=== PATIENT | female | born 1985 | race African-American/Black ===

== ENCOUNTER 2017-05-23 18:03 | Emergency (ER) | payer OTHER ==
[2017-05-23 18:10] VITALS: BP 152/75; PULSE 76; TEMP 98.4; BMI 28.3
[2017-05-23] MEDS ORDERED: SULFAMETHOXAZOLE/TRIMETHOPRIM 800MG/160MG D.S. TABLET PO ONE (19:14)
--- NOTE | 2017-05-23 19:15 | PDOC ---
History of Present Illness - General Chief Complaint: Rash Stated Complaint: PAIN Time Seen by Provider: 05/23/17 19:04 History Source: Patient Exam Limitations: No Limitations - History of Present Illness Initial Comments: 05/23/17 19:09 Patient had hair extensions placed last week, but felt pain and swelling to her scalp therefore had them removed. Noted after the removal there were multiple areas of tenderness and since that time has developed small abscesses to her scalp. Notes 3 areas that are most painful. Denies fever and has had no noted drainage but is difficult to see as they are in the back of her head. Agent states she is prone to abscesses and has had multiple in different areas of her body. Timing/Duration: reports: constant, getting worse Severity: Yes: mild, moderate Location: reports: scalp Past History - Travel Traveled outside of the country in the last 30 days: No Close contact w/someone who was outside of country & ill: No - Past Medical History Allergies/Adverse Reactions: Allergies Allergy/AdvReac Type Severity Reaction Status Date / Time No Known Allergies Allergy Verified 05/23/17 18:10 Home Medications: Ambulatory Orders Insulin Pump Cartridge [Cartridge Stamped] 0 units SQ DAILY 10/08/15 Aspirin [ASA -] 81 mg PO DAILY #0 tab.chew 03/15/16 Metoprolol Tartrate [Lopressor -] 25 mg PO DAILY #0 tablet 03/15/16 Sertraline HCl [Zoloft -] 100 mg PO DAILY #0 tablet 03/15/16 Atorvastatin Ca [Lipitor] 40 mg PO HS 05/23/17 Chlorhexidine Gluconate [Hibiclens For Decolonization -] 1 applic TP DAILY #1 bottle 05/23/17 Insulin (LOG) Aspart [NovoLOG -] 0 unit SQ DAILY 05/23/17 Lisinopril 5 mg PO ASDIR 05/23/17 Sulfamethoxazole/Trimethoprim [Bactrim *Ds*] 1 each PO BID #14 tablet 05/23/17 Asthma: No Cancer: No Cardiac Disorders: Yes (cardiac bypass) Diabetes: Yes HTN: Yes Hypercholesterolemia: Yes Seizures: No Thyroid Disease: Yes ( A CHILD) - Surgical History Abdominal Surgery: Yes (Gastric sleeve) Cardiac Surgery: Yes (CABG 2013/ stent) Gastric Stapling: Yes (sleeve 2012) - Reproductive History (#): 6 Para: 2 Therapeutic (s) & number: Yes (2) Spontaneous : 2 - Suicide/Smoking/Psychosocial Hx Smoking Status: Yes Smoking History: Current every day smoker Have you smoked in the past 12 months: No Number of Cigarettes Smoked Daily: 6 If you are a former smoker, when did you quit?: 09/12 Cigars Per Day: 1 Information on smoking cessation initiated: Yes 'Breaking Loose' booklet given: 05/23/17 Hx Alcohol Use: No Drug/Substance Use Hx: No Substance Use Type: None Hx Substance Use Treatment: No Review of Systems - Review of Systems Able to Perform ROS?: Yes Is the patient limited Hungarian proficient: Yes Constitutional: Yes: Symptoms Reported, See HPI, Malaise. No: Fever Integumentary: Yes: Symptoms Reported, See HPI, Lesions Neurological: Yes: Symptoms reported, See HPI, Headache (from the area of tenderness and abscess) All Other Systems: Reviewed and Negative *Physical Exam - Vital Signs Last Vital Signs Temp Pulse Resp BP Pulse Ox 98.4 F 76 19 152/75 100 05/23/17 18:08 05/23/17 18:08 05/23/17 18:08 05/23/17 18:08 05/23/17 18:08 - Physical Exam General Appearance: Yes: Nourished, Appropriately Dressed, Apparent Distress, Mild Distress HEENT: positive: BRDA, Normal ENT Inspection, TMs Normal, Pharynx Normal, Other (3 lesions to base of scalp fluctuant and painful) Neck: positive: Tender (lymphadenopathy to the right posterior cervical chains) , Supple, Lymphadenopathy (R) Respiratory/Chest: positive: Lungs Clear, Normal Breath Sounds Cardiovascular: positive: Regular Rate Extremity: positive: Normal Capillary Refill Integumentary: positive: Other (3 pointing fluctuant lesions to the base of scalp that are tender and warm to touch) Neurologic: positive: environmental compliance inspector II-XII NML intact, Fully Oriented, Alert, Normal Mood/ Affect, Normal Response Procedures - Incision and Drainage I&D Site: Right: Other (scalp, 2 lesions) Anesthesia: 1% Lidocaine Blade Size: 11 Progress Note - Progress Note Progress Note: Scalp abscess incised and drained. Culture sent, will start on Bactrim *DC/Admit/Observation/Transfer Diagnosis at time of Disposition: Abscess - Discharge Dispostion Disposition: HOME Condition at time of disposition: Stable Admit: No - Prescriptions Prescriptions: Sulfamethoxazole/Trimethoprim [Bactrim *Ds*] 1 each PO BID #14 tablet - Patient Instructions Printed Discharge Instructions: DI for Skin Abscess Additional Instructions: Rest, keep area elevated. Avoid strenuous activity or exercise until wound is healed Use hot soaks to area to bring more blood to the surface and encourage drainage May change dressings as needed to keep clean - Allow water from shower to wash area thoroughly for 2-3 minutes, and pat dry upon exit of shower and replace dressing. Change his dressing daily until the wound is completely healed. May use Tylenol or Motrin for mild pain relief Use stronger medications as directed and prescribed Continue all medications as prescribed- Bactrim every 12 hours for one week Followup with private physician in 2-3 days for wound check Return to emergency Department for worsening swelling, pain, redness, fevers as needed Mefoxin resistant Staphylococcus aureus is a normal skin bacteria and is mutated to be resistant to penicillin type drugs. The wounds may be draining and there for contagious to other family members. Vigorous handwashing and avoidance of skin contact of draining lesions it is important . All family members Will need to be protected and perform thorough cleaning of linens /towels/clothing. To decontaminate household: Soak in bath; in one half cup of bleach in 1 full tub of water 2 times a week x3 weeks With own scrub Nylon use chlorohexidine soap twice a week to decontaminate skin Clean tub /toilet with bleach wipes after each use Do not use same linens/avoid contact until lesions are healed Followup with private physician/knitting machine fixer head Take all of Bactrim as directed May use ibuprofen or Tylenol for pain relief Followup with PMD in one week if no resolution Make appointment with knitting machine fixer head for evaluation when possible - Post Discharge Activity Forms/Work/School Notes: Back to Work
[2017-05-23] MEDS ORDERED: SULFAMETHOXAZOLE/TRIMETHOPRIM 800MG/160MG D.S. TABLET ONE (19:33)
--- NOTE | 2017-05-25 12:41 | PDOC ---
Patient Follow-up (Call Back) - Post ED Follow - Up Condition at time of discharge: Stable Disposition at time of original discharge: HOME Reason for Call Back: Abnwl. Microbiology (Patient wound culture with positive MRSA on Bactrim appropriate treatment.)
== END 2017-05-23 19:47 | disposition home or self-care (01) ==
LOC: JERFT 18:03
PROC: 0J900ZZ Drainage of Scalp Subcutaneous Tissue and Fascia, Open Approach (ICD-10-PCS; principal; 2017-05-23)
DX: L02.811 Cutaneous abscess of head [any part, except face] (principal); I25.810 Atherosclerosis of coronary artery bypass graft(s) without angina pectoris; I10 Essential (primary) hypertension; F17.210 Nicotine dependence, cigarettes, uncomplicated; Z95.1 Presence of aortocoronary bypass graft; Z95.5 Presence of coronary angioplasty implant and graft; Z79.4 Long term (current) use of insulin; Z96.41 Presence of insulin pump (external) (internal); E10.9 Type 1 diabetes mellitus without complications; E78.00 Pure hypercholesterolemia, unspecified; Z98.84 Bariatric surgery status
CPT/HCPCS: 10060; 87070; 87186; 87205; 99281-25

== ENCOUNTER 2017-05-24 09:16 | Emergency (ER) | payer OTHER ==
[2017-05-24 09:25] VITALS: BP 129/67; PULSE 94; TEMP 98.3; BMI 25.8
--- NOTE | 2017-05-24 11:21 | PDOC ---
History of Present Illness - General Chief Complaint: Wound Stated Complaint: REVISIT Time Seen by Provider: 05/24/17 10:41 Past History - Past Medical History Allergies/Adverse Reactions: Allergies Allergy/AdvReac Type Severity Reaction Status Date / Time No Known Allergies Allergy Verified 05/24/17 09:18 Home Medications: Ambulatory Orders Insulin Pump Cartridge [Cartridge Stamped] 0 units SQ DAILY 10/08/15 Aspirin [ASA -] 81 mg PO DAILY #0 tab.chew 03/15/16 Metoprolol Tartrate [Lopressor -] 25 mg PO DAILY #0 tablet 03/15/16 Sertraline HCl [Zoloft -] 100 mg PO DAILY #0 tablet 03/15/16 Atorvastatin Ca [Lipitor] 40 mg PO HS 05/23/17 Chlorhexidine Gluconate [Hibiclens For Decolonization -] 1 applic TP DAILY #1 bottle 05/23/17 Insulin (LOG) Aspart [NovoLOG -] 0 unit SQ DAILY 05/23/17 Lisinopril 5 mg PO ASDIR 05/23/17 Sulfamethoxazole/Trimethoprim [Bactrim *Ds*] 1 each PO BID #14 tablet 05/23/17 Asthma: No Cancer: No Cardiac Disorders: Yes (cardiac bypass) Diabetes: Yes HTN: Yes Hypercholesterolemia: Yes Seizures: No Thyroid Disease: Yes ( A CHILD) - Surgical History Abdominal Surgery: Yes (Gastric sleeve) Cardiac Surgery: Yes (CABG 2013/ stent) Gastric Stapling: Yes (sleeve 2012) - Reproductive History (#): 6 Para: 2 Therapeutic (s) & number: Yes (2) Spontaneous : 2 - Suicide/Smoking/Psychosocial Hx Smoking Status: Yes Smoking History: Current every day smoker Have you smoked in the past 12 months: No Number of Cigarettes Smoked Daily: 6 If you are a former smoker, when did you quit?: 09/12 Cigars Per Day: 1 Information on smoking cessation initiated: No 'Breaking Loose' booklet given: 05/23/17 Hx Alcohol Use: No Drug/Substance Use Hx: No Substance Use Type: None Hx Substance Use Treatment: No *Physical Exam - Vital Signs Last Vital Signs Temp Pulse Resp BP Pulse Ox 98.3 F 94 H 18 129/67 99 05/24/17 09:18 05/24/17 09:18 05/24/17 09:18 05/24/17 09:18 05/24/17 09:18
[2017-05-24] MEDS ORDERED: SULFAMETHOXAZOLE/TRIMETHOPRIM 800MG/160MG D.S. TABLET PO ONE (11:22)
[2017-05-24] MEDS ORDERED: ACETAMINOPHEN 500 MG TABLET (FP) ONE (11:25)
[2017-05-24] MEDS ORDERED: SULFAMETHOXAZOLE/TRIMETHOPRIM 800MG/160MG D.S. TABLET ONE (11:25)
--- NOTE | 2017-05-24 11:31 | PDOC ---
Suture Removal/Wound Check HPI - History of Present Illness Chief Complaint: Wound Stated Complaint: REVISIT Time Seen by Provider: 05/24/17 10:41 History Source: Yes: Patient Exam Limitations: Yes: No Limitations Treated at: [facility] Date of Last ED visit: 05/23/17 - Previous ED Treatment Type of procedure performed on last visit: Yes: I&D of Abscess Tetanus Immunization: Yes: Up to Date Antibiotics Prescribed: Yes (bactrim) - Onset of Previous Treatment Date of Occurence: 05/23/17 Comment:: 05/24/17 11:31 My chief complaint: Raised tender area on scalp getting worse History of present illness: Patient is a 32-year-old female with a history of depression, hypertension, hyperlipidemia, and gastric sleeve and insulin- dependent diabetes and cardiac bypass surgery here today complaining of worsening tenderness and swelling of an abscess on her occipital scalp. Patient was here yesterday had I&D of area patient reports that it is getting bigger and more tender. Patient's tetanus is up-to-date patient has been afebrile no chills. Patient was unable to medicinal plant picker her Bactrim DS this morning did not take any dose today. Past History - Past Medical History Allergies/Adverse Reactions: Allergies Allergy/AdvReac Type Severity Reaction Status Date / Time No Known Allergies Allergy Verified 05/24/17 09:18 Home Medications: Ambulatory Orders Insulin Pump Cartridge [Cartridge Stamped] 0 units SQ DAILY 10/08/15 Aspirin [ASA -] 81 mg PO DAILY #0 tab.chew 03/15/16 Metoprolol Tartrate [Lopressor -] 25 mg PO DAILY #0 tablet 03/15/16 Sertraline HCl [Zoloft -] 100 mg PO DAILY #0 tablet 03/15/16 Atorvastatin Ca [Lipitor] 40 mg PO HS 05/23/17 Chlorhexidine Gluconate [Hibiclens For Decolonization -] 1 applic TP DAILY #1 bottle 05/23/17 Insulin (LOG) Aspart [NovoLOG -] 0 unit SQ DAILY 05/23/17 Lisinopril 5 mg PO ASDIR 05/23/17 Sulfamethoxazole/Trimethoprim [Bactrim *Ds*] 1 each PO BID #14 tablet 05/23/17 Asthma: No Cancer: No Cardiac Disorders: Yes (cardiac bypass) Diabetes: Yes (insulin dependent) HTN: Yes Hypercholesterolemia: Yes Psychiatric Problems: Yes (depression ) Seizures: No Thyroid Disease: Yes ( A CHILD) - Surgical History Abdominal Surgery: Yes (Gastric sleeve) Cardiac Surgery: Yes (CABG 2013/ stent) Gastric Stapling: Yes (sleeve 2012) - Reproductive History (#): 6 Para: 2 Therapeutic (s) & number: Yes (2) Spontaneous : 2 - Suicide/Smoking/Psychosocial Hx Smoking Status: Yes Smoking History: Current every day smoker Have you smoked in the past 12 months: No Number of Cigarettes Smoked Daily: 6 If you are a former smoker, when did you quit?: 09/12 Cigars Per Day: 1 Information on smoking cessation initiated: No 'Breaking Loose' booklet given: 05/23/17 Hx Alcohol Use: No Drug/Substance Use Hx: No Substance Use Type: None Hx Substance Use Treatment: No Suture Removal/Wound Check PE - Physical Exam Laceration/Wound Check Symptoms: reports: Pain, Other Comment (raised tender area lower occipital on rt.) Comments: 05/24/17 11:24 Raised tender area right lower occipital scalp with slight crusting of area Current Severity Level: Mild Maximum Severity Level: Moderate Location of Laceration/Wound: right: Head (occipital scalp rt. sided) *Review of Systems - Review of Systems Able to Perform ROS?: Yes Integumentary: Yes: Other (raised tender area rt. proximal scalp pea size with scabbing of area) Neurological: No: Symptoms reported Procedures - Consent Consent obtained: From Patient - Incision and Drainage I&D Site: Right: Other (occipital scalp ) Betadine cleansed: Yes Anesthesia: 1% Lidocaine Volume(ml): 2 Blade Size: 18 gauge needle Attempts: 2 (serosanquinous drainage small amount) Plain Packing: No Complications: none Dressing: No Medical Decision Making - Medical Decision Making 05/24/17 11:26 Patient is a 32-year-old female with a history of depression, hypertension, hyperlipidemia, and gastric sleeve and insulin-dependent diabetes and cardiac bypass surgery here today complaining of worsening tenderness and swelling of an abscess on her occipital scalp. Patient was here yesterday had I&D of area patient reports that it is getting bigger and more tender. Patient's tetanus is up-to-date patient has been afebrile no chills. Patient was unable to medicinal plant picker her Bactrim DS this morning did not take any dose today. abscess occipital scalp PLAN: I & D of abscess with minimla results acetaminophen 1000 mg po now BACTRIM DS 1 tab now *DC/Admit/Observation/Transfer Diagnosis at time of Disposition: Abscess, scalp - Discharge Dispostion Disposition: HOME Condition at time of disposition: Stable - Patient Instructions Additional Instructions: Apply warm soaks to raised area on scalp every 2-3 hours for 15 minutes each time Follow-up with your primary care provider within the next 2 days Return to emergency room if any fever or increased tenderness or swelling of areas involved Continue to take her antibiotic as previously ordered Patient voiced understanding of discharge instructions and all questions were answered And thank you for choosing [facility] emergency room for your medical needs today
== END 2017-05-24 11:50 | disposition home or self-care (01) ==
LOC: JERFT 09:16
PROC: 0J900ZZ Drainage of Scalp Subcutaneous Tissue and Fascia, Open Approach (ICD-10-PCS; principal; 2017-05-24)
DX: L02.811 Cutaneous abscess of head [any part, except face] (principal); E78.00 Pure hypercholesterolemia, unspecified; F32.9 Major depressive disorder, single episode, unspecified; E10.9 Type 1 diabetes mellitus without complications; Z79.4 Long term (current) use of insulin; Z96.41 Presence of insulin pump (external) (internal); I25.810 Atherosclerosis of coronary artery bypass graft(s) without angina pectoris; Z95.1 Presence of aortocoronary bypass graft; Z95.5 Presence of coronary angioplasty implant and graft
CPT/HCPCS: 10060; 99281-25

== ENCOUNTER 2017-10-15 09:43 | Emergency (ER) | payer OTHER ==
[2017-10-15 09:58] VITALS: BMI 26.6
--- NOTE | 2017-10-15 10:11 | PDOC ---
History of Present Illness - General Chief Complaint: Weakness Stated Complaint: DIZZINESS, BODYACHES Time Seen by Provider: 10/15/17 10:10 Past History - Past Medical History Allergies/Adverse Reactions: Allergies Allergy/AdvReac Type Severity Reaction Status Date / Time No Known Allergies Allergy Verified 10/15/17 09:53 Home Medications: Ambulatory Orders Insulin Pump Cartridge [Cartridge Stamped] 0 units SQ DAILY 10/08/15 Aspirin [ASA -] 81 mg PO DAILY #0 tab.chew 03/15/16 Metoprolol Tartrate [Lopressor -] 25 mg PO DAILY #0 tablet 03/15/16 Sertraline HCl [Zoloft -] 100 mg PO DAILY #0 tablet 03/15/16 Atorvastatin Ca [Lipitor] 40 mg PO HS 05/23/17 Chlorhexidine Gluconate [Hibiclens For Decolonization -] 1 applic TP DAILY #1 bottle 05/23/17 Insulin (LOG) Aspart [NovoLOG -] 0 unit SQ DAILY 05/23/17 Lisinopril 5 mg PO ASDIR 05/23/17 Sulfamethoxazole/Trimethoprim [Bactrim *Ds*] 1 each PO BID #14 tablet 05/23/17 Asthma: No Cancer: No Cardiac Disorders: Yes (cardiac bypass) COPD: No Diabetes: Yes (insulin dependent) HTN: Yes Hypercholesterolemia: Yes Psychiatric Problems: Yes (depression ) Seizures: No Thyroid Disease: Yes ( A CHILD) - Surgical History Abdominal Surgery: Yes (Gastric sleeve) Cardiac Surgery: Yes (CABG 2013/ stent) Gastric Stapling: Yes (sleeve 2012) - Reproductive History (#): 6 Para: 2 Therapeutic (s) & number: Yes (2) Spontaneous : 2 - Suicide/Smoking/Psychosocial Hx Smoking Status: Yes Smoking History: Current every day smoker Have you smoked in the past 12 months: Yes Number of Cigarettes Smoked Daily: 7 If you are a former smoker, when did you quit?: 09/12 Cigars Per Day: 1 Information on smoking cessation initiated: No 'Breaking Loose' booklet given: 05/23/17 Hx Alcohol Use: No Drug/Substance Use Hx: No Substance Use Type: None Hx Substance Use Treatment: No *Physical Exam - Vital Signs Last Vital Signs Temp Pulse Resp BP Pulse Ox 98.5 F 85 19 116/60 100 10/15/17 09:54 10/15/17 09:54 10/15/17 09:54 10/15/17 09:54 10/15/17 09:54
--- NOTE | 2017-10-15 10:52 | PDOC ---
History of Present Illness - General History Source: Patient Exam Limitations: No Limitations - History of Present Illness Initial Comments: 10/15/17 10:54 The patient is a 32 year old female, with a significant past medical history of IDDM, CAD s/p PCI and stenting, s/p CABG 08/2013, hypertension, hyperlipidemia, gastric sleeve, who presents to the emergency department with headache, dizziness, diffuse joint aches, and chills since yesterday. Patient endorses decreased appetite, nausea, and diarrhea but denies any abdominal pain, vomiting , or constipation. Patient reports associated leg cramping, ankle swelling, shortness of breath with exertion and after talking, but denies any chest pain, diaphoresis, or palpitations. Patient denies a cough, fever, sore throat, or lightheadedness. Patient reports she has been taking Ibuprofen for her symptoms , with minimal relief. Patient reports recent contact with her children who had similar symptoms. She denies any recent travel. The patient admits she is noncompliant with her medications. Allergies: NKDA Past Surgical History: Gastric sleeve, CABG, Cardiac stents Social History: Current everyday smoker. No ETOH or recreational drug use. 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 <Cha Hubbard - Last Filed: 10/15/17 11:07> <Rosey Little - Last Filed: 10/15/17 15:38> - General Chief Complaint: Weakness Stated Complaint: DIZZINESS, BODYACHES Time Seen by Provider: 10/15/17 10:10 Past History <Cha Hubbard - Last Filed: 10/15/17 11:07> - Past Medical History Asthma: No Cancer: No Cardiac Disorders: Yes (cardiac bypass) COPD: No Diabetes: Yes (insulin dependent) HTN: Yes Hypercholesterolemia: Yes Psychiatric Problems: Yes (depression ) Seizures: No Thyroid Disease: Yes ( A CHILD) - Surgical History Abdominal Surgery: Yes (Gastric sleeve) Cardiac Surgery: Yes (CABG 2013/ stent) Gastric Stapling: Yes (sleeve 2012) - Reproductive History (#): 6 Para: 2 Therapeutic (s) & number: Yes (2) Spontaneous : 2 - Suicide/Smoking/Psychosocial Hx Smoking Status: Yes Smoking History: Current every day smoker Have you smoked in the past 12 months: Yes Number of Cigarettes Smoked Daily: 7 If you are a former smoker, when did you quit?: 09/12 Cigars Per Day: 1 Information on smoking cessation initiated: No 'Breaking Loose' booklet given: 05/23/17 Hx Alcohol Use: No Drug/Substance Use Hx: No Substance Use Type: None Hx Substance Use Treatment: No <LittleJo AnnRosey - Last Filed: 10/15/17 15:38> - Past Medical History Allergies/Adverse Reactions: Allergies Allergy/AdvReac Type Severity Reaction Status Date / Time No Known Allergies Allergy Verified 10/15/17 09:53 Home Medications: Ambulatory Orders Insulin Pump Cartridge [Cartridge Stamped] 0 units SQ DAILY 10/08/15 Aspirin [ASA -] 81 mg PO DAILY #0 tab.chew 03/15/16 Metoprolol Tartrate [Lopressor -] 25 mg PO DAILY #0 tablet 03/15/16 Sertraline HCl [Zoloft -] 100 mg PO DAILY #0 tablet 03/15/16 Atorvastatin Ca [Lipitor] 40 mg PO HS 05/23/17 Chlorhexidine Gluconate [Hibiclens For Decolonization -] 1 applic TP DAILY #1 bottle 05/23/17 Insulin (LOG) Aspart [NovoLOG -] 0 unit SQ DAILY 05/23/17 Lisinopril 5 mg PO ASDIR 05/23/17 Sulfamethoxazole/Trimethoprim [Bactrim *Ds*] 1 each PO BID #14 tablet 05/23/17 Review of Systems - Review of Systems Able to Perform ROS?: Yes Comments:: 10/15/17 10:55 GENERAL/CONSTITUTIONAL: +Chills, fatigue. No fever. No weakness. HEAD, EYES, EARS, NOSE AND THROAT: No change in vision. No ear pain or discharge. No sore throat. CARDIOVASCULAR: +Shortness of breath with exertion and after talking. No chest pain. RESPIRATORY: No cough, wheezing, or hemoptysis. GASTROINTESTINAL: +Nausea, diarrhea. No vomiting, or constipation. GENITOURINARY: No dysuria, frequency, or change in urination. MUSCULOSKELETAL: +Diffuse joint aches. No muscle swelling or pain. No neck or back pain. SKIN: No rash NEUROLOGIC: +Headache, dizziness. No loss of consciousness, or change in strength/sensation. ENDOCRINE: +Decreased appetite. No increased thirst. No abnormal weight change. HEMATOLOGIC/LYMPHATIC: No anemia, easy bleeding, or history of blood clots. ALLERGIC/IMMUNOLOGIC: No hives or skin allergy. <Cha Hubbard - Last Filed: 10/15/17 11:07> *Physical Exam - Vital Signs Last Vital Signs Temp Pulse Resp BP Pulse Ox 98.5 F 85 19 116/60 100 10/15/17 09:54 10/15/17 09:54 10/15/17 09:54 10/15/17 09:54 10/15/17 09:54 - Physical Exam Comments: 10/15/17 11:12 GENERAL: Awake, alert, and fully oriented, in no acute distress HEAD: No signs of trauma EYES: PERRLA, EOMI, sclera anicteric, conjunctiva clear ENT: +Dry mucosa. Auricles normal inspection, hearing grossly normal, nares patent, oropharynx clear without exudates. NECK: Normal ROM, supple, no lymphadenopathy, JVD, or masses LUNGS: Breath sounds equal, clear to auscultation bilaterally. No wheezes, and no crackles HEART: Regular rate and rhythm, normal S1 and S2, no murmurs, rubs or gallops ABDOMEN: Soft, nontender, normoactive bowel sounds. No guarding, no rebound. No masses EXTREMITIES: Normal range of motion, no edema. No clubbing or cyanosis. No cords, erythema, or tenderness NEUROLOGICAL: Cranial nerves II through XII grossly intact. Normal speech, normal gait SKIN: Warm, Dry, normal turgor, no rashes or lesions noted. <Cha Hubbard - Last Filed: 10/15/17 11:07> - Vital Signs Last Vital Signs Temp Pulse Resp BP Pulse Ox 98.5 F 85 19 116/60 100 10/15/17 09:54 10/15/17 09:54 10/15/17 09:54 10/15/17 09:54 10/15/17 09:54 <Rosey Little - Last Filed: 10/15/17 15:38> Heart Score/ECG Review - ECG Impressions Comment:: EKG read 12:36- NSR 79 bpm, biphasic T wave V2-3 similar to prior EKG. <Rosey Little - Last Filed: 10/15/17 15:38> ED Treatment Course - LABORATORY CBC & Chemistry Diagram: 10/15/17 11:16 02/16/18 11:16 <Rosey Little - Last Filed: 10/15/17 15:38> Medical Decision Making - Medical Decision Making 10/15/17 12:04 Pt presents with weakness, body aches. Symptoms more consistent with flu, however, she has very complex medical history and does not adhere to medication regimen. Will obtain labs, give IVF, obtain CXR and UA. If all wnl, will DC home. <Rosey Little - Last Filed: 10/15/17 15:38> *DC/Admit/Observation/Transfer - Attestations Scribe Attestion: 10/15/17 10:55 Documentation prepared by Cha Hubbard, acting as medical receptionist medical assistant for Rosey Little MD. <Cha Hubbard - Last Filed: 10/15/17 11:07> - Discharge Dispostion Admit: No <Rosey Little - Last Filed: 10/15/17 15:38> Diagnosis at time of Disposition: Weakness, Hyperglycemia - Discharge Dispostion Disposition: HOME Condition at time of disposition: Stable - Patient Instructions Printed Discharge Instructions: DI for Dehydration -- Adult, DI for Hyperglycemia -- Adult - Post Discharge Activity Forms/Work/School Notes: Back to Work
[2017-10-15] MEDS ORDERED: SODIUM CHLORIDE 1,000 ML IV STA (11:07)
[2017-10-15 11:50] LABS: BASO % 0.8 % (0-2.0); EOS % 0.7 % (0-4.5); HEMATOCRIT 32.8 % (32.4-45.2); HEMOGLOBIN 9.9 GM/dL (10.7-15.3); LYMPH % 26.2 % (8-40); MCHC 30.1 g/dl (32.0-36.0); MEAN CELL VOLUME 76.3 fl (80-96); MEAN PLT VOLUME 9.2 fl (7.5-11.1); MONO % 6.5 % (3.8-10.2); NEUT % 65.8 % (42.8-82.8); PLATELET COUNT 343 K/MM3 (134-434); RDW 17.4 % (11.6-15.6); WHITE BLOOD COUNT 4.4 K/mm3 (4.0-10.0)
[2017-10-15 12:04] LABS: ALBUMIN 2.3 g/dl (3.4-5.0); ANION GAP 12 (8-16); BILIRUBIN,TOTAL 0.2 mg/dL (0.2-1.0); BLOOD UREA NITROGEN 20 mg/dL (7-18); CALCIUM 7.4 mg/dL (8.5-10.1); CHLORIDE 101 mmol/L (98-107); CO2 22 mmol/L (21-32); CREATININE 1.4 mg/dL (0.55-1.02); POTASSIUM 4.1 mmol/L (3.5-5.1); SGOT/AST 37 U/L (15-37); SGPT/ALT 29 U/L (12-78); SODIUM 135 mmol/L (136-145); TOT PROT 6.1 g/dl (6.4-8.2)
[2017-10-15 12:06] LABS: ALK PHOS 203 U/L (45-117)
[2017-10-15 12:13] LABS: GLUCOSE,RANDOM 312 mg/dL (74-106)
[2017-10-15] MEDS ORDERED: INSULIN REGULAR HUMAN 100 UNITS/ML *VIAL SQ ONE (12:14)
[2017-10-15] MEDS ORDERED: INSULIN (NOVOLOG) ASPART 100 UNITS/ML 10ML VIAL ONE (12:27)
[2017-10-15 12:46] LABS: URINE APPEARANCE CLEAR; URINE BILIRUBIN NEGATIVE (NEGATIVE); URINE BLOOD 1+ (NEGATIVE); URINE COLOR LTYELLOW; URINE GLUCOSE (UA) 3+ (NEGATIVE); URINE KETONE NEGATIVE (NEGATIVE); URINE LEUK ESTERASE NEGATIVE (NEGATIVE); URINE NITRITE NEGATIVE (NEGATIVE); URINE UROBILINOGEN NEGATIVE mg/dL (0.2-1.0)
[2017-10-15 12:49] LABS: URINE PROTEIN 1+ (NEGATIVE)
[2017-10-15 12:50] LABS: EPI CELLS RARE /HPF (FEW)
[2017-10-15] MEDS ORDERED: ACETAMINOPHEN 325 MG TABLET (FP) PO ONE (13:29)
[2017-10-15] MEDS ORDERED: ACETAMINOPHEN 325 MG TABLET (FP) ONE (13:39)
[2017-10-15 14:12] VITALS: BP 132/75; PULSE 79; TEMP 98.1
--- NOTE | 2017-10-16 12:15 | EKG ---
Test Reason : Blood Pressure : / mmHG Vent. Rate : 079 BPM Atrial Rate : 079 BPM P-R Int : 138 ms QRS Dur : 094 ms QT Int : 398 ms P-R-T Axes : 033 040 032 degrees QTc Int : 456 ms NORMAL SINUS RHYTHM T WAVE ABNORMALITY, CONSIDER ANTERIOR ISCHEMIA ABNORMAL ECG WHEN COMPARED WITH ECG OF 14-MAR-2016 15:01, NO SIGNIFICANT CHANGE WAS FOUND Confirmed by LORNA VELOZ MD ([id number]) on 10/16/2017 12:15:07 PM Referred By: Confirmed By:LORNA VELOZ MD
== END 2017-10-15 13:50 | disposition home or self-care (01) ==
LOC: JER 09:43
PROC: 3E0337Z Introduction of Electrolytic and Water Balance Substance into Peripheral Vein, Percutaneous Approach (ICD-10-PCS; principal; 2017-10-15)
DX: E09.65 Drug or chemical induced diabetes mellitus with hyperglycemia (principal); Z79.4 Long term (current) use of insulin; R53.1 Weakness; I25.10 Atherosclerotic heart disease of native coronary artery without angina pectoris; I10 Essential (primary) hypertension; Z95.1 Presence of aortocoronary bypass graft; Z95.5 Presence of coronary angioplasty implant and graft; E78.00 Pure hypercholesterolemia, unspecified
CPT/HCPCS: 36415; 71046-TC-FY; 80053; 81003; 81015; 82550; 84484; 84703; 85025; 87086; 93005; 93010; 96360; 99285-25; J7030

== ENCOUNTER 2017-11-20 11:44 | Inpatient (IN) | payer OTHER ==
[2017-11-20] MEDS ORDERED: SODIUM CHLORIDE 1,000 ML IV SCH (13:15)
[2017-11-20 13:34] LABS: EOS % 0.5 % (0-4.5); MEAN PLT VOLUME 9.2 fl (7.5-11.1)
[2017-11-20 13:36] LABS: BASO % 0.9 % (0-2.0); HEMATOCRIT 31.7 % (32.4-45.2); HEMOGLOBIN 9.9 GM/dL (10.7-15.3); LYMPH % 19.7 % (8-40); MCH 23.5 pg (25.7-33.7); MCHC 31.3 g/dl (32.0-36.0); MEAN CELL VOLUME 74.9 fl (80-96); MONO % 6.9 % (3.8-10.2); PLATELET COUNT 364 K/MM3 (134-434); RBC 4.23 M/mm3 (3.60-5.2); WHITE BLOOD COUNT 8.5 K/mm3 (4.0-10.0)
[2017-11-20 13:44] LABS: URINE APPEARANCE CLEAR; URINE BILIRUBIN NEGATIVE (<2.0 mg/dL); URINE BLOOD NEGATIVE (NEGATIVE); URINE COLOR COLORLESS; URINE GLUCOSE (UA) 3+ (NEGATIVE); URINE KETONE 1+ (NEGATIVE); URINE LEUK ESTERASE NEGATIVE (NEGATIVE); URINE NITRITE NEGATIVE (NEGATIVE); URINE UROBILINOGEN NEGATIVE mg/dL (0.2-1.0)
[2017-11-20] MEDS ORDERED: INSULIN REGULAR HUMAN 100 UNITS/ML *VIAL IVPUSH ONE (13:44)
[2017-11-20] MEDS ORDERED: CEFTRIAXONE IVPB ONE (13:45)
[2017-11-20] MEDS ORDERED: DEXTROSE 5% IVPB ONE (13:45)
[2017-11-20] MEDS ORDERED: WATER IVPB ONE (13:45)
[2017-11-20 13:46] LABS: URINE PROTEIN 1+ (NEGATIVE)
[2017-11-20] MEDS ORDERED: KETOROLAC TROMETHAMINE 30 MG/1 ML VIAL IVPUSH ONE (13:46)
[2017-11-20] MEDS ORDERED: KETOROLAC TROMETHAMINE 30 MG/1 ML VIAL ONE (13:48)
[2017-11-20] MEDS ORDERED: CEFTRIAXONE 1 GM/50 ML BAG ONE (13:48)
[2017-11-20 13:49] LABS: EPI CELLS RARE /HPF (FEW)
[2017-11-20] MEDS ORDERED: INSULIN REGULAR HUMAN 100 UNITS/ML *VIAL ONE (13:50)
[2017-11-20 14:14] LABS: ALBUMIN 2.8 g/dl (3.4-5.0); ANION GAP 16 (8-16); BLOOD UREA NITROGEN 24 mg/dL (7-18); CALCIUM 8.9 mg/dL (8.5-10.1); CHLORIDE 92 mmol/L (98-107); CO2 24 mmol/L (21-32); CREATININE 1.2 mg/dL (0.55-1.02); POTASSIUM 4.6 mmol/L (3.5-5.1); SGOT/AST 26 U/L (15-37); SGPT/ALT 26 U/L (12-78); SODIUM 132 mmol/L (136-145)
[2017-11-20 14:16] LABS: ALK PHOS 205 U/L (45-117); BILIRUBIN,TOTAL 0.4 mg/dL (0.2-1.0); TOT PROT 7.1 g/dl (6.4-8.2)
[2017-11-20 14:17] LABS: GLUCOSE,RANDOM 514 mg/dL (74-106)
[2017-11-20] MEDS ORDERED: SODIUM CHLORIDE 0.9% 500 ML INFUS.BAG IV STA ×2 (15:07→16:15)
--- NOTE | 2017-11-20 15:28 | PDOC ---
History of Present Illness - General History Source: Patient Exam Limitations: No Limitations - History of Present Illness Initial Comments: 11/20/17 15:35 The patient is a 32 year old female, with a significant past medical history of IDDM, CAD s/p PCI and stenting, s/p CABG 08/2013, hypertension, hyperlipidemia, gastric sleeve who presents to the emergency department with elevated blood glucose and L toe wound. Patient also endorses L second toe wound pain and drainage yesterday. Patient denies any fever or chills. Patient denies taking any medications for relief. Patient reports her blood sugars have been high recently and endorses increased thirst, urination and minor chest discomfort. A triage, patients BG read high so she took her regular insulin dose. LMP: one week ago. Patient denies chest pain, headache or dizziness. Patient denies fever, chills, abdominal pain, nausea, vomit, diarrhea or constipation. Patient denies dysuria, frequency, urgency or hematuria. Patient denies sick contacts or recent travel. Allergies: NKA Past surgical history:Gastric sleeve, CABG, Cardiac stents Social history: Current everyday smoker. No ETOH or recreational drug use. 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 PCP: None <Eva Garrett - Last Filed: 11/20/17 15:35> <Aleyda White - Last Filed: 11/20/17 17:58> - General Chief Complaint: Pain Stated Complaint: LEFT TOE PAIN Time Seen by Provider: 11/20/17 12:54 Past History <Eva Garrett - Last Filed: 11/20/17 15:35> - Past Medical History Asthma: No Cancer: No Cardiac Disorders: Yes (cardiac bypass) COPD: No Diabetes: Yes (insulin dependent) HTN: Yes Hypercholesterolemia: Yes Psychiatric Problems: Yes (depression ) Seizures: No Thyroid Disease: Yes ( A CHILD) - Surgical History Abdominal Surgery: Yes (Gastric sleeve) Cardiac Surgery: Yes (CABG 2013/ stent) Gastric Stapling: Yes (sleeve 2012) - Reproductive History (#): 6 Para: 2 Therapeutic (s) & number: Yes (2) Spontaneous : 2 - Suicide/Smoking/Psychosocial Hx Smoking Status: Yes Smoking History: Current every day smoker Have you smoked in the past 12 months: Yes Number of Cigarettes Smoked Daily: 7 If you are a former smoker, when did you quit?: 09/12 Cigars Per Day: 1 Information on smoking cessation initiated: No 'Breaking Loose' booklet given: 05/23/17 Hx Alcohol Use: No Drug/Substance Use Hx: No Substance Use Type: None Hx Substance Use Treatment: No <Aleyda White - Last Filed: 11/20/17 17:58> - Past Medical History Allergies/Adverse Reactions: Allergies Allergy/AdvReac Type Severity Reaction Status Date / Time No Known Allergies Allergy Verified 11/20/17 11:59 Home Medications: Ambulatory Orders Aspirin [ASA -] 81 mg PO DAILY #0 tab.chew 03/15/16 Atorvastatin Ca [Lipitor] 80 mg PO HS 05/23/17 Insulin (LOG) Aspart [NovoLOG -] 0 unit SQ TID 05/23/17 Lisinopril 5 mg PO ASDIR 05/23/17 Insulin Glargine,Hum.rec.anlog [Lantus] 26 unit SQ HS 11/20/17 Metoprolol Succinate [Toprol Xl] 25 mg PO DAILY 11/20/17 Review of Systems - Review of Systems Able to Perform ROS?: Yes Comments:: 11/20/17 15:35 Constitutional - Pt denies Fever, Chills, weakness, HEENT: Denies vision changes, sore throat RESPIRATORY: Denies cough, sob, hemoptysis CARDIAC: Denies chest pain, palpitations, light headedness, leg swelling ABD/GI: Denies abd pain, nausea, vomiting, blood per rectum, melena, diarrhea : Denies dysuria, frequency, discharge MUSCULOSKELETAL - Denies back pain, joint swelling SKIN - +L toe wound. Denies bruising, erythema, rash NEUROLOGICAL: Denies headache, numbness, focal weakness, tingling, ataxia, weakness HEMATOLOGIC: Denies anemia, easy bruising, easy bleeding ENDOCRINE: +increased thirst and urination. <Eva Garrett - Last Filed: 11/20/17 15:35> *Physical Exam - Vital Signs Last Vital Signs Temp Pulse Resp BP Pulse Ox 98.1 F 87 18 136/76 100 11/20/17 11:55 11/20/17 11:55 11/20/17 11:55 11/20/17 11:55 11/20/17 11:55 - Physical Exam Comments: 11/20/17 15:36 GENERAL: The patient is awake, alert, and fully oriented, Nontoxic - in no acute distress. HEAD: Normocephalic, atraumatic. EYES: Extraocular movements intact, sclera anicteric, conjunctiva clear. ENT: Normal voice, moist mucous membranes. NECK: Normal range of motion, supple without lymphadenopathy, JVD, or masses. LUNGS: Breath sounds equal, clear to auscultation bilaterally. No wheezes, no crackles, no rales. HEART: Regular rate and rhythm, normal S1 and S2 without murmur, rub or gallop. ABDOMEN: Soft, nontender, normoactive bowel sounds. No guarding, no rebound. No masses. EXTREMITIES: Normal range of motion, no edema. No clubbing or cyanosis. No cords , erythema, or tenderness. +Felon on L foot 2nd toe. Minimal surrounding erythema. NEUROLOGICAL: Fully Oriented, Alert, Normal Mood/Affect, Motor Strength 5/5. No facial asymmetry, Normal speech. SKIN: Warm, Dry, normal turgor, no rashes or lesions noted. <Eva Garrett - Last Filed: 11/20/17 15:35> - Vital Signs Last Vital Signs Temp Pulse Resp BP Pulse Ox 98.1 F 87 18 136/76 100 11/20/17 11:55 11/20/17 11:55 11/20/17 11:55 11/20/17 11:55 11/20/17 11:55 <Aleyda White - Last Filed: 11/20/17 17:58> ED Treatment Course - LABORATORY CBC & Chemistry Diagram: 11/20/17 13:30 11/20/17 13:30 - ADDITIONAL ORDERS Additional order review: Laboratory Results 11/20/17 11/20/17 11/20/17 13:40 13:30 13:30 Sodium Potassium Chloride Carbon Dioxide Anion Gap BUN Creatinine Creat Clearance w eGFR Random Glucose Lactic Acid 3.9 H* Calcium Total Bilirubin AST ALT Alkaline Phosphatase Total Protein Albumin Serum , Qual Negative Urine Color Colorless Urine Appearance Clear Urine pH 5.0 Ur Specific [place] 1.017 Urine Protein 1+ H Urine Glucose (UA) 3+ H Urine Ketones 1+ H Urine Blood Negative Urine Nitrite Negative Urine Bilirubin Negative Urine Urobilinogen Negative Ur Leukocyte Esterase Negative Urine WBC (Auto) <1 Urine RBC (Auto) 1 Ur Epithelial Cells Rare 11/20/17 13:30 Sodium 132 L Potassium 4.6 Chloride 92 L Carbon Dioxide 24 Anion Gap 16 BUN 24 H Creatinine 1.2 H Creat Clearance w eGFR 51.43 Random Glucose 514 H* Lactic Acid Calcium 8.9 Total Bilirubin 0.4 D AST 26 ALT 26 Alkaline Phosphatase 205 H Total Protein 7.1 Albumin 2.8 L Serum , Qual Urine Color Urine Appearance Urine pH Ur Specific [place] Urine Protein Urine Glucose (UA) Urine Ketones Urine Blood Urine Nitrite Urine Bilirubin Urine Urobilinogen Ur Leukocyte Esterase Urine WBC (Auto) Urine RBC (Auto) Ur Epithelial Cells 11/20/17 13:30 RBC 4.23 MCV 74.9 L MCHC 31.3 L RDW 17.0 H MPV 9.2 Neutrophils % 72.0 Lymphocytes % 19.7 D Monocytes % 6.9 Eosinophils % 0.5 Basophils % 0.9 - Medications Given in the ED: ED Medications Discontinued Medications Generic Name Dose Route Start Last Admin Trade Name Freq PRN Reason Stop Dose Admin Ceftriaxone Sodium 850 mg/ 50 mls @ 100 mls/hr 11/20/17 13:45 11/20/17 14:20 Dextrose IVPB 11/20/17 14:14 100 mls/hr ONCE ONE Administration Insulin Human Regular 6 units 11/20/17 13:44 11/20/17 14:05 Novolin R Vial *For Ivpush Or Iv Drip Only* IVPUSH 11/20/17 13:45 6 units ONCE ONE Administration Ketorolac Tromethamine 30 mg 11/20/17 13:46 11/20/17 14:20 Toradol Injection - IVPUSH 11/20/17 13:47 30 mg ONCE ONE Administration Sodium Chloride 1,000 ml 11/20/17 15:07 11/20/17 15:32 Normal Saline - IV 11/20/17 15:08 1,000 ml ONCE STA Administration <Eva Garrett - Last Filed: 11/20/17 15:35> - LABORATORY CBC & Chemistry Diagram: 11/20/17 17:00 11/20/17 16:53 - ADDITIONAL ORDERS Additional order review: Laboratory Results 11/20/17 11/20/17 11/20/17 13:40 13:30 13:30 Sodium Potassium Chloride Carbon Dioxide Anion Gap BUN Creatinine Creat Clearance w eGFR Random Glucose Lactic Acid 3.9 H* Calcium Total Bilirubin AST ALT Alkaline Phosphatase Total Protein Albumin Serum , Qual Negative Urine Color Colorless Urine Appearance Clear Urine pH 5.0 Ur Specific [place] 1.017 Urine Protein 1+ H Urine Glucose (UA) 3+ H Urine Ketones 1+ H Urine Blood Negative Urine Nitrite Negative Urine Bilirubin Negative Urine Urobilinogen Negative Ur Leukocyte Esterase Negative Urine WBC (Auto) <1 Urine RBC (Auto) 1 Ur Epithelial Cells Rare 11/20/17 13:30 Sodium 132 L Potassium 4.6 Chloride 92 L Carbon Dioxide 24 Anion Gap 16 BUN 24 H Creatinine 1.2 H Creat Clearance w eGFR 51.43 Random Glucose 514 H* Lactic Acid Calcium 8.9 Total Bilirubin 0.4 D AST 26 ALT 26 Alkaline Phosphatase 205 H Total Protein 7.1 Albumin 2.8 L Serum , Qual Urine Color Urine Appearance Urine pH Ur Specific [place] Urine Protein Urine Glucose (UA) Urine Ketones Urine Blood Urine Nitrite Urine Bilirubin Urine Urobilinogen Ur Leukocyte Esterase Urine WBC (Auto) Urine RBC (Auto) Ur Epithelial Cells 11/20/17 13:30 RBC 4.23 MCV 74.9 L MCHC 31.3 L RDW 17.0 H MPV 9.2 Neutrophils % 72.0 Lymphocytes % 19.7 D Monocytes % 6.9 Eosinophils % 0.5 Basophils % 0.9 - RADIOLOGY Radiology Studies Ordered: Category Date Time Status CHEST PA & LAT [RAD] Stat Radiology 11/20/17 13:12 Completed FOOT-LEFT [RAD] Stat Radiology 11/20/17 12:56 Completed - Medications Given in the ED: ED Medications Discontinued Medications Generic Name Dose Route Start Last Admin Trade Name Freq PRN Reason Stop Dose Admin Ceftriaxone Sodium 850 mg/ 50 mls @ 100 mls/hr 11/20/17 13:45 11/20/17 14:20 Dextrose IVPB 11/20/17 14:14 100 mls/hr ONCE ONE Administration Insulin Human Regular 6 units 11/20/17 13:44 11/20/17 14:05 Novolin R Vial *For Ivpush Or Iv Drip Only* IVPUSH 11/20/17 13:45 6 units ONCE ONE Administration Ketorolac Tromethamine 30 mg 11/20/17 13:46 11/20/17 14:20 Toradol Injection - IVPUSH 11/20/17 13:47 30 mg ONCE ONE Administration <Aleyda White - Last Filed: 11/20/17 17:58> Medical Decision Making - Medical Decision Making 11/20/17 17:51 I, Dr. Aleyda White, attest that the scribes documentation that appears above has been prepared under my direction and personally reviewed by me. I confirmed that the note above accurately reflects all work, treatment, procedures, and medical decision-making performed by me. Pt with elevated lactic acid level, blod sugar elevated with 2 + ketones, pt given 2 liters of fluid and insulin alomg with rocephin, Pt c/o cough and has left foot toe infection decision made to admit to hospitalist, Pt's anion gap is 16, pt is insiting upon eating as she isd very hungry with no abdominal pain. Hospitalist has accepted admmission. Pt was admitted to medical unit but Dr Newton will repeat acetone and chemistries and decide if patient needs condition up graded and placed on an insuluin drip. Repeat chemistries and current anion gap is 8 pt admitted to medica floor 11/20/17 17:57 11/20/17 17:57 <Aleyda White - Last Filed: 11/20/17 17:58> *DC/Admit/Observation/Transfer - Attestations Scribe Attestion: 11/20/17 15:36 Documentation prepared by Eva Garrett, acting as medical care manager for Aleyda White MD <Eva Garrett - Last Filed: 11/20/17 15:35> - Discharge Dispostion Admit: Yes <Aleyda White - Last Filed: 11/20/17 17:58> Diagnosis at time of Disposition: DKA (diabetic ketoacidoses), Foot pain, left - Discharge Dispostion Condition at time of disposition: Stable
[2017-11-20] MEDS ORDERED: SODIUM CHLORIDE 1,000 ML IV STA (16:15)
[2017-11-20 17:07] LABS: HEMATOCRIT 29.4 % (32.4-45.2); HEMOGLOBIN 9.4 GM/dL (10.7-15.3); MCH 24.1 pg (25.7-33.7); MCHC 32.1 g/dl (32.0-36.0); MEAN PLT VOLUME 9.2 fl (7.5-11.1); PLATELET COUNT 326 K/MM3 (134-434); RBC 3.91 M/mm3 (3.60-5.2); RDW 16.5 % (11.6-15.6); WHITE BLOOD COUNT 7.3 K/mm3 (4.0-10.0)
[2017-11-20] MEDS ORDERED: ACETAMINOPHEN WITH CODEINE 300MG/30MG TABLET PO ONE (17:12)
[2017-11-20] MEDS ORDERED: ACETAMINOPHEN WITH CODEINE 300MG/30MG TABLET ONE (17:15)
[2017-11-20] MEDS ORDERED: INSULIN (NOVOLOG) ASPART 100 UNITS/ML 10ML VIAL SQ ONE (17:21)
[2017-11-20] MEDS ORDERED: PIPERACILLIN/TAZOB 3.375 GM 50 ML IVPB ONE (17:23)
[2017-11-20 17:39] LABS: ANION GAP 8 (8-16); BLOOD UREA NITROGEN 27 mg/dL (7-18); CALCIUM 8.2 mg/dL (8.5-10.1); CHLORIDE 98 mmol/L (98-107); CO2 27 mmol/L (21-32); CREATININE 1.1 mg/dL (0.55-1.02); POTASSIUM 4.4 mmol/L (3.5-5.1); SODIUM 133 mmol/L (136-145)
--- NOTE | 2017-11-20 17:40 | PN ---
Teaching Attending Note Name of Resident: Lidia Thibodeaux ATTENDING PHYSICIAN STATEMENT I saw and evaluated the patient. I reviewed the resident's note and discussed the case with the resident. I agree with the resident's findings and plan as documented. SUBJECTIVE: CC: L foot and 2nd toe pain HPI: 32 y/o lady with h/o IDDM type I , HTN, depression , gastric sleeve , CAD , s/p CABG , and stents , anemia , preeclamsia , C sections and endometrial abscess who presented with pain in L second toe . pain and inflammation started 3 days ago at work, she josé miguel not treat it or seek help, sandoval and erythema got worse , and she saw pus draining form the toe earlier this am. she has DM I , had multiple DKs in past. she takes 26 units of lantus daily but not at a certain time, some times she forgets. on SSI as well she denies any fever or chills. she took lantus this am. she has no diarrhea , but feels thirsty and has increased urination . no abd pain. no N/V. no dysuria or frequency. has a cold ( sore throat and cough w yellow phlegm ) x 1 week. no SOB , . has recurrent exertional CP with resolution with rest . dose not have NG. pain subsides with rest, lasts < 30 min . 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 No PC free OBJECTIVE: NAd , AAox3. HEENT: MMM, oropharynx with slight erythema , and white exudate over upper part of R tonsil. enlarged Lymph node in R submandibular area, about 1 cm , mobile bile under skin and on deep structures. CV: RRR, 3/6 Sm at base , and lLSB. no JVD. Lungs: CTAB Abd:soft, NT, ND , NL BS . Ext: 1+ edema on both legs. hyperpigemented spots on legs and shins ,. L foot with erythema nad edema over dorsal foot. with erythema/edema/tenderness over L 2nd toes with purulent collection around nail bed. slight edema over L third toe but no erythema or tenderness. no fungal infection among toes. no gas felt under skin in dorsal foot . no erythema or edema on palntar aspect of feet . DP 2+ b/l. RP 2+ b/l ASSESSMENT AND PLAN: 32 y/o lady with h/o IDDM type I , HTN, depression , gastric sleeve , CAD , s/p CABG , and stents , anemia , preeclamsia , C sections and endometrial abscess who presented with pain in L second toe. She was found to have DKA and foot infection 1- L wound toe paronychia and cellulitis of L foot: no gas on exam. has h/o MRSA reviewing her previous cx. - paronychia needs to be drained. will ask sx to evaluate - received ceftriaxone in ER. will give vanco to cover MRSa nad zosyn to cover G - and Anerobes in this diabetic lady - send cx from drainage - blood cx - received IVF in ER , repeat lactic acid . - foot xray . 2- mild DKA : with severe hypoglycemia , ketones in urine, and AG of 16. received IV insulin in ER. repeat sugar in 300s, and Ag 16---> 8 . closed. received her lantus this am . - cover with SSI and lantus - give IVF for today and evaluate need tomorrow - treat infection 3- h/o CAD, s/p CABG, and stents. has recurrent angina. - will cont her cardiac meds BB , ASA . - f/u as out pt for stress test 4- TESS: due to volume depetion and infection . - hold lisinopril and cont IVF 5- h/o HTN: cont torpol . 6- pseudohyonatremia : corrected na 137 DVT PX HLOC threatened to leave AMA if we don't feed her . she understand the risks of DKA , worsening infection and . she will decide
[2017-11-20 17:43] LABS: GLUCOSE,RANDOM 376 mg/dL (74-106)
[2017-11-20] MEDS ORDERED: morphine SULFATE 4 MG/ML VIAL IVPUSH ONE (17:45)
[2017-11-20] MEDS ORDERED: morphine SULFATE 4 MG/ML VIAL ONE (17:47)
[2017-11-20] MEDS ORDERED: PIPERACILLIN/TAZOB 3.375 GM 3.375 GM/50 ML BAG IVPB ONE (17:52)
[2017-11-20 20:06] LABS: ALBUMIN 2.3 g/dl (3.4-5.0); ALK PHOS 167 U/L (45-117); ANION GAP 7 (8-16); BILIRUBIN,TOTAL 0.1 mg/dL (0.2-1.0); BLOOD UREA NITROGEN 26 mg/dL (7-18); CALCIUM 7.9 mg/dL (8.5-10.1); CHLORIDE 102 mmol/L (98-107); CO2 28 mmol/L (21-32); GLUCOSE,RANDOM 148 mg/dL (74-106); MAGNESIUM 1.8 mg/dL (1.8-2.4); PHOSPHOROUS 3.9 mg/dL (2.5-4.9); POTASSIUM 4.2 mmol/L (3.5-5.1); SGOT/AST 21 U/L (15-37); SGPT/ALT 19 U/L (12-78); SODIUM 137 mmol/L (136-145); TOT PROT 5.8 g/dl (6.4-8.2)
[2017-11-20] MEDS: metoPROLOL SUCCINATE 25 MG TAB.SR.24H (FP) PO SCH (20:55)
[2017-11-20] MEDS ORDERED: INSULIN (NOVOLOG) ASPART 100 UNITS/ML 10ML VIAL ONE (21:51)
[2017-11-20] MEDS: HEPARIN NA (PORCINE) 5,000 UNITS/ML 1ML VIAL SQ SCH (21:56)
[2017-11-20] MEDS: ATORVASTATIN CA 80 MG TABLET (FP) PO SCH (21:56)
[2017-11-20] MEDS: INSULIN SLIDING SCALE (NOVOLOG) 1 VIAL SQ SCH (21:57)
[2017-11-20] MEDS ORDERED: VANCOMYCIN 1,000 MG in DEXTROSE 5%-WATER - 250 ML IVPB ONE (22:00)
[2017-11-20] MEDS ORDERED: VANCOMYCIN 1,000 MG in DEXTROSE 5%-WATER - 250 ML IVPB SCH (22:00)
[2017-11-20 23:09] VITALS: BMI 24.8
[2017-11-20] MEDS: oxyCODONE HCL 5 MG TABLET PO PRN (23:25)
[2017-11-21] MEDS ORDERED: PIPERACILLIN/TAZOB 3.375 GM 3.375 GM in DEXTROSE 5%-WATER - 50 ML IVPB SCH (03:15)
--- NOTE | 2017-11-21 03:36 | HP ---
CHIEF COMPLAINT: left toe wound and high sugars PCP: HISTORY OF PRESENT ILLNESS: The patient is a 32 yo f w/ PMH DM, CAD, HTN who presents to the ED c/o a 3 day history of left toe pain and swelling. The patient states that 3 days ago, she noticed that her left second toe began to become swollen. Over the next few days , the swelling got progressively worse and became associated with pain. The infection began to spread from her toe into her foot, at which point the patient sought medical attention. The patient states that she is chronically noncompliant with her medications and her blood sugars are almost always high. She also endorses increased thirst and urinary frequency over the past few months. The patient also is complaining of mild chest discomfort over the past few weeks as well as sore throat and cough. The patient has visited her pen tender for this concern recently. Patient denies chest pain, shortness of breath, nausea, vomiting. In triage, the patient's blood sigar read "high" as which point she self administered 26u levemir and 6 units novolog ER course was notable for: (1) glucose 514, lactic acid 3.9, anion gap 16 , 2+ acetone in blood (2) CXR negative (3) foot XR negative Recent Travel: none PAST MEDICAL HISTORY: DM, CAD, HTN, HLD PAST SURGICAL HISTORY: PCI w/ stenting CABG Gastric sleeve Social History: Smoking: smokes 1 pack every 5 days for the past 20 years, quit 6 hours ago Alcohol: socially Drugs: smokes marijuana occasionally Family History: Non-contributory Allergies No Known Allergies Allergy (Verified 11/20/17 11:59) HOME MEDICATIONS: Home Medications Medication Instructions Recorded Aspirin [ASA -] 81 mg PO DAILY #0 tab.chew 03/15/16 Atorvastatin Ca [Lipitor] 80 mg PO HS 05/23/17 Insulin (LOG) Aspart [NovoLOG -] 0 unit SQ TID 05/23/17 Lisinopril 5 mg PO ASDIR 05/23/17 Insulin Glargine,Hum.rec.anlog 26 unit SQ HS 11/20/17 [Lantus] Metoprolol Succinate [Toprol Xl] 25 mg PO DAILY 11/20/17 REVIEW OF SYSTEMS CONSTITUTIONAL: Absent: fever, chills, diaphoresis, generalized weakness, malaise, loss of appetite, weight change HEENT: Absent: rhinorrhea, nasal congestion, throat swelling, difficulty swallowing, mouth swelling, ear pain, eye pain, visual changes CARDIOVASCULAR: Absent: syncope, palpitations, irregular heart rate, lightheadedness, peripheral edema RESPIRATORY: Absent: shortness of breath, dyspnea with exertion, orthopnea, wheezing, stridor , hemoptysis GASTROINTESTINAL: Absent: abdominal pain, abdominal distension, nausea, vomiting, diarrhea, constipation, melena, hematochezia GENITOURINARY: Absent: dysuria, frequency, urgency, hesitancy, hematuria, flank pain, genital pain MUSCULOSKELETAL: Absent: myalgia, arthralgia, joint swelling, back pain, neck pain SKIN: Absent: rash, itching, pallor HEMATOLOGIC/IMMUNOLOGIC: Absent: easy bleeding, easy bruising, lymphadenopathy, frequent infections ENDOCRINE: Absent: unexplained weight gain, unexplained weight loss, heat intolerance, cold intolerance NEUROLOGIC: Absent: headache, focal weakness or paresthesias, dizziness, unsteady gait, seizure, mental status changes, bladder or bowel incontinence PSYCHIATRIC: Absent: anxiety, depression, suicidal or homicidal ideation, hallucinations. PHYSICAL EXAMINATION Vital Signs - 24 hr 11/20/17 11/20/17 11/20/17 11:55 18:43 20:41 Temperature 98.1 F 97.7 F 98.1 F Pulse Rate 87 Pulse Rate [ 74 81 Apical] Respiratory 18 17 16 Rate Blood Pressure 136/76 Blood Pressure 140/78 144/74 [Right Arm] O2 Sat by Pulse 100 97 98 Oximetry (%) 11/20/17 11/20/17 20:42 22:39 Temperature 98.8 F Pulse Rate 75 Pulse Rate [ Apical] Respiratory 18 Rate Blood Pressure 134/64 Blood Pressure [Right Arm] O2 Sat by Pulse 98 100 Oximetry (%) GENERAL: Awake, alert, and fully oriented, in no acute distress. HEAD: Normal with no signs of trauma. EYES: Pupils equal, round and reactive to light, extraocular movements intact, sclera anicteric, conjunctiva clear. No lid lag. NECK: Normal range of motion, supple without lymphadenopathy, JVD, or masses. LUNGS: Breath sounds equal, clear to auscultation bilaterally. No wheezes, and no crackles. No accessory muscle use. HEART: Regular rate and rhythm, normal S1 and S2 without murmur, rub or gallop. ABDOMEN: Soft, nontender, not distended, normoactive bowel sounds, no guarding, no rebound, no masses. No hepatomegaly or splenomegaly. LOWER EXTREMITIES: 2+ pulses, warm, well-perfused. No calf tenderness. No peripheral edema. NEUROLOGICAL: Cranial nerves II-X intact. Normal speech. SKIN: Warm, dry, normal turgor, normal capillary refill. There is a paronychia on the left second toe with associated erythema and swelling extending proximally into the foot. Laboratory Results - last 24 hr 11/20/17 11/20/17 11/20/17 13:30 13:30 13:30 WBC 8.5 D RBC 4.23 Hgb 9.9 L Hct 31.7 L MCV 74.9 L MCH 23.5 L MCHC 31.3 L RDW 17.0 H Plt Count 364 MPV 9.2 Neutrophils % 72.0 Lymphocytes % 19.7 D Monocytes % 6.9 Eosinophils % 0.5 Basophils % 0.9 Sodium 132 L Potassium 4.6 Chloride 92 L Carbon Dioxide 24 Anion Gap 16 BUN 24 H Creatinine 1.2 H Creat Clearance w eGFR 51.43 POC Glucometer Random Glucose 514 H* Lactic Acid Calcium 8.9 Phosphorus Magnesium Total Bilirubin 0.4 D AST 26 ALT 26 Alkaline Phosphatase 205 H Total Protein 7.1 Albumin 2.8 L Serum , Qual Urine Color Urine Appearance Urine pH Ur Specific Beatty Urine Protein Urine Glucose (UA) Urine Ketones Urine Blood Urine Nitrite Urine Bilirubin Urine Urobilinogen Ur Leukocyte Esterase Urine WBC (Auto) Urine RBC (Auto) Ur Epithelial Cells Acetone, Qual Positive moderate 2+ H 11/20/17 11/20/17 11/20/17 13:30 13:30 13:36 WBC RBC Hgb Hct MCV MCH MCHC RDW Plt Count MPV Neutrophils % Lymphocytes % Monocytes % Eosinophils % Basophils % Sodium Potassium Chloride Carbon Dioxide Anion Gap BUN Creatinine Creat Clearance w eGFR POC Glucometer > 400 Random Glucose Lactic Acid 3.9 H* Calcium Phosphorus Magnesium Total Bilirubin AST ALT Alkaline Phosphatase Total Protein Albumin Serum , Qual Negative Urine Color Urine Appearance Urine pH Ur Specific Beatty Urine Protein Urine Glucose (UA) Urine Ketones Urine Blood Urine Nitrite Urine Bilirubin Urine Urobilinogen Ur Leukocyte Esterase Urine WBC (Auto) Urine RBC (Auto) Ur Epithelial Cells Acetone, Qual 11/20/17 11/20/17 11/20/17 13:40 16:53 17:00 WBC 7.3 RBC 3.91 Hgb 9.4 L Hct 29.4 L MCV 75.0 L MCH 24.1 L MCHC 32.1 RDW 16.5 H Plt Count 326 MPV 9.2 Neutrophils % Lymphocytes % Monocytes % Eosinophils % Basophils % Sodium 133 L Potassium 4.4 Chloride 98 Carbon Dioxide 27 Anion Gap 8 BUN 27 H Creatinine 1.1 H Creat Clearance w eGFR POC Glucometer Random Glucose 376 H* Lactic Acid Calcium 8.2 L Phosphorus Magnesium Total Bilirubin AST ALT Alkaline Phosphatase Total Protein Albumin Serum , Qual Urine Color Colorless Urine Appearance Clear Urine pH 5.0 Ur Specific Beatty 1.017 Urine Protein 1+ H Urine Glucose (UA) 3+ H Urine Ketones 1+ H Urine Blood Negative Urine Nitrite Negative Urine Bilirubin Negative Urine Urobilinogen Negative Ur Leukocyte Esterase Negative Urine WBC (Auto) <1 Urine RBC (Auto) 1 Ur Epithelial Cells Rare Acetone, Qual 11/20/17 11/20/17 11/20/17 17:04 19:10 19:10 WBC RBC Hgb Hct MCV MCH MCHC RDW Plt Count MPV Neutrophils % Lymphocytes % Monocytes % Eosinophils % Basophils % Sodium 137 Potassium 4.2 Chloride 102 Carbon Dioxide 28 Anion Gap 7 L BUN 26 H Creatinine 1.0 Creat Clearance w eGFR > 60 POC Glucometer [phone] Random Glucose 148 H Lactic Acid 1.8 Calcium 7.9 L Phosphorus 3.9 Magnesium 1.8 Total Bilirubin 0.1 L D AST 21 ALT 19 Alkaline Phosphatase 167 H Total Protein 5.8 L Albumin 2.3 L Serum , Qual Urine Color Urine Appearance Urine pH Ur Specific Beatty Urine Protein Urine Glucose (UA) Urine Ketones Urine Blood Urine Nitrite Urine Bilirubin Urine Urobilinogen Ur Leukocyte Esterase Urine WBC (Auto) Urine RBC (Auto) Ur Epithelial Cells Acetone, Qual 11/20/17 11/20/17 19:10 21:55 WBC RBC Hgb Hct MCV MCH MCHC RDW Plt Count MPV Neutrophils % Lymphocytes % Monocytes % Eosinophils % Basophils % Sodium Potassium Chloride Carbon Dioxide Anion Gap BUN Creatinine Creat Clearance w eGFR POC Glucometer 106 Random Glucose Lactic Acid Calcium Phosphorus Magnesium Total Bilirubin AST ALT Alkaline Phosphatase Total Protein Albumin Serum , Qual Urine Color Urine Appearance Urine pH Ur Specific Beatty Urine Protein Urine Glucose (UA) Urine Ketones Urine Blood Urine Nitrite Urine Bilirubin Urine Urobilinogen Ur Leukocyte Esterase Urine WBC (Auto) Urine RBC (Auto) Ur Epithelial Cells Acetone, Qual Negative L ASSESSMENT/PLAN: The patient is a 32 yo f w/ PMH DM who is being admitted for the treatment of a left toe paronychia as well as mild DKA. #Mild DKA -s/p 6 units novolog in ED -s/p 26u levemir and 6 u novolog in triage -repeat BMP shows anion gap is closed. -BGM ACHS -ISS ACHS -30 u Levemir QAM #left second toe paronychia -ID consult -Surgery consult for drainage -vancomycin -zosyn #Acute kidney injury -NS @ 75 #Exertional chest pain -EKG in AM #HTN -continue home toprolol 25mg PO -holding home lisinopril for TESS #Throat pain and cough -Flu swab -rapid strep a&B w/ culture #FEN -NS @ 75 -lytes WNL -diabetic diet #Prophy -Hep SQ 5KU TID #Dispo -admit to med surg Visit type - Emergency Visit Emergency Visit: Yes ED Registration Date: 11/20/17 Care time: The patient presented to the Emergency Department on the above date and was hospitalized for further evaluation of their emergent condition. - New Patient This patient is new to me today: Yes Date on this admission: 11/21/17 - Critical Care Critical Care patient: No Hospitalist Screening - Colonoscopy Questionnaire Colonoscopy Questionnaire: Colonoscopy Questionnaire - Patient: 50 - 75 years old and never had a screening colonoscopy: Unknown History of colon or rectal polyps, or CA: Unknown History of IBD, Crohn's disease or UC: Unknown History of abdominal radiation therapy as a child: Unknown - Relative: 1 with colon or rectal CA, or polyps at age 60 or younger: Unknown Colon or rectal CA diagnosed at age 45 or younger: Unknown Multiple relatives with colon or rectal CA: Unknown - Outcome: Screening Result: Negative Screen
[2017-11-21] MEDS ORDERED: SODIUM CHLORIDE 1,000 ML IV SCH (03:45)
[2017-11-21] MEDS: oxyCODONE HCL 5 MG TABLET PO PRN ×3 (04:00→21:34)
[2017-11-21] MEDS: INSULIN (LEVEMIR) 100 UNITS/ML UNITS SQ SCH (06:10)
[2017-11-21] MEDS: HEPARIN NA (PORCINE) 5,000 UNITS/ML 1ML VIAL SQ SCH ×3 (06:10→21:34)
[2017-11-21] MEDS: INSULIN SLIDING SCALE (NOVOLOG) 1 VIAL SQ SCH ×4 (06:11→21:32)
[2017-11-21 07:28] LABS: BASO % 0.6 % (0-2.0); EOS % 0.8 % (0-4.5); HEMATOCRIT 27.9 % (32.4-45.2); HEMOGLOBIN 8.8 GM/dL (10.7-15.3); LYMPH % 20.1 % (8-40); MCH 23.7 pg (25.7-33.7); MCHC 31.7 g/dl (32.0-36.0); MEAN CELL VOLUME 74.8 fl (80-96); MEAN PLT VOLUME 9.1 fl (7.5-11.1); MONO % 7.3 % (3.8-10.2); NEUT % 71.2 % (42.8-82.8); PLATELET COUNT 315 K/MM3 (134-434); RBC 3.72 M/mm3 (3.60-5.2); RDW 16.5 % (11.6-15.6); WHITE BLOOD COUNT 11.5 K/mm3 (4.0-10.0)
[2017-11-21 07:50] LABS: INR 0.99 (0.82-1.09); PROTHROMBIN TIME (PATIENT) 11.2 SEC (9.98-11.88)
[2017-11-21 07:53] LABS: ACTIVATED PTT 27.4 SECONDS (26.9-34.4)
[2017-11-21] MEDS ORDERED: PIPERACILLIN/TAZOB 3.375 GM 50 ML IVPB ONE (08:00)
[2017-11-21] MEDS ORDERED: PIPERACILLIN/TAZOB 3.375 GM 3.375 GM in DEXTROSE 5%-WATER - 50 ML IVPB ONE (08:16)
[2017-11-21] MEDS ORDERED: PT OWN MED DRAWER 7, Y5N ONE (08:51)
[2017-11-21] MEDS: metoPROLOL SUCCINATE 25 MG TAB.SR.24H (FP) PO SCH (09:12)
[2017-11-21] MEDS: DOCUSATE SODIUM 100 MG CAPSULE (FP) PO SCH ×2 (09:12→09:16)
[2017-11-21] MEDS: ASPIRIN 81 MG CHEWABLE TABLETS PO SCH (09:12)
[2017-11-21] MEDS ORDERED: VANCOMYCIN 1,000 MG in DEXTROSE 5%-WATER - 250 ML IVPB ONE (11:00)
[2017-11-21 11:07] LABS: CHLORIDE 100 mmol/L (98-107); POTASSIUM 4.3 mmol/L (3.5-5.1); SODIUM 136 mmol/L (136-145)
[2017-11-21 11:37] LABS: ALBUMIN 2.1 g/dl (3.4-5.0); ALK PHOS 150 U/L (45-117); ANION GAP 10 (8-16); BILIRUBIN,TOTAL 0.2 mg/dL (0.2-1.0); BLOOD UREA NITROGEN 17 mg/dL (7-18); CALCIUM 7.7 mg/dL (8.5-10.1); CO2 26 mmol/L (21-32); CREATININE 0.7 mg/dL (0.55-1.02); GLUCOSE,RANDOM 88 mg/dL (74-106); MAGNESIUM 1.8 mg/dL (1.8-2.4); PHOSPHOROUS 4.1 mg/dL (2.5-4.9); SGOT/AST 22 U/L (15-37); SGPT/ALT 18 U/L (12-78); TOT PROT 5.6 g/dl (6.4-8.2)
[2017-11-21] MEDS ORDERED: INSULIN (NOVOLOG) ASPART 100 UNITS/ML 10ML VIAL ONE (11:49)
--- NOTE | 2017-11-21 13:29 | CON.ID ---
Consult Consult Specialty:: infectious diseases Referred by:: Reason for Consultation:: cellulitis of the left leg /abscess of the 2nd toe - History of Present Illness Chief Complaint: pain and swelling of the left 2nd toe History of Present Illness: 32 yo f w/ PMH DM, CAD, HTN admitted with 3 day history of left 2ndtoe pain and swelling. patient gives the hisotry that she was trimming her toe nails and she ended up cutting the nail very close to nail bed as i can also see that. and looks like she ended up causing infection to the toe. She did wait for couple of days before coming to the hospital and cellulitis spread to her foot. also she developed abscess of fanta toe and when she came to the er it popped--no cx were send . patient also is a diabetic requiring insulin and is a very non compliant with her medications. currently patient having pain in the legs and on the toe. with formation of abscess. denies any fever or any other issues - History Source History Provided By: Patient Limitations to Obtaining History: No Limitations - Past Medical History Cardio/Vascular: Yes: CAD, HTN, Hyperlipdemia. No: AFIB, Aneurysm, Aortic Insufficiency, Aortic Stenosis, CHF, Deep Vein Thrombosis, DE, Mitral Insufficiency, Mitral Stenosis, Murmur, Pulmonary Hypertension, Other ...LMP: 06/28/16 ...: No Endocrine: Yes: Diabetes Mellitus - Past Surgical History Past Surgical History: Yes: Bariatric Surgery (gastric sleeve), CABG - Alcohol/Substance Use Hx Alcohol Use: No History of Substance Use: reports: None - Smoking History Smoking history: Current every day smoker Have you smoked in the past 12 months: Yes Aproximately how many cigarettes per day: 7 If you are a former smoker, when did you quit?: 09/12 - Social History ADL: Independent History of Recent Travel: No Home Medications - Allergies Allergies/Adverse Reactions: Allergies Allergy/AdvReac Type Severity Reaction Status Date / Time No Known Allergies Allergy Verified 11/20/17 11:59 - Home Medications Home Medications: Ambulatory Orders Aspirin [ASA -] 81 mg PO DAILY #0 tab.chew 03/15/16 Atorvastatin Ca [Lipitor] 80 mg PO HS 05/23/17 Insulin (LOG) Aspart [NovoLOG -] 0 unit SQ TID 05/23/17 Lisinopril 5 mg PO ASDIR 05/23/17 Insulin Glargine,Hum.rec.anlog [Lantus] 26 unit SQ HS 11/20/17 Metoprolol Succinate [Toprol Xl] 25 mg PO DAILY 11/20/17 Review of Systems - Review of Systems Constitutional: reports: No Symptoms Eyes: reports: No Symptoms HENT: reports: No Symptoms Neck: reports: No Symptoms Cardiovascular: reports: No Symptoms Respiratory: reports: No Symptoms Gastrointestinal: reports: No Symptoms Genitourinary: reports: No Symptoms Musculoskeletal: reports: Extremity Pain, Joint Pain, Other Integumentary: reports: Change in Color, Erythema, Wound Neurological: reports: No Symptoms Endocrine: reports: No Symptoms Hematology/Lymphatic: reports: No Symptoms Psychiatric: reports: No Symptoms Physical Exam Vital Signs: Vital Signs Temperature 98.8 F 11/21/17 09:28 Pulse Rate 89 11/21/17 09:28 Respiratory Rate 18 11/21/17 09:28 Blood Pressure 119/65 11/21/17 09:28 O2 Sat by Pulse Oximetry (%) 100 11/21/17 09:00 Constitutional: Yes: Well Nourished, Calm, Mild Distress Eyes: Yes: Conjunctiva Clear, EOM Intact HENT: Yes: Atraumatic, Normocephalic Neck: Yes: Supple, Trachea Midline Cardiovascular: Yes: Regular Rate and Rhythm Respiratory: Yes: Regular, CTA Bilaterally Gastrointestinal: Yes: Normal Bowel Sounds, Soft Musculoskeletal: Yes: WNL Extremities: Yes: Erythema (of the foot and swelling and discoloration of the 2nd left toe), Other Integumentary: Yes: Erythema, Other Wound/Incision: Yes: Open to air Neurological: Yes: Alert, Oriented Psychiatric: Yes: Alert, Oriented Labs: CBC, BMP 11/21/17 06:00 11/21/17 06:00 Imaging - Results Chest X-ray: Report Reviewed, Image Reviewed Assessment/Plan this non compliant patient coming to the hospitals with cellulitis of the left foot with infection and abscess of the left 2nd toe her infection has been probably introduced due to the injury while trimming her toe nail cellulitis of the left foot left 2nd toe discoloration and minimal collection uncontrolled dm pain leukocytosis plan continue zosyn podiatry to see the patient alissa duque i think the collection is superficial and will await for podiatry to see the patient wbc has increased slightly will follow the cbc closely rest continue as per primary team
[2017-11-21] MEDS ORDERED: PIPERACILLIN/TAZOB 3.375 GM 50 ML IVPB SCH (18:00)
[2017-11-21] MEDS: PIPERACILLIN/TAZOB 3.375 GM 3.375 GM in DEXTROSE 5%-WATER - 50 ML IVPB SCH (18:28)
--- NOTE | 2017-11-21 18:49 | PN ---
Progress Note (short form) - Note Progress Note: Subjective: pain in foot . no fever or chills. feels better Objective: Vital Signs: Last Vital Signs Temp Pulse Resp BP Pulse Ox 99.1 F 74 18 111/68 100 11/21/17 14:54 11/21/17 14:54 11/21/17 14:54 11/21/17 14:54 11/21/17 09:00 Laboratory Results - last 24 hr 11/20/17 11/20/17 11/20/17 13:36 17:04 19:10 WBC RBC Hgb Hct MCV MCH MCHC RDW Plt Count MPV Neutrophils % Lymphocytes % Monocytes % Eosinophils % Basophils % PT with INR INR PTT (Actin FS) Sodium 137 Potassium 4.2 Chloride 102 Carbon Dioxide 28 Anion Gap 7 L BUN 26 H Creatinine 1.0 Creat Clearance w eGFR > 60 POC Glucometer > [phone] Random Glucose 148 H Lactic Acid Calcium 7.9 L Phosphorus 3.9 Magnesium 1.8 Total Bilirubin 0.1 L D AST 21 ALT 19 Alkaline Phosphatase 167 H Total Protein 5.8 L Albumin 2.3 L Acetone, Qual 11/20/17 11/20/17 11/20/17 19:10 19:10 21:55 WBC RBC Hgb Hct MCV MCH MCHC RDW Plt Count MPV Neutrophils % Lymphocytes % Monocytes % Eosinophils % Basophils % PT with INR INR PTT (Actin FS) Sodium Potassium Chloride Carbon Dioxide Anion Gap BUN Creatinine Creat Clearance w eGFR POC Glucometer 106 Random Glucose Lactic Acid 1.8 Calcium Phosphorus Magnesium Total Bilirubin AST ALT Alkaline Phosphatase Total Protein Albumin Acetone, Qual Negative L 11/21/17 11/21/17 11/21/17 06:00 06:00 06:00 WBC 11.5 H D RBC 3.72 Hgb 8.8 L Hct 27.9 L MCV 74.8 L MCH 23.7 L MCHC 31.7 L RDW 16.5 H Plt Count 315 MPV 9.1 Neutrophils % 71.2 Lymphocytes % 20.1 Monocytes % 7.3 Eosinophils % 0.8 Basophils % 0.6 PT with INR 11.20 INR 0.99 PTT (Actin FS) 27.4 Sodium 136 Potassium 4.3 Chloride 100 Carbon Dioxide 26 Anion Gap 10 BUN 17 Creatinine 0.7 Creat Clearance w eGFR > 60 POC Glucometer Random Glucose 88 Lactic Acid Calcium 7.7 L Phosphorus 4.1 Magnesium 1.8 Total Bilirubin 0.2 D AST 22 ALT 18 Alkaline Phosphatase 150 H Total Protein 5.6 L Albumin 2.1 L Acetone, Qual 11/21/17 11/21/17 11/21/17 06:07 12:01 17:31 WBC RBC Hgb Hct MCV MCH MCHC RDW Plt Count MPV Neutrophils % Lymphocytes % Monocytes % Eosinophils % Basophils % PT with INR INR PTT (Actin FS) Sodium Potassium Chloride Carbon Dioxide Anion Gap BUN Creatinine Creat Clearance w eGFR POC Glucometer 103 150 116 Random Glucose Lactic Acid Calcium Phosphorus Magnesium Total Bilirubin AST ALT Alkaline Phosphatase Total Protein Albumin Acetone, Qual Physical Exam: NAd , AAox3. HEENT: MMM, oropharynx with slight erythema , and white exudate over upper part of R tonsil. enlarged Lymph node in R submandibular area, about 1 cm , mobile bile under skin and on deep structures. CV: RRR, 3/6 Sm at base , and lLSB. no JVD. Lungs: CTAB Ext: 1+ edema on both legs improved . hyperpigemented spots on legs and shins , . L foot with resolved erythema and edema. erythema/edema/tenderness over L 2nd toes improved . purulent collection around nail bed. . DP 2+ b/l. RP 2+ b/l ASSESSMENT AND PLAN: 32 y/o lady with h/o IDDM type I , HTN, depression , gastric sleeve , CAD , s/p CABG , and stents , anemia , preeclamsia , C sections and endometrial abscess who presented with pain in L second toe. She was found to have DKA and foot infection 1- L wound toe paronychia and cellulitis of L foot: - podiatry eval - appreciate Dr. Cunningham help, cont zosyn - wound cx - dc IVF 2- mild DKA resolved . sugar is controlled now - cont levemir 30 am - cont SSI 3- h/o CAD, s/p CABG, and stents. has recurrent angina. - BB , ASA . - f/u as out pt for stress test 4- TESS: due to volume deletion and infection . - cont to hold lisinopril . BP nL. if cr remains stable , will resume lisinopril 5- h/o HTN: cont torpol . DVT PX HLOC Visit type - Emergency Visit Emergency Visit: Yes ED Registration Date: 11/20/17 Care time: The patient presented to the Emergency Department on the above date and was hospitalized for further evaluation of their emergent condition. - New Patient This patient is new to me today: No - Critical Care Critical Care patient: No
[2017-11-21] MEDS: ATORVASTATIN CA 80 MG TABLET (FP) PO SCH (21:34)
--- NOTE | 2017-11-21 21:36 | EKG ---
Test Reason : Blood Pressure : / mmHG Vent. Rate : 079 BPM Atrial Rate : 079 BPM P-R Int : 138 ms QRS Dur : 094 ms QT Int : 390 ms P-R-T Axes : 043 049 032 degrees QTc Int : 447 ms NORMAL SINUS RHYTHM POSSIBLE LEFT ATRIAL ENLARGEMENT NONSPECIFIC T WAVE ABNORMALITY ABNORMAL ECG WHEN COMPARED WITH ECG OF 15-OCT-2017 12:13, NO SIGNIFICANT CHANGE WAS FOUND Confirmed by CARLINE MARTINEZ MD ([id number]) on 11/21/2017 9:35:49 PM Referred By: Confirmed By:CARLINE MARTINEZ MD
[2017-11-22] MEDS: PIPERACILLIN/TAZOB 3.375 GM 3.375 GM in DEXTROSE 5%-WATER - 50 ML IVPB SCH ×3 (02:32→13:54)
[2017-11-22] MEDS: INSULIN (LEVEMIR) 100 UNITS/ML UNITS SQ SCH (06:29)
[2017-11-22] MEDS: INSULIN SLIDING SCALE (NOVOLOG) 1 VIAL SQ SCH ×4 (06:30→22:27)
[2017-11-22] MEDS: HEPARIN NA (PORCINE) 5,000 UNITS/ML 1ML VIAL SQ SCH ×3 (06:31→22:22)
[2017-11-22] MEDS: oxyCODONE HCL 5 MG TABLET PO PRN ×3 (06:33→22:21)
[2017-11-22] MEDS ORDERED: INSULIN (NOVOLOG) ASPART 100 UNITS/ML 10ML VIAL ONE ×6 (06:47→21:50)
[2017-11-22 08:10] LABS: BASO % 0.3 % (0-2.0); EOS % 1.1 % (0-4.5); HEMATOCRIT 28.1 % (32.4-45.2); HEMOGLOBIN 8.9 GM/dL (10.7-15.3); LYMPH % 28.6 % (8-40); MCH 23.9 pg (25.7-33.7); MCHC 31.7 g/dl (32.0-36.0); MEAN CELL VOLUME 75.1 fl (80-96); MEAN PLT VOLUME 9.4 fl (7.5-11.1); MONO % 6.8 % (3.8-10.2); NEUT % 63.2 % (42.8-82.8); PLATELET COUNT 312 K/MM3 (134-434); RBC 3.74 M/mm3 (3.60-5.2); RDW 16.7 % (11.6-15.6); WHITE BLOOD COUNT 8.1 K/mm3 (4.0-10.0)
[2017-11-22 08:45] LABS: ANION GAP 8 (8-16); BLOOD UREA NITROGEN 16 mg/dL (7-18); CALCIUM 7.7 mg/dL (8.5-10.1); CHLORIDE 100 mmol/L (98-107); CO2 27 mmol/L (21-32); CREATININE 0.7 mg/dL (0.55-1.02); GLUCOSE,RANDOM 252 mg/dL (74-106); POTASSIUM 4.9 mmol/L (3.5-5.1); SODIUM 135 mmol/L (136-145)
[2017-11-22] MEDS ORDERED: PT OWN MED DRAWER 7, Y5N ONE ×2 (10:24→17:28)
[2017-11-22] MEDS: ASPIRIN 81 MG CHEWABLE TABLETS PO SCH (10:29)
[2017-11-22] MEDS: DOCUSATE SODIUM 100 MG CAPSULE (FP) PO SCH (10:29)
[2017-11-22] MEDS: metoPROLOL SUCCINATE 25 MG TAB.SR.24H (FP) PO SCH (10:29)
--- NOTE | 2017-11-22 13:13 | PN ---
Progress Note, Physician History of Present Illness: patient feeling well had drainage from the toe cx send showing mrsa now still draining today swelling and erythema better - Current Medication List Current Medications: Active Medications Aspirin (Asa -) 81 mg PO DAILY [facility] Last Admin: 11/22/17 10:29 Dose: 81 mg Atorvastatin Calcium (Lipitor -) 80 mg PO HS [facility] Last Admin: 11/21/17 21:34 Dose: 80 mg Docusate Sodium (Colace -) 100 mg PO DAILY [facility] Last Admin: 11/22/17 10:29 Dose: 100 mg Heparin Sodium (Porcine) (Heparin -) 5,000 unit SQ TID [facility] Last Admin: 11/22/17 06:31 Dose: 5,000 unit Piperacillin Sod/Tazobactam (Sod 3.375 gm/ Dextrose) 50 mls @ 100 mls/hr IVPB Q8H-IV [facility] Last Admin: 11/22/17 10:32 Dose: Not Given Vancomycin HCl 1,250 mg/ (Dextrose) 250 mls @ 250 mls/hr IVPB DAILY [facility] PRN Reason: Protocol Insulin Aspart (Novolog Vial Sliding Scale -) 1 vial SQ ACHS [facility] PRN Reason: Protocol Last Admin: 11/22/17 12:21 Dose: Not Given Insulin Detemir (Levemir Vial) 30 units SQ AM [facility] Last Admin: 11/22/17 06:29 Dose: 30 units Metoprolol Succinate (Toprol Xl -) 25 mg PO DAILY [facility] Last Admin: 11/22/17 10:29 Dose: 25 mg Oxycodone HCl (Roxicodone -) 5 mg PO Q4H PRN PRN Reason: PAIN LEVEL 6-10 Last Admin: 11/22/17 06:33 Dose: 5 mg - Objective Vital Signs: Vital Signs Temperature 98.2 F 11/22/17 09:40 Pulse Rate 80 11/22/17 09:40 Respiratory Rate 20 11/22/17 09:40 Blood Pressure 128/72 11/22/17 09:40 O2 Sat by Pulse Oximetry (%) 99 11/21/17 21:00 Constitutional: Yes: No Distress, Calm Neck: Yes: Supple, Trachea Midline Cardiovascular: Yes: Regular Rate and Rhythm Respiratory: Yes: Regular, CTA Bilaterally Gastrointestinal: Yes: Normal Bowel Sounds, Soft Musculoskeletal: Yes: WNL Extremities: Yes: Other Integumentary: Yes: Erythema (left foot improving) Wound/Incision: Yes: Draining Neurological: Yes: Alert, Oriented Psychiatric: Yes: Alert, Oriented Labs: CBC, BMP 11/22/17 07:55 11/22/17 07:55 INR, PTT INR 0.99 (0.82-1.09) 11/21/17 06:00 Assessment/Plan cellulitis of the left foot left 2nd toe discoloration and minimal collection uncontrolled dm pain leukocytosis mrsa plan continue zosyn awaiting for podiatry to see the patient will need to be drained now will await for sensitivites rest continue blood sugar control
--- NOTE | 2017-11-22 16:22 | PN ---
Teaching Attending Note Name of Resident: Guevara Almaraz ATTENDING PHYSICIAN STATEMENT I saw and evaluated the patient. I reviewed the resident's note and discussed the case with the resident. I agree with the resident's findings and plan as documented. SUBJECTIVE: no fever or chills. pain in L foot is better OBJECTIVE: NAD, AAox3. HEENT: MMM CV: RRR, 3/6 Sm at base , and lLSB. no JVD. Lungs: CTAB Ext: . hyperpigemented spots on legs and shins ,. L foot with resolved erythema and edema. erythema/edema/tenderness over L 2nd toes improved with purulent collection on dorsal toe . DP 2+ b/l. RP 2+ b/l ASSESSMENT AND PLAN: 32 y/o lady with h/o IDDM type I , HTN, depression , gastric sleeve , CAD , s/p CABG , and stents , anemia , preeclamsia , C sections and endometrial abscess who presented with pain in L second toe. She was found to have DKA and foot infection 1- L wound toe paronychia and cellulitis of L foot: - podiatry eval for drainage is still pending - appreciate Dr. Cunningham help, cont zosyn . vanco added due to cx showing MRSA 2- Mild DKA resolved . sugar is controlled now - cont levemir 30 am - cont SSI 3- h/o CAD, s/p CABG, and stents. has recurrent angina. - BB , ASA . - f/u as out pt for stress test 4- TESS: resolved . resume lisinopril tomorrow 5- h/o HTN: cont torpol . DVT PX HLOC
[2017-11-22] MEDS: VANCOMYCIN 1,250 MG in DEXTROSE 5%-WATER - 250 ML IVPB SCH ×2 (17:15→23:04)
--- NOTE | 2017-11-22 20:07 | PN ---
Physical Exam: SUBJECTIVE: Patient seen and examined at bedside. Patient states that pain in better today. The paronychia is spontaneously draining fluid. inflammation to the dorsum of the foot is improved per patient. Patient complains of pain and swelling in her left nostril. OBJECTIVE: Vital Signs Period Temp Pulse Resp BP Sys/Johnson Pulse Ox Last 24 Hr 97.7 F-98.6 F 67-81 18-20 125-152/59-91 99-100 GENERAL: The patient is awake, alert, and fully oriented, in no acute distress. HEAD: Normal with no signs of trauma. ENT: nares patent. There is an area of erythema and swelling just inside the left nare at the junction between the septum and the maxilla. oropharynx clear without exudates, moist mucous membranes. NECK: Trachea midline, full range of motion, supple. LUNGS: Breath sounds equal, clear to auscultation bilaterally, no wheezes, no crackles, no accessory muscle use. HEART: Regular rate and rhythm, S1, S2 without murmur, rub or gallop. ABDOMEN: Soft, nontender, nondistended, normoactive bowel sounds, no guarding, no rebound, no hepatosplenomegaly, no masses. EXTREMITIES: 2+ pulses, warm, well-perfused, no edema. NEUROLOGICAL: Cranial nerves II through X grossly intact. Normal speech, gait not observed. SKIN: Warm, dry, normal turgor, no rashes or lesions noted. The area of swelling on the second toe has gotten slightly bigger, but now appears to be fulled with clear fluid as opposed to pus. 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 The area of erythema on the dorsum of the foot is much improved, but the soft tissue in the are is still boggy. Laboratory Results - last 24 hr 11/21/17 11/22/17 11/22/17 21:31 06:28 07:55 WBC 8.1 RBC 3.74 Hgb 8.9 L Hct 28.1 L MCV 75.1 L MCH 23.9 L MCHC 31.7 L RDW 16.7 H Plt Count 312 MPV 9.4 Neutrophils % 63.2 Lymphocytes % 28.6 D Monocytes % 6.8 Eosinophils % 1.1 Basophils % 0.3 Sodium Potassium Chloride Carbon Dioxide Anion Gap BUN Creatinine POC Glucometer 351 236 Random Glucose Calcium 11/22/17 11/22/1718 07:55 12:20 17:14 WBC RBC Hgb Hct MCV MCH MCHC RDW Plt Count MPV Neutrophils % Lymphocytes % Monocytes % Eosinophils % Basophils % Sodium 135 L Potassium 4.9 Chloride 100 Carbon Dioxide 27 Anion Gap 8 BUN 16 Creatinine 0.7 POC Glucometer 127 224 Random Glucose 252 H Calcium 7.7 L Active Medications Generic Name Dose Route Start Last Admin Trade Name Freq PRN Reason Stop Dose Admin Aspirin 81 mg 11/21/17 10:00 11/22/17 10:29 Asa - PO 81 mg DAILY KIRAN Administration Atorvastatin Calcium 80 mg 11/20/17 22:00 11/21/17 21:34 Lipitor - PO 80 mg HS KIRAN Administration Docusate Sodium 100 mg 11/21/17 10:00 11/22/17 10:29 Colace - PO 100 mg DAILY KIRAN Administration Heparin Sodium (Porcine) 5,000 unit 11/20/17 22:00 11/22/17 14:46 Heparin - SQ 5,000 unit TID KIRAN Administration Piperacillin Sod/Tazobactam 50 mls @ 100 mls/hr 11/21/17 18:00 11/22/17 13:54 Sod 3.375 gm/ Dextrose IVPB 100 mls/hr Q8H-IV K[facility]AN Administration Vancomycin HCl 1,250 mg/ 250 mls @ 250 mls/hr 11/22/17 22:00 11/22/17 17:15 Dextrose IVPB 250 mls/hr DAILY@2200 KIRAN Administration Protocol Insulin Aspart 1 vial 11/20/17 22:00 11/22/17 17:32 Novolog Vial Sliding Scale - SQ 4 units ACHS [facility] Administration Protocol Insulin Detemir 30 units 11/21/17 07:00 11/22/17 06:29 Levemir Vial SQ 30 units AM KIRAN Administration Lisinopril 5 mg 11/22/17 19:00 Prinivil PO DAILY [facility] Metoprolol Succinate 25 mg 11/20/17 20:15 11/22/17 10:29 Toprol Xl - PO 25 mg DAILY KIRAN Administration Oxycodone HCl 5 mg 11/21/17 12:17 11/22/17 17:57 Roxicodone - PO 5 mg Q4H PRN Administration PAIN LEVEL 6-10 ASSESSMENT/PLAN: The patient is a 32 yo f w/ PMH DM who is being admitted for the treatment of a left toe paronychia as well as mild DKA. #Mild DKA- resolved -BGM ACHS -ISS ACHS -30 u Levemir QAM #left second toe paronychia -ID onboard -podiatry consult for drainage; called Dr. Foley's service, awaiting call back -vancomycin (day 3) -zosyn (day 3) -toe wound cx growing MRSA #Acute kidney injury -creatinine normalized today to .7 -d/c fluids #HTN -continue home toprolol 25mg PO -holding home lisinopril for TESS #Throat pain and cough- resolved -Flu swab negative #Exertional chest pain- resolved #FEN -no fluids indicated -lytes WNL -diabetic diet #Prophy -Hep SQ 5KU TID #Dispo -admit to med surg Visit type - Emergency Visit Emergency Visit: Yes ED Registration Date: 11/20/17 Care time: The patient presented to the Emergency Department on the above date and was hospitalized for further evaluation of their emergent condition. - New Patient This patient is new to me today: No - Critical Care Critical Care patient: No
--- NOTE | 2017-11-22 20:21 | CONSULT ---
Consult - text type - Consultation Consultation Note: Patient seen in bed with her mother present cut her ow toe nails 1 week ago Noticed pus the next day. vss. Tmax 97.7 dp & pt palpable, +ingrow medial nail border secondary to cutting ail too far back, +teder resolving abscess/celluitis according o drawn lines on foot, + possible mrsa, wbc=8.1, hfdt3p=7.8 r/o om uncontrolled diabetes resolvig abscess / cellulitis will watch demarcate. no intervention right now. MRI ordered esr and crp ordered. Daily betadine dressing change second toe left. ID on case. Abx as per ID. Might drain bedside if improvements stops. will re-evaluate tomorrow. Mother present throuhout visit.
[2017-11-22] MEDS: LISINOPRIL 5 MG TABLET (FP) PO SCH (20:22)
[2017-11-22] MEDS: ATORVASTATIN CA 80 MG TABLET (FP) PO SCH (22:21)
[2017-11-23] MEDS: PIPERACILLIN/TAZOB 3.375 GM 3.375 GM in DEXTROSE 5%-WATER - 50 ML IVPB SCH ×3 (02:18→19:04)
[2017-11-23] MEDS: INSULIN (LEVEMIR) 100 UNITS/ML UNITS SQ SCH (06:25)
[2017-11-23] MEDS: HEPARIN NA (PORCINE) 5,000 UNITS/ML 1ML VIAL SQ SCH ×3 (06:25→22:00)
[2017-11-23] MEDS: INSULIN SLIDING SCALE (NOVOLOG) 1 VIAL SQ SCH ×4 (06:26→22:14)
[2017-11-23 08:03] LABS: HEMATOCRIT 26.6 % (32.4-45.2); HEMOGLOBIN 8.4 GM/dL (10.7-15.3); MCHC 31.7 g/dl (32.0-36.0); MEAN CELL VOLUME 75.7 fl (80-96); MEAN PLT VOLUME 9.4 fl (7.5-11.1); PLATELET COUNT 289 K/MM3 (134-434); RBC 3.51 M/mm3 (3.60-5.2); RDW 16.8 % (11.6-15.6); WHITE BLOOD COUNT 5.4 K/mm3 (4.0-10.0)
[2017-11-23] MEDS: oxyCODONE HCL 5 MG TABLET PO PRN (09:47)
[2017-11-23] MEDS: DOCUSATE SODIUM 100 MG CAPSULE (FP) PO SCH (12:23)
[2017-11-23] MEDS: LISINOPRIL 5 MG TABLET (FP) PO SCH (12:23)
[2017-11-23] MEDS: metoPROLOL SUCCINATE 25 MG TAB.SR.24H (FP) PO SCH (12:23)
[2017-11-23] MEDS: ASPIRIN 81 MG CHEWABLE TABLETS PO SCH (12:23)
--- NOTE | 2017-11-23 13:57 | PN ---
Progress Note, Physician History of Present Illness: patient doing well no new issues still with some pain - Current Medication List Current Medications: Active Medications Aspirin (Asa -) 81 mg PO DAILY [facility] Last Admin: 11/23/17 12:23 Dose: 81 mg Atorvastatin Calcium (Lipitor -) 80 mg PO HS [facility] Last Admin: 11/22/17 22:21 Dose: 80 mg Diphenhydramine HCl (Benadryl Injection -) 25 mg IVPUSH ONCE PRN PRN Reason: ANXIETY Docusate Sodium (Colace -) 100 mg PO DAILY [facility] Last Admin: 11/23/17 12:23 Dose: Not Given Heparin Sodium (Porcine) (Heparin -) 5,000 unit SQ TID [facility] Last Admin: 11/23/17 06:25 Dose: 5,000 unit Piperacillin Sod/Tazobactam (Sod 3.375 gm/ Dextrose) 50 mls @ 100 mls/hr IVPB Q8H-IV [facility] Last Admin: 11/23/17 12:24 Dose: 100 mls/hr Vancomycin HCl 1,250 mg/ (Dextrose) 250 mls @ 250 mls/hr IVPB DAILY@2200 KIRAN PRN Reason: Protocol Last Admin: 11/22/17 23:04 Dose: 250 mls/hr Insulin Aspart (Novolog Vial Sliding Scale -) 1 vial SQ ACHS [facility] PRN Reason: Protocol Insulin Detemir (Levemir Vial) 35 units SQ AM KIRAN Lisinopril (Prinivil) 5 mg PO DAILY [facility] Last Admin: 11/23/17 12:23 Dose: 5 mg Metoprolol Succinate (Toprol Xl -) 25 mg PO DAILY [facility] Last Admin: 11/23/17 12:23 Dose: 25 mg Oxycodone HCl (Roxicodone -) 5 mg PO Q4H PRN PRN Reason: PAIN LEVEL 6-10 Last Admin: 11/23/17 09:47 Dose: 5 mg - Objective Vital Signs: Vital Signs Temperature 98.6 F 11/23/17 13:18 Pulse Rate 70 11/23/17 13:18 Respiratory Rate 18 11/23/17 13:18 Blood Pressure 133/61 11/23/17 13:18 O2 Sat by Pulse Oximetry (%) 100 11/23/17 09:00 Constitutional: Yes: No Distress, Calm Cardiovascular: Yes: Regular Rate and Rhythm Respiratory: Yes: Regular, CTA Bilaterally Gastrointestinal: Yes: Normal Bowel Sounds, Soft Musculoskeletal: Yes: WNL Extremities: Yes: WNL Neurological: Yes: Alert, Oriented Psychiatric: Yes: Alert, Oriented Labs: CBC, BMP 11/23/17 06:35 11/22/17 07:55 INR, PTT INR 0.99 (0.82-1.09) 11/21/17 06:00 Assessment/Plan cellulitis of the left foot left 2nd toe discoloration and minimal collection uncontrolled dm pain leukocytosis mrsa plan continue vanco await for imaging studies
--- NOTE | 2017-11-23 16:34 | PN ---
Teaching Attending Note Name of Resident: Guevara Almaraz ATTENDING PHYSICIAN STATEMENT I saw and evaluated the patient. I reviewed the resident's note and discussed the case with the resident. I agree with the resident's findings and plan as documented. SUBJECTIVE: no fever or chills , pain in foot is better . No N/V OBJECTIVE: NAD, AAox3. HEENT: MMM CV: RRR, 3/6 SM at base , and LLSB. Lungs: CTAB LE : shins ,. L foot with resolved erythema and edema but with some persistent warmth . erythema/edema/tenderness over L 2nd toes improved with purulent collection on dorsal toe still seen . DP 2+ b/l. RP 2+ b/l ASSESSMENT AND PLAN: 32 y/o lady with h/o IDDM type I , HTN, depression , gastric sleeve , CAD , s/p CABG , and stents , anemia , preeclamsia , C sections and endometrial abscess who presented with pain in L second toe. She was found to have DKA and foot infection 1- L wound toe paronychia and cellulitis of L foot: -cont Abx . - MRI pending 2- Mild DKA resolved . sugar is controlled now - increase levemir to 35 - cont SSI 3- h/o CAD, s/p CABG, and stents. has recurrent angina. - BB , ASA . - f/u as out pt for stress test 4- TESS: resolved . 5- h/o HTN: cont torpol and lisinopril DVT PX HLOC
[2017-11-23] MEDS ORDERED: IBUPROFEN 400 MG TABLET (FP) PO ONE (18:45)
[2017-11-23] MEDS ORDERED: PT OWN MED DRAWER 7, Y5N ONE ×2 (19:03→21:39)
--- NOTE | 2017-11-23 19:28 | PN ---
Physical Exam: SUBJECTIVE: Patient seen and examined at bedside. No new complaints. Toe now wrapped with gauze. OBJECTIVE: Vital Signs Period Temp Pulse Resp BP Sys/Johnson Pulse Ox Last 24 Hr 97.5 F-98.6 F 60-72 18-18 104-147/53-78 100-100 GENERAL: The patient is awake, alert, and fully oriented, in no acute distress. HEAD: Normal with no signs of trauma. ENT: nares patent. There is an area of erythema and swelling just inside the left nare at the junction between the septum and the maxilla. oropharynx clear without exudates, moist mucous membranes. NECK: Trachea midline, full range of motion, supple. LUNGS: Breath sounds equal, clear to auscultation bilaterally, no wheezes, no crackles, no accessory muscle use. HEART: Regular rate and rhythm, S1, S2 without murmur, rub or gallop. ABDOMEN: Soft, nontender, nondistended, normoactive bowel sounds, no guarding, no rebound, no hepatosplenomegaly, no masses. EXTREMITIES: 2+ pulses, warm, well-perfused, no edema. NEUROLOGICAL: Cranial nerves II through X grossly intact. Normal speech, gait not observed. SKIN: Warm, dry, normal turgor, no rashes or lesions noted. The area of swelling on the second toe is stable. small collection of pus seen at proximal edge of paronychia. toe hall tender to palpation. The area of erythema on the dorsum of the foot is much improved, but the soft tissue in the are is still boggy. Laboratory Results - last 24 hr 11/22/17 11/22/17 11/23/17 07:00 22:27 06:24 WBC RBC Hgb Hct MCV MCH MCHC RDW Plt Count MPV ESR POC Glucometer 200 324 C-Reactive Protein 8.4 H 11/23/17 11/23/17 11/23/17 06:35 06:35 11:34 WBC 5.4 D RBC 3.51 L Hgb 8.4 L Hct 26.6 L MCV 75.7 L MCH 24.0 L MCHC 31.7 L RDW 16.8 H Plt Count 289 MPV 9.4 ESR 95 H POC Glucometer 262 C-Reactive Protein 11/23/17 17:48 WBC RBC Hgb Hct MCV MCH MCHC RDW Plt Count MPV ESR POC Glucometer 95 C-Reactive Protein Active Medications Generic Name Dose Route Start Last Admin Trade Name Freq PRN Reason Stop Dose Admin Aspirin 81 mg 11/21/17 10:00 11/23/17 12:23 Asa - PO 81 mg DAILY KIRAN Administration Atorvastatin Calcium 80 mg 11/20/17 22:00 11/22/17 22:21 Lipitor - PO 80 mg HS KIRAN Administration Diphenhydramine HCl 25 mg 11/23/17 12:16 Benadryl Injection - IVPUSH ONCE PRN ANXIETY Docusate Sodium 100 mg 11/21/17 10:00 11/23/17 12:23 Colace - PO Not Given DAILY KIRAN Heparin Sodium (Porcine) 5,000 unit 11/20/17 22:00 11/23/17 15:40 Heparin - SQ 5,000 unit TID KIRAN Administration Piperacillin Sod/Tazobactam 50 mls @ 100 mls/hr 11/21/17 18:00 11/23/17 19:04 Sod 3.375 gm/ Dextrose IVPB 100 mls/hr Q8H-IV [facility] Administration Vancomycin HCl 1,250 mg/ 250 mls @ 250 mls/hr 11/22/17 22:00 11/22/17 23:04 Dextrose IVPB 250 mls/hr DAILY@2200 KIRAN Administration Protocol Insulin Aspart 1 vial 11/23/17 13:22 11/23/17 17:49 Novolog Vial Sliding Scale - SQ Not Given ACHS [facility] Protocol Insulin Detemir 35 units 11/23/17 11:29 Levemir Vial SQ AM KIRAN Lisinopril 5 mg 11/22/17 19:00 11/23/17 12:23 Prinivil PO 5 mg DAILY [facility] Administration Metoprolol Succinate 25 mg 11/20/17 20:15 11/23/17 12:23 Toprol Xl - PO 25 mg DAILY KIRAN Administration Oxycodone HCl 5 mg 11/21/17 12:17 11/23/17 09:47 Roxicodone - PO 5 mg Q4H PRN Administration PAIN LEVEL 6-10 ASSESSMENT/PLAN: The patient is a 32 yo f w/ PMH DM who is being admitted for the treatment of a left toe paronychia as well as mild DKA. #Mild DKA- resolved -BGM ACHS -ISS ACHS increased to start coverage at 150 -30 u Levemir QAM increased to 35 units #left second toe paronychia -ID onboard -podiatry consult for drainage -holding off on intervention until MRI performed -for MRI tomorrow -vancomycin (day 4) -zosyn (day 4) -toe wound cx growing MRSA #HTN -continue home toprolol 25mg PO -resumed home lisinopril; TESS resolved #Throat pain and cough- resolved #Exertional chest pain- resolved #Acute kidney injury- resolved #FEN -no fluids indicated -lytes WNL -diabetic diet #Prophy -Hep SQ 5KU TID #Dispo -admit to med surg Visit type - Emergency Visit Emergency Visit: Yes ED Registration Date: 11/20/17 Care time: The patient presented to the Emergency Department on the above date and was hospitalized for further evaluation of their emergent condition. - New Patient This patient is new to me today: No - Critical Care Critical Care patient: No
[2017-11-23] MEDS: ATORVASTATIN CA 80 MG TABLET (FP) PO SCH (22:00)
[2017-11-23] MEDS: VANCOMYCIN 1,250 MG in DEXTROSE 5%-WATER - 250 ML IVPB SCH (22:00)
[2017-11-23] MEDS ORDERED: INSULIN (NOVOLOG) ASPART 100 UNITS/ML 10ML VIAL ONE (22:21)
--- NOTE | 2017-11-23 22:35 | PN ---
Progress Note (short form) - Note Progress Note: Patient seen in bed earlier today in am. Improved pain today. vss. Tmax 97.5 dp & pt palpable, +resolving ingrow medial nail border 2nd toe right +resolving abscess/celluitis, +mrsa, wbc=5.4, rlkd2d=7.8 r/o om uncontrolled diabetes resolving abscess / cellulitis Awaiting MRI. Daily betadine dressing change second toe left. ID on case. Abx as per ID. will re-evaluate tomorrow.
[2017-11-24] MEDS: PIPERACILLIN/TAZOB 3.375 GM 3.375 GM in DEXTROSE 5%-WATER - 50 ML IVPB SCH ×3 (02:28→17:44)
[2017-11-24] MEDS ORDERED: INSULIN (NOVOLOG) ASPART 100 UNITS/ML 10ML VIAL ONE (05:42)
[2017-11-24] MEDS: INSULIN SLIDING SCALE (NOVOLOG) 1 VIAL SQ SCH ×4 (06:03→21:13)
[2017-11-24] MEDS: HEPARIN NA (PORCINE) 5,000 UNITS/ML 1ML VIAL SQ SCH ×3 (06:04→21:10)
--- NOTE | 2017-11-24 06:29 | PN ---
<Guevara Almaraz - Last Filed: 11/24/17 08:19> Physical Exam: SUBJECTIVE: Patient seen and examined OBJECTIVE: Vital Signs Period Temp Pulse Resp BP Sys/Johnson Pulse Ox Last 24 Hr 97.5 F-98.6 F 57-72 18-18 118-147/61-78 100-100 GENERAL: The patient is awake, alert, and fully oriented, in no acute distress. HEAD: Normal with no signs of trauma. ENT: nares patent. There is an area of erythema and swelling just inside the left nare at the junction between the septum and the maxilla. oropharynx clear without exudates, moist mucous membranes. NECK: Trachea midline, full range of motion, supple. LUNGS: Breath sounds equal, clear to auscultation bilaterally, no wheezes, no crackles, no accessory muscle use. HEART: Regular rate and rhythm, S1, S2 without murmur, rub or gallop. ABDOMEN: Soft, nontender, nondistended, normoactive bowel sounds, no guarding, no rebound, no hepatosplenomegaly, no masses. EXTREMITIES: 2+ pulses, warm, well-perfused, no edema. NEUROLOGICAL: Cranial nerves II through X grossly intact. Normal speech, gait not observed. SKIN: Warm, dry, normal turgor, no rashes or lesions noted. The toe looks grossly unchanged Laboratory Results - last 24 hr 11/23/17 11/23/17 11/23/17 06:24 06:35 06:35 WBC 5.4 D RBC 3.51 L Hgb 8.4 L Hct 26.6 L MCV 75.7 L MCH 24.0 L MCHC 31.7 L RDW 16.8 H Plt Count 289 MPV 9.4 ESR 95 H POC Glucometer 324 11/23/17 11/23/17 11/23/17 11:34 17:48 22:03 WBC RBC Hgb Hct MCV MCH MCHC RDW Plt Count MPV ESR POC Glucometer 262 95 306 11/24/17 05:55 WBC RBC Hgb Hct MCV MCH MCHC RDW Plt Count MPV ESR POC Glucometer 144 Active Medications Generic Name Dose Route Start Last Admin Trade Name Freq PRN Reason Stop Dose Admin Aspirin 81 mg 11/21/17 10:00 11/23/17 12:23 Asa - PO 81 mg DAILY KIRAN Administration Atorvastatin Calcium 80 mg 11/20/17 22:00 11/23/17 22:00 Lipitor - PO 80 mg HS KIRAN Administration Diphenhydramine HCl 25 mg 11/23/17 12:16 Benadryl Injection - IVPUSH ONCE PRN ANXIETY Docusate Sodium 100 mg 11/21/17 10:00 11/23/17 12:23 Colace - PO Not Given DAILY K[facility] Heparin Sodium (Porcine) 5,000 unit 11/20/17 22:00 11/24/17 06:04 Heparin - SQ 5,000 unit TID KIRAN Administration Piperacillin Sod/Tazobactam 50 mls @ 100 mls/hr 11/21/17 18:00 11/24/17 02:28 Sod 3.375 gm/ Dextrose IVPB 100 mls/hr Q8H-IV [facility] Administration Vancomycin HCl 1,250 mg/ 250 mls @ 250 mls/hr 11/22/17 22:00 11/23/17 22:00 Dextrose IVPB 250 mls/hr DAILY@2200 [facility] Administration Protocol Insulin Aspart 1 vial 11/23/17 13:22 11/24/17 06:03 Novolog Vial Sliding Scale - SQ 2 units ACHS [facility] Administration Protocol Insulin Detemir 35 units 11/23/17 11:29 Levemir Vial SQ AM [facility] Lisinopril 5 mg 11/22/17 19:00 11/23/17 12:23 Prinivil PO 5 mg DAILY [facility] Administration Metoprolol Succinate 25 mg 11/20/17 20:15 11/23/17 12:23 Toprol Xl - PO 25 mg DAILY [facility] Administration Oxycodone HCl 5 mg 11/21/17 12:17 11/23/17 09:47 Roxicodone - PO 5 mg Q4H PRN Administration PAIN LEVEL 6-10 ASSESSMENT/PLAN: The patient is a 32 yo f w/ PMH DM who is being admitted for the treatment of a left toe paronychia as well as mild DKA. #Mild DKA- resolved -BGM ACHS -ISS ACHS increased to start coverage at 150 -35 u Levemir QAM #left second toe paronychia -ID onboard -podiatry consult for drainage -holding off on intervention until MRI performed -for MRI tomorrow -vancomycin (day 5) -zosyn (day 5) -toe wound cx growing MRSA #HTN -continue home toprolol 25mg PO -resumed home lisinopril; TESS resolved #Throat pain and cough- resolved #Exertional chest pain- resolved #Acute kidney injury- resolved #FEN -no fluids indicated -lytes WNL -diabetic diet #Prophy -Hep SQ 5KU TID #Dispo -admit to med surg <Madison Rosenberg - Last Filed: 11/24/17 19:19> Physical Exam: Patient seen and examined agree with the resident's plan. Vital Signs Temperature 98.0 F 11/24/17 19:13 Pulse Rate 82 11/24/17 19:13 Respiratory Rate 18 11/24/17 19:13 Blood Pressure 130/78 11/24/17 19:13 O2 Sat by Pulse Oximetry (%) 100 11/24/17 09:00 CBCD WBC 5.4 K/mm3 (4.0-10.0) D 11/23/17 06:35 RBC 3.51 M/mm3 (3.60-5.2) L 11/23/17 06:35 Hgb 8.4 GM/dL (10.7-15.3) L 11/23/17 06:35 Hct 26.6 % (32.4-45.2) L 11/23/17 06:35 MCV 75.7 fl (80-96) L 11/23/17 06:35 MCHC 31.7 g/dl (32.0-36.0) L 11/23/17 06:35 RDW 16.8 % (11.6-15.6) H 11/23/17 06:35 Plt Count 289 K/MM3 (134-434) 11/23/17 06:35 MPV 9.4 fl (7.5-11.1) 11/23/17 06:35 CMP Sodium 135 mmol/L (136-145) L 11/22/17 07:55 Potassium 4.9 mmol/L (3.5-5.1) 11/22/17 07:55 Chloride 100 mmol/L (98-107) 11/22/17 07:55 Carbon Dioxide 27 mmol/L (21-32) 11/22/17 07:55 Anion Gap 8 (8-16) 11/22/17 07:55 BUN 16 mg/dL (7-18) 11/22/17 07:55 Creatinine 0.7 mg/dL (0.55-1.02) 11/22/17 07:55 Creat Clearance w eGFR > 60 (>60) 11/21/17 06:00 Random Glucose 252 mg/dL (74-106) H 11/22/17 07:55 Calcium 7.7 mg/dL (8.5-10.1) L 11/22/17 07:55 Total Bilirubin 0.2 mg/dL (0.2-1.0) D 11/21/17 06:00 AST 22 U/L (15-37) 11/21/17 06:00 ALT 18 U/L (12-78) 11/21/17 06:00 Alkaline Phosphatase 150 U/L (45-117) H 11/21/17 06:00 Total Protein 5.6 g/dl (6.4-8.2) L 11/21/17 06:00 Albumin 2.1 g/dl (3.4-5.0) L 11/21/17 06:00 Current Medications Generic Name Dose Route Start Last Admin Trade Name Freq PRN Reason Stop Dose Admin Aspirin 81 mg 11/21/17 10:00 11/24/17 10:07 Asa - PO 81 mg DAILY K[facility]AN Administration Atorvastatin Calcium 80 mg 11/20/17 22:00 11/23/17 22:00 Lipitor - PO 80 mg HS KIRAN Administration Docusate Sodium 100 mg 11/21/17 10:00 11/24/17 10:07 Colace - PO 100 mg DAILY K[facility]AN Administration Heparin Sodium (Porcine) 5,000 unit 11/20/17 22:00 11/24/17 15:00 Heparin - SQ 5,000 unit TID KIRAN Administration Piperacillin Sod/Tazobactam 50 mls @ 100 mls/hr 11/21/17 18:00 11/24/17 17:44 Sod 3.375 gm/ Dextrose IVPB 100 mls/hr Q8H-IV [facility] Administration Vancomycin HCl 1,250 mg/ 250 mls @ 250 mls/hr 11/22/17 22:00 11/23/17 22:00 Dextrose IVPB 250 mls/hr DAILY@2200 KIRAN Administration Protocol Ibuprofen 400 mg 11/24/17 08:08 11/24/17 08:35 Motrin - PO 400 mg Q6H PRN Administration PAIN LEVEL 1-5 Insulin Aspart 1 vial 11/23/17 13:22 11/24/17 17:12 Novolog Vial Sliding Scale - SQ Not Given [facility]CHS [facility] Protocol Insulin Detemir 35 units 11/23/17 11:29 11/24/17 06:54 Levemir Vial SQ 35 units AM [facility] Administration Lisinopril 5 mg 11/22/17 19:00 11/24/17 10:07 Prinivil PO 5 mg DAILY [facility] Administration Metoprolol Succinate 25 mg 11/20/17 20:15 11/24/17 10:07 Toprol Xl - PO 25 mg DAILY [facility] Administration Oxycodone HCl 5 mg 11/21/17 12:17 11/23/17 09:47 Roxicodone - PO 5 mg Q4H PRN Administration PAIN LEVEL 6-10 Home Medications Medication Instructions Recorded Aspirin [ASA -] 81 mg PO DAILY #0 tab.chew 03/15/16 Atorvastatin Ca [Lipitor] 80 mg PO HS 05/23/17 Insulin (LOG) Aspart [NovoLOG -] 0 unit SQ TID 05/23/17 Lisinopril 5 mg PO ASDIR 05/23/17 Insulin Glargine,Hum.rec.anlog 26 unit SQ HS 11/20/17 [Lantus] Metoprolol Succinate [Toprol Xl] 25 mg PO DAILY 11/20/17 Microbiology 11/20/17 13:30 Blood - Peripheral Venous Blood Culture - Preliminary NO GROWTH OBTAINED AFTER 96 HOURS, INCUBATION TO CONTINUE FOR 1 DAYS. 11/20/17 13:30 Blood - Peripheral Venous Blood Culture - Preliminary NO GROWTH OBTAINED AFTER 96 HOURS, INCUBATION TO CONTINUE FOR 1 DAYS. 11/21/17 14:00 Toe - Left Second Gram Stain - Final 11/21/17 14:00 Toe - Left Second Wound Culture - Final Mr S Aureus 11/20/17 20:28 Nasopharyngeal Swab Influenza Types A,B Antigen (AIDA) - Final 11/20/17 20:28 Nasopharyngeal Swab - Final # Left Foot MRI: positive for Osteomyelitis. continue IV antibiotic Vanco/ zosyn as per ID. will check with ID whether to discontinue Zosyn and continue with Vanco. Visit type - Emergency Visit Emergency Visit: Yes ED Registration Date: 11/20/17 Care time: The patient presented to the Emergency Department on the above date and was hospitalized for further evaluation of their emergent condition. - New Patient This patient is new to me today: Yes Date on this admission: 11/24/17 - Critical Care Critical Care patient: No - Discharge Referral Referred to [facility] No
[2017-11-24] MEDS: INSULIN (LEVEMIR) 100 UNITS/ML UNITS SQ SCH (06:54)
[2017-11-24] MEDS ORDERED: INSULIN (LEVEMIR) 100 UNITS/ML UNITS SQ ONE (06:58)
[2017-11-24] MEDS: IBUPROFEN 400 MG TABLET (FP) PO PRN ×2 (08:35→23:42)
[2017-11-24] MEDS: ASPIRIN 81 MG CHEWABLE TABLETS PO SCH (10:07)
[2017-11-24] MEDS: metoPROLOL SUCCINATE 25 MG TAB.SR.24H (FP) PO SCH (10:07)
[2017-11-24] MEDS: LISINOPRIL 5 MG TABLET (FP) PO SCH (10:07)
[2017-11-24] MEDS: DOCUSATE SODIUM 100 MG CAPSULE (FP) PO SCH (10:07)
--- NOTE | 2017-11-24 11:59 | PN ---
Progress Note, Physician History of Present Illness: stable no issues wound still draining patient comfortable - Current Medication List Current Medications: Active Medications Aspirin (Asa -) 81 mg PO DAILY [facility] Last Admin: 11/24/17 10:07 Dose: 81 mg Atorvastatin Calcium (Lipitor -) 80 mg PO HS [facility] Last Admin: 11/23/17 22:00 Dose: 80 mg Docusate Sodium (Colace -) 100 mg PO DAILY [facility] Last Admin: 11/24/17 10:07 Dose: 100 mg Heparin Sodium (Porcine) (Heparin -) 5,000 unit SQ TID [facility] Last Admin: 11/24/17 06:04 Dose: 5,000 unit Piperacillin Sod/Tazobactam (Sod 3.375 gm/ Dextrose) 50 mls @ 100 mls/hr IVPB Q8H-IV [facility] Last Admin: 11/24/17 10:08 Dose: 100 mls/hr Vancomycin HCl 1,250 mg/ (Dextrose) 250 mls @ 250 mls/hr IVPB DAILY@2200 [facility] PRN Reason: Protocol Last Admin: 11/23/17 22:00 Dose: 250 mls/hr Ibuprofen (Motrin -) 400 mg PO Q6H PRN PRN Reason: PAIN LEVEL 1-5 Last Admin: 11/24/17 08:35 Dose: 400 mg Insulin Aspart (Novolog Vial Sliding Scale -) 1 vial SQ ACHS [facility] PRN Reason: Protocol Last Admin: 11/24/17 06:03 Dose: 2 units Insulin Detemir (Levemir Vial) 35 units SQ AM [facility] Last Admin: 11/24/17 06:54 Dose: 35 units Lisinopril (Prinivil) 5 mg PO DAILY [facility] Last Admin: 11/24/17 10:07 Dose: 5 mg Metoprolol Succinate (Toprol Xl -) 25 mg PO DAILY [facility] Last Admin: 11/24/17 10:07 Dose: 25 mg Oxycodone HCl (Roxicodone -) 5 mg PO Q4H PRN PRN Reason: PAIN LEVEL 6-10 Last Admin: 11/23/17 09:47 Dose: 5 mg - Objective Vital Signs: Vital Signs Temperature 98.0 F 11/24/17 06:00 Pulse Rate 64 11/24/17 06:00 Respiratory Rate 18 11/24/17 06:00 Blood Pressure 117/68 11/24/17 06:00 O2 Sat by Pulse Oximetry (%) 100 11/23/17 21:00 Constitutional: Yes: No Distress, Calm Cardiovascular: Yes: Regular Rate and Rhythm Respiratory: Yes: Regular, CTA Bilaterally Gastrointestinal: Yes: Normal Bowel Sounds, Soft Musculoskeletal: Yes: WNL Extremities: Yes: Other Wound/Incision: Yes: Dressing Dry and Intact Neurological: Yes: Alert, Oriented Psychiatric: Yes: Alert, Oriented Labs: CBC, BMP 11/23/17 06:35 11/22/17 07:55 INR, PTT INR 0.99 (0.82-1.09) 11/21/17 06:00 Assessment/Plan cellulitis of the left foot left 2nd toe discoloration and minimal collection uncontrolled dm pain leukocytosis mrsa plan continue abx await for mri result podiatry plan awaited rest as per the team
[2017-11-24] MEDS ORDERED: PT OWN MED DRAWER 7, Y5N ONE (17:16)
[2017-11-24] MEDS: ATORVASTATIN CA 80 MG TABLET (FP) PO SCH (21:10)
--- NOTE | 2017-11-24 23:38 | PN ---
Progress Note (short form) - Note Progress Note: Patient seen in bed earlier today in am. Improved pain today. vss. Tmax 97.5 dp & pt palpable, +resolving ingrow medial nail border 2nd toe right +om, +mrsa , wbc=5.4, ngoe1r=7.8, esr 95 om uncontrolled diabetes resolving abscess / cellulitis Daily betadine dressing change second toe left. ID on case. Abx as per ID. will re-evaluate tomorrow. no intervention at this time. continue abx. will follow.
[2017-11-24] MEDS: VANCOMYCIN 1,250 MG in DEXTROSE 5%-WATER - 250 ML IVPB SCH (23:43)
[2017-11-25] MEDS ORDERED: PT OWN MED DRAWER 7, Y5N ONE ×2 (01:19→10:49)
[2017-11-25] MEDS: PIPERACILLIN/TAZOB 3.375 GM 3.375 GM in DEXTROSE 5%-WATER - 50 ML IVPB SCH ×2 (02:01→11:04)
[2017-11-25] MEDS: INSULIN SLIDING SCALE (NOVOLOG) 1 VIAL SQ SCH ×4 (06:03→23:56)
[2017-11-25] MEDS: HEPARIN NA (PORCINE) 5,000 UNITS/ML 1ML VIAL SQ SCH ×3 (06:03→23:55)
[2017-11-25] MEDS: INSULIN (LEVEMIR) 100 UNITS/ML UNITS SQ SCH (06:52)
[2017-11-25] MEDS ORDERED: INSULIN (LEVEMIR) 100 UNITS/ML UNITS SQ ONE (06:59)
[2017-11-25] MEDS ORDERED: INSULIN (NOVOLOG) ASPART 100 UNITS/ML 10ML VIAL ONE ×2 (06:59→11:40)
[2017-11-25 07:19] LABS: BASO % 0.6 % (0-2.0); EOS % 1.9 % (0-4.5); HEMATOCRIT 24.9 % (32.4-45.2); LYMPH % 38.4 % (8-40); MCH 24.2 pg (25.7-33.7); MCHC 32.3 g/dl (32.0-36.0); MEAN CELL VOLUME 75.2 fl (80-96); MEAN PLT VOLUME 8.8 fl (7.5-11.1); MONO % 8.2 % (3.8-10.2); NEUT % 50.9 % (42.8-82.8); PLATELET COUNT 301 K/MM3 (134-434); RBC 3.32 M/mm3 (3.60-5.2); RDW 16.8 % (11.6-15.6); WHITE BLOOD COUNT 5.5 K/mm3 (4.0-10.0)
[2017-11-25 07:45] LABS: ALBUMIN 1.9 g/dl (3.4-5.0); ANION GAP 5 (8-16); BILIRUBIN,TOTAL 0.1 mg/dL (0.2-1.0); BLOOD UREA NITROGEN 28 mg/dL (7-18); CALCIUM 7.9 mg/dL (8.5-10.1); CHLORIDE 104 mmol/L (98-107); CO2 27 mmol/L (21-32); CREATININE 0.9 mg/dL (0.55-1.02); GLUCOSE,RANDOM 144 mg/dL (74-106); MAGNESIUM 2.1 mg/dL (1.8-2.4); PHOSPHOROUS 4.6 mg/dL (2.5-4.9); POTASSIUM 4.3 mmol/L (3.5-5.1); SGOT/AST 35 U/L (15-37); SGPT/ALT 24 U/L (12-78); SODIUM 136 mmol/L (136-145)
[2017-11-25 07:47] LABS: ALK PHOS 128 U/L (45-117); TOT PROT 5.5 g/dl (6.4-8.2)
[2017-11-25 07:51] LABS: INR 0.97 (0.82-1.09)
[2017-11-25] MEDS: ASPIRIN 81 MG CHEWABLE TABLETS PO SCH ×2 (10:52→12:54)
[2017-11-25] MEDS: DOCUSATE SODIUM 100 MG CAPSULE (FP) PO SCH (10:52)
[2017-11-25] MEDS: LISINOPRIL 5 MG TABLET (FP) PO SCH (10:52)
[2017-11-25] MEDS: metoPROLOL SUCCINATE 25 MG TAB.SR.24H (FP) PO SCH (10:53)
[2017-11-25] MEDS ORDERED: PICC LINE 8 ML FLUSH PROTOCOL IVPUSH PRN ×2 (11:55→11:56)
--- NOTE | 2017-11-25 12:13 | PN ---
Progress Note (short form) - Note Progress Note: Patient seen in bed earlier today in am. No pain today. vss. Tmax 97.7 dp & pt palpable, +resolved ingrow medial nail border 2nd toe right +om, +mrsa, wbc=5.5, rirx7r=0.8, esr 95 om uncontrolled diabetes resolving abscess / cellulitis Daily betadine dressing change second toe left. ID on case. Abx as per ID. Recommend home Ivabx. Follow up in wound care. Post op shoe.
[2017-11-25 13:18] VITALS: PULSE 68
--- NOTE | 2017-11-25 14:45 | PN ---
Progress Note, Physician History of Present Illness: no complaints podiatry note noted mri results noted no issues osteo - Current Medication List Current Medications: Active Medications Aspirin (Asa -) 81 mg PO DAILY [facility] Last Admin: 11/25/17 12:54 Dose: 81 mg Atorvastatin Calcium (Lipitor -) 80 mg PO HS [facility] Last Admin: 11/24/17 21:10 Dose: 80 mg Docusate Sodium (Colace -) 100 mg PO DAILY [facility] Last Admin: 11/25/17 10:52 Dose: Not Given Heparin Sodium (Porcine) (Heparin -) 5,000 unit SQ TID [facility] Last Admin: 11/25/17 13:13 Dose: Not Given IV Flush (Picc Line Flush) 8 ml IVPUSH PRN PRN PRN Reason: Protocol IV Flush (Picc Line Flush) 8 ml IVPUSH PRN PRN PRN Reason: Protocol Vancomycin HCl 1,250 mg/ (Dextrose) 250 mls @ 250 mls/hr IVPB DAILY@2200 [facility] PRN Reason: Protocol Last Admin: 11/24/17 23:43 Dose: 250 mls/hr Ibuprofen (Motrin -) 400 mg PO Q6H PRN PRN Reason: PAIN LEVEL 1-5 Last Admin: 11/24/17 23:42 Dose: 400 mg Insulin Aspart (Novolog Vial Sliding Scale -) 1 vial SQ ACHS [facility] PRN Reason: Protocol Last Admin: 11/25/17 12:54 Dose: Not Given Insulin Detemir (Levemir Vial) 35 units SQ AM [facility] Last Admin: 11/25/17 06:52 Dose: 35 units Lisinopril (Prinivil) 5 mg PO DAILY [facility] Last Admin: 11/25/17 10:52 Dose: 5 mg Metoprolol Succinate (Toprol Xl -) 25 mg PO DAILY [facility] Last Admin: 11/25/17 10:53 Dose: 25 mg Oxycodone HCl (Roxicodone -) 5 mg PO Q4H PRN PRN Reason: PAIN LEVEL 6-10 Last Admin: 11/23/17 09:47 Dose: 5 mg - Objective Vital Signs: Vital Signs Temperature 98.3 F 11/25/17 13:17 Pulse Rate 68 11/25/17 13:17 Respiratory Rate 18 11/25/17 13:17 Blood Pressure 136/71 11/25/17 13:17 O2 Sat by Pulse Oximetry (%) 100 11/24/17 21:00 Constitutional: Yes: No Distress, Calm Neck: Yes: Supple, Trachea Midline Cardiovascular: Yes: Regular Rate and Rhythm Respiratory: Yes: Regular, CTA Bilaterally Gastrointestinal: Yes: Normal Bowel Sounds, Soft Musculoskeletal: Yes: Other Extremities: Yes: Other Wound/Incision: Yes: Other Neurological: Yes: Alert, Oriented Psychiatric: Yes: Alert, Oriented Labs: CBC, BMP 11/25/17 06:30 11/25/17 06:30 INR, PTT INR 0.97 (0.82-1.09) 11/25/17 06:30 - ....Imaging MRI: Report Reviewed, Image Reviewed Assessment/Plan cellulitis of the left foot left 2nd toe discoloration and minimal collection uncontrolled dm pain leukocytosis mrsa osteo of the left foot podiatry note noted in view of podiatry recommendation and in view of mri result plan patient will need 5 weeks of vanco follow cbc bmp esr crp weekly wound care as per podiatry follow vanco trough before the 4th dose and adjust accordingly i send a random vanco level--follow that
--- NOTE | 2017-11-25 17:16 | PN ---
Teaching Attending Note Name of Resident: Guevara Almaraz ATTENDING PHYSICIAN STATEMENT I saw and evaluated the patient. I reviewed the resident's note and discussed the case with the resident. I agree with the resident's findings and plan as documented. SUBJECTIVE: Patient is comfortable wants to go home, since has 3 young children. No chest pain, no shortness of breath, no fever or chills. OBJECTIVE: Vital Signs Temperature 98.3 F 11/25/17 13:17 Pulse Rate 68 11/25/17 13:17 Respiratory Rate 18 11/25/17 13:17 Blood Pressure 136/71 11/25/17 13:17 O2 Sat by Pulse Oximetry (%) 100 11/24/17 21:00 CBCD WBC 5.5 K/mm3 (4.0-10.0) 11/25/17 06:30 RBC 3.32 M/mm3 (3.60-5.2) L 11/25/17 06:30 Hgb 8.0 GM/dL (10.7-15.3) L 11/25/17 06:30 Hct 24.9 % (32.4-45.2) L 11/25/17 06:30 MCV 75.2 fl (80-96) L 11/25/17 06:30 MCHC 32.3 g/dl (32.0-36.0) 11/25/17 06:30 RDW 16.8 % (11.6-15.6) H 11/25/17 06:30 Plt Count 301 K/MM3 (134-434) 11/25/17 06:30 MPV 8.8 fl (7.5-11.1) 11/25/17 06:30 CMP Sodium 136 mmol/L (136-145) 11/25/17 06:30 Potassium 4.3 mmol/L (3.5-5.1) 11/25/17 06:30 Chloride 104 mmol/L (98-107) 11/25/17 06:30 Carbon Dioxide 27 mmol/L (21-32) 11/25/17 06:30 Anion Gap 5 (8-16) L 11/25/17 06:30 BUN 28 mg/dL (7-18) H 11/25/17 06:30 Creatinine 0.9 mg/dL (0.55-1.02) 03/29/18 06:30 Creat Clearance w eGFR > 60 (>60) 11/25/17 06:30 Random Glucose 144 mg/dL (74-106) H 11/25/17 06:30 Calcium 7.9 mg/dL (8.5-10.1) L 11/25/17 06:30 Total Bilirubin 0.1 mg/dL (0.2-1.0) L D 11/25/17 06:30 AST 35 U/L (15-37) 11/25/17 06:30 ALT 24 U/L (12-78) 11/25/17 06:30 Alkaline Phosphatase 128 U/L (45-117) H 11/25/17 06:30 Total Protein 5.5 g/dl (6.4-8.2) L 11/25/17 06:30 Albumin 1.9 g/dl (3.4-5.0) L 11/25/17 06:30 Current Medications Generic Name Dose Route Start Last Admin Trade Name Freq PRN Reason Stop Dose Admin Aspirin 81 mg 11/21/17 10:00 11/25/17 12:54 Asa - PO 81 mg DAILY [facility] Administration Atorvastatin Calcium 80 mg 11/20/17 22:00 11/24/17 21:10 Lipitor - PO 80 mg HS [facility] Administration Docusate Sodium 100 mg 11/21/17 10:00 11/25/17 10:52 Colace - PO Not Given DAILY [facility] Heparin Sodium (Porcine) 5,000 unit 11/20/17 22:00 11/25/17 13:13 Heparin - SQ Not Given TID [facility] IV Flush 8 ml 11/25/17 11:55 Picc Line Flush IVPUSH PRN PRN Protocol IV Flush 8 ml 11/25/17 11:56 Picc Line Flush IVPUSH PRN PRN Protocol Vancomycin HCl 1,250 mg/ 250 mls @ 250 mls/hr 11/22/17 22:00 11/24/17 23:43 Dextrose IVPB 250 mls/hr DAILY@2200 [facility] Administration Protocol Ibuprofen 400 mg 11/24/17 08:08 11/24/17 23:42 Motrin - PO 400 mg Q6H PRN Administration PAIN LEVEL 1-5 Insulin Aspart 1 vial 11/23/17 13:22 11/25/17 12:54 Novolog Vial Sliding Scale - SQ Not Given ACHS [facility] Protocol Insulin Detemir 35 units 11/23/17 11:29 11/25/17 06:52 Levemir Vial SQ 35 units AM [facility] Administration Lisinopril 5 mg 11/22/17 19:00 11/25/17 10:52 Prinivil PO 5 mg DAILY [facility] Administration Metoprolol Succinate 25 mg 11/20/17 20:15 11/25/17 10:53 Toprol Xl - PO 25 mg DAILY [facility] Administration Oxycodone HCl 5 mg 11/21/17 12:17 11/23/17 09:47 Roxicodone - PO 5 mg Q4H PRN Administration PAIN LEVEL 6-10 Home Medications Medication Instructions Recorded Aspirin [ASA -] 81 mg PO DAILY #0 tab.chew 03/15/16 Atorvastatin Ca [Lipitor] 80 mg PO HS 05/23/17 Insulin (LOG) Aspart [NovoLOG -] 0 unit SQ TID 05/23/17 Lisinopril 5 mg PO ASDIR 05/23/17 Insulin Glargine,Hum.rec.anlog 26 unit SQ HS 11/20/17 [Lantus] Metoprolol Succinate [Toprol Xl] 25 mg PO DAILY 11/20/17 Miscellaneous Medical Supply 1 each ASDIR #1 misc 11/25/17 [Outpatient Order] Vancomycin/0.9 % Sod Chloride 1.25 gm IV DAILY #35 plast..bag 11/25/17 [Vanco 1.25 gm/250 ml-0.9% NaCl] Microbiology 11/20/17 13:30 Blood - Peripheral Venous Blood Culture - Final NO GROWTH AFTER 5 DAYS INCUBATION 11/20/17 13:30 Blood - Peripheral Venous Blood Culture - Final NO GROWTH AFTER 5 DAYS INCUBATION 11/21/17 14:00 Toe - Left Second Gram Stain - Final 11/21/17 14:00 Toe - Left Second Wound Culture - Final S Aureus 11/20/17 20:28 Nasopharyngeal Swab Influenza Types A,B Antigen (AIDA) - Final 11/20/17 20:28 Nasopharyngeal Swab - Final ASSESSMENT AND PLAN: Patient is a 32 y/o lady with h/o IDDM type I , HTN, depression , gastric sleeve , CAD , s/p CABG , and stents , anemia , preeclamsia , C sections and endometrial abscess who presented with pain in L second toe. She was found to have DKA and foot infection with cellulitis. # Acute Left wound toe paronychia and cellulitis of Left foot: On IV Vancomycin 1250mg to continue as an outpatient, patient went for a PIcc line. MRI of left lower leg is done positive for Osteo. will recieve IV antibiotic daily for 5 more weeks #Mild DKA resolved . continue levemir to 35 and follow with SS #H/o CAD, s/p CABG, and stents. continue BB , ASA . f/u as out pt for stress test # TESS: resolved post IVF #H/o HTN: cont torpol and lisinopril discharge patient home.
[2017-11-25] MEDS ORDERED: VANCOMYCIN 1,250 MG in DEXTROSE 5%-WATER - 250 ML IVPB SCH (20:00)
[2017-11-25 23:55] VITALS: BP 124/75; TEMP 98.7
[2017-11-25] MEDS: ATORVASTATIN CA 80 MG TABLET (FP) PO SCH (23:56)
--- NOTE | 2017-11-27 14:00 | DS ---
Physical Exam: SUBJECTIVE: Patient seen and examined. no new complaints OBJECTIVE: PHYSICAL EXAM GENERAL: The patient is awake, alert, and fully oriented, in no acute distress. LUNGS: Breath sounds equal, clear to auscultation bilaterally, no wheezes, no crackles, no accessory muscle use. HEART: Regular rate and rhythm, S1, S2 without murmur, rub or gallop. ABDOMEN: Soft, nontender, nondistended, normoactive bowel sounds, no guarding, no rebound, no hepatosplenomegaly, no masses. EXTREMITIES: 2+ pulses, warm, well-perfused, no edema. NEUROLOGICAL: Cranial nerves II through X grossly intact. Normal speech, gait not observed. PSYCH: Normal mood, normal affect. SKIN: Warm, dry, normal turgor, no rashes or lesions noted. LABS HOSPITAL COURSE: Date of Admission:11/20/17 The patient is a 32 yo f w/ PMH DM, CAD, HTN who presented to the ED c/o a 3 day history of left toe pain and swelling. The patient stated that she noticed that her left second toe began to become swollen after she trimmed her own nails at home. The swelling got progressively worse and began to spread from her toe into her foot, at which point the patient sought medical attention. The patient endorsed noncompliance with her medications. In the ED, she was found to have a glucose of 514, a lactic acid of 3.9, an anion gap of 16 and 2+ acetone in the blood. A Chest xray was WNL. An xray of the foot was WNL. The patient was admitted for the treatment of left toe infection and mild DKA. Infectious disease was consulted. Podiatry was consulted. The patient was treated [facility] vancomycin and zosyn. A wound culture grew MRSA. Treatment was continued with Vancomycin. An MRI of the foot shows osteomyelitis. A PICC line was placed and the patient was discharged on daily vancomycin for an additional 6 weeks. 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 Date of Discharge: 11/25/17 Minutes to complete discharge: 67 <Guevara Almaraz - Last Filed: 11/27/17 14:38> Physical Exam: SUBJECTIVE: Patient seen and examined OBJECTIVE: PHYSICAL EXAM GENERAL: The patient is awake, alert, and fully oriented, in no acute distress. HEAD: Normal with no signs of trauma. EYES: PERRL, extraocular movements intact, sclera anicteric, conjunctiva clear. ENT: Ears normal, nares patent, oropharynx clear without exudates, moist mucous membranes. NECK: Trachea midline, full range of motion, supple. LUNGS: Breath sounds equal, clear to auscultation bilaterally, no wheezes, no crackles, no accessory muscle use. HEART: Regular rate and rhythm, S1, S2 without murmur, rub or gallop. ABDOMEN: Soft, nontender, nondistended, normoactive bowel sounds, no guarding, no rebound, no hepatosplenomegaly, no masses. EXTREMITIES: 2+ pulses, warm, well-perfused, no edema. NEUROLOGICAL: Cranial nerves II through XII grossly intact. Normal speech, gait not observed. PSYCH: Normal mood, normal affect. SKIN: Warm, dry, normal turgor, no rashes or lesions noted. LABS HOSPITAL COURSE: Date of Admission:11/20/17 Date of Discharge: 11/30/17 <Madison Rosenberg - Last Filed: 11/30/17 14:20> Discharge Summary Reason For Visit: CORONARY ARTERY DISEASE,UNCT TP 1 DIABETES MELLITU - Home Medications Comprehensive Discharge Medication List: Ambulatory Orders Aspirin [ASA -] 81 mg PO DAILY #0 tab.chew 03/15/16 Atorvastatin Ca [Lipitor] 80 mg PO HS 05/23/17 Insulin (LOG) Aspart [NovoLOG -] 0 unit SQ TID 05/23/17 Lisinopril 5 mg PO ASDIR 05/23/17 Insulin Glargine,Hum.rec.anlog [Lantus] 26 unit SQ HS 11/20/17 Metoprolol Succinate [Toprol Xl] 25 mg PO DAILY 11/20/17 Miscellaneous Medical Supply [Outpatient Order] 1 each ASDIR #1 misc Vancomycin/0.9 % Sod Chloride [Vanco 1.25 gm/250 ml-0.9% NaCl] 1.25 gm IV DAILY #35 plast..bag 11/25/17 <Guevara Almaraz - Last Filed: 11/27/17 14:38> - Home Medications Comprehensive Discharge Medication List: Ambulatory Orders Aspirin [ASA -] 81 mg PO DAILY #0 tab.chew 03/15/16 Atorvastatin Ca [Lipitor] 80 mg PO HS 05/23/17 Insulin (LOG) Aspart [NovoLOG -] 0 unit SQ TID 05/23/17 Lisinopril 5 mg PO ASDIR 05/23/17 Insulin Glargine,Hum.rec.anlog [Lantus] 26 unit SQ HS 11/20/17 Metoprolol Succinate [Toprol Xl] 25 mg PO DAILY 11/20/17 Miscellaneous Medical Supply [Outpatient Order] 1 each ASDIR #1 misc Vancomycin/0.9 % Sod Chloride [Vanco 1.25 gm/250 ml-0.9% NaCl] 1.25 gm IV DAILY #35 plast..bag 11/25/17 <Madison Rosenberg - Last Filed: 11/30/17 14:20> Condition: Improved - Instructions Diet, Activity, Other Instructions: Ms Angeles, you have been diagnosed with infection in your toe that went to your bone. You will need five total weeks of antibiotics. This is a daily medication that will be given through your IV. A nurse will come to your house to teach you. Wound care for your toe is daily betadine dressing change. Please follow up with business center attendant in one week. We would like you to follow up with your primary care physician within one week. You can make an appointment with Dr. Bradford if you do not have a primary care doctor. Also you will need weekly blood work. This includes, cbc, bmp, esr , crp and a vancomycin level before you fourth dose when you get home. Script provided. Please take all your medications as directed. You are at greater risk of serious infection due to uncontrolled diabetes. Please bring all forms and results from hospital to your primary. If you experience any fever, chills, worsening toe pain, discoloration, please return to the emergency room. Referrals: Gary Bradford MD [Staff Physician] - Ulisses Cunningham MD [Staff Physician] - 1 Week Mateo Smart MD [Staff Physician] - Mayte Foley DPM [Staff Physician] - 1 Week Disposition: HOME This patient is new to me today: No Emergency Visit: Yes ED Registration Date: 11/20/17 Care time: The patient presented to the Emergency Department on the above date and was hospitalized for further evaluation of their emergent condition. Critical Care patient: No - Discharge Referral Referred to [facility] No <Guevara Almaraz - Last Filed: 11/27/17 14:38>
== END 2017-11-25 21:30 | disposition home or self-care (01) | DRG 420 ==
LOC: JER 11:44 → JERBED 16:13 → J5S 21:46
PROVIDERS: ADMIT Internal Medicine; ATTEND Internal Medicine
PROC: 02HV33Z Insertion of Infusion Device into Superior Vena Cava, Percutaneous Approach (ICD-10-PCS; principal; 2017-11-25)
DX: E10.10 Type 1 diabetes mellitus with ketoacidosis without coma (principal); I10 Essential (primary) hypertension; F32.9 Major depressive disorder, single episode, unspecified; D64.9 Anemia, unspecified; N17.9 Acute kidney failure, unspecified; E87.1 Hypo-osmolality and hyponatremia; E78.5 Hyperlipidemia, unspecified; A49.02 Methicillin resistant Staphylococcus aureus infection, unspecified site; I25.10 Atherosclerotic heart disease of native coronary artery without angina pectoris; L03.032 Cellulitis of left toe; F17.200 Nicotine dependence, unspecified, uncomplicated; F12.10 Cannabis abuse, uncomplicated; R07.0 Pain in throat; Z95.5 Presence of coronary angioplasty implant and graft; Z98.84 Bariatric surgery status; Z95.1 Presence of aortocoronary bypass graft
CPT/HCPCS: 36415; 36569; 71046-TC-FY; 73630-TC-LT; 73720-LT; 77001-TC-FY; 80048; 80053; 81003; 81015; 82009; 82962; 83605; 83735; 84100; 84703; 85025; 85027; 85610; 85651; 85730; 86140; 87040; 87070; 87186; 87205; 87804; 93005; 93010; 97116-GP; 97161-GP; 99285-25; C1751; G0480; J1644; J7030

== ENCOUNTER 2017-12-23 13:51 | Inpatient (IN) | payer OTHER ==
--- NOTE | 2017-12-23 14:16 | PDOC ---
Attending Attestation - HPI HPI: 12/23/17 14:54 This is a 32yo F with a significant past medical history of DM, CAD, HTN, and recent hospitalization of osteomyelitis in her left toe (HBO and IV Vancomycin week 3) who presents with fevers (Tmax 99.9), chills, generalized body aches, nonproductive cough, mild abdominal pain, and intermittent chest pain which she associates with coughing. Pt states her symptoms started within the past week and notes that her son had pneumonia and her mother is currently being treated with Abx for what seems to be a bacterial URI. She states she might not have walked into the ED herself but her hoop coiler advised her to come for evaluation because she did "not look well". Pt also endorses some suprapubic and right upper quadrant discomfort. She reports having a negative on Wednesday before having a normal echocardiogram and stress test. She reports having UTI in the past which presented without any symptoms. She states she feels worse than she did when she had UTI in past. She denies shortness of breath, headache and dizziness. She denies nausea, vomit , diarrhea and constipation. She denies dysuria, frequency, urgency and hematuria. - Physicial Exam PE: 12/23/17 15:00 Vitals: Triage vital signs reviewed General Appearance: No acute distress, well nourished, well developed Head: Atraumatic Eyes: Pupils equal reactive round, extraocular movement intact Neck: Supple; No nuchal rigidity Chest Wall: Nontender Cardiac: Regular rate and rhythm, no murmurs, no rubs, no gallops Lungs: Clear to auscultation bilateral, good air movement bilaterally Abdomen: (+) right upper quadrant and epigastric tenderness to palpation. Soft , nondistended, normal bowel sounds, Extremities: Full range of motion to all extremities, no cyanosis, clubbing, or edema Skin: Warm and dry, no rashes or lesions, no rash, no petechiae Neuro: AOX3; Cranial Nerves 2-12 grossly intact, Strength intact to all extremities, Sensation intact to all extremities, Psych: Normal mood, normal affect - Medical Decision Making 12/23/17 15:01 Documentation prepared by Natasha Lomeli, acting as medical representative for Galen Leija MD, 12/23/17 15:02 Pt is a 32 y.o F with a significant past medical history of DM, CAD, HTN, and recent hospitalization of osteomyelitis in her left toe (HBO and IV Vancomycin week 3/5) who presents from her hoop coiler for evaluation of fevers, chills, cough, intermittent chest pain, and abdominal pain. Plan: labs, CXR, EKG, reassess <Natasha Lomeli - Last Filed: 12/23/17 14:54> - Resident Resident Name: Cristian Harding - ED Attending Attestation I have performed the following: I have examined & evaluated the patient, The case was reviewed & discussed with the resident, I agree w/resident's findings & plan, Exceptions are as noted - Medical Decision Making Subjective fever chills given history of osteo-aniridia vancomycin will order blood cultures and admit hospital overnight to follow up cultures and further management. Patient may need PICC line removed <Galen Leija - Last Filed: 12/24/17 17:51>
--- NOTE | 2017-12-23 14:29 | PDOC ---
History of Present Illness - General Chief Complaint: Weakness Stated Complaint: SENT BY PCP Time Seen by Provider: 12/23/17 14:16 - History of Present Illness Initial Comments: 12/23/17 14:31 32yo F with history of DM, CAD, HTN, and recent hospitalization of osteomyelitis in her left toe (HBO and IV Vancomycin week 3/) who presents with subjective fevers, chills, generalized body aches and nonproductive cough. Pt states her symptoms started within the past week and notes that her son had pneumonia and her mother had recent flu. Pt also endorses some suprapubic tenderness with lumbar back pain for the past couple of days. She reports having intercourse recently and doesn't know whether or not it is related and also reports her LMP was about 1-1.5 weeks ago. In addition pt endorses a headache which started frontally and spread to generalized with associated photophobia. Pt reports she's been having headaches on and off for the past couple of months and has had increased amount of stress recently. Denies n/v/d/c , change in sensation, change in motor strength, dysphagia, odynophagia, ear pain, shortness of breath. Past History - Past Medical History Allergies/Adverse Reactions: Allergies Allergy/AdvReac Type Severity Reaction Status Date / Time No Known Allergies Allergy Verified 12/23/17 13:58 Home Medications: Ambulatory Orders Aspirin [ASA -] 81 mg PO DAILY #0 tab.chew 03/15/16 Atorvastatin Ca [Lipitor] 80 mg PO HS 05/23/17 Insulin (LOG) Aspart [NovoLOG -] 0 unit SQ TID 05/23/17 Lisinopril 5 mg PO ASDIR 05/23/17 Insulin Glargine,Hum.rec.anlog [Lantus] 26 unit SQ HS 11/20/17 Metoprolol Succinate [Toprol Xl] 25 mg PO DAILY 11/20/17 Vancomycin/0.9 % Sod Chloride [Vanco 1.25 gm/250 ml-0.9% NaCl] 1.25 gm IV DAILY #35 plast..bag 11/25/17 Cetirizine HCl/Pseudoephedrine [Zyrtec-D Tablet] 1 each PO DAILY #60 tab.er.12h MDD 1 12/10/17 LORazepam [Ativan] 1 mg PO DAILY #30 tablet MDD 1 12/10/17 Asthma: No Cancer: No Cardiac Disorders: Yes (cardiac bypass) COPD: No Diabetes: Yes (insulin dependent) HTN: Yes Hypercholesterolemia: Yes Psychiatric Problems: Yes (depression ) Seizures: No Thyroid Disease: Yes ( A CHILD) - Surgical History Abdominal Surgery: Yes (Gastric sleeve) Cardiac Surgery: Yes (CABG 2013/ stent) Gastric Stapling: Yes (sleeve 2012) - Reproductive History (#): 6 Para: 2 Therapeutic (s) & number: Yes (2) Spontaneous : 2 - Suicide/Smoking/Psychosocial Hx Smoking Status: Yes Smoking History: Never smoked Have you smoked in the past 12 months: No Number of Cigarettes Smoked Daily: 7 If you are a former smoker, when did you quit?: 2 WKS Cigars Per Day: 1 Information on smoking cessation initiated: No 'Breaking Loose' booklet given: 05/23/17 Hx Alcohol Use: No Drug/Substance Use Hx: No Substance Use Type: None Hx Substance Use Treatment: No Review of Systems - Review of Systems Constitutional: Yes: Chills, Fever, Malaise. No: Night Sweats HEENTM: No: Nose Congestion, Throat Pain Respiratory: Yes: Cough. No: Shortness of Breath, Productive cough Cardiac (ROS): No: Chest Pain, Lightheadedness, Palpitations, Syncope, Chest Tightness ABD/GI: No: Constipated, Diarrhea, Nausea, Vomiting : Yes: Flank Pain. No: Dysuria, Frequency, Incontinence Musculoskeletal: Yes: Back Pain Integumentary: No: Pallor, Rash Neurological: Yes: Headache. No: Numbness, Paresthesia, Tingling, Weakness, Unsteady Gait, Dizziness Psychiatric: Yes: Stressors. No: Anxiety, Depression Hematologic/Lymphatic: No: Easy Bleeding, Easy Bruising *Physical Exam - Vital Signs Last Vital Signs Temp Pulse Resp BP Pulse Ox 97.8 F 82 16 135/82 100 12/23/17 13:56 12/23/17 13:56 12/23/17 13:56 12/23/17 13:56 12/23/17 13:56 - Physical Exam Comments: 12/23/17 15:01 GEN: NAD, awake, alert, tear-ful HEENT: EOMI, RENAE, dry-moist mucosa, posterior oropharynx without erythema or plaques, good dentition Neck: Soft, ROM intact, No JVD LUNGS: Diminished bibasillar breath sounds, otherwise CTA, no accessory muscle use CARDIAC: RRR, 2/6 systolic murmur noted at LLSB ABD: Soft, nondistended, normoactive BS, suprapubic tenderness, no guarding, no rebound, negative frye's BACK: L CVA tenderness noted EXT: No edema, strong DP pulses, L 2nd digit healed wound with skin intact without erythema or purulence. Heart Score/ECG Review #1 12/23/17 17:12 NSR @ 84bpm, normal axis, normal R wave progression, no ST abnormalities. [place] 134ms. QTc 453ms ED Treatment Course - LABORATORY CBC & Chemistry Diagram: 12/23/17 16:00 12/23/17 16:00 - RADIOLOGY Radiology Studies Ordered: Category Date Time Status CHEST PA & LAT [RAD] Stat Radiology 12/23/17 14:16 Ordered Medical Decision Making - Medical Decision Making 12/23/17 14:55 32yo F with CAD, DM, HTN, HLD, and recent hospitalization for osteo (HBO and IV vanco infusions 3/5 weeks) --Suspicious for infectious process (URI vs. UTI vs. both vs. other process) especially due to immunocompromise --Doubt meningitis: no neuro deficits, no overt neck pain, no objective fevers currently --Headache most likely generalized body aches induced CBC, CMP, Lipase, Trop, UA, Urine culture, BCx, CXR, EKG IV benadryl, IV reglan, IV fluids: 500cc bolus NS 12/23/17 16:40 CBC reveals WBC 2,600 with 18% monocyte count With Hgb 8.5 (baseline anemic per previous labs) 12/23/17 17:22 UA negative for infection (positive for 2+ protein, 3+ glucose, 1+ blood); bHCG negative Awaiting CXR 12/23/17 20:32 PICC removed and catheter tip sent in sterile specimen cup for culture --Tip visualized with some narrowing at tip with some type of film substance ; no purulence noted Rectal Temp 102 --Tylenol 650mg PO q6h PRN for fever *DC/Admit/Observation/Transfer Diagnosis at time of Disposition: Fever Qualifiers: Fever type: unspecified Qualified Code(s): R50.9 - Fever, unspecified Leukopenia Qualifiers: Leukopenia type: unspecified Qualified Code(s): D72.819 - Decreased white blood cell count, unspecified Type 1 diabetes mellitus, uncontrolled Qualifiers: Diabetes mellitus complication status: with kidney complications Diabetes mellitus complication detail: with nephropathy Qualified Code(s): E10.29 - Type 1 diabetes mellitus with other diabetic kidney complication Osteomyelitis Qualifiers: Osteomyelitis type: other Osteomyelitis location: foot Laterality: left Qualified Code(s): M86.8X7 - Other osteomyelitis, ankle and foot - Discharge Dispostion Condition at time of disposition: Stable - Referrals - Patient Instructions - Post Discharge Activity
[2017-12-23] MEDS ORDERED: METOCLOPRAMIDE HCL INJECTION 10 MG/2 ML VIAL IVPUSH ONE (14:37)
[2017-12-23] MEDS ORDERED: SODIUM CHLORIDE 500 ML IV STA (14:37)
[2017-12-23 16:22] LABS: BASO % 1.1 % (0-2.0); EOS % 1.6 % (0-4.5); HEMATOCRIT 26.4 % (32.4-45.2); HEMOGLOBIN 8.5 GM/dL (10.7-15.3); LYMPH % 23.6 % (8-40); MCH 23.2 pg (25.7-33.7); MCHC 32.1 g/dl (32.0-36.0); MEAN CELL VOLUME 72.3 fl (80-96); MEAN PLT VOLUME 8.3 fl (7.5-11.1); MONO % 18.4 % (3.8-10.2); NEUT % 55.3 % (42.8-82.8); PLATELET COUNT 351 K/MM3 (134-434); RBC 3.65 M/mm3 (3.60-5.2); RDW 15.6 % (11.6-15.6); WHITE BLOOD COUNT 2.6 K/mm3 (4.0-10.0)
[2017-12-23] MEDS ORDERED: METOCLOPRAMIDE HCL INJECTION 10 MG/2 ML VIAL ONE (16:31)
[2017-12-23 16:51] LABS: ALBUMIN 2.8 g/dl (3.4-5.0); ALK PHOS 167 U/L (45-117); ANION GAP 5 (8-16); BILIRUBIN,TOTAL 0.2 mg/dL (0.2-1.0); BLOOD UREA NITROGEN 17 mg/dL (7-18); CALCIUM 8.4 mg/dL (8.5-10.1); CHLORIDE 103 mmol/L (98-107); CO2 30 mmol/L (21-32); CREATININE 1.1 mg/dL (0.55-1.02); GLUCOSE,RANDOM 102 mg/dL (74-106); POTASSIUM 4.1 mmol/L (3.5-5.1); SGOT/AST 22 U/L (15-37); SGPT/ALT 28 U/L (12-78); SODIUM 138 mmol/L (136-145); TOT PROT 6.8 g/dl (6.4-8.2)
[2017-12-23 16:53] LABS: LIPASE 204 U/L (73-393)
[2017-12-23 17:11] LABS: HCG,QUALITATIVE URINE NEGATIVE
[2017-12-23 17:16] LABS: URINE APPEARANCE CLEAR; URINE BILIRUBIN NEGATIVE (<2.0 mg/dL); URINE BLOOD 1+ (NEGATIVE); URINE COLOR STRAW; URINE GLUCOSE (UA) 3+ (NEGATIVE); URINE KETONE NEGATIVE (NEGATIVE); URINE LEUK ESTERASE NEGATIVE (NEGATIVE); URINE NITRITE NEGATIVE (NEGATIVE); URINE PROTEIN 2+ (NEGATIVE); URINE UROBILINOGEN NEGATIVE mg/dL (0.2-1.0)
[2017-12-23 17:18] LABS: EPI CELLS RARE /HPF (FEW)
--- NOTE | 2017-12-23 18:13 | PN ---
Teaching Attending Note Name of Resident: Demario Bruce ATTENDING PHYSICIAN STATEMENT I saw and evaluated the patient. I reviewed the resident's note and discussed the case with the resident. I agree with the resident's findings and plan as documented with exceptions below. SUBJECTIVE: 32 yof with PMHx of IDDM, HTN, CAD s/p CABG/PCI, recent MRSA left foot cellulitis/Osteomyelitis s/p I&D, discharged on 11/25 with PICC/IV vancomycin for 5 weeks, being followed in wound care/HBO, comes with 2-3 days of fevers, myalgias, bodyaches, weakness and suprapubic discomfort. Son with PNA recently. Also mother with URI like illness. No new urinary symptoms. Describes abdominal pain as suprapubic sharp intermittent, no relation to bowel or bladder activities. No nausea, vomiting. Tolerating diet well. Chronic cough x 3 months, unchanged, no new dyspnea. recent outpatient stress test and echo reportedly non concerning except for ? pericardial effusion/Pul HTN when was started on lasix 10 mg daily and metoprolol was increased to 50 mg daily. Her vanco dosing was recently increased to 2 g daily. OBJECTIVE: Vital Signs Period Temp Pulse Resp BP Sys/Johnson Pulse Ox Last 24 Hr 97.8 F 82 16 135/82 100 Intake & Output 12/20/17 12/21/17 12/22/17 12/23/17 23:59 23:59 23:59 23:59 Weight 166 lb GENERAL: Awake, alert, and fully oriented, in no acute distress but tired looking HEAD: Normal with no signs of trauma. EYES: Pupils equal, round and reactive to light, extraocular movements intact, sclera anicteric, conjunctiva clear. No lid lag. pos pallor EARS, NOSE, THROAT: Ears normal, nares patent, oropharynx clear without exudates. mildly dry mucous membrane NECK: soft supple,no JVD, no lymphadenopathy appreciated LUNGS: Breath sounds equal, clear to auscultation bilaterally. No wheezes, and no crackles. No accessory muscle use. HEART: S1S2 regular ABDOMEN: Soft,obese, tenderness on deep palpation in suprapubic region, mild left periumbilical region, no RUQ or RLQ tenderness, neg frye's sign, no voluntary or involuntary guarding or rigidity, positive bowel sounds MUSCULOSKELETAL: Normal range of motion at all joints. No bony deformities or tenderness. No CVA tenderness. UPPER EXTREMITIES: 2+ pulses, warm, well-perfused. No cyanosis. No clubbing. No peripheral edema. LOWER EXTREMITIES: LLE well healing second toe with no erythema/swelling/ warmth or discharge, strong DP pulses palpated. NEUROLOGICAL: facial symmetry, PERRL, EOMI, power 5/5 generalized. Normal speech. PSYCHIATRIC: Cooperative. Good eye contact. Appropriate mood and affect. SKIN: Warm, dry, normal turgor, no rashes or lesions noted, normal capillary refill. Home Medication List Medication Instructions Recorded Confirmed Type Atorvastatin Ca [Lipitor] 80 mg PO HS 05/23/17 12/23/17 History Insulin (LOG) Aspart [NovoLOG -] 0 unit SQ TID 05/23/17 12/23/17 History Lisinopril 5 mg PO ASDIR 05/23/17 12/23/17 History Insulin Glargine,Hum.rec.anlog 26 unit SQ HS 11/20/17 12/23/17 History [Lantus] Metoprolol Succinate [Toprol Xl] 25 mg PO DAILY 11/20/17 12/23/17 History Laboratory Results - last 24 hr 12/23/17 12/23/17 12/23/17 16:00 16:00 16:00 WBC 2.6 L D RBC 3.65 Hgb 8.5 L Hct 26.4 L MCV 72.3 L MCH 23.2 L MCHC 32.1 RDW 15.6 Plt Count 351 MPV 8.3 D Neutrophils % 55.3 D Lymphocytes % 23.6 D Monocytes % 18.4 H D Eosinophils % 1.6 Basophils % 1.1 Sodium 138 Potassium 4.1 Chloride 103 Carbon Dioxide 30 Anion Gap 5 L BUN 17 Creatinine 1.1 H Creat Clearance w eGFR 56.86 Random Glucose 102 Calcium 8.4 L Total Bilirubin 0.2 D AST 22 ALT 28 Alkaline Phosphatase 167 H Troponin I < 0.02 Total Protein 6.8 Albumin 2.8 L Lipase 204 Urine Color Urine Appearance Urine pH Ur Specific [place] Urine Protein Urine Glucose (UA) Urine Ketones Urine Blood Urine Nitrite Urine Bilirubin Urine Urobilinogen Ur Leukocyte Esterase Urine WBC (Auto) Urine RBC (Auto) Ur Epithelial Cells Urine HCG, Qual 12/23/17 16:38 WBC RBC Hgb Hct MCV MCH MCHC RDW Plt Count MPV Neutrophils % Lymphocytes % Monocytes % Eosinophils % Basophils % Sodium Potassium Chloride Carbon Dioxide Anion Gap BUN Creatinine Creat Clearance w eGFR Random Glucose Calcium Total Bilirubin AST ALT Alkaline Phosphatase Troponin I Total Protein Albumin Lipase Urine Color Straw Urine Appearance Clear Urine pH 6.0 Ur Specific [place] 1.008 Urine Protein 2+ H Urine Glucose (UA) 3+ H Urine Ketones Negative Urine Blood 1+ H Urine Nitrite Negative Urine Bilirubin Negative Urine Urobilinogen Negative Ur Leukocyte Esterase Negative Urine WBC (Auto) 1 Urine RBC (Auto) 3 Ur Epithelial Cells Rare Urine HCG, Qual Negative Blood cultures from periphery sent CXR neg for acute process ASSESSMENT AND PLAN: 32 yof with HTN, IDDM, CAD s/p CABG/PCI, 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 -Fevers/constitutional symptoms. -Leucopenia with minimal neutropneia and monocytosis, ?reactive. Inflammatory, parasitic disease on differential but no recent exposure or risk factors noted currently -SUprapubic pain, neg urinalysis, r/o cystitis -MRSA left foot osteomyelitis on IV vancomycin -IDDM -HTN -CAD s/p CABG/PGI Plan: Check rectal temp. FLu swab, CT A/P non contrast. Blood cultures from PICC and periphery. Unable to get blood flow from PICC, per patient has been happening since 1 week after discharge. Discuss with IR, ?Tpa. PICC removal vs change accordingly. Check ESR/CRP. Blood smear given leucopenia with monocytosis and vague constitutional symptoms. Hematology input if persistent leucopenia with abnormal differential. Foot healing well. Continue IV vancomycin. hold off on additional antibiotics unless clear etiology identified. Continue home levemir, ISS, diabetic diet. Trend CBC. Continue metoprolol/ASA/statin. Hold lasix, gentle hydration. Bladder scan x1. Admit to obs, further stay beyond 24-48 hours based on clinical course and infectious work up and fever curve. Plan discussed with patient in detail, all questions answered. Total admit time spent 55 min.
[2017-12-23] MEDS ORDERED: VANCOMYCIN 2,000 MG in DEXTROSE 5%-WATER - 250 ML IVPB ONE (19:30)
--- NOTE | 2017-12-23 19:43 | HP ---
CHIEF COMPLAINT: fever , malase PCP: HISTORY OF PRESENT ILLNESS: 32 yof with PMHx of IDDM, HTN, CAD s/p CABG/PCI, recent MRSA left foot cellulitis/Osteomyelitis s/p I&D, discharged on 11/25 with PICC/IV vancomycin for 5 weeks. Gets HBO Wednesday through wednesday. Came to hospital with a complaint of myalgias, weakness from 2-3 days. Also reports feevr of 99-100.4 from last night and suprapubic discomfort from one day. Jamey also states that she has chronic cough from 3 months, unchanged, no sob , no chest pain, no diarrhoea, no constipation, no nausea, vomiting Suprapubic pain in intermittent, sharp. Patient recently saw her plant biology professor in [facility] and echo was done and was started on lasix of 10mg and toprol xl was increased to 50 daily. ER course was notable for: (1)cbc, cmp, ua (2)CT abdomen (3)blood and urine culture. Recent Travel:no PAST MEDICAL HISTORY: as above PAST SURGICAL HISTORY: cabg at age of 27, sleeve gastrectomy Social History: Smoking, Alcohol: stopped last month, started at age of 13 Drugs: no Family History: H/o DM, in family. Allergies No Known Allergies Allergy (Verified 12/23/17 13:58) HOME MEDICATIONS: Home Medications Medication Instructions Recorded Aspirin [ASA -] 81 mg PO DAILY #0 tab.chew 03/15/16 Atorvastatin Ca [Lipitor] 80 mg PO HS 05/23/17 Insulin (LOG) Aspart [NovoLOG -] 0 unit SQ TID 05/23/17 Lisinopril 5 mg PO ASDIR 05/23/17 Insulin Glargine,Hum.rec.anlog 26 unit SQ HS 11/20/17 [Lantus] Metoprolol Succinate [Toprol Xl] 25 mg PO DAILY 11/20/17 Vancomycin/0.9 % Sod Chloride 1.25 gm IV DAILY #35 plast..bag 11/25/17 [Vanco 1.25 gm/250 ml-0.9% NaCl] Cetirizine HCl/Pseudoephedrine 1 each PO DAILY #60 tab.er.12h MDD 12/10/17 [Zyrtec-D Tablet] 1 LORazepam [Ativan] 1 mg PO DAILY #30 tablet MDD 1 12/10/17 REVIEW OF SYSTEMS CONSTITUTIONAL: Absent: fever, chills, diaphoresis, generalized weakness, malaise, loss of appetite, weight change HEENT: Absent: rhinorrhea, nasal congestion, throat pain, throat swelling, difficulty swallowing, mouth swelling, ear pain, eye pain, visual changes CARDIOVASCULAR: Absent: chest pain, syncope, palpitations, irregular heart rate, lightheadedness , peripheral edema RESPIRATORY: Absent: cough, shortness of breath, dyspnea with exertion, orthopnea, wheezing, stridor, hemoptysis GASTROINTESTINAL: Absent: abdominal pain, abdominal distension, nausea, vomiting, diarrhea, constipation, melena, hematochezia GENITOURINARY: Absent: dysuria, frequency, urgency, hesitancy, hematuria, flank pain, genital pain MUSCULOSKELETAL: Absent: myalgia, arthralgia, joint swelling, back pain, neck pain SKIN: Absent: rash, itching, pallor HEMATOLOGIC/IMMUNOLOGIC: Absent: easy bleeding, easy bruising, ENDOCRINE: Absent: unexplained weight gain, NEUROLOGIC: Absent: headache, focal weakness or paresthesias, dizziness, unsteady gait, seizure, PSYCHIATRIC: Absent: anxiety, depression, PHYSICAL EXAMINATION Vital Signs - 24 hr 12/23/17 13:56 Temperature 97.8 F Pulse Rate 82 Respiratory 16 Rate Blood Pressure 135/82 O2 Sat by Pulse 100 Oximetry (%) GENERAL: Awake, alert, and fully oriented, in no acute distress. HEAD: Normal with no signs of trauma. EYES: conjunctiva pallor EARS, NOSE, THROAT: dry mucous membranes. NECK: Normal range of motion, supple without lymphadenopathy, JVD, or masses. LUNGS: Breath sounds equal, clear to auscultation bilaterally. No wheezes, and no crackles. No accessory muscle use. HEART: Regular rate and rhythm, normal S1 and S2 without murmur ABDOMEN: Soft, mild tender in suprapubic area , not distended, normoactive bowel sounds, no guarding, no rebound, no masses. No rebound, no guarding MUSCULOSKELETAL: Normal range of motion at all joints. No bony deformities or tenderness. UPPER EXTREMITIES: 2+ pulses, warm, well-perfused. No cyanosis. LOWER EXTREMITIES: 2+ pulses, warm, well-perfused. No calf tenderness. No peripheral edema. wound healing,no discharge NEUROLOGICAL: Cranial nerves II-XII intact. Normal speech. PSYCHIATRIC: Cooperative. SKIN: Warm, dry, Laboratory Results - last 24 hr 12/23/17 12/23/17 12/23/17 16:00 16:00 16:00 WBC 2.6 L D RBC 3.65 Hgb 8.5 L Hct 26.4 L MCV 72.3 L MCH 23.2 L MCHC 32.1 RDW 15.6 Plt Count 351 MPV 8.3 D Neutrophils % 55.3 D Lymphocytes % 23.6 D Monocytes % 18.4 H D Eosinophils % 1.6 Basophils % 1.1 Sodium 138 Potassium 4.1 Chloride 103 Carbon Dioxide 30 Anion Gap 5 L BUN 17 Creatinine 1.1 H Creat Clearance w eGFR 56.86 Random Glucose 102 Calcium 8.4 L Total Bilirubin 0.2 D AST 22 ALT 28 Alkaline Phosphatase 167 H Troponin I < 0.02 Total Protein 6.8 Albumin 2.8 L Lipase 204 Urine Color Urine Appearance Urine pH Ur Specific [place] Urine Protein Urine Glucose (UA) Urine Ketones Urine Blood Urine Nitrite Urine Bilirubin Urine Urobilinogen Ur Leukocyte Esterase Urine WBC (Auto) Urine RBC (Auto) Ur Epithelial Cells Urine HCG, Qual 12/23/17 16:38 WBC RBC Hgb Hct MCV MCH MCHC RDW Plt Count MPV Neutrophils % Lymphocytes % Monocytes % Eosinophils % Basophils % Sodium Potassium Chloride Carbon Dioxide Anion Gap BUN Creatinine Creat Clearance w eGFR Random Glucose Calcium Total Bilirubin AST ALT Alkaline Phosphatase Troponin I Total Protein Albumin Lipase Urine Color Straw Urine Appearance Clear Urine pH 6.0 Ur Specific [place] 1.008 Urine Protein 2+ H Urine Glucose (UA) 3+ H Urine Ketones Negative Urine Blood 1+ H Urine Nitrite Negative Urine Bilirubin Negative Urine Urobilinogen Negative Ur Leukocyte Esterase Negative Urine WBC (Auto) 1 Urine RBC (Auto) 3 Ur Epithelial Cells Rare Urine HCG, Qual Negative CXR neg for acute process ASSESSMENT AND PLAN: 32 yof with HTN, IDDM, CAD s/p CABG/PCI, 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 -Fever with constitutional symptoms. could be from URTI, osteo, cystitis, pick line infection. USG renal, bladder scan blood and urine culture unable to get blood through pick line, discussed with Dr kirkland advise to remove pick line and send tip for culture. follow esr and crp ( probably going to be elevated but check the trend from last esr and crp) check flu swab get CT abdomen to look for any intraperitoneal source. continue with vancomycin 2000mg daily. MRSA positive osteo, ID consult dr le check cbc in morning discussed with haematology lab to make peripharal smear for leukopenia, lukopenia is likely due to infection. daily dressing with betadine rectal temp 102,: Patient has high temp with leukopenia, HR is not elevated because patient is on beta alexandra, will give her ceftrixone with vanco. Get lactic acid. Iv fluid gentle hydration, watch for fluid overload, patient states recently got ECHO and was started on lasix by her plant biology professor. TESS Iv fluid 75 ml/hr urien lytes renal and bladder scan hold lasix and lisinopril for now monitor creatnine avoid nephrotoxic drugs DM started on sliding scale lantus 26 in morning diabetic diet bgm HTN/CAd/HLD/CABG atorvastatin 80, aspirin 81 toprol xl 50 daily get ECHO reports from her plant biology professor fluid ns 75ml/hr electrolyte; repeat in am nut; diabetic diet dvtpro; sq heparin dispo: admit med surg Visit type - Emergency Visit Emergency Visit: Yes ED Registration Date: 12/23/17 Care time: The patient presented to the Emergency Department on the above date and was hospitalized for further evaluation of their emergent condition. - New Patient This patient is new to me today: Yes Date on this admission: 12/23/17 - Critical Care Critical Care patient: No
[2017-12-23 20:32] LABS: URINE CREATININE 17.5 mg/dL (20-320)
[2017-12-23 20:33] LABS: RATIO URIN PROTEIN/URIN CREAT 10.285 MG/DL
[2017-12-23] MEDS ORDERED: ACETAMINOPHEN 325 MG TABLET (FP) ONE (20:33)
[2017-12-23] MEDS: ACETAMINOPHEN 325 MG TABLET (FP) PO PRN (20:42)
[2017-12-23] MEDS ORDERED: CEFTRIAXONE 1 GM in DEXTROSE 5%-WATER - 100 ML IVPB ONE (21:38)
[2017-12-23] MEDS ORDERED: INSULIN (LEVEMIR) 100 UNITS/ML UNITS SQ SCH (22:00)
[2017-12-23] MEDS: ATORVASTATIN CA 40 MG TABLET (FP) PO SCH (22:09)
[2017-12-23] MEDS: INSULIN SLIDING SCALE (NOVOLOG) 1 VIAL SQ SCH (22:10)
[2017-12-23] MEDS: HEPARIN NA (PORCINE) 5,000 UNITS/ML 1ML VIAL SQ SCH (22:11)
[2017-12-23] MEDS ORDERED: CEFTRIAXONE 1 GM in DEXTROSE 5%-WATER - 50 ML IVPB ONE (22:15)
[2017-12-23 22:48] VITALS: BMI 27.1
[2017-12-23] MEDS ORDERED: cefTRIAXone SODIUM 1 GM VIAL ONE (23:14)
[2017-12-23] MEDS ORDERED: DEXTROSE 5%-WATER - 50 ML IVPB ONE (23:14)
[2017-12-24] MEDS ORDERED: PT OWN MED DRAWER 7, Y5N ONE (00:51)
[2017-12-24] MEDS: ACETAMINOPHEN 325 MG TABLET (FP) PO PRN ×3 (03:32→16:51)
[2017-12-24] MEDS: INSULIN SLIDING SCALE (NOVOLOG) 1 VIAL SQ SCH ×4 (06:34→21:42)
[2017-12-24] MEDS ORDERED: SODIUM CHLORIDE 1,000 ML IV SCH ×2 (06:44→06:45)
[2017-12-24] MEDS ORDERED: INSULIN (NOVOLOG) ASPART 100 UNITS/ML 10ML VIAL ONE (06:45)
[2017-12-24] MEDS ORDERED: INSULIN (LEVEMIR) 100 UNITS/ML UNITS SQ SCH (07:00)
--- NOTE | 2017-12-24 07:54 | PN ---
Physical Exam: SUBJECTIVE: Patient seen and examined. Feels better than yesterday; no fever, chills, myalgias, c/o MARQUEZ and back pain, which is chronic OBJECTIVE: Vital Signs Period Temp Pulse Resp BP Sys/Johnson Pulse Ox Last 24 Hr 97.8 F-102.0 F 78-86 16-20 121-151/60-82 100-100 GENERAL: lying in bed, nad HEENT: sclera anicteric, conjunctiva clear, mmm LUNGS: CTAB, no wheezes or rales HEART: rrr, normal s1/s2 ABDOMEN: Soft, ntnd, +bowel sounds EXTREMITIES: 2+ DP pulses, wwp, L foot 2nd digit minimally swollen, no erythema or ttp CBC, BMP 12/24/17 08:00 12/24/17 08:00 Hepatic Panel Total Bilirubin 0.2 mg/dL (0.2-1.0) 12/24/17 08:00 AST 24 U/L (15-37) 12/24/17 08:00 ALT 24 U/L (12-78) 12/24/17 08:00 Alkaline Phosphatase 133 U/L (45-117) H 12/24/17 08:00 Albumin 2.2 g/dl (3.4-5.0) L 12/24/17 08:00 Microbiology 12/23/17 16:00 Blood - Peripheral Venous Blood Culture - Preliminary NO GROWTH OBTAINED AFTER 24 HOURS, INCUBATION TO CONTINUE FOR 4 DAYS. 12/23/17 16:38 Blood - Peripheral Venous Blood Culture - Preliminary NO GROWTH OBTAINED AFTER 24 HOURS, INCUBATION TO CONTINUE FOR 4 DAYS. 12/23/17 20:15 Nasopharyngeal Swab Influenza Types A,B Antigen (AIDA) - Final 12/23/17 20:15 Nasopharyngeal Swab - Final Active Medications Acetaminophen (Tylenol -) 650 mg PO Q4H PRN PRN Reason: FEVER Last Admin: 12/24/17 16:51 Dose: 650 mg Acetaminophen/Butalbital/Caffeine (Fioricet -) 1 tablet PO Q6H PRN PRN Reason: HEADACHE Last Admin: 12/24/17 11:22 Dose: 1 tablet Aspirin (Asa -) 81 mg PO DAILY KIRAN Last Admin: 12/24/17 10:37 Dose: 81 mg Atorvastatin Calcium (Lipitor -) 80 mg PO HS KIRAN Last Admin: 12/23/17 22:09 Dose: Not Given Heparin Sodium (Porcine) (Heparin -) 5,000 unit SQ BID [facility] Last Admin: 12/24/17 10:38 Dose: 5,000 unit Ceftriaxone Sodium 1 gm/ (Dextrose) 100 mls @ 200 mls/hr IVPB DAILY [facility] PRN Reason: Protocol Last Admin: 12/24/17 10:37 Dose: 200 mls/hr Insulin Aspart (Novolog Vial Sliding Scale -) 1 vial SQ ACHS [facility] PRN Reason: Protocol Last Admin: 12/24/17 17:01 Dose: 2 units Insulin Detemir (Levemir Vial) 20 units SQ ACBK [facility] Metoprolol Succinate (Toprol Xl -) 50 mg PO DAILY [facility] Last Admin: 12/24/17 10:37 Dose: 50 mg Miscellaneous (Lidoderm Patch Removal) 1 each MC DAILY@2200 [facility] ASSESSMENT/PLAN: 32yo woman with HTN, T1DM, CAD s/p CABG/PCI, recent Left toe MRSA osteomyelitis s/p I&D d/c 11/25 with PICC/Vanc IV and hyperbaric O2 x 5weeks who p/w with several days of fevers, constitutional symptoms, suprapubic and flank symptoms. #fever of unclear etiology, Flu neg, ?possible pyelonephritis -f/u Blood and PICC cultures -f/u Urine cx -ID consulted (Dr. Cunningham) -C/w ceftriaxone, Day 2 #microcytic anemia -Transfuse 1U PRBC given cardiac history -Check Fe panel #L foot MRSA, CRP elevated, but trending down since prior admission -Vancomycin 2gm daily, vanc level 21.255 today --> will hold dose today, and check level in AM -Will need new PICC line on d/c, Vanc x 5weeks #TESS -f/u Renal/bladder scan -hold home lasix and lisinopril #back pain, chronic likely muscle spasm -Tylenol 650mg q4h prn -lidocaine patch #T1DM -ISS/BGM ACHS -Levemir decreased to 20U ACBK #CAD s/p CABG/PCI - c/w home asa 81/toprol/statin #HTN - hold home lisinopril, c/w Toprol #FEN PO intake Mg repleted Diabetic diet #PPX DVT - Heparin BID #DISPO: m/s, will need PICC/Vanc IV on d/c FULL code d/w Dr. Daisy Perasud MD PGY1- Internal Medicine Visit type - Emergency Visit Emergency Visit: No - New Patient This patient is new to me today: Yes Date on this admission: 12/24/17 - Critical Care Critical Care patient: No
[2017-12-24 08:53] LABS: BASO % 0.8 % (0-2.0); EOS % 1.4 % (0-4.5); HEMATOCRIT 23.3 % (32.4-45.2); HEMOGLOBIN 7.5 GM/dL (10.7-15.3); LYMPH % 21.8 % (8-40); MCH 22.9 pg (25.7-33.7); MEAN CELL VOLUME 71.8 fl (80-96); MEAN PLT VOLUME 8.8 fl (7.5-11.1); MONO % 16.9 % (3.8-10.2); NEUT % 59.1 % (42.8-82.8); PLATELET COUNT 299 K/MM3 (134-434); RBC 3.25 M/mm3 (3.60-5.2); RDW 15.4 % (11.6-15.6); WHITE BLOOD COUNT 2.9 K/mm3 (4.0-10.0)
[2017-12-24 09:27] LABS: ALBUMIN 2.2 g/dl (3.4-5.0); ANION GAP 8 (8-16); BILIRUBIN,TOTAL 0.2 mg/dL (0.2-1.0); BLOOD UREA NITROGEN 15 mg/dL (7-18); CALCIUM 8.1 mg/dL (8.5-10.1); CHLORIDE 104 mmol/L (98-107); CO2 27 mmol/L (21-32); CREATININE 1.2 mg/dL (0.55-1.02); GLUCOSE,RANDOM 159 mg/dL (74-106); MAGNESIUM 1.7 mg/dL (1.8-2.4); PHOSPHOROUS 3.1 mg/dL (2.5-4.9); POTASSIUM 3.7 mmol/L (3.5-5.1); SGOT/AST 24 U/L (15-37); SGPT/ALT 24 U/L (12-78); SODIUM 139 mmol/L (136-145); TOT PROT 5.9 g/dl (6.4-8.2)
[2017-12-24 09:28] LABS: ALK PHOS 133 U/L (45-117)
[2017-12-24] MEDS ORDERED: MAGNESIUM 2GM/50ML STERILE WATER IVPB IVPB ONE (09:38)
--- NOTE | 2017-12-24 09:54 | EKG ---
Test Reason : Blood Pressure : / mmHG Vent. Rate : 084 BPM Atrial Rate : 084 BPM P-R Int : 134 ms QRS Dur : 092 ms QT Int : 384 ms P-R-T Axes : 041 060 037 degrees QTc Int : 453 ms NORMAL SINUS RHYTHM WHEN COMPARED WITH ECG OF 20-NOV-2017 15:27, NO SIGNIFICANT CHANGE WAS FOUND Confirmed by ARACELI PERAZA MD ([id number]) on 12/24/2017 9:54:08 AM Referred By: Confirmed By:ARACELI PERAZA MD
[2017-12-24] MEDS ORDERED: DEXTROSE 5%-WATER 100 ML IVPB ONE (10:33)
[2017-12-24] MEDS ORDERED: cefTRIAXone SODIUM 1 GM VIAL ONE (10:33)
[2017-12-24] MEDS: CEFTRIAXONE 1 GM in DEXTROSE 5%-WATER 100 ML IVPB SCH (10:37)
[2017-12-24] MEDS: ASPIRIN 81 MG CHEWABLE TABLETS PO SCH (10:37)
[2017-12-24] MEDS: HEPARIN NA (PORCINE) 5,000 UNITS/ML 1ML VIAL SQ SCH ×2 (10:38→21:42)
[2017-12-24] MEDS: ACETAMINOPHEN/CAFFEINE/BUTALBITAL 1 TAB PO PRN (11:22)
[2017-12-24] MEDS ORDERED: LIDOCAINE 5% TOPICAL PATCH TP ONE (11:29)
--- NOTE | 2017-12-24 14:19 | CON.ID ---
Consult Consult Specialty:: infectious diseases Reason for Consultation:: fever chills - History of Present Illness Chief Complaint: body pain,fever, chills History of Present Illness: 32yo F with a significant past medical history of DM, CAD, HTN, and recent hospitalization of osteomyelitis in her left toe (HBO and IV Vancomycin week 11/01 ) admitted because of fevers , chills, generalized body aches, nonproductive cough, mild abdominal pain, coughing causing chest pain Pt states her symptoms started within the past week and notes that her son had pneumonia and her mother is currently being treated with Abx for what seems to be a bacterial URI. She is also c/o suprapubic and right upper quadrant discomfort. she was recently it seems worked up for the chest pain and the echo was negative denies shortness of breath, headache and dizziness nausea, vomiting, diarrhea and constipation. denies ay urinary symptoms currently she is feeling well patient on admission was worked up and because of the finding of the ct scan ceftriaxone was added to the vanco which the patient was already getting currently she feels better with suprapubic pain improving - History Source History Provided By: Patient Limitations to Obtaining History: No Limitations - Past Medical History Cardio/Vascular: Yes: CAD, HTN, Hyperlipdemia. No: AFIB, Aneurysm, Aortic Insufficiency, Aortic Stenosis, CHF, Deep Vein Thrombosis, [place], Mitral Insufficiency, Mitral Stenosis, Murmur, Pulmonary Hypertension, Other ...LMP: 11/17/17 ...: No Endocrine: Yes: Diabetes Mellitus - Past Surgical History Past Surgical History: Yes: Bariatric Surgery (gastric sleeve), CABG - Alcohol/Substance Use Hx Alcohol Use: No History of Substance Use: reports: None - Smoking History Smoking history: Never smoked Have you smoked in the past 12 months: No Aproximately how many cigarettes per day: 7 If you are a former smoker, when did you quit?: 2 WKS - Social History ADL: Independent History of Recent Travel: No Home Medications - Allergies Allergies/Adverse Reactions: Allergies Allergy/AdvReac Type Severity Reaction Status Date / Time No Known Allergies Allergy Verified 12/23/17 13:58 - Home Medications Home Medications: Ambulatory Orders Aspirin [ASA -] 81 mg PO DAILY #0 tab.chew 03/15/16 Atorvastatin Ca [Lipitor] 80 mg PO HS 05/23/17 Insulin (LOG) Aspart [NovoLOG -] 0 unit SQ TID 05/23/17 Lisinopril 5 mg PO ASDIR 05/23/17 Insulin Glargine,Hum.rec.anlog [Lantus] 26 unit SQ HS 11/20/17 Metoprolol Succinate [Toprol Xl] 25 mg PO DAILY 11/20/17 Vancomycin/0.9 % Sod Chloride [Vanco 1.25 gm/250 ml-0.9% NaCl] 1.25 gm IV DAILY #35 plast..bag 11/25/17 Cetirizine HCl/Pseudoephedrine [Zyrtec-D Tablet] 1 each PO DAILY #60 tab.er.12h MDD 1 12/10/17 LORazepam [Ativan] 1 mg PO DAILY #30 tablet MDD 1 12/10/17 Review of Systems - Review of Systems Constitutional: reports: Chills, Fever Eyes: reports: No Symptoms HENT: reports: No Symptoms Neck: reports: No Symptoms Cardiovascular: reports: Chest Pain Respiratory: reports: Cough Gastrointestinal: reports: No Symptoms Genitourinary: reports: Other (suprapubic pain) Integumentary: reports: No Symptoms Neurological: reports: No Symptoms Endocrine: reports: No Symptoms Hematology/Lymphatic: reports: No Symptoms Psychiatric: reports: No Symptoms Physical Exam Vital Signs: Vital Signs Temperature 99.5 F 12/24/17 10:00 Pulse Rate 78 12/24/17 10:00 Respiratory Rate 18 12/24/17 10:00 Blood Pressure 148/82 12/24/17 10:00 O2 Sat by Pulse Oximetry (%) 95 12/24/17 09:00 Constitutional: Yes: Well Nourished, No Distress, Calm Eyes: Yes: Conjunctiva Clear HENT: Yes: Atraumatic, Normocephalic Neck: Yes: Supple, Trachea Midline Cardiovascular: Yes: Regular Rate and Rhythm Respiratory: Yes: Regular, CTA Bilaterally Gastrointestinal: Yes: Normal Bowel Sounds, Soft Renal/: Yes: Other (suprapubic tenderness) Musculoskeletal: Yes: WNL Extremities: Yes: Other (toe has healed well) Integumentary: Yes: WNL Wound/Incision: Yes: Clean/Dry Neurological: Yes: Alert, Oriented Psychiatric: Yes: Alert, Oriented Labs: CBC, BMP 12/24/17 08:00 12/24/17 08:00 Imaging - Results Chest X-ray: Report Reviewed, Image Reviewed Cat Scan: Report Reviewed, Image Reviewed Ultrasound: Report Reviewed, Image Reviewed Assessment/Plan this patient wiht multiple medical problems admitted wiht fever and chills an suprapubic discomfort patients random vanco was done which was high osteo of the foot fever chills r/o uti plan recheck vanco level again in the morning restart vanco after looking at the levels continue ceftriaxone await for all cx report rest as per the team
--- NOTE | 2017-12-24 15:07 | PN ---
Teaching Attending Note Name of Resident: Shirley Persaud ATTENDING PHYSICIAN STATEMENT I saw and evaluated the patient. I reviewed the resident's note and discussed the case with the resident. I agree with the resident's findings and plan as documented with exceptions below. SUBJECTIVE: Patient seen and examined. left lateral upper back pain, mild suprapubic symptoms, no flank symptoms. Some headache earlier. OBJECTIVE: Vital Signs Period Temp Pulse Resp BP Sys/Johnson Pulse Ox Last 24 Hr 99.0 F-102.0 F 67-86 18-20 121-151/60-82 95-100 Intake & Output 12/21/17 12/22/17 12/23/17 12/24/17 23:59 23:59 23:59 23:59 Intake Total 250 Balance 250 Weight 168 lb 8 oz 166 lb 11.2 oz General: lying in bed in no acute distress Chest: CTAB, no rales or wheezing Abdomen: mild suprapubic tenderness, no CVA tenderness, no voluntary or involuntary guarding or rigidity, positive bowel sounds Musculoskeletal: left lateral posterior thoracic tenderness, focalized area, no swelling/spasm or erythema noted Extremities: no edema Home Medication List Medication Instructions Recorded Confirmed Type Atorvastatin Ca [Lipitor] 80 mg PO HS 05/23/17 12/23/17 History Insulin (LOG) Aspart [NovoLOG -] 0 unit SQ TID 05/23/17 12/23/17 History Lisinopril 5 mg PO ASDIR 05/23/17 12/23/17 History Insulin Glargine,Hum.rec.anlog 26 unit SQ HS 11/20/17 12/23/17 History [Lantus] Metoprolol Succinate [Toprol Xl] 25 mg PO DAILY 11/20/17 12/23/17 History Active Medications Generic Name Dose Route Start Last Admin Trade Name Freq PRN Reason Stop Dose Admin Acetaminophen 650 mg 12/23/17 20:31 12/24/17 07:44 Tylenol - PO 650 mg Q4H PRN Administration FEVER Acetaminophen/Butalbital/Caffeine 1 tablet 12/24/17 11:02 12/24/17 11:22 Fioricet - PO 1 tablet Q6H PRN Administration HEADACHE Aspirin 81 mg 12/24/17 10:00 12/24/17 10:37 Asa - PO 81 mg DAILY KIRAN Administration Atorvastatin Calcium 80 mg 12/23/17 22:00 12/23/17 22:09 Lipitor - PO Not Given HS KIRAN Heparin Sodium (Porcine) 5,000 unit 12/23/17 22:00 12/24/17 10:38 Heparin - SQ 5,000 unit BID KIRAN Administration Ceftriaxone Sodium 1 gm/ 100 mls @ 200 mls/hr 12/24/17 10:00 12/24/17 10:37 Dextrose IVPB 200 mls/hr DAILY KIRNA Administration Protocol Insulin Aspart 1 vial 12/23/17 22:00 12/24/17 10:50 Novolog Vial Sliding Scale - SQ Not Given ACHS KIRAN Protocol Insulin Detemir 26 units 12/24/17 07:00 12/24/17 06:34 Levemir Vial SQ 26 units ACBK IKRAN Administration Metoprolol Succinate 50 mg 12/24/17 10:00 12/24/17 10:37 Toprol Xl - PO 50 mg DAILY KIRAN Administration Miscellaneous 1 each 12/24/17 22:00 Lidoderm Patch Removal MC DAILY@2200 [facility] Laboratory Results - last 24 hr 12/23/17 12/23/17 12/23/17 16:00 16:00 16:00 WBC 2.6 L D RBC 3.65 Hgb 8.5 L Hct 26.4 L MCV 72.3 L MCH 23.2 L MCHC 32.1 RDW 15.6 Plt Count 351 MPV 8.3 D Neutrophils % 55.3 D Lymphocytes % 23.6 D Monocytes % 18.4 H D Eosinophils % 1.6 Basophils % 1.1 ESR Sodium 138 Potassium 4.1 Chloride 103 Carbon Dioxide 30 Anion Gap 5 L BUN 17 Creatinine 1.1 H Creat Clearance w eGFR 56.86 POC Glucometer Random Glucose 102 Lactic Acid Calcium 8.4 L Phosphorus Magnesium Total Bilirubin 0.2 D AST 22 ALT 28 Alkaline Phosphatase 167 H Troponin I < 0.02 C-Reactive Protein Total Protein 6.8 Albumin 2.8 L Lipase 204 Urine Color Urine Appearance Urine pH Ur Specific [place] Urine Protein Urine Glucose (UA) Urine Ketones Urine Blood Urine Nitrite Urine Bilirubin Urine Urobilinogen Ur Leukocyte Esterase Urine WBC (Auto) Urine RBC (Auto) Ur Epithelial Cells U Random Total Protein Ur Random Sodium Ur Random Potassium Ur Random Chloride Urine Creatinine Protein/Creatinin Ratio Urine HCG, Qual Random Vancomycin Blood Type Antibody Screen Crossmatch 12/23/17 12/23/17 12/23/17 16:00 16:38 19:45 WBC RBC Hgb Hct MCV MCH MCHC RDW Plt Count MPV Neutrophils % Lymphocytes % Monocytes % Eosinophils % Basophils % ESR 96 H Sodium Potassium Chloride Carbon Dioxide Anion Gap BUN Creatinine Creat Clearance w eGFR POC Glucometer Random Glucose Lactic Acid Calcium Phosphorus Magnesium Total Bilirubin AST ALT Alkaline Phosphatase Troponin I C-Reactive Protein 1.7 H Total Protein Albumin Lipase Urine Color Straw Urine Appearance Clear Urine pH 6.0 Ur Specific [place] 1.008 Urine Protein 2+ H Urine Glucose (UA) 3+ H Urine Ketones Negative Urine Blood 1+ H Urine Nitrite Negative Urine Bilirubin Negative Urine Urobilinogen Negative Ur Leukocyte Esterase Negative Urine WBC (Auto) 1 Urine RBC (Auto) 3 Ur Epithelial Cells Rare U Random Total Protein Ur Random Sodium Ur Random Potassium Ur Random Chloride Urine Creatinine Protein/Creatinin Ratio Urine HCG, Qual Negative Random Vancomycin Blood Type Antibody Screen Crossmatch 12/23/17 12/23/17 12/23/17 20:15 20:25 22:00 WBC RBC Hgb Hct MCV MCH MCHC RDW Plt Count MPV Neutrophils % Lymphocytes % Monocytes % Eosinophils % Basophils % ESR Sodium Potassium Chloride Carbon Dioxide Anion Gap BUN Creatinine Creat Clearance w eGFR POC Glucometer 99.82559 Random Glucose Lactic Acid 0.6 Calcium Phosphorus Magnesium Total Bilirubin AST ALT Alkaline Phosphatase Troponin I C-Reactive Protein Total Protein Albumin Lipase Urine Color Urine Appearance Urine pH Ur Specific [place] Urine Protein Urine Glucose (UA) Urine Ketones Urine Blood Urine Nitrite Urine Bilirubin Urine Urobilinogen Ur Leukocyte Esterase Urine WBC (Auto) Urine RBC (Auto) Ur Epithelial Cells U Random Total Protein 180 H Ur Random Sodium 109 Ur Random Potassium 6.9 Ur Random Chloride 111 Urine Creatinine 17.5 L Protein/Creatinin Ratio 10.285 Urine HCG, Qual Random Vancomycin Blood Type Antibody Screen Crossmatch 12/23/17 12/24/17 12/24/17 22:05 05:47 08:00 WBC RBC Hgb Hct MCV MCH MCHC RDW Plt Count MPV Neutrophils % Lymphocytes % Monocytes % Eosinophils % Basophils % ESR Sodium Potassium Chloride Carbon Dioxide Anion Gap BUN Creatinine Creat Clearance w eGFR POC Glucometer 229 254 Random Glucose Lactic Acid Calcium Phosphorus Magnesium Total Bilirubin AST ALT Alkaline Phosphatase Troponin I C-Reactive Protein Total Protein Albumin Lipase Urine Color Urine Appearance Urine pH Ur Specific [place] Urine Protein Urine Glucose (UA) Urine Ketones Urine Blood Urine Nitrite Urine Bilirubin Urine Urobilinogen Ur Leukocyte Esterase Urine WBC (Auto) Urine RBC (Auto) Ur Epithelial Cells U Random Total Protein Ur Random Sodium Ur Random Potassium Ur Random Chloride Urine Creatinine Protein/Creatinin Ratio Urine HCG, Qual Random Vancomycin 21.255 Blood Type Antibody Screen Crossmatch 12/24/17 12/24/17 12/24/17 08:00 08:00 10:49 WBC 2.9 L RBC 3.25 L Hgb 7.5 L D Hct 23.3 L MCV 71.8 L MCH 22.9 L MCHC 32.0 RDW 15.4 Plt Count 299 MPV 8.8 Neutrophils % 59.1 Lymphocytes % 21.8 Monocytes % 16.9 H Eosinophils % 1.4 Basophils % 0.8 ESR Sodium 139 Potassium 3.7 Chloride 104 Carbon Dioxide 27 Anion Gap 8 BUN 15 Creatinine 1.2 H Creat Clearance w eGFR 51.43 POC Glucometer 89 Random Glucose 159 H Lactic Acid Calcium 8.1 L Phosphorus 3.1 Magnesium 1.7 L Total Bilirubin 0.2 AST 24 ALT 24 Alkaline Phosphatase 133 H Troponin I C-Reactive Protein Total Protein 5.9 L Albumin 2.2 L Lipase Urine Color Urine Appearance Urine pH Ur Specific [place] Urine Protein Urine Glucose (UA) Urine Ketones Urine Blood Urine Nitrite Urine Bilirubin Urine Urobilinogen Ur Leukocyte Esterase Urine WBC (Auto) Urine RBC (Auto) Ur Epithelial Cells U Random Total Protein Ur Random Sodium Ur Random Potassium Ur Random Chloride Urine Creatinine Protein/Creatinin Ratio Urine HCG, Qual Random Vancomycin Blood Type Antibody Screen Crossmatch 12/24/17 12/24/17 11:42 11:55 WBC RBC Hgb Hct MCV MCH MCHC RDW Plt Count MPV Neutrophils % Lymphocytes % Monocytes % Eosinophils % Basophils % ESR Sodium Potassium Chloride Carbon Dioxide Anion Gap BUN Creatinine Creat Clearance w eGFR POC Glucometer 52 Random Glucose Lactic Acid Calcium Phosphorus Magnesium Total Bilirubin AST ALT Alkaline Phosphatase Troponin I C-Reactive Protein Total Protein Albumin Lipase Urine Color Urine Appearance Urine pH Ur Specific [place] Urine Protein Urine Glucose (UA) Urine Ketones Urine Blood Urine Nitrite Urine Bilirubin Urine Urobilinogen Ur Leukocyte Esterase Urine WBC (Auto) Urine RBC (Auto) Ur Epithelial Cells U Random Total Protein Ur Random Sodium Ur Random Potassium Ur Random Chloride Urine Creatinine Protein/Creatinin Ratio Urine HCG, Qual Random Vancomycin Blood Type A POSITIVE Antibody Screen Negative Crossmatch See Detail Microbiology 12/23/17 20:15 Nasopharyngeal Swab Influenza Types A,B Antigen (AIDA) - Final 12/23/17 20:15 Nasopharyngeal Swab - Final ASSESSMENT AND PLAN: 32 yof with HTN, IDDM, CAD s/p CABG/PCI, 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 -Fevers/constitutional symptoms. -?Left sided pyelonephritis with early sepsis (leucopenia with fevers) -Leucopenia with minimal neutropneia and monocytosis, ?reactive. Inflammatory, parasitic disease on differential but no recent exposure or risk factors noted currently -SUprapubic pain, r/o urinaryretention -Left upper back pain, ?musculoskeletal -Microcytic anemia, acute on chronic from ?hemodilution, no gross evidence of bleed. -MRSA left foot osteomyelitis on IV vancomycin -IDDM/hypoglycemia -HTN -CAD s/p CABG/PGI Plan: Ceftriaxone day 2, follow up urine cultures. Flu swab neg. Blood smear. Follow up blood cultures. PICC removed, follow up tip cultures, unlikely to [employer] as line already out. ESR/CRP noted. Foot healing well, vanco level noted, Discussed with Dr. Cunningham, repeat levels in AM, hold dose today. hypoglycemic, decrease levemir to 20 units daily, ISS, diabetic diet. Check iron panel. Transfuse 1 unit PRBC given cardiac history. Trend CBC, outpatient monitoring. WBC better, suspect from infectious process. trend for now. Continue metoprolol/ASA/statin. Hold lasix, d/c IVF. Fioricet prn. Add lidocaine patch and monitor. No concerns for infection. Bladder scan x1. dispo planning when afebrile and clinically improved.
[2017-12-24] MEDS: ATORVASTATIN CA 40 MG TABLET (FP) PO SCH (21:41)
[2017-12-24] MEDS: LIDOCAINE PATCH REMOVAL MC SCH (21:46)
[2017-12-25] MEDS: ACETAMINOPHEN 325 MG TABLET (FP) PO PRN ×3 (02:51→22:13)
[2017-12-25] MEDS: INSULIN (LEVEMIR) 100 UNITS/ML UNITS SQ SCH (06:37)
[2017-12-25] MEDS: INSULIN SLIDING SCALE (NOVOLOG) 1 VIAL SQ SCH ×4 (06:37→22:00)
--- NOTE | 2017-12-25 07:56 | PN ---
Physical Exam: 24H Events: yesterday - Repleted Mg 2gm IV; Random Vanc level 21.255, Vanc 2gm held O/N - bladder scan PVR 107cc AM - Vanc trough 6.896 SUBJECTIVE: Patient seen and examined. continues to have upper back pain, improved from yesterday; offers no other complaints; no fever/chills/n/v, urinary symptoms, abdominal pain. showered this AM, eating and voiding well. OBJECTIVE: Vital Signs Period Temp Pulse Resp BP Sys/Johnson Pulse Ox Last 24 Hr 99.3 F-99.8 F 67-80 18-20 122-148/66-82 95-95 GENERAL: lying in bed, nad HEENT: sclera anicteric, conjunctiva clear, mmm LUNGS: CTAB, no wheezes or rales HEART: rrr, normal s1/s2 ABDOMEN: Soft, ntnd, +bowel sounds : No CVA or suprpubic tenderness MSK: no paravertebral ttp; mild L lateral posterior thoracic ttp, (-)swelling, ( -)muscle spasm EXTREMITIES: 2+ DP pulses, wwp, L foot 2nd digit minimally swollen, no erythema or ttp CBC, BMP 12/25/17 07:30 12/25/17 07:30 12/25/17 12/25/17 07:30 07:30 Phosphorus 4.3 Magnesium 1.8 Random Vancomycin 6.896 Microbiology 12/23/17 16:38 Urine - Urine Clean Catch Urine Culture - Final NO GROWTH OBTAINED 12/23/17 16:00 Blood - Peripheral Venous Blood Culture - Preliminary NO GROWTH OBTAINED AFTER 24 HOURS, INCUBATION TO CONTINUE FOR 4 DAYS. 12/23/17 16:38 Blood - Peripheral Venous Blood Culture - Preliminary NO GROWTH OBTAINED AFTER 24 HOURS, INCUBATION TO CONTINUE FOR 4 DAYS. 12/23/17 20:15 Nasopharyngeal Swab Influenza Types A,B Antigen (AIDA) -NEG Active Medications Acetaminophen (Tylenol -) 650 mg PO Q4H PRN PRN Reason: FEVER Last Admin: 12/25/17 02:51 Dose: 650 mg Acetaminophen/Butalbital/Caffeine (Fioricet -) 1 tablet PO Q6H PRN PRN Reason: HEADACHE Last Admin: 12/24/17 11:22 Dose: 1 tablet Aspirin (Asa -) 81 mg PO DAILY KIRAN Last Admin: 12/25/17 09:47 Dose: 81 mg Atorvastatin Calcium (Lipitor -) 80 mg PO HS [facility] Last Admin: 12/24/17 21:41 Dose: 80 mg Heparin Sodium (Porcine) (Heparin -) 5,000 unit SQ BID [facility] Last Admin: 12/25/17 09:47 Dose: 5,000 unit Ceftriaxone Sodium 1 gm/ (Dextrose) 100 mls @ 200 mls/hr IVPB DAILY KIRAN PRN Reason: Protocol Last Admin: 12/25/17 09:47 Dose: 200 mls/hr Vancomycin HCl 2,000 mg/ (Dextrose) 500 mls @ 166.667 mls/hr IVPB ONCE ONE PRN Reason: Protocol Stop: 12/25/17 13:01 Insulin Aspart (Novolog Vial Sliding Scale -) 1 vial SQ ACHS [facility] PRN Reason: Protocol Last Admin: 12/25/17 06:37 Dose: 2 units Insulin Detemir (Levemir Vial) 20 units SQ ACBK [facility] Last Admin: 12/25/17 06:37 Dose: 20 units Methyl Salicylate (Richard-Gilbert -) 1 applic TP DAILY PRN PRN Reason: PAIN Metoprolol Succinate (Toprol Xl -) 50 mg PO DAILY [facility] Last Admin: 12/25/17 09:47 Dose: 50 mg Miscellaneous (Lidoderm Patch Removal) 1 each MC DAILY@2200 [facility] Last Admin: 12/24/17 21:46 Dose: 1 each ASSESSMENT/PLAN: 32yo woman with HTN, T1DM, CAD s/p CABG/PCI, recent Left toe MRSA osteomyelitis s/p I&D d/c 11/25 with PICC/Vanc IV and hyperbaric O2 x 5weeks who p/w with several days of fevers, constitutional symptoms, suprapubic and flank symptoms. #fever of unclear etiology, Flu neg, ?possible pyelonephritis -Blood Cx NGx24H, U Cx neg; PICC tip cx pending -CXR neg -ID consulted (Dr. Cunningham) -C/w ceftriaxone, Day 3 #microcytic anemia s/p 1U PRBC -Check Fe panel #L foot MRSA, CRP elevated, but trending down since prior admission -Resume Vancomycin 2gm daily (level 6 today), will check trough tomorrow AM -Will need new PICC line on d/c, Vanc x 5weeks #TESS, resolving -continue to hold lasix and lisinopril -PVR volume 107cc at 4AM, will repeat again today #back pain, chronic likely muscle spasm -Tylenol 650mg q4h prn -warm compresses and Richard-Gilbert PRN #T1DM -ISS/BGM ACHS -Levemir decreased to 20U ACBK #CAD s/p CABG/PCI - c/w home asa 81/toprol/statin #HTN - hold home lisinopril, c/w Toprol #FEN PO intake Mg repleted again today Diabetic diet #PPX DVT - Heparin BID #DISPO: m/s, will need PICC/Vanc IV on d/c FULL code d/w Dr. Daisy Persaud MD PGY1- Internal Medicine Visit type - Emergency Visit Emergency Visit: No - New Patient This patient is new to me today: No - Critical Care Critical Care patient: No
[2017-12-25 08:20] LABS: BASO % 0.9 % (0-2.0); EOS % 0.8 % (0-4.5); HEMATOCRIT 26.8 % (32.4-45.2); HEMOGLOBIN 8.9 GM/dL (10.7-15.3); LYMPH % 38.3 % (8-40); MCH 24.2 pg (25.7-33.7); MCHC 33.1 g/dl (32.0-36.0); MEAN CELL VOLUME 72.9 fl (80-96); MONO % 15.8 % (3.8-10.2); NEUT % 44.2 % (42.8-82.8); PLATELET COUNT 271 K/MM3 (134-434); RBC 3.67 M/mm3 (3.60-5.2); RDW 16.8 % (11.6-15.6); WHITE BLOOD COUNT 2.9 K/mm3 (4.0-10.0)
[2017-12-25 08:55] LABS: ANION GAP 8 (8-16); BLOOD UREA NITROGEN 14 mg/dL (7-18); CHLORIDE 105 mmol/L (98-107); CO2 27 mmol/L (21-32); GLUCOSE,RANDOM 180 mg/dL (74-106); MAGNESIUM 1.8 mg/dL (1.8-2.4); PHOSPHOROUS 4.3 mg/dL (2.5-4.9); POTASSIUM 3.5 mmol/L (3.5-5.1); SODIUM 140 mmol/L (136-145)
[2017-12-25] MEDS ORDERED: cefTRIAXone SODIUM 1 GM VIAL ONE (09:42)
[2017-12-25] MEDS ORDERED: DEXTROSE 5%-WATER 100 ML IVPB ONE (09:43)
[2017-12-25] MEDS: CEFTRIAXONE 1 GM in DEXTROSE 5%-WATER 100 ML IVPB SCH (09:47)
[2017-12-25] MEDS: ASPIRIN 81 MG CHEWABLE TABLETS PO SCH (09:47)
[2017-12-25] MEDS: HEPARIN NA (PORCINE) 5,000 UNITS/ML 1ML VIAL SQ SCH ×2 (09:47→22:14)
[2017-12-25] MEDS ORDERED: VANCOMYCIN 2,000 MG in DEXTROSE 5%-WATER - 250 ML IVPB ONE (10:02)
--- NOTE | 2017-12-25 10:02 | PN ---
Teaching Attending Note Name of Resident: Shirley Persaud ATTENDING PHYSICIAN STATEMENT I saw and evaluated the patient. I reviewed the resident's note and discussed the case with the resident. I agree with the resident's findings and plan as documented with exceptions below. SUBJECTIVE: Patient seen and examined. Overall feels better, no more suprapubic tenderness. No CVA tenderness. Left upper back pain with some improvement. OBJECTIVE: Vital Signs Period Temp Pulse Resp BP Sys/Johnson Pulse Ox Last 24 Hr 99.3 F-99.8 F 67-80 20-20 122-146/66-78 95 Intake & Output 12/22/17 12/23/17 12/24/17 12/25/17 23:59 23:59 23:59 23:59 Intake Total 1350 Balance 1350 Weight 168 lb 8 oz 166 lb 11.2 oz 165 lb 6 oz General: lying in bed in no acute distress Chest: CTAB, no rales or wheezing, no Left upper back swelling/erythema or tenderness Abdomen: soft, obese, no suprapubic or CVA tenderness Extremities: no edema Home Medication List Medication Instructions Recorded Confirmed Type Atorvastatin Ca [Lipitor] 80 mg PO HS 05/23/17 12/23/17 History Insulin (LOG) Aspart [NovoLOG -] 0 unit SQ TID 05/23/17 12/23/17 History Lisinopril 5 mg PO ASDIR 05/23/17 12/23/17 History Insulin Glargine,Hum.rec.anlog 26 unit SQ HS 11/20/17 12/23/17 History [Lantus] Metoprolol Succinate [Toprol Xl] 25 mg PO DAILY 11/20/17 12/23/17 History Active Medications Generic Name Dose Route Start Last Admin Trade Name Freq PRN Reason Stop Dose Admin Acetaminophen 650 mg 12/23/17 20:31 12/25/17 02:51 Tylenol - PO 650 mg Q4H PRN Administration FEVER Acetaminophen/Butalbital/Caffeine 1 tablet 12/24/17 11:02 12/24/17 11:22 Fioricet - PO 1 tablet Q6H PRN Administration HEADACHE Aspirin 81 mg 12/24/17 10:00 12/25/17 09:47 Asa - PO 81 mg DAILY [facility] Administration Atorvastatin Calcium 80 mg 12/23/17 22:00 12/24/17 21:41 Lipitor - PO 80 mg HS KIRAN Administration Heparin Sodium (Porcine) 5,000 unit 12/23/17 22:00 12/25/17 09:47 Heparin - SQ 5,000 unit BID [facility] Administration Ceftriaxone Sodium 1 gm/ 100 mls @ 200 mls/hr 12/24/17 10:00 12/25/17 09:47 Dextrose IVPB 200 mls/hr DAILY [facility] Administration Protocol Insulin Aspart 1 vial 12/23/17 22:00 12/25/17 06:37 Novolog Vial Sliding Scale - SQ 2 units ACHS K[facility]AN Administration Protocol Insulin Detemir 20 units 12/25/17 07:00 12/25/17 06:37 Levemir Vial SQ 20 units ACBK K[facility]AN Administration Metoprolol Succinate 50 mg 12/24/17 10:00 12/25/17 09:47 Toprol Xl - PO 50 mg DAILY K[facility] Administration Miscellaneous 1 each 12/24/17 22:00 12/24/17 21:46 Lidoderm Patch Removal MC 1 each DAILY@2200 K[facility] Administration Laboratory Results - last 24 hr 12/24/17 12/24/17 12/24/17 10:49 11:42 11:55 WBC RBC Hgb Hct MCV MCH MCHC RDW Plt Count MPV Neutrophils % Lymphocytes % Monocytes % Eosinophils % Basophils % Sodium Potassium Chloride Carbon Dioxide Anion Gap BUN Creatinine POC Glucometer 89 52 Random Glucose Calcium Phosphorus Magnesium Random Vancomycin Blood Type A POSITIVE Antibody Screen Negative Crossmatch See Detail 12/24/17 12/24/17 12/25/17 15:17 21:40 05:56 WBC RBC Hgb Hct MCV MCH MCHC RDW Plt Count MPV Neutrophils % Lymphocytes % Monocytes % Eosinophils % Basophils % Sodium Potassium Chloride Carbon Dioxide Anion Gap BUN Creatinine POC Glucometer 155 280 181 Random Glucose Calcium Phosphorus Magnesium Random Vancomycin Blood Type Antibody Screen Crossmatch 12/25/17 12/25/17 12/25/17 07:30 07:30 07:30 WBC 2.9 L RBC 3.67 Hgb 8.9 L D Hct 26.8 L D MCV 72.9 L MCH 24.2 L MCHC 33.1 RDW 16.8 H Plt Count 271 MPV 9.0 Neutrophils % 44.2 D Lymphocytes % 38.3 D Monocytes % 15.8 H Eosinophils % 0.8 Basophils % 0.9 Sodium 140 Potassium 3.5 Chloride 105 Carbon Dioxide 27 Anion Gap 8 BUN 14 Creatinine 1.0 POC Glucometer Random Glucose 180 H Calcium 8.0 L Phosphorus 4.3 Magnesium 1.8 Random Vancomycin 6.896 Blood Type Antibody Screen Crossmatch Microbiology 12/23/17 16:00 Blood - Peripheral Venous Blood Culture - Preliminary NO GROWTH OBTAINED AFTER 24 HOURS, INCUBATION TO CONTINUE FOR 4 DAYS. 12/23/17 16:38 Blood - Peripheral Venous Blood Culture - Preliminary NO GROWTH OBTAINED AFTER 24 HOURS, INCUBATION TO CONTINUE FOR 4 DAYS. 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 -Fevers/constitutional symptoms. -?Left sided pyelonephritis with early sepsis (leucopenia with fevers) -Leucopenia with minimal neutropneia and monocytosis, ?reactive. Inflammatory, parasitic disease on differential but no recent exposure or risk factors noted currently -SUprapubic pain, r/o urinaryretention -Left upper back pain, likely musculoskeletal -Microcytic anemia, acute on chronic from ?hemodilution, no gross evidence of bleed. -MRSA left foot osteomyelitis on IV vancomycin -IDDM/hypoglycemia -HTN -CAD s/p CABG/PGI Plan: Ceftriaxone day 3, follow up urine cultures. Flu swab neg. Blood smear. Follow up blood cultures. PICC removed, follow up tip cultures, unlikely to medical management trainer as line already out. ESR/CRP noted. Foot healing well, vanco level noted, vanco level 6 today, vancomycin 2 g IV x 1 today. Follow up with ID. hypoglycemic yesterday, levemir 20 units, titrate based on blood sugars. ISS. Appropriate response to PRBC, discussed with patient, knows about being anemic in the past. Advised outpatient Roll Forming Machine Set Up Mechanic follow up and screening colonoscopy . WBC better, suspect from infectious process. trend for now. Continue metoprolol/ASA/statin. Hold lasix, off IVF. Fioricet prn. lidocaine patch prn and monitor. No concerns for infection. dispo planning in 24-48 hours if afebrile pending cultures and clinical improvement. Plan discussed with patient in detail, all questions answered.
[2017-12-25] MEDS ORDERED: METHYL SALICYLATE/MENTHOL OINT 30 GM TUBE TP PRN (10:29)
[2017-12-25] MEDS ORDERED: VANCOMYCIN 2,000 MG in DEXTROSE 5%-WATER - 500 ML IVPB ONE (10:54)
[2017-12-25] MEDS ORDERED: INSULIN (NOVOLOG) ASPART 100 UNITS/ML 10ML VIAL ONE (11:15)
[2017-12-25] MEDS ORDERED: MAGNESIUM SULF 50% (8.12 MEQ/2 ML-1 GM VIAL) IVPB ONE (11:17)
[2017-12-25] MEDS: ACETAMINOPHEN/CAFFEINE/BUTALBITAL 1 TAB PO PRN (12:56)
--- NOTE | 2017-12-25 15:36 | PN ---
Progress Note, Physician History of Present Illness: Pt states she feels well. Temps trending down. Tmax 99.8F. Less abd/suprapubic pain. No new complaints. Vancomycin level noted. - Current Medication List Current Medications: Active Medications Acetaminophen (Tylenol -) 650 mg PO Q4H PRN PRN Reason: FEVER Last Admin: 12/25/17 02:51 Dose: 650 mg Acetaminophen/Butalbital/Caffeine (Fioricet -) 1 tablet PO Q6H PRN PRN Reason: HEADACHE Last Admin: 12/25/17 12:56 Dose: 1 tablet Aspirin (Asa -) 81 mg PO DAILY [facility] Last Admin: 12/25/17 09:47 Dose: 81 mg Atorvastatin Calcium (Lipitor -) 80 mg PO HS [facility] Last Admin: 12/24/17 21:41 Dose: 80 mg Heparin Sodium (Porcine) (Heparin -) 5,000 unit SQ BID [facility] Last Admin: 12/25/17 09:47 Dose: 5,000 unit Ceftriaxone Sodium 1 gm/ (Dextrose) 100 mls @ 200 mls/hr IVPB DAILY [facility] PRN Reason: Protocol Last Admin: 12/25/17 09:47 Dose: 200 mls/hr Insulin Aspart (Novolog Vial Sliding Scale -) 1 vial SQ ACHS [facility] PRN Reason: Protocol Last Admin: 12/25/17 11:43 Dose: 2 units Insulin Detemir (Levemir Vial) 20 units SQ ACBK [facility] Last Admin: 12/25/17 06:37 Dose: 20 units Methyl Salicylate (Richard-Gilbert -) 1 applic TP DAILY PRN PRN Reason: PAIN Metoprolol Succinate (Toprol Xl -) 50 mg PO DAILY [facility] Last Admin: 12/25/17 09:47 Dose: 50 mg Miscellaneous (Lidoderm Patch Removal) 1 each MC DAILY@2200 [facility] Last Admin: 12/24/17 21:46 Dose: 1 each - Objective Vital Signs: Vital Signs Temperature 98.2 F 12/25/17 08:00 Pulse Rate 80 12/25/17 08:00 Respiratory Rate 20 12/25/17 08:00 Blood Pressure 134/82 12/25/17 08:00 O2 Sat by Pulse Oximetry (%) 96 12/25/17 09:00 Constitutional: Yes: No Distress, Calm Cardiovascular: Yes: Regular Rate and Rhythm Respiratory: Yes: Regular Gastrointestinal: Yes: Normal Bowel Sounds, Soft Genitourinary: Yes: Other (mild suprapubic tenderness with deep palpation) Extremities: Yes: WNL Wound/Incision: Yes: Other (Lt foot 2nd toe dry, no edema/erythema/tenderness) Neurological: Yes: Alert, Oriented Labs: CBC, BMP 12/25/17 07:30 12/25/17 07:30 Microbiology 12/23/17 20:25 Catheter Tip - Picc Line Foreign Body Culture - Preliminary NO GROWTH OBTAINED AFTER 24 HOURS INCUBATION, REINCUBATED. 12/23/17 16:38 Urine - Urine Clean Catch Urine Culture - Final NO GROWTH OBTAINED 12/23/17 16:00 Blood - Peripheral Venous Blood Culture - Preliminary NO GROWTH OBTAINED AFTER 24 HOURS, INCUBATION TO CONTINUE FOR 4 DAYS. 12/23/17 16:38 Blood - Peripheral Venous Blood Culture - Preliminary NO GROWTH OBTAINED AFTER 24 HOURS, INCUBATION TO CONTINUE FOR 4 DAYS. 12/23/17 20:15 Nasopharyngeal Swab Influenza Types A,B Antigen (AIDA) - Final 12/23/17 20:15 Nasopharyngeal Swab - Final Problem List - Problems (1) Fever Code(s): R50.9 - FEVER, UNSPECIFIED Qualifiers: Fever type: unspecified Qualified Code(s): R50.9 - Fever, unspecified (2) Leukopenia Code(s): D72.819 - DECREASED WHITE BLOOD CELL COUNT, UNSPECIFIED Qualifiers: Leukopenia type: unspecified Qualified Code(s): D72.819 - Decreased white blood cell count, unspecified (3) Osteomyelitis Code(s): M86.9 - OSTEOMYELITIS, UNSPECIFIED Qualifiers: Osteomyelitis type: other Osteomyelitis location: foot Laterality: left Qualified Code(s): M86.8X7 - Other osteomyelitis, ankle and foot (4) Type 1 diabetes mellitus, uncontrolled Code(s): E10.65 - TYPE 1 DIABETES MELLITUS WITH HYPERGLYCEMIA Qualifiers: Diabetes mellitus complication status: with kidney complications Diabetes mellitus complication detail: with nephropathy Qualified Code(s): E10.29 - Type 1 diabetes mellitus with other diabetic kidney complication; E10.65 - Type 1 diabetes mellitus with hyperglycemia; E10.65 - Type 1 diabetes mellitus with hyperglycemia; E10.65 - Type 1 diabetes mellitus with hyperglycemia; E10.65 - Type 1 diabetes mellitus with hyperglycemia (5) CAD (coronary artery disease) Code(s): I25.10 - ATHSCL HEART DISEASE OF [place] CORONARY ARTERY W/O ANG PCTRS Assessment/Plan 32 y.o. female with DM, CAD, Lt foot OM presenting with fever, chills, abd/ suprapubic pain suggestive of UTI -- blood, urine, catheter tip cultures negative -- fevers trending down on current antibiotics - continue for now -- initial vancomycin level likely not trough, recent level subtherapeutic -- restarted Vancomycin 2 grams IV daily continue monitor wbc, temperatures
[2017-12-25] MEDS: MAGNESIUM SULFATE IN WATER 2 GM/50 ML IVPB IVPB ONE ×2 (17:47→18:29)
[2017-12-25] MEDS: ATORVASTATIN CA 40 MG TABLET (FP) PO SCH (22:14)
[2017-12-25] MEDS: LIDOCAINE PATCH REMOVAL MC SCH (22:15)
[2017-12-26] MEDS: LIDOCAINE PATCH REMOVAL MC SCH (01:35)
[2017-12-26] MEDS: ACETAMINOPHEN/CAFFEINE/BUTALBITAL 1 TAB PO PRN (06:30)
[2017-12-26] MEDS: INSULIN (LEVEMIR) 100 UNITS/ML UNITS SQ SCH (06:31)
[2017-12-26] MEDS: INSULIN SLIDING SCALE (NOVOLOG) 1 VIAL SQ SCH ×4 (06:32→21:34)
[2017-12-26 08:46] LABS: BASO % 0.8 % (0-2.0); EOS % 1.9 % (0-4.5); HEMATOCRIT 27.4 % (32.4-45.2); LYMPH % 23.7 % (8-40); MCHC 32.9 g/dl (32.0-36.0); MEAN PLT VOLUME 9.3 fl (7.5-11.1); MONO % 9.6 % (3.8-10.2); PLATELET COUNT 260 K/MM3 (134-434); RBC 3.76 M/mm3 (3.60-5.2); RDW 16.9 % (11.6-15.6); WHITE BLOOD COUNT 3.6 K/mm3 (4.0-10.0)
[2017-12-26 09:15] LABS: ANION GAP 6 (8-16); BLOOD UREA NITROGEN 16 mg/dL (7-18); CALCIUM 7.6 mg/dL (8.5-10.1); CHLORIDE 103 mmol/L (98-107); CO2 26 mmol/L (21-32); CREATININE 1.1 mg/dL (0.55-1.02); GLUCOSE,RANDOM 292 mg/dL (74-106); MAGNESIUM 1.9 mg/dL (1.8-2.4); POTASSIUM 3.7 mmol/L (3.5-5.1); SODIUM 135 mmol/L (136-145)
[2017-12-26] MEDS ORDERED: VANCOMYCIN 2,000 MG in DEXTROSE 5%-WATER - 500 ML IVPB SCH (10:00)
[2017-12-26] MEDS ORDERED: cefTRIAXone SODIUM 1 GM VIAL ONE (10:02)
[2017-12-26] MEDS ORDERED: PT OWN MED DRAWER 7, Y5N ONE (10:02)
[2017-12-26] MEDS: CEFTRIAXONE 1 GM in DEXTROSE 5%-WATER 100 ML IVPB SCH (10:07)
[2017-12-26] MEDS: HEPARIN NA (PORCINE) 5,000 UNITS/ML 1ML VIAL SQ SCH (10:07)
[2017-12-26] MEDS: ASPIRIN 81 MG CHEWABLE TABLETS PO SCH (10:07)
[2017-12-26] MEDS: VANCOMYCIN 2,000 MG in DEXTROSE 5%-WATER - 500 ML IVPB SCH (11:58)
--- NOTE | 2017-12-26 15:42 | PN ---
Progress Note, Physician History of Present Illness: Pt afebrile today. Low grade fever yesterday. Had chills last night. Currently c /o vaginal d/c with some mild itching. No significant suprapubic/CVA tenderness. No dysuria. Denies shortness of breath/cough, abd pain, dysuria. - Current Medication List Current Medications: Active Medications Acetaminophen (Tylenol -) 650 mg PO Q4H PRN PRN Reason: FEVER Last Admin: 12/25/17 22:13 Dose: 650 mg Acetaminophen/Butalbital/Caffeine (Fioricet -) 1 tablet PO Q6H PRN PRN Reason: HEADACHE Last Admin: 12/26/17 06:30 Dose: 1 tablet Aspirin (Asa -) 81 mg PO DAILY [facility] Last Admin: 12/26/17 10:07 Dose: 81 mg Atorvastatin Calcium (Lipitor -) 80 mg PO HS [facility] Last Admin: 12/25/17 22:14 Dose: 80 mg Heparin Sodium (Porcine) (Heparin -) 5,000 unit SQ BID [facility] Last Admin: 12/26/17 10:07 Dose: 5,000 unit Ceftriaxone Sodium 1 gm/ (Dextrose) 100 mls @ 200 mls/hr IVPB DAILY [facility] PRN Reason: Protocol Last Admin: 12/26/17 10:07 Dose: 200 mls/hr Vancomycin HCl 2,000 mg/ (Dextrose) 500 mls @ 250 mls/hr IVPB DAILY [facility] PRN Reason: Protocol Last Admin: 12/26/17 11:58 Dose: 250 mls/hr Insulin Aspart (Novolog Vial Sliding Scale -) 1 vial SQ ACHS [facility] PRN Reason: Protocol Last Admin: 12/26/17 11:29 Dose: 6 units Insulin Detemir (Levemir Vial) 20 units SQ ACBK [facility] Last Admin: 12/26/17 06:31 Dose: 20 units Methyl Salicylate (Richard-Gilbert -) 1 applic TP DAILY PRN PRN Reason: PAIN Last Admin: 12/25/17 16:59 Dose: 1 applic Metoprolol Succinate (Toprol Xl -) 50 mg PO DAILY [facility] Last Admin: 12/26/17 10:07 Dose: 50 mg - Objective Vital Signs: Vital Signs Temperature 98.5 F 12/26/17 14:37 Pulse Rate 75 12/26/17 14:37 Respiratory Rate 20 12/26/17 14:37 Blood Pressure 114/77 12/26/17 14:37 O2 Sat by Pulse Oximetry (%) 98 12/26/17 08:59 Constitutional: Yes: No Distress, Calm Cardiovascular: Yes: Regular Rate and Rhythm Respiratory: Yes: CTA Bilaterally Gastrointestinal: Yes: Normal Bowel Sounds, Soft Genitourinary: Yes: Vaginal Discharge (minimal d/c, no rash or ulcers or malodor ) Extremities: Yes: Other (Lt 2nd toe healing, no erythema or pain) Neurological: Yes: Alert Labs: CBC, BMP 12/26/17 08:08 12/26/17 08:08 Microbiology 12/23/17 20:25 Catheter Tip - Picc Line Foreign Body Culture - Final NO GROWTH AFTER 48 HOURS INCUBATION 12/23/17 16:00 Blood - Peripheral Venous Blood Culture - Preliminary NO GROWTH OBTAINED AFTER 48 HOURS, INCUBATION TO CONTINUE FOR 3 DAYS. 12/23/17 16:38 Blood - Peripheral Venous Blood Culture - Preliminary NO GROWTH OBTAINED AFTER 48 HOURS, INCUBATION TO CONTINUE FOR 3 DAYS. 12/23/17 16:38 Urine - Urine Clean Catch Urine Culture - Final NO GROWTH OBTAINED 12/23/17 20:15 Nasopharyngeal Swab Influenza Types A,B Antigen (AIDA) - Final 12/23/17 20:15 Nasopharyngeal Swab - Final Problem List - Problems (1) Fever Code(s): R50.9 - FEVER, UNSPECIFIED Qualifiers: Fever type: unspecified Qualified Code(s): R50.9 - Fever, unspecified (2) Leukopenia Code(s): D72.819 - DECREASED WHITE BLOOD CELL COUNT, UNSPECIFIED Qualifiers: Leukopenia type: unspecified Qualified Code(s): D72.819 - Decreased white blood cell count, unspecified (3) Osteomyelitis Code(s): M86.9 - OSTEOMYELITIS, UNSPECIFIED Qualifiers: Osteomyelitis type: other Osteomyelitis location: foot Laterality: left Qualified Code(s): M86.8X7 - Other osteomyelitis, ankle and foot (4) Type 1 diabetes mellitus, uncontrolled Code(s): E10.65 - TYPE 1 DIABETES MELLITUS WITH HYPERGLYCEMIA Qualifiers: Diabetes mellitus complication status: with kidney complications Diabetes mellitus complication detail: with nephropathy Qualified Code(s): E10.29 - Type 1 diabetes mellitus with other diabetic kidney complication; E10.65 - Type 1 diabetes mellitus with hyperglycemia; E10.65 - Type 1 diabetes mellitus with hyperglycemia; E10.65 - Type 1 diabetes mellitus with hyperglycemia; E10.65 - Type 1 diabetes mellitus with hyperglycemia (5) CAD (coronary artery disease) Code(s): I25.10 - ATHSCL HEART DISEASE OF [place] CORONARY ARTERY W/O ANG PCTRS Assessment/Plan 32 y.o. female with DM, CAD, Lt foot OM presenting with fever, chills, mild suprapubic/flank pain Still with low grade fever/chills but no suprapubic/CVA tenderness Reports hx of Chlamydia/trichomoniasis in the past, currently sexually active, unprotective with one partner IUD displaced, last time changed was over a yr ago No obvious signs of PID Vaginal d/c - possibly [place] vaginitis - REHAB DEPARTMENT MANAGER evaluation recommended - Diflucan 150 mg po x 1 dose - Continue Vancomycin/Ceftriaxone for now - will consider add doxycycline - NG/chlamydia testing continue monitor wbc, temperatures
[2017-12-26] MEDS ORDERED: FLUCONAZOLE 150 MG TABLET PO ONE (16:08)
--- NOTE | 2017-12-26 16:38 | PN ---
Teaching Attending Note Name of Resident: Kvng Villa SUBJECTIVE: Patient seen and examined. Tearful as hurting at the IV site. No nausea, vomiting, diarrhea or abdominal pain. no back pain or new symptoms. OBJECTIVE: Vital Signs Period Temp Pulse Resp BP Sys/Johnson Pulse Ox Last 24 Hr 98.4 F-100.8 F 69-75 20-20 114-163/60-96 98-98 Intake & Output 12/23/17 12/24/17 12/25/17 12/26/17 23:59 23:59 23:59 23:59 Intake Total 1350 1600 870 Balance 1350 1600 870 Weight 168 lb 8 oz 166 lb 11.2 oz 165 lb 6 oz 164 lb 3 oz General: sitting at edge of bed, tearful at hurting at IV site but in no acute distress Chest: CTAB, no rales or wheezing Abdomen:soft, obese, NT,no suprapubic or CVA tenderness Extremities: toe healing well Musculoskeletal: no back tenderness noted Home Medication List Medication Instructions Recorded Confirmed Type Atorvastatin Ca [Lipitor] 80 mg PO HS 05/23/17 12/23/17 History Insulin (LOG) Aspart [NovoLOG -] 0 unit SQ TID 05/23/17 12/23/17 History Lisinopril 5 mg PO ASDIR 05/23/17 12/23/17 History Insulin Glargine,Hum.rec.anlog 26 unit SQ HS 11/20/17 12/23/17 History [Lantus] Metoprolol Succinate [Toprol Xl] 25 mg PO DAILY 11/20/17 12/23/17 History Active Medications Generic Name Dose Route Start Last Admin Trade Name Freq PRN Reason Stop Dose Admin Acetaminophen 650 mg 12/23/17 20:31 12/25/17 22:13 Tylenol - PO 650 mg Q4H PRN Administration FEVER Acetaminophen/Butalbital/Caffeine 1 tablet 12/24/17 11:02 12/26/17 06:30 Fioricet - PO 1 tablet Q6H PRN Administration HEADACHE Aspirin 81 mg 12/24/17 10:00 12/26/17 10:07 Asa - PO 81 mg DAILY [facility] Administration Atorvastatin Calcium 80 mg 12/23/17 22:00 12/25/17 22:14 Lipitor - PO 80 mg HS [facility]AN Administration Heparin Sodium (Porcine) 5,000 unit 12/23/17 22:00 12/26/17 10:07 Heparin - SQ 5,000 unit BID [facility] Administration Ceftriaxone Sodium 1 gm/ 100 mls @ 200 mls/hr 12/24/17 10:00 12/26/17 10:07 Dextrose IVPB 200 mls/hr DAILY [facility] Administration Protocol Vancomycin HCl 2,000 mg/ 500 mls @ 250 mls/hr 12/26/17 10:00 12/26/17 11:58 Dextrose IVPB 250 mls/hr DAILY [facility] Administration Protocol Insulin Aspart 1 vial 12/23/17 22:00 12/26/17 11:29 Novolog Vial Sliding Scale - SQ 6 units ACHS [facility] Administration Protocol Insulin Detemir 20 units 12/25/17 07:00 12/26/17 06:31 Levemir Vial SQ 20 units ACBK [facility] Administration Methyl Salicylate 1 applic 12/25/17 10:29 12/25/17 16:59 Ceasar-Gilbert - TP 1 applic DAILY PRN Administration PAIN Metoprolol Succinate 50 mg 12/24/17 10:00 12/26/17 10:07 Toprol Xl - PO 50 mg DAILY [facility] Administration Laboratory Results - last 24 hr 12/25/17 12/25/17 12/26/17 16:51 22:09 05:57 WBC RBC Hgb Hct MCV MCH MCHC RDW Plt Count MPV Neutrophils % Lymphocytes % Monocytes % Eosinophils % Basophils % Sodium Potassium Chloride Carbon Dioxide Anion Gap BUN Creatinine POC Glucometer 383 68 364 Random Glucose Calcium Magnesium Vancomycin Pre-Dose 12/26/17 12/26/17 12/26/17 08:08 08:08 08:08 WBC 3.6 L RBC 3.76 Hgb 9.0 L Hct 27.4 L MCV 73.0 L MCH 24.0 L MCHC 32.9 RDW 16.9 H Plt Count 260 MPV 9.3 Neutrophils % 64.0 D Lymphocytes % 23.7 D Monocytes % 9.6 Eosinophils % 1.9 D Basophils % 0.8 Sodium 135 L Potassium 3.7 Chloride 103 Carbon Dioxide 26 Anion Gap 6 L BUN 16 Creatinine 1.1 H POC Glucometer Random Glucose 292 H Calcium 7.6 L Magnesium 1.9 Vancomycin Pre-Dose 12.803 H 12/26/17 11:28 WBC RBC Hgb Hct MCV MCH MCHC RDW Plt Count MPV Neutrophils % Lymphocytes % Monocytes % Eosinophils % Basophils % Sodium Potassium Chloride Carbon Dioxide Anion Gap BUN Creatinine POC Glucometer 259 Random Glucose Calcium Magnesium Vancomycin Pre-Dose Microbiology 12/23/17 20:25 Catheter Tip - Picc Line Foreign Body Culture - Final NO GROWTH AFTER 48 HOURS INCUBATION 12/23/17 16:00 Blood - Peripheral Venous Blood Culture - Preliminary NO GROWTH OBTAINED AFTER 48 HOURS, INCUBATION TO CONTINUE FOR 3 DAYS. 12/23/17 16:38 Blood - Peripheral Venous Blood Culture - Preliminary NO GROWTH OBTAINED AFTER 48 HOURS, INCUBATION TO CONTINUE FOR 3 DAYS. 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 -Fevers/constitutional symptoms. -?Left sided pyelonephritis with early sepsis (leucopenia with fevers) -Leucopenia with minimal neutropneia and monocytosis, likely reactive from infectious process -SUprapubic pain, resolved, no evidence of urinary retention -Left upper back pain, likely musculoskeletal, resolved -Microcytic anemia, acute on chronic from ?hemodilution, no gross evidence of bleed. -?Candidal vaginitis -MRSA left foot osteomyelitis on IV vancomycin -IDDM/hypoglycemia -HTN -CAD s/p CABG/PGI Plan: Ceftriaxone day 4, urine cultures neg, follow up with ID. Flu swab neg. Blood smear with no concerns. . Blood cultures neg so far. PICC removed, tip cultures neg so far, unlikely to change management facilitator as line already out. ESR/CRP noted. S/p fluconazole x 1 today. Await Drupal Architect evaluation ( also with ?malpositioned IUD but no concerns currently) Foot healing well, vanco level noted, continue to 2 g daily. AM hypoglycemia. Continue levemir 20 units, add bedtime snack and try to change insulin dosing to AM. Appropriate response to PRBC, discussed with patient, knows about being anemic in the past. Advised outpatient Drupal Architect follow up and screening colonoscopy . WBC improved. Continue metoprolol/ASA/statin. Hold lasix, off IVF. Fioricet prn. ceasar-gilbert to upper back prn and monitor. No concerns for infection. dispo planning in 24 hours pending ID input and clinical improvement. Plan discussed with patient in detail, all questions answered.
[2017-12-26] MEDS ORDERED: PICC LINE 8 ML FLUSH PROTOCOL IVPUSH PRN (18:54)
[2017-12-26] MEDS: ACETAMINOPHEN 325 MG TABLET (FP) PO PRN (19:51)
[2017-12-26] MEDS: ATORVASTATIN CA 40 MG TABLET (FP) PO SCH (21:34)
--- NOTE | 2017-12-26 22:13 | PN ---
Progress Note (SOAP) - Subjective History of Present Illness: 32 y/o admitted to the hospital for medical issues. Ct scan showed IUD in place in lower segment. No implications at this point. May consider replacing. - Current Medications Current Medications: Active Medications Acetaminophen (Tylenol -) 650 mg PO Q4H PRN PRN Reason: FEVER Last Admin: 12/26/17 19:51 Dose: 650 mg Acetaminophen/Butalbital/Caffeine (Fioricet -) 1 tablet PO Q6H PRN PRN Reason: HEADACHE Last Admin: 12/26/17 06:30 Dose: 1 tablet Aspirin (Asa -) 81 mg PO DAILY [facility] Last Admin: 12/26/17 10:07 Dose: 81 mg Atorvastatin Calcium (Lipitor -) 80 mg PO HS [facility] Last Admin: 12/26/17 21:34 Dose: 80 mg IV Flush (Picc Line Flush) 8 ml IVPUSH PRN PRN PRN Reason: Protocol Ceftriaxone Sodium 1 gm/ (Dextrose) 100 mls @ 200 mls/hr IVPB DAILY [facility] PRN Reason: Protocol Last Admin: 12/26/17 10:07 Dose: 200 mls/hr Vancomycin HCl 2,000 mg/ (Dextrose) 500 mls @ 250 mls/hr IVPB DAILY [facility] PRN Reason: Protocol Last Admin: 12/26/17 11:58 Dose: 250 mls/hr Insulin Aspart (Novolog Vial Sliding Scale -) 1 vial SQ ACHS [facility] PRN Reason: Protocol Last Admin: 12/26/17 21:34 Dose: 10 units Insulin Detemir (Levemir Vial) 20 units SQ ACBK [facility] Last Admin: 12/26/17 06:31 Dose: 20 units Methyl Salicylate (Richard-Gilbert -) 1 applic TP DAILY PRN PRN Reason: PAIN Last Admin: 12/25/17 16:59 Dose: 1 applic Metoprolol Succinate (Toprol Xl -) 50 mg PO DAILY [facility] Last Admin: 12/26/17 10:07 Dose: 50 mg - Objective Vital Signs: Vital Signs Temperature 100 F H 12/26/17 20:00 Pulse Rate 68 12/26/17 20:00 Respiratory Rate 20 12/26/17 20:14 Blood Pressure 142/83 12/26/17 20:00 O2 Sat by Pulse Oximetry (%) 98 12/26/17 20:14 Constitutional: Yes: Well Nourished Eyes: Yes: WNL HENT: Yes: WNL Neck: Yes: WNL Cardiovascular: Yes: WNL Respiratory: Yes: WNL Gastrointestinal: Yes: WNL ...Rectal Exam: Yes: WNL Genitourinary: Yes: WNL Musculoskeletal: Yes: WNL Extremities: Yes: WNL Labs Lab Results: CBC, BMP 12/26/17 08:08 12/26/17 08:08 Assessment/Plan no mangement for IUD may see as an opt.
[2017-12-27] MEDS: ACETAMINOPHEN/CAFFEINE/BUTALBITAL 1 TAB PO PRN (05:35)
[2017-12-27] MEDS: INSULIN SLIDING SCALE (NOVOLOG) 1 VIAL SQ SCH ×2 (06:43→12:03)
[2017-12-27] MEDS: INSULIN (LEVEMIR) 100 UNITS/ML UNITS SQ SCH (06:44)
[2017-12-27 07:40] LABS: BASO % 0.6 % (0-2.0); HEMATOCRIT 26.7 % (32.4-45.2); HEMOGLOBIN 8.8 GM/dL (10.7-15.3); LYMPH % 19.7 % (8-40); MCH 24.2 pg (25.7-33.7); MCHC 32.9 g/dl (32.0-36.0); MEAN CELL VOLUME 73.5 fl (80-96); MEAN PLT VOLUME 9.1 fl (7.5-11.1); MONO % 10.1 % (3.8-10.2); NEUT % 66.6 % (42.8-82.8); PLATELET COUNT 236 K/MM3 (134-434); RBC 3.63 M/mm3 (3.60-5.2); RDW 17.3 % (11.6-15.6); WHITE BLOOD COUNT 5.1 K/mm3 (4.0-10.0)
[2017-12-27 08:08] LABS: ALBUMIN 2.1 g/dl (3.4-5.0); ANION GAP 7 (8-16); BILIRUBIN,TOTAL 0.2 mg/dL (0.2-1.0); BLOOD UREA NITROGEN 20 mg/dL (7-18); CALCIUM 7.5 mg/dL (8.5-10.1); CHLORIDE 103 mmol/L (98-107); CO2 25 mmol/L (21-32); MAGNESIUM 1.9 mg/dL (1.8-2.4); PHOSPHOROUS 4.2 mg/dL (2.5-4.9); POTASSIUM 3.7 mmol/L (3.5-5.1); SGOT/AST 34 U/L (15-37); SGPT/ALT 32 U/L (12-78); SODIUM 135 mmol/L (136-145); TOT PROT 5.6 g/dl (6.4-8.2)
[2017-12-27 08:09] LABS: ALK PHOS 134 U/L (45-117)
[2017-12-27 08:39] LABS: GLUCOSE,RANDOM 313 mg/dL (74-106)
--- NOTE | 2017-12-27 08:55 | PN ---
Teaching Attending Note Name of Resident: Shirley Persaud ATTENDING PHYSICIAN STATEMENT I saw and evaluated the patient. I reviewed the resident's note and discussed the case with the resident. I agree with the resident's findings and plan as documented with exceptions below. SUBJECTIVE: Patient seen and examined. tearful, eager to go home, no complaints currently. OBJECTIVE: Vital Signs Period Temp Pulse Resp BP Sys/Johnson Pulse Ox Last 24 Hr 98.5 F-100 F 68-75 20-20 114-142/72-83 98-98 Intake & Output 12/24/17 12/25/17 12/26/17 12/27/17 23:59 23:59 23:59 23:59 Intake Total 1350 1600 1690 200 Output Total 1999 Balance 1350 1600 1690 -1800 Weight 166 lb 11.2 oz 165 lb 6 oz 164 lb 3 oz 162 lb 8 oz General: sitting at edge of bed in no acute distress Home Medication List Medication Instructions Recorded Confirmed Type Atorvastatin Ca [Lipitor] 80 mg PO HS 05/23/17 12/23/17 History Insulin (LOG) Aspart [NovoLOG -] 0 unit SQ TID 05/23/17 12/23/17 History Lisinopril 5 mg PO ASDIR 05/23/17 12/23/17 History Insulin Glargine,Hum.rec.anlog 26 unit SQ HS 11/20/17 12/23/17 History [Lantus] Metoprolol Succinate [Toprol Xl] 25 mg PO DAILY 11/20/17 12/23/17 History Active Medications Generic Name Dose Route Start Last Admin Trade Name Freq PRN Reason Stop Dose Admin Acetaminophen 650 mg 12/23/17 20:31 12/26/17 19:51 Tylenol - PO 650 mg Q4H PRN Administration FEVER Acetaminophen/Butalbital/Caffeine 1 tablet 12/24/17 11:02 12/27/17 05:35 Fioricet - PO 1 tablet Q6H PRN Administration HEADACHE Aspirin 81 mg 12/24/17 10:00 12/26/17 10:07 Asa - PO 81 mg DAILY KIRAN Administration Atorvastatin Calcium 80 mg 12/23/17 22:00 12/26/17 21:34 Lipitor - PO 80 mg HS KIRAN Administration IV Flush 8 ml 12/26/17 18:54 Picc Line Flush IVPUSH PRN PRN Protocol Ceftriaxone Sodium 1 gm/ 100 mls @ 200 mls/hr 12/24/17 10:00 12/26/17 10:07 Dextrose IVPB 200 mls/hr DAILY KIRAN Administration Protocol Vancomycin HCl 2,000 mg/ 500 mls @ 250 mls/hr 12/26/17 10:00 12/26/17 11:58 Dextrose IVPB 250 mls/hr DAILY KIRAN Administration Protocol Insulin Aspart 1 vial 12/23/17 22:00 12/27/17 06:43 Novolog Vial Sliding Scale - SQ 6 units ACHS KIRAN Administration Protocol Insulin Detemir 20 units 12/25/17 07:00 12/27/17 06:44 Levemir Vial SQ 20 units ACBK KIRAN Administration Methyl Salicylate 1 applic 12/25/17 10:29 12/25/17 16:59 Richard-Gilbert - TP 1 applic DAILY PRN Administration PAIN Metoprolol Succinate 50 mg 12/24/17 10:00 12/26/17 10:07 Toprol Xl - PO 50 mg DAILY KIRAN Administration Laboratory Results - last 24 hr 12/26/17 12/26/17 12/26/17 08:08 08:08 11:28 WBC RBC Hgb Hct MCV MCH MCHC RDW Plt Count MPV Neutrophils % Lymphocytes % Monocytes % Eosinophils % Basophils % Sodium 135 L Potassium 3.7 Chloride 103 Carbon Dioxide 26 Anion Gap 6 L BUN 16 Creatinine 1.1 H Creat Clearance w eGFR POC Glucometer 259 Random Glucose 292 H Calcium 7.6 L Phosphorus Magnesium 1.9 Total Bilirubin AST ALT Alkaline Phosphatase Total Protein Albumin Vancomycin Pre-Dose 12.803 H 12/26/17 12/26/17 12/27/17 16:50 20:47 05:30 WBC RBC Hgb Hct MCV MCH MCHC RDW Plt Count MPV Neutrophils % Lymphocytes % Monocytes % Eosinophils % Basophils % Sodium Potassium Chloride Carbon Dioxide Anion Gap BUN Creatinine Creat Clearance w eGFR POC Glucometer 134 360 297 Random Glucose Calcium Phosphorus Magnesium Total Bilirubin AST ALT Alkaline Phosphatase Total Protein Albumin Vancomycin Pre-Dose 12/27/17 12/27/17 07:26 07:26 WBC 5.1 D RBC 3.63 Hgb 8.8 L Hct 26.7 L MCV 73.5 L MCH 24.2 L MCHC 32.9 RDW 17.3 H Plt Count 236 MPV 9.1 Neutrophils % 66.6 Lymphocytes % 19.7 Monocytes % 10.1 Eosinophils % 3.0 Basophils % 0.6 Sodium 135 L Potassium 3.7 Chloride 103 Carbon Dioxide 25 Anion Gap 7 L BUN 20 H Creatinine 1.0 Creat Clearance w eGFR > 60 POC Glucometer Random Glucose 313 H* Calcium 7.5 L Phosphorus 4.2 Magnesium 1.9 Total Bilirubin 0.2 AST 34 ALT 32 Alkaline Phosphatase 134 H Total Protein 5.6 L Albumin 2.1 L Vancomycin Pre-Dose Microbiology 12/23/17 16:00 Blood - Peripheral Venous Blood Culture - Preliminary NO GROWTH OBTAINED AFTER 72 HOURS, INCUBATION TO CONTINUE FOR 2 DAYS. 12/23/17 16:38 Blood - Peripheral Venous Blood Culture - Preliminary NO GROWTH OBTAINED AFTER 72 HOURS, INCUBATION TO CONTINUE FOR 2 DAYS. 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 -Fevers/constitutional symptoms. -?Left sided pyelonephritis with early sepsis (leucopenia with fevers) -Leucopenia with minimal neutropneia and monocytosis, likely reactive from infectious process -SUprapubic pain, resolved, no evidence of urinary retention -Left upper back pain, likely musculoskeletal, resolved -Microcytic anemia, acute on chronic from ?hemodilution, no gross evidence of bleed. -?Candidal vaginitis -MRSA left foot osteomyelitis on IV vancomycin -IDDM/hypoglycemia -HTN -CAD s/p CABG/PGI Plan: Doing well, no high grade fevers spikes. no suprapubic/flank symptoms, urine cultures neg. s/p diflucan x 1. Discussed with Dr. Cunningham, continue vancomycin current dose, and finish the recommended course from recent admit. Doxycycline x 1 week. Outpatient follow up of gonorrhea/chlamydea but already treated, so would not pattern changer and repairer. PICC line placed. resume home DM regimen. D/c home today with VNS/IV antibiotics. Plan discussed with patient in detail, all questions answered.
[2017-12-27 09:00] VITALS: BP 141/79; PULSE 90; TEMP 98.7
[2017-12-27] MEDS ORDERED: cefTRIAXone SODIUM 1 GM VIAL ONE (10:16)
[2017-12-27] MEDS: ASPIRIN 81 MG CHEWABLE TABLETS PO SCH (11:00)
--- NOTE | 2017-12-27 12:45 | PN ---
Progress Note, Physician History of Present Illness: patient doing well no issues has a picc line placed patient wants to go home - Current Medication List Current Medications: Active Medications Acetaminophen (Tylenol -) 650 mg PO Q4H PRN PRN Reason: FEVER Last Admin: 12/26/17 19:51 Dose: 650 mg Acetaminophen/Butalbital/Caffeine (Fioricet -) 1 tablet PO Q6H PRN PRN Reason: HEADACHE Last Admin: 12/27/17 05:35 Dose: 1 tablet Aspirin (Asa -) 81 mg PO DAILY [facility] Last Admin: 12/27/17 11:00 Dose: Not Given Atorvastatin Calcium (Lipitor -) 80 mg PO HS [facility] Last Admin: 12/26/17 21:34 Dose: 80 mg IV Flush (Picc Line Flush) 8 ml IVPUSH PRN PRN PRN Reason: Protocol Ceftriaxone Sodium 1 gm/ (Dextrose) 100 mls @ 200 mls/hr IVPB DAILY KIRAN PRN Reason: Protocol Last Admin: 12/26/17 10:07 Dose: 200 mls/hr Vancomycin HCl 2,000 mg/ (Dextrose) 500 mls @ 250 mls/hr IVPB DAILY KIRAN PRN Reason: Protocol Last Admin: 12/26/17 11:58 Dose: 250 mls/hr Insulin Aspart (Novolog Vial Sliding Scale -) 1 vial SQ ACHS KIRAN PRN Reason: Protocol Last Admin: 12/27/17 12:03 Dose: Not Given Insulin Detemir (Levemir Vial) 20 units SQ ACBK [facility] Last Admin: 12/27/17 06:44 Dose: 20 units Methyl Salicylate (Richard-Gilbert -) 1 applic TP DAILY PRN PRN Reason: PAIN Last Admin: 12/25/17 16:59 Dose: 1 applic Metoprolol Succinate (Toprol Xl -) 50 mg PO DAILY [facility] Last Admin: 12/27/17 10:28 Dose: 50 mg - Objective Vital Signs: Vital Signs Temperature 98.7 F 12/27/17 08:00 Pulse Rate 90 12/27/17 08:00 Respiratory Rate 18 12/27/17 08:00 Blood Pressure 141/79 12/27/17 08:00 O2 Sat by Pulse Oximetry (%) 99 12/27/17 09:00 Constitutional: Yes: No Distress, Calm Cardiovascular: Yes: Regular Rate and Rhythm Respiratory: Yes: Regular, CTA Bilaterally Gastrointestinal: Yes: Normal Bowel Sounds, Soft Musculoskeletal: Yes: WNL Extremities: Yes: Other (picc in left arm) Neurological: Yes: Alert, Oriented Psychiatric: Yes: Alert, Oriented Labs: CBC, BMP 12/27/17 07:26 12/27/17 07:26 Assessment/Plan - Problems (1) Fever Code(s): R50.9 - FEVER, UNSPECIFIED Qualifiers: Fever type: unspecified Qualified Code(s): R50.9 - Fever, unspecified (2) Leukopenia Code(s): D72.819 - DECREASED WHITE BLOOD CELL COUNT, UNSPECIFIED Qualifiers: Leukopenia type: unspecified Qualified Code(s): D72.819 - Decreased white blood cell count, unspecified (3) Osteomyelitis Code(s): M86.9 - OSTEOMYELITIS, UNSPECIFIED Qualifiers: Osteomyelitis type: other Osteomyelitis location: foot Laterality: left Qualified Code(s): M86.8X7 - Other osteomyelitis, ankle and foot (4) Type 1 diabetes mellitus, uncontrolled Code(s): E10.65 - TYPE 1 DIABETES MELLITUS WITH HYPERGLYCEMIA Qualifiers: Diabetes mellitus complication status: with kidney complications Diabetes mellitus complication detail: with nephropathy Qualified Code(s): E10.29 - Type 1 diabetes mellitus with other diabetic kidney complication; E10.65 - Type 1 diabetes mellitus with hyperglycemia; E10.65 - Type 1 diabetes mellitus with hyperglycemia; E10.65 - Type 1 diabetes mellitus with hyperglycemia; E10.65 - Type 1 diabetes mellitus with hyperglycemia (5) CAD (coronary artery disease) Code(s): I25.10 - ATHSCL HEART DISEASE OF [place] CORONARY ARTERY W/O ANG PCTRS plan continue current abx since patient wants to go home switch her to doxy for a week with her vanco dose follow up labs with her primary rest continue current mgmt
[2017-12-27] MEDS: VANCOMYCIN 2,000 MG in DEXTROSE 5%-WATER - 500 ML IVPB SCH (13:41)
[2017-12-27] MEDS: CEFTRIAXONE 1 GM in DEXTROSE 5%-WATER 100 ML IVPB SCH (13:41)
[2017-12-27] MEDS ORDERED: DOXYCYCLINE HYCLATE 100 MG CAPSULE PO ONE (14:15)
--- NOTE | 2017-12-27 15:29 | DS ---
Physical Exam: SUBJECTIVE: Patient seen and examined. Tearful, wants to go home. Denies CP, sob , abdominal pain. Eating and voiding well. OBJECTIVE: Vital Signs Period Temp Pulse Resp BP Sys/Johnson Pulse Ox Last 24 Hr 98.7 F-100 F 68-90 18-20 138-142/72-83 98-99 PHYSICAL EXAM GENERAL: aaox3, nad HEENT: sclera anicteric, conjunctiva clear Lungs: CTAB HEART: rrr, normal s1/s2 ABDOMEN: soft, NTND EXTREMITIES: wwp, no edema CBC, BMP 12/27/17 07:26 12/27/17 07:26 Hepatic Panel Total Bilirubin 0.2 mg/dL (0.2-1.0) 12/27/17 07:26 AST 34 U/L (15-37) 12/27/17 07:26 ALT 32 U/L (12-78) 12/27/17 07:26 Alkaline Phosphatase 134 U/L (45-117) H 12/27/17 07:26 Albumin 2.1 g/dl (3.4-5.0) L 12/27/17 07:26 Microbiology 12/23/17 16:00 Blood - Peripheral Venous Blood Culture - Preliminary NO GROWTH OBTAINED AFTER 96 HOURS, INCUBATION TO CONTINUE FOR 1 DAYS. 12/23/17 16:38 Blood - Peripheral Venous Blood Culture - Preliminary NO GROWTH OBTAINED AFTER 96 HOURS, INCUBATION TO CONTINUE FOR 1 DAYS. 12/26/17 16:20 Blood - Peripheral Venous Blood Culture - Preliminary NO GROWTH OBTAINED AFTER 24 HOURS, INCUBATION TO CONTINUE FOR 4 DAYS. 12/26/17 16:20 Blood - Peripheral Venous Blood Culture - Preliminary NO GROWTH OBTAINED AFTER 24 HOURS, INCUBATION TO CONTINUE FOR 4 DAYS. 12/23/17 20:25 Catheter Tip - Picc Line Foreign Body Culture - Final NO GROWTH AFTER 48 HOURS INCUBATION 12/23/17 16:38 Urine - Urine Clean Catch Urine Culture - Final NO GROWTH OBTAINED 12/23/17 20:15 Nasopharyngeal Swab Influenza Types A,B Antigen (AIDA) - NEG 12/23/17 20:15 Nasopharyngeal Swab - Final HOSPITAL COURSE: Date of Admission:12/23/17 Date of Discharge: 12/27/17 Pre-hospital Course: 32yo woman with PMHx of T1DM, HTN, CAD s/p CABG/PCI, recent MRSA left foot cellulitis/Osteomyelitis s/p I&D, discharged on 11/25 with PICC/IV vancomycin for 5 weeks (complete on 12/30). Patient seen in [facility] wound clinic and receives weekly hyperbaric oxygen treatments. Pt was at Wound Clinic earlier today, and was sent to ED. She endorses myalgias, generalized weakness, suprapubic discomfort, and subjective fevers for past several days. Patient reports chronic cough for past 3 months, that is unchanged. Denies any dyspnea. Lives with mother and children; Son with recent PNA and mother with URI symptoms. Patient reports seeing [employer] Psychologist (Dr. Rosey Rincon), and received outpatient stress test and echo that was reportedly non-concerning. Patient was also started on Lasix 10mg daily and Toprol xl was increased to 50mg daily. Her Vancomycin dose was recently increased to 2g daily. Subsequent Hospital Course: Patient was admitted for fevers (Tmax and constitutional symptoms. CT A/P was notable for mild b/l diffuse prominence and perirenal soft tissue stranding that could be reflective of possible acute pyelonephritis (See report below). ID was consulted. Patient was treated with Ceftriaxone 1gm x 5days for coverage of possible early pyelonephritis. Subsequent Renal U/S was non-concerning and revealed only small , simple R renal cyst. Patient was Flu negative. CXR negative. Blood cultures and PICC tip cultures were negative. Patient reported vaginal itching and discharge x1 day and was treated with 1xdose Fluconazole. Gonorrhea and chlamydia tests were sent, but still pending on discharge, which patient is aware and agreed to follow-up on. Per ID, patient was discharge on doxycycline 100mg BID x 7 days in addition to Vancomycin. On discharge, new PICC line was placed in Left arm in order to complete Vancomycin 2gm daily x 3 more days (prior PICC was removed on admission b/c unable to get blood flow, and per patient this occurred starting 1 week after discharge). Patient's IUD was also noted to be malpositioned on CT A/P. FAMILY AND CONSUMER SCIENCES TEACHER was consulted, and recommended out-patient follow-up. Consults: ID: Dr. Cunningham, Dr. Lauren FAMILY AND CONSUMER SCIENCES TEACHER: Dr. Fuentes IR: Dr. Bingham IMAGING: EXAM#: TYPE/EXAM: RESULT: [id number] RAD/CHEST PA LAT Chest 2 views. Comparison study December 23, 2017. Unremarkable contour of the cardiomediastinal silhouette. The trachea is not deviated. No evidence of widening of the superior mediastinum. Lungs are well aerated. No evidence of pneumonia, atelectasis. No pleural effusion, or pneumothorax is seen. Intact visualized osseous structures. Medial sternotomy wires. Intact visualized osseous structures. Impression. No evidence of active pulmonary disease. No pleural effusion, or pneumothorax is seen. EXAM#: TYPE/EXAM: RESULT: [id number] US/KIDNEY / RENAL US Evaluate for acute renal insufficiency. Renal ultrasound. A real -time ultrasound examination of both kidneys was performed The right and left kidney measured 12.5 cm, respectively. There is a small simple cyst in the mid to lower right kidney measuring 1 cm. Both kidneys appear otherwise unremarkable. There are within normal limits in size and contour. No solid mass lesion is identified . No gross renal stone or hydronephrosis is seen, bilaterally Visualized portion of the liver appears unremarkable IMPRESSION: Small right renal simple cyst measuring 1 cm. Both kidneys appear otherwise unremarkable. EXAM#: TYPE/EXAM: RESULT: [id number] CT/ABDOMEN PELVIS CT W/O CONTR Abdomen and pelvis CT (without contrast) Clinical information given: evaluate for nephrolithiasis, pyelonephritis Multiplanar imaging was performed. No intravenous or enteric contrast was administered. No urinary tract calculus or hydroureteronephrosis is identified. In comparison to a CT exam of 03/14/2016 there is possible minimal to mild bilateral nephromegaly. Note is also made of development of minimal to mild bilateral perirenal soft tissue stranding. A small left renal cortical low-attenuation focus is noted laterally at the level of the mid to lower pole without obvious interval change possibly representing a complex cyst. The urinary bladder is distended with an approximate volume of 800 mL. A subtle approximately 5.6 cm soft tissue lesion is seen within the posterior segment right hepatic lobe medially (transaxial images 39-43) without obvious interval change in comparison to the prior CT study. A small amount of free fluid is seen within the pelvic cul-de-sac. An IUD is noted in place at the level of the lower uterine segment. Status post gastric surgery. Status post median sternotomy. No evidence of pneumoperitoneum, or bowel obstruction. Small to moderate umbilical hernia as on the prior exam containing a nonobstructed bowel loop. The appendix is not definitely visualized however there are no obvious indirect CT signs of acute appendicitis allowing for somewhat limited intra-abdominal fat as well as contiguous unopacified bowel loops. No obvious evidence of acute diverticulitis. There is no gross small bowel pathology. No aortic aneurysm is seen. Atherosclerotic vascular calcifications are noted. The spleen, pancreas, gallbladder and adrenal glands demonstrate no obvious noncontrast pathology. There is no obvious lymphadenopathy. The visualized osseous structures demonstrate no gross acute pathology. IMPRESSION: No CT evidence of urolithiasis or hydronephrosis. In comparison to a prior CT study of 03/14/2016 the kidneys appear to demonstrate interval development of mild bilateral diffuse prominence which could be on the basis of acute pyelonephritis or possibly acute noninfectious nephritis. Development of minimal to mild bilateral perirenal soft tissue stranding is also seen. If clinically indicated correlate with contrast- enhanced CT or noncontrast MRI. The urinary bladder is distended with an approximate volume of 800 mL - ? unusually prominent physiologic distention versus urinary retention. Correlate clinically indicated. Pre- and post-void sonography may be considered. Apparent IUD malposition as noted above (low in position within the uterine canal). Subtle 5.6 cm right hepatic lobe soft tissue lesion without obvious interval change. This finding was better visualized on sonography performed 04/27/2016. Atherosclerotic vascular calcifications are noted which are more prominent then would be expected for the patient's chronologic age. Small to moderate umbilical hernia containing a nondilated short segment of the mid abdominal bowel loop. No obvious interval change is seen in this regard. Status post gastric surgery. colonic fecal retention which is probably moderate. EXAM#: TYPE/EXAM: RESULT: [id number] RAD/CHEST PA LAT INDICATION: Cough. Shortness of breath. TECHNIQUE: Single AP portable view the chest. COMPARISON: 11/20/2017 chest x-ray. FINDINGS: There is been interval placement of right upper extremity PICC with the catheter tip terminating over the distal SVC. Median sternotomy wires and mediastinal clips are again redemonstrated. The cardiomediastinal silhouette is normal size and contour. There is no evidence of acute infiltrate, pulmonary vascular congestion, pleural effusion or pneumothorax. No abnormal deviation of the trachea. IMPRESSION: 1. No evidence of acute infiltrate, pulmonary vascular congestion or pleural effusion. 2. Right upper extremity PICC in appropriate position. Minutes to complete discharge: 45 Discharge Summary Reason For Visit: LEUKOPENIA Condition: Stable - Instructions Diet, Activity, Other Instructions: You came to the hospital due to weakness and low grade fevers. After some investigation, including blood work, we think that your symptoms are likely reactive from infectious process (common side effects of the infection you were already being treated for). You were seen by Infectious disease specialist (Dr. Cunningham) and received a new PICC line in your Left arm. Medications: Continue Vancomycin as before 2 g daily infusions (3 more days). Based on your prior hospital records you are supposed to take it till 12/30, no changes in the duration of your treatment have been made currently. Continue as directed by Dr. Cunningham. We are adding Doxycycline 100 mg Oral twice a day for 1 week. Your first dose will be this evening. Your last dose will be 01/02 in the evening. We are testing you for STD, and will notify you if you are positive. Please have your doctor or follow up on results of your Gonorrhea/ Chlamydia studies. AVOID DIRECT SUN EXPOSURE, TANNING WHILE ON DOXYCYCLINE. ADVISE BLOOD WORK - CBC, BMP, LFTS IN 5-7 DAYS WITH YOUR DOCTOR. You received 20U of long-acting Levemir insulin this AM. You should check your sugars this evening, and resume your regular home insulin regimen. Please follow up with infectious disease and PCP in 1 week and have blood tests as mentioned above. Routine PICC line care. Return to ER if symptoms worsen, new or concerning fevers, chills, abdominal or urinary symptoms or vaginal discharge. Referrals: Ulisses Cunningham MD [Staff Physician] - 1 Week Senait Matthew MD [Non Staff, Medical] - 1 Week Disposition: VNS/HOME HEALTH CARE - Home Medications Comprehensive Discharge Medication List: Ambulatory Orders Aspirin [ASA -] 81 mg PO DAILY #0 tab.chew 03/15/16 Atorvastatin Ca [Lipitor] 80 mg PO HS 05/23/17 Insulin (LOG) Aspart [NovoLOG -] 0 unit SQ TID 05/23/17 Lisinopril 5 mg PO ASDIR 05/23/17 Insulin Glargine,Hum.rec.anlog [Lantus] 26 unit SQ HS 11/20/17 Metoprolol Succinate [Toprol Xl] 25 mg PO DAILY 11/20/17 Cetirizine HCl/Pseudoephedrine [Zyrtec-D Tablet] 1 each PO DAILY #60 tab.er.12h MDD 1 12/10/17 LORazepam [Ativan] 1 mg PO DAILY #30 tablet MDD 1 12/10/17 Doxycycline Hyclate 100 mg PO BID #14 tablet 12/27/17 Picc Line Flush [Picc Line Flush -] 8 ml IVPUSH PRN PRN #30 ml 12/27/17 Vancomycin 2,000 mg IVPB DAILY #3 vial 12/27/17 This patient is new to me today: No Emergency Visit: No Critical Care patient: No - Discharge Referral Referred to [facility] No
== END 2017-12-27 14:58 | disposition home health service (06) | DRG 663 ==
LOC: JER 13:51 → OBSVTOIN 18:25 → JERBED 18:25 → J6S 21:53
PROVIDERS: ADMIT Hospitalist; ATTEND Hospitalist
PROC: 02HV33Z Insertion of Infusion Device into Superior Vena Cava, Percutaneous Approach (ICD-10-PCS; principal; 2017-12-27)
DX: D72.819 Decreased white blood cell count, unspecified (principal); I25.10 Atherosclerotic heart disease of native coronary artery without angina pectoris; N17.9 Acute kidney failure, unspecified; R50.9 Fever, unspecified; D64.9 Anemia, unspecified; M54.89 Other dorsalgia; M62.838 Other muscle spasm; E78.5 Hyperlipidemia, unspecified; I10 Essential (primary) hypertension; M86.8X7 Other osteomyelitis, ankle and foot; E66.9 Obesity, unspecified; Z68.26 Body mass index [BMI] 26.0-26.9, adult; E11.21 Type 2 diabetes mellitus with diabetic nephropathy; Z95.1 Presence of aortocoronary bypass graft; E11.65 Type 2 diabetes mellitus with hyperglycemia; B37.3 Candidiasis of vulva and vagina; D72.821 Monocytosis (symptomatic); Z98.84 Bariatric surgery status; Z87.891 Personal history of nicotine dependence; Z79.4 Long term (current) use of insulin; Z95.5 Presence of coronary angioplasty implant and graft
CPT/HCPCS: 36415; 36430; 36569; 71046-TC-FY; 74176-TC; 76775-TC; 77001-TC-FY; 80048; 80053; 81003; 81015; 82436; 82570; 82962; 83605; 83690; 83735; 84100; 84133; 84156; 84300; 84484; 84703; 85025; 85651; 86140; 86850; 86900; 86901; 86922; 87040; 87070; 87086; 87491; 87591; 87804; 93005; 93010; 99283-25; C1751; G0277; G0463-25; G0480; J1644; J7030; P9038; P9058

== ENCOUNTER 2018-06-14 13:26 | Observation (INO) | payer OTHER ==
[2018-06-14 14:19] VITALS: BP 152/90; PULSE 80; TEMP 98.6; BMI 25.9
[2018-06-14] MEDS ORDERED: ACETAMINOPHEN 1000 MG/100 ML VIAL (NON FORMULARY) IVPB ONE (14:50)
--- NOTE | 2018-06-14 14:50 | PDOC ---
History of Present Illness - General Chief Complaint: Chest Pain Stated Complaint: NOSE BLEED, HEADACHE, CHEST PAIN Time Seen by Provider: 06/14/18 14:31 - History of Present Illness Initial Comments: 06/14/18 14:48 32 year old female with history PMH DM, CAD, HTN, CABG (2011) and prior gastric sleeve who presents with 8/10 mid chest pain that onset 1 day ago was intermittent and became sharp and constant for 2 hours just prior to arrival. The patient denies nausea, diaphoresis, shortness of breath, radiation to the back, neck or arm. She notes that she has been noncompliant with medication for more than 3 weeks due to "life stressors" including caring for her children and working. The patient also reports a bilateral temporal headache ongoing for 2 days and Past History - Past Medical History Allergies/Adverse Reactions: Allergies Allergy/AdvReac Type Severity Reaction Status Date / Time No Known Allergies Allergy Verified 06/14/18 14:13 Home Medications: Ambulatory Orders Aspirin [ASA -] 81 mg PO DAILY #0 tab.chew 03/15/16 Atorvastatin Ca [Lipitor] 80 mg PO HS 05/23/17 Insulin (LOG) Aspart [NovoLOG -] 0 unit SQ TID 05/23/17 Lisinopril 5 mg PO ASDIR 05/23/17 Insulin Glargine,Hum.rec.anlog [Lantus] 26 unit SQ HS 11/20/17 Metoprolol Succinate [Toprol Xl] 25 mg PO DAILY 11/20/17 Cetirizine HCl/Pseudoephedrine [Zyrtec-D Tablet] 1 each PO DAILY #60 tab.er.12h MDD 1 12/10/17 LORazepam [Ativan] 1 mg PO DAILY #30 tablet MDD 1 12/10/17 Doxycycline Hyclate 100 mg PO BID #14 tablet 12/27/17 Picc Line Flush [Picc Line Flush -] 8 ml IVPUSH PRN PRN #30 ml 12/27/17 Vancomycin 2,000 mg IVPB DAILY #3 vial 12/27/17 Asthma: No Cancer: No Cardiac Disorders: Yes (cardiac bypass) COPD: No Diabetes: Yes (insulin dependent) HTN: Yes Hypercholesterolemia: Yes Psychiatric Problems: Yes (depression ) Seizures: No Thyroid Disease: Yes ( A CHILD) - Surgical History Abdominal Surgery: Yes (Gastric sleeve) Cardiac Surgery: Yes (CABG 2013/ stent) Gastric Stapling: Yes (sleeve 2012) - Reproductive History (#): 6 Para: 2 Therapeutic (s) & number: Yes (2) Spontaneous : 2 - Suicide/Smoking/Psychosocial Hx Smoking Status: Yes Smoking History: Current every day smoker Have you smoked in the past 12 months: No Number of Cigarettes Smoked Daily: 6 If you are a former smoker, when did you quit?: 2 WKS Cigars Per Day: 1 Information on smoking cessation initiated: Yes 'Breaking Loose' booklet given: 06/14/18 Hx Alcohol Use: No Drug/Substance Use Hx: No Substance Use Type: None Hx Substance Use Treatment: No *Physical Exam - Vital Signs Last Vital Signs Temp Pulse Resp BP Pulse Ox 98.6 F 80 18 152/90 99 06/14/18 14:00 06/14/18 14:00 06/14/18 14:00 06/14/18 14:00 06/14/18 14:00 ED Treatment Course - LABORATORY CBC & Chemistry Diagram: 06/14/18 15:40 06/14/18 15:40 - RADIOLOGY Radiology Studies Ordered: Category Date Time Status CXRPORT [CHEST X-RAY PORTABLE*] [RAD] Stat Radiology 06/14/18 14:45 Ordered Medical Decision Making - Medical Decision Making 06/14/18 16:34 negative troponins *DC/Admit/Observation/Transfer Diagnosis at time of Disposition: Chest pain - Discharge Dispostion Condition at time of disposition: Stable Decision to Admit order: Yes - Referrals - Patient Instructions - Post Discharge Activity
--- NOTE | 2018-06-14 14:55 | PDOC ---
Attending Attestation - Resident Resident Name: Genevieve Thapa - ED Attending Attestation I have performed the following: I have examined & evaluated the patient, The case was reviewed & discussed with the resident, I agree w/resident's findings & plan, Exceptions are as noted - HPI HPI: 06/14/18 18:42 Patient is a 33 year old female with a significant past medical history of Diabetes, Coronary Artery disease, who presents to the ED with complaints of chest pain that began yesterday afternoon. Patient reports experiencing intermittent chest pain yesterday that she states quickly subsided, before returning this afternoon, prompting her to come into the ED for further evaluation. She reports chest pain today is a constant non radiating 8/10 chest pain. Patient reports experiencing associated symptoms of head pain, that subsides after x2 ibuprofen, and elevated blood pressure to 190. She reports being non compliant with medication for x3 weeks, stating she is slightly worried about her symptoms because she has not been on her meds. Denies sob. Denies nausea, vomiting. Denies fevers, chills. Denies contact with sick individuals, out of state travelling. Denies diarrhea, constipation. Denies dysuria, hematuria. Denies any other symptoms. Allergies: None Social history: No smoking. No alcohol. Occasional marijuana use. Surgical history: s/p CABG 2011, gastric sleeve 2011 PMD: None - Physicial Exam PE: 06/14/18 18:41 GENERAL: The patient is awake, alert, and fully oriented, Nontoxic - in no acute distress. HEAD: Normocephalic, atraumatic. EYES: extraocular movements intact, sclera anicteric, conjunctiva clear. ENT: Normal voice, Moist mucous membranes. NECK: Normal range of motion, supple LUNGS: Breath sounds equal, clear to auscultation bilaterally. No wheezes, no rhonchi, no rales. HEART: Regular rate and rhythm, normal S1 and S2 without murmur, rub or gallop. ABDOMEN: Soft, nontender, normoactive bowel sounds. No guarding, no rebound. . No CVA tenderness EXTREMITIES: Normal range of motion, no edema. NEUROLOGICAL: No facial assymetry, Normal speech, PSYCH: Normal mood, normal affect. SKIN: Warm, Dry, normal turgor, - Medical Decision Making 10/16/18 14:54 33y F hx of CAD s/p stents and CABG presents with complaint of substernal chest pressure that was intermittent but now constant. pt also endorses a gradualn onset headache for the past 2 days that is a band like around her head, consistent with prior headaches, no associated n/v, vision changes, numbness/ tingling/weakness, neck pain, back pain. Regarding her cp, she has no sob, diaphoresis, it is not worse with exertion and not associated with n/v. she also endorses a bloody nose the past 2 days that stopped spontaneously prior to presentation mosaic layer: dr. canales at [facility] will give ASA here will give tylenol for her headache will r/o mi anticipate admission and cards eval A portion of this note was documented by scribe services under my direction. I have reviewed the details of the note, within reason, and agree with the documentation with the following case summary and management plan written by me Heart Score/ECG Review - ECG Impressions Comment:: 06/14/18 15:01 Twelve-lead EKG was performed and reviewed by me. There is normal sinus rhythm with a normal rate. rate of 69 nonspecific t wave abnormalities
[2018-06-14] MEDS ORDERED: METOCLOPRAMIDE HCL INJECTION 10 MG/2 ML VIAL IVPUSH ONE (14:58)
[2018-06-14] MEDS ORDERED: ASPIRIN 81 MG CHEWABLE TABLETS PO SCH (15:00)
[2018-06-14] MEDS ORDERED: ACETAMINOPHEN INJECTION 100 ML IVPB ONE (15:20)
[2018-06-14] MEDS ORDERED: ACETAMINOPHEN 325 MG TABLET (FP) ONE (15:52)
[2018-06-14] MEDS ORDERED: ASPIRIN 81 MG CHEWABLE TABLETS ONE (15:52)
[2018-06-14] MEDS ORDERED: ACETAMINOPHEN 325 MG TABLET (FP) PO ONE (16:06)
[2018-06-14 16:10] LABS: EOS % 0.9 % (0-4.5); HEMATOCRIT 33.2 % (32.4-45.2); HEMOGLOBIN 10.4 GM/dL (10.7-15.3); LYMPH % 38.1 % (8-40); MCHC 31.5 g/dl (32.0-36.0); MEAN PLT VOLUME 9.6 fl (7.5-11.1); MONO % 6.4 % (3.8-10.2); NEUT % 53.6 % (42.8-82.8); PLATELET COUNT 323 K/MM3 (134-434); RBC 4.55 M/mm3 (3.60-5.2); RDW 16.3 % (11.6-15.6); WHITE BLOOD COUNT 7.2 K/mm3 (4.0-10.0)
[2018-06-14 16:13] LABS: ALBUMIN 2.6 g/dl (3.4-5.0); ALK PHOS 98 U/L (45-117); ANION GAP 7 MMOL/L (8-16); BILIRUBIN,TOTAL 0.1 mg/dL (0.2-1); BLOOD UREA NITROGEN 18 mg/dL (7-18); CALCIUM 8.8 mg/dL (8.5-10.1); CHLORIDE 109 mmol/L (98-107); CO2 24 mmol/L (21-32); GLUCOSE,RANDOM 68 mg/dL (74-106); POTASSIUM 3.5 mmol/L (3.5-5.1); SGOT/AST 13 U/L (15-37); SGPT/ALT 15 U/L (13-61); SODIUM 139 mmol/L (136-145); TOT PROT 6.5 g/dl (6.4-8.2)
[2018-06-14] MEDS ORDERED: METOCLOPRAMIDE HCL INJECTION 10 MG/2 ML VIAL ONE (16:22)
[2018-06-14 17:01] LABS: URINE APPEARANCE CLEAR; URINE BILIRUBIN NEGATIVE (<2.0 mg/dL); URINE COLOR LTYELLOW; URINE GLUCOSE (UA) 3+ (NEGATIVE); URINE KETONE NEGATIVE (NEGATIVE); URINE LEUK ESTERASE NEGATIVE (NEGATIVE); URINE NITRITE NEGATIVE (NEGATIVE); URINE PROTEIN 3+ (NEGATIVE); URINE UROBILINOGEN NEGATIVE mg/dL (0.2-1.0)
--- NOTE | 2018-06-14 17:02 | EKG ---
Test Reason : Blood Pressure : / mmHG Vent. Rate : 069 BPM Atrial Rate : 069 BPM P-R Int : 134 ms QRS Dur : 094 ms QT Int : 400 ms P-R-T Axes : 037 038 029 degrees QTc Int : 428 ms NORMAL SINUS RHYTHM POSSIBLE LEFT ATRIAL ENLARGEMENT NONSPECIFIC T WAVE ABNORMALITY ABNORMAL ECG WHEN COMPARED WITH ECG OF 23-DEC-2017 17:09, T WAVE INVERSION NOW EVIDENT IN ANTERIOR LEADS Confirmed by MD SILVIA, TERI ([id number]) on 06/14/2018 5:02:02 PM Referred By: Confirmed By:TERI VEGA MD
[2018-06-14 17:17] LABS: EPI CELLS RARE /HPF (FEW); URINE MUCUS RARE
--- NOTE | 2018-06-14 20:01 | HP ---
CHIEF COMPLAINT: chest pain, nose bleed and headahces PCP: none reported HISTORY OF PRESENT ILLNESS: Patient is a 33 year old female with a significant past medical history of diabetes, CAD s/p CABG 2011 and gastric sleeve. She presents to the ED today with c/o of chest pain that began yesterday. On Wednesday06/13/2018 chest pain was intermittent, mild mid sternal non radiating that she describes as pressure. She did not seek medical attention yesterday and just rested. She also had a nose bleed and headache and took high dose of Ibuprophen with relief of the headache. The nosebleed eventually went away without any interventions. Today, the chest pain returned and she reports it as more severe 8/10, midsternal, non radiating but now concurrent with the headaches that subsides after ibuprofen. She took her BP at home and noted it to be elevated, systolic was 190. She reports being non compliant with medications for weeks, stating she worried about her symptoms because she has not been on her meds and her headaches are persistent. She denies any shortness of breath, nausea, jaw pain or vomiting. Denies any other symptoms. While being examined, and explaining the plan of care, patient stated she wanted to leave AM. I explained to her that leaving AMA puts her at risk for sudden as she had a CABG 6 years ago and is at risk for sudden cardiac . I pleaded with her to stay, and even told that I would do my best to discharge her early tomorrow if all the work up is negative. Explained that we will need to trend her troponins, monitor her on telemonitoring, perform an echocardiogram as well as have a mobile ui developer evaluate her. She stated to me that she would wait for her mother to come and discuss it with her mother. At 1830, received a notification from the ER that patient had decided to leave AMA. Again went over the risks with both her and her mother. Patient is adamant about leaving now and states she will follow up with her mobile ui developer tomorrow. States she feels better and the chest pain is gone. Denies headaches or any other discomfort. She signed the AMA and left with her mother. ER course was notable for: (1) negative trop, t wave inversions seen on ekg (2) AMA (3) Recent Travel: PAST MEDICAL HISTORY: PAST SURGICAL HISTORY: Social History: Smoking: none Alcohol: none Drugs: occasional marijuana use Family History: Allergies No Known Allergies Allergy (Verified 06/14/18 14:13) HOME MEDICATIONS: Home Medications Medication Instructions Recorded Aspirin [ASA -] 81 mg PO DAILY #0 tab.chew 03/15/16 Atorvastatin Ca [Lipitor] 80 mg PO HS 05/23/17 Insulin (LOG) Aspart [NovoLOG -] 0 unit SQ TID 05/23/17 Lisinopril 5 mg PO ASDIR 05/23/17 Insulin Glargine,Hum.rec.anlog 26 unit SQ HS 11/20/17 [Lantus] Metoprolol Succinate [Toprol Xl] 25 mg PO DAILY 11/20/17 Cetirizine HCl/Pseudoephedrine 1 each PO DAILY #60 tab.er.12h MDD 12/10/17 [Zyrtec-D Tablet] 1 LORazepam [Ativan] 1 mg PO DAILY #30 tablet MDD 1 12/10/17 Doxycycline Hyclate 100 mg PO BID #14 tablet 12/27/17 Picc Line Flush [Picc Line Flush -] 8 ml IVPUSH PRN PRN #30 ml 12/27/17 Vancomycin 2,000 mg IVPB DAILY #3 vial 12/27/17 PHYSICAL EXAMINATION Vital Signs - 24 hr 06/14/18 14:00 Temperature 98.6 F Pulse Rate 80 Respiratory 18 Rate Blood Pressure 152/90 O2 Sat by Pulse 99 Oximetry (%) GENERAL: Awake, alert, and fully oriented, in no acute distress. HEAD: Normal with no signs of trauma. EYES: Pupils equal, round and reactive to light, extraocular movements intact, sclera anicteric, conjunctiva clear. No lid lag. EARS, NOSE, THROAT: Ears normal, nares patent, oropharynx clear without exudates. Moist mucous membranes. NECK: Normal range of motion, supple without lymphadenopathy, JVD, or masses. LUNGS: Breath sounds equal, clear to auscultation bilaterally. No wheezes, and no crackles. No accessory muscle use. HEART: Regular rate and rhythm, normal S1 and S2 without murmur, rub or gallop. ABDOMEN: Soft, nontender, not distended, normoactive bowel sounds, no guarding, no rebound, no masses. No hepatomegaly or splenomegaly. MUSCULOSKELETAL: Normal range of motion at all joints. No bony deformities or tenderness. No CVA tenderness. UPPER EXTREMITIES: 2+ pulses, warm, well-perfused. No cyanosis. No clubbing. No peripheral edema. LOWER EXTREMITIES: 2+ pulses, warm, well-perfused. No calf tenderness. No peripheral edema. NEUROLOGICAL: Cranial nerves II-XII intact. Normal speech. Normal gait. PSYCHIATRIC: Cooperative. Good eye contact. Appropriate mood and affect. SKIN: Warm, dry, normal turgor, no rashes or lesions noted, normal capillary refill. Laboratory Results - last 24 hr 06/14/18 06/14/18 06/14/18 15:40 15:40 15:40 WBC 7.2 RBC 4.55 Hgb 10.4 L Hct 33.2 D MCV 73.0 L MCH 23.0 L MCHC 31.5 L RDW 16.3 H Plt Count 323 D MPV 9.6 Absolute Neuts (auto) 3.9 Neutrophils % 53.6 Lymphocytes % 38.1 D Monocytes % 6.4 Eosinophils % 0.9 Basophils % 1.0 Nucleated RBC % 0 Sodium 139 Potassium 3.5 Chloride 109 H Carbon Dioxide 24 Anion Gap 7 L BUN 18 Creatinine 1.0 Creat Clearance w eGFR > 60 Random Glucose 68 L Calcium 8.8 Total Bilirubin 0.1 L AST 13 L ALT 15 Alkaline Phosphatase 98 Creatine Kinase 220 H Creatine Kinase Index 0.5 CK-MB (CK-2) 1.1 Troponin I < 0.02 Total Protein 6.5 Albumin 2.6 L Urine Color Urine Appearance Urine pH Ur Specific [place] Urine Protein Urine Glucose (UA) Urine Ketones Urine Blood Urine Nitrite Urine Bilirubin Urine Urobilinogen Ur Leukocyte Esterase Urine WBC (Auto) Urine RBC (Auto) Ur Epithelial Cells Urine Mucus Urine HCG, Qual 06/14/18 06/14/18 16:21 16:22 WBC RBC Hgb Hct MCV MCH MCHC RDW Plt Count MPV Absolute Neuts (auto) Neutrophils % Lymphocytes % Monocytes % Eosinophils % Basophils % Nucleated RBC % Sodium Potassium Chloride Carbon Dioxide Anion Gap BUN Creatinine Creat Clearance w eGFR Random Glucose Calcium Total Bilirubin AST ALT Alkaline Phosphatase Creatine Kinase Creatine Kinase Index CK-MB (CK-2) Troponin I Total Protein Albumin Urine Color Ltyellow Urine Appearance Clear Urine pH 5.0 Ur Specific [place] 1.016 Urine Protein 3+ H Urine Glucose (UA) 3+ H Urine Ketones Negative Urine Blood Negative Urine Nitrite Negative Urine Bilirubin Negative Urine Urobilinogen Negative Ur Leukocyte Esterase Negative Urine WBC (Auto) 3 Urine RBC (Auto) 2 Ur Epithelial Cells Rare Urine Mucus Rare Urine HCG, Qual Negative ASSESSMENT/PLAN: Patient is a 33 year old female that comes in with c/o of chest pain, nose bleed and headaches. Chest pain, resolved during exam. refusing further cardiac workup. 1st troponin negative, refusing further cardiac workup despite having multiple conversations with her on he importance of cardiac workup. Nose bleed likely secondary to NSAID use, advised her to get saline nasal spray and discontinue NSAIDS. Headaches unclear etiology. BP likely elevated at home. Does not want any further workup. AMA signed by patient who has capacity to make her own medical decisions. She understands the risk of sudden . AMA paperwork signed by patient in the presence of her mother. Stressed to her the importance of following up with her mobile ui developer no later than tomorrow. Visit type - Emergency Visit Emergency Visit: Yes ED Registration Date: 06/14/18 Care time: The patient presented to the Emergency Department on the above date and was hospitalized for further evaluation of their emergent condition. - New Patient This patient is new to me today: Yes Date on this admission: 06/14/18 - Critical Care Critical Care patient: No
--- NOTE | 2018-06-14 20:27 | DS ---
Physical Exam: SUBJECTIVE: Patient seen and examined OBJECTIVE: Vital Signs Period Temp Pulse Resp BP Sys/Johnson Pulse Ox Last 24 Hr 98.6 F 80 18 152/90 99 PHYSICAL EXAM GENERAL: The patient is awake, alert, and fully oriented, in no acute distress. HEAD: Normal with no signs of trauma. EYES: PERRL, extraocular movements intact, sclera anicteric, conjunctiva clear. ENT: Ears normal, nares patent, oropharynx clear without exudates, moist mucous membranes. NECK: Trachea midline, full range of motion, supple. LUNGS: Breath sounds equal, clear to auscultation bilaterally, no wheezes, no crackles, no accessory muscle use. HEART: Regular rate and rhythm, S1, S2 without murmur, rub or gallop. ABDOMEN: Soft, nontender, nondistended, normoactive bowel sounds, no guarding, no rebound, no hepatosplenomegaly, no masses. EXTREMITIES: 2+ pulses, warm, well-perfused, no edema. NEUROLOGICAL: Cranial nerves II through XII grossly intact. Normal speech, gait not observed. PSYCH: Normal mood, normal affect. SKIN: Warm, dry, normal turgor, no rashes or lesions noted. LABS Laboratory Results - last 24 hr 06/14/18 06/14/18 06/14/18 15:40 15:40 15:40 WBC 7.2 RBC 4.55 Hgb 10.4 L Hct 33.2 D MCV 73.0 L MCH 23.0 L MCHC 31.5 L RDW 16.3 H Plt Count 323 D MPV 9.6 Absolute Neuts (auto) 3.9 Neutrophils % 53.6 Lymphocytes % 38.1 D Monocytes % 6.4 Eosinophils % 0.9 Basophils % 1.0 Nucleated RBC % 0 Sodium 139 Potassium 3.5 Chloride 109 H Carbon Dioxide 24 Anion Gap 7 L BUN 18 Creatinine 1.0 Creat Clearance w eGFR > 60 Random Glucose 68 L Calcium 8.8 Total Bilirubin 0.1 L AST 13 L ALT 15 Alkaline Phosphatase 98 Creatine Kinase 220 H Creatine Kinase Index 0.5 CK-MB (CK-2) 1.1 Troponin I < 0.02 Total Protein 6.5 Albumin 2.6 L Urine Color Urine Appearance Urine pH Ur Specific Spencer Urine Protein Urine Glucose (UA) Urine Ketones Urine Blood Urine Nitrite Urine Bilirubin Urine Urobilinogen Ur Leukocyte Esterase Urine WBC (Auto) Urine RBC (Auto) Ur Epithelial Cells Urine Mucus Urine HCG, Qual 06/14/18 06/14/18 16:21 16:22 WBC RBC Hgb Hct MCV MCH MCHC RDW Plt Count MPV Absolute Neuts (auto) Neutrophils % Lymphocytes % Monocytes % Eosinophils % Basophils % Nucleated RBC % Sodium Potassium Chloride Carbon Dioxide Anion Gap BUN Creatinine Creat Clearance w eGFR Random Glucose Calcium Total Bilirubin AST ALT Alkaline Phosphatase Creatine Kinase Creatine Kinase Index CK-MB (CK-2) Troponin I Total Protein Albumin Urine Color Ltyellow Urine Appearance Clear Urine pH 5.0 Ur Specific [place] 1.016 Urine Protein 3+ H Urine Glucose (UA) 3+ H Urine Ketones Negative Urine Blood Negative Urine Nitrite Negative Urine Bilirubin Negative Urine Urobilinogen Negative Ur Leukocyte Esterase Negative Urine WBC (Auto) 3 Urine RBC (Auto) 2 Ur Epithelial Cells Rare Urine Mucus Rare Urine HCG, Qual Negative HOSPITAL COURSE: Date of Admission:06/14/18 Date of Discharge: 06/14/18 Patient is a 33 year old female with a significant past medical history of diabetes, CAD s/p CABG 2011 and gastric sleeve. She presents to the ED today with c/o of chest pain that began yesterday. On Wednesday06/13/2018 chest pain was intermittent, mild mid sternal non radiating that she describes as pressure. She did not seek medical attention yesterday and just rested. She also had a nose bleed and headache and took high dose of Ibuprophen with relief of the headache. The nosebleed eventually went away without any interventions. Today, the chest pain returned and she reports it as more severe 8/10, midsternal, non radiating but now concurrent with the headaches that subsides after ibuprofen. She took her BP at home and noted it to be elevated, systolic was 190. She reports being non compliant with medications for weeks, stating she worried about her symptoms because she has not been on her meds and her headaches are persistent. She denies any shortness of breath, nausea, jaw pain or vomiting. Denies any other symptoms. While being examined, and explaining the plan of care, patient stated she wanted to leave AMA. I explained to her that leaving AMA puts her at risk for sudden as she had a CABG 6 years ago and is at risk for sudden cardiac . I pleaded with her to stay, and even told that I would do my best to discharge her early tomorrow if all the work up is negative. Explained that we will need to trend her troponins, monitor her on telemonitoring, perform an echocardiogram as well as have a it support specialist evaluate her. She stated to me that she would wait for her mother to come and discuss it with her mother. At 1830, received a notification from the ER that patient had decided to leave AMA. Again went over the risks with both her and her mother. Patient is adamant about leaving now and states she will follow up with her it support specialist tomorrow. States she feels better and the chest pain is gone. Denies headaches or any other discomfort. She signed the AMA and left with her mother. Minutes to complete discharge: 60 Discharge Summary Reason For Visit: CHEST PAIN Current Active Problems Chest pain (Acute) Condition: Guarded - Instructions Disposition: AGAINST MEDICAL ADVICE - Home Medications Comprehensive Discharge Medication List: Ambulatory Orders Aspirin [ASA -] 81 mg PO DAILY #0 tab.chew 03/15/16 Atorvastatin Ca [Lipitor] 80 mg PO HS 05/23/17 Insulin (LOG) Aspart [NovoLOG -] 0 unit SQ TID 05/23/17 Lisinopril 5 mg PO ASDIR 05/23/17 Insulin Glargine,Hum.rec.anlog [Lantus] 26 unit SQ HS 11/20/17 Metoprolol Succinate [Toprol Xl] 25 mg PO DAILY 11/20/17 Cetirizine HCl/Pseudoephedrine [Zyrtec-D Tablet] 1 each PO DAILY #60 tab.er.12h MDD 1 12/10/17 LORazepam [Ativan] 1 mg PO DAILY #30 tablet MDD 1 12/10/17 Doxycycline Hyclate 100 mg PO BID #14 tablet 12/27/17 Picc Line Flush [Picc Line Flush -] 8 ml IVPUSH PRN PRN #30 ml 12/27/17 Vancomycin 2,000 mg IVPB DAILY #3 vial 12/27/17 This patient is new to me today: Yes Date on this admission: 06/14/18 Emergency Visit: Yes ED Registration Date: 06/14/18 Care time: The patient presented to the Emergency Department on the above date and was hospitalized for further evaluation of their emergent condition. Critical Care patient: No - Discharge Referral Referred to [facility] Med P.C.: No
--- NOTE | 2018-06-18 18:07 | EKG ---
Test Reason : Blood Pressure : / mmHG Vent. Rate : 075 BPM Atrial Rate : 075 BPM P-R Int : 136 ms QRS Dur : 094 ms QT Int : 422 ms P-R-T Axes : 036 034 031 degrees QTc Int : 471 ms NORMAL SINUS RHYTHM POSSIBLE LEFT ATRIAL ENLARGEMENT BORDERLINE ECG WHEN COMPARED WITH ECG OF 14-JUN-2018 14:16, NO SIGNIFICANT CHANGE WAS FOUND Confirmed by LORNA VELOZ MD ([id number]) on 06/18/2018 6:07:07 PM Referred By: Confirmed By:LORNA VELOZ MD
== END 2018-06-14 19:00 | disposition left against medical advice (07) ==
LOC: JER 13:26 → JERBED 17:00
PROVIDERS: ADMIT Internal Medicine; ATTEND Nurse Practitioner Family
PROC: 3E033GC Introduction of Other Therapeutic Substance into Peripheral Vein, Percutaneous Approach (ICD-10-PCS; principal; 2018-06-14)
DX: R07.9 Chest pain, unspecified (principal); I10 Essential (primary) hypertension; I25.10 Atherosclerotic heart disease of native coronary artery without angina pectoris; E11.9 Type 2 diabetes mellitus without complications; E78.5 Hyperlipidemia, unspecified; F32.9 Major depressive disorder, single episode, unspecified; F17.210 Nicotine dependence, cigarettes, uncomplicated; R04.0 Epistaxis; R51 Headache; Z95.5 Presence of coronary angioplasty implant and graft; Z79.4 Long term (current) use of insulin; Z79.82 Long term (current) use of aspirin; Z98.84 Bariatric surgery status; Z95.1 Presence of aortocoronary bypass graft
CPT/HCPCS: 36415; 71045-TC-FY; 80053; 81003; 81015; 82550; 82553; 84484; 84703; 85025; 87086; 93005; 93010; 96374; 99283-25; G0378

== ENCOUNTER 2018-08-03 21:04 | Emergency (ER) | payer OTHER ==
--- NOTE | 2018-08-03 21:06 | PDOC ---
History of Present Illness - General Stated Complaint: DIABETIC EMERGENCY Time Seen by Provider: 08/03/18 21:06 - History of Present Illness Initial Comments: 08/03/18 21:15 Ms. Angeles is a 33 yo female w/ pmh of IDDM, CAD, HTN, CABG, and gastric sleeve who presents for evaluation of episode of nausea, dizziness, and diaphoresis earlier today. Patient reports she is intermittently compliant with her insulin regimen however took 15 units today after she ate some chocolate and subsequently experienced the above symptoms. She checked her blood glucose measurement and found it to be around 300. She forced herself to vomit slightly believing the chocolate was the problem. When EMS arrived blood glucose had dropped to mid 200's. Patient reports her BGM's are typically over-range and she believes she may have dropped her sugars too low. Patient currently denies any further symptoms. Was feeling her normal self before this episode today. Denies other symptoms. The patient denies chest pain, shortness of breath, and headache. Denies fever, chills, diarrhea and constipation. Denies dysuria, frequency, urgency and hematuria. Past History - Past Medical History Allergies/Adverse Reactions: Allergies Allergy/AdvReac Type Severity Reaction Status Date / Time No Known Allergies Allergy Verified 06/14/18 14:13 Home Medications: Ambulatory Orders Aspirin [ASA -] 81 mg PO DAILY #0 tab.chew 03/15/16 Atorvastatin Ca [Lipitor] 80 mg PO HS 05/23/17 Insulin (LOG) Aspart [NovoLOG -] 0 unit SQ TID 05/23/17 Lisinopril 5 mg PO ASDIR 05/23/17 Insulin Glargine,Hum.rec.anlog [Lantus] 26 unit SQ HS 11/20/17 Metoprolol Succinate [Toprol Xl] 25 mg PO DAILY 11/20/17 Cetirizine HCl/Pseudoephedrine [Zyrtec-D Tablet] 1 each PO DAILY #60 tab.er.12h MDD 1 12/10/17 LORazepam [Ativan] 1 mg PO DAILY #30 tablet MDD 1 12/10/17 Doxycycline Hyclate 100 mg PO BID #14 tablet 12/27/17 Picc Line Flush [Picc Line Flush -] 8 ml IVPUSH PRN PRN #30 ml 12/27/17 Vancomycin 2,000 mg IVPB DAILY #3 vial 12/27/17 Asthma: No Cancer: No Cardiac Disorders: Yes (cardiac bypass) COPD: No Diabetes: Yes (insulin dependent) HTN: Yes Hypercholesterolemia: Yes Psychiatric Problems: Yes (depression ) Seizures: No Thyroid Disease: Yes ( A CHILD) - Surgical History Abdominal Surgery: Yes (Gastric sleeve) Cardiac Surgery: Yes (CABG 2013/ stent) Gastric Stapling: Yes (sleeve 2012) - Reproductive History (#): 6 Para: 2 Therapeutic (s) & number: Yes (2) Spontaneous : 2 - Suicide/Smoking/Psychosocial Hx Smoking Status: Yes Smoking History: Current every day smoker Have you smoked in the past 12 months: No Number of Cigarettes Smoked Daily: 6 If you are a former smoker, when did you quit?: 2 WKS Cigars Per Day: 1 'Breaking Loose' booklet given: 06/14/18 Hx Alcohol Use: No Drug/Substance Use Hx: No Substance Use Type: None Hx Substance Use Treatment: No Review of Systems - Review of Systems Comments:: 08/03/18 21:40 GENERAL/CONSTITUTIONAL: +Diaphoresis earlier. No fever or chills. No weakness. HEAD, EYES, EARS, NOSE AND THROAT: No change in vision. No ear pain or discharge. No sore throat. CARDIOVASCULAR: No chest pain or shortness of breath RESPIRATORY: No cough, wheezing, or hemoptysis. GASTROINTESTINAL: +1 episode of nausea as described; forced vomiting. No diarrhea or constipation. GENITOURINARY: No dysuria, frequency, or change in urination. MUSCULOSKELETAL: No joint or muscle swelling or pain. No neck or back pain. SKIN: No rash NEUROLOGIC: +Previous dizziness now resolved. No headache, loss of consciousness , or change in strength/sensation. ENDOCRINE: No increased thirst. No abnormal weight change HEMATOLOGIC/LYMPHATIC: No anemia, easy bleeding, or history of blood clots. ALLERGIC/IMMUNOLOGIC: No hives or skin allergy. *Physical Exam - Physical Exam Comments: 08/03/18 21:41 GENERAL: Awake, alert, and fully oriented, in no acute distress HEAD: No signs of trauma, normocephalic, atraumatic EYES: PERRLA, EOMI, sclera anicteric, conjunctiva clear ENT: Auricles normal inspection, hearing grossly normal, nares patent, oropharynx clear without exudates. Moist mucosa NECK: Normal ROM, supple, no lymphadenopathy, JVD, or masses LUNGS: No distress, speaks full sentences, clear to auscultation bilaterally HEART: Regular rate and rhythm, normal S1 and S2, no murmurs, rubs or gallops, peripheral pulses normal and equal bilaterally. ABDOMEN: Soft, nontender, normoactive bowel sounds. No guarding, no rebound. No masses EXTREMITIES: Normal inspection, Normal range of motion, no edema. No clubbing or cyanosis. NEUROLOGICAL: Cranial nerves II through XII grossly intact. Normal speech, normal gait, no focal sensorimotor deficits SKIN: Warm, Dry, normal turgor, no rashes or lesions noted. ED Treatment Course - LABORATORY CBC & Chemistry Diagram: 08/03/18 21:57 08/03/18 21:57 Medical Decision Making - Medical Decision Making 08/03/18 23:47 Ms. Angeles is a 33 yo female w/ pmh as described who prevents for symptoms c/ w hypoglycemic episode. Patient BGM in ED noted to decrease to 69. Patient given 500mL d5w and and turkey sandwhich w/ raise in BGM and improvement of symptoms. 08/03/18 23:52 Most recent approx. 2330: BGM 239 08/04/18 00:50 Patient glucose noted to be extremely labile w/ approx. 100 point drop in between readings. Cardiac profile added on for alternate causes of BGM values. 08/04/18 01:50 Patient labs grossly wnl as below. No explanation found for patient's presentation or why symptoms were noted to resolved when patient had BGM of 60. Also no explanation noted for patient's labile BGM measurements. Discussed this with patient and recommended admission for observation and blood glucose control given inability to explain course in ED. Patient electing to leave AMA and will sign AMA papers. Laboratory Results - last 24 hr 08/03/18 08/03/18 08/03/18 21:52 21:57 21:57 WBC 5.2 RBC 4.40 Hgb 10.9 Hct 32.6 MCV 74.1 L MCH 24.8 L MCHC 33.4 RDW 18.1 H Plt Count 326 MPV 9.4 Absolute Neuts (auto) 3.5 Neutrophils % 67.3 D Lymphocytes % 23.9 D Monocytes % 7.6 Eosinophils % 0.6 Basophils % 0.6 Nucleated RBC % 0 Sodium 137 Potassium 4.0 Chloride 100 Carbon Dioxide 28 Anion Gap 8 BUN 20 H Creatinine 1.2 Creat Clearance w eGFR 51.12 POC Glucometer [phone] Random Glucose 69 L Calcium 8.8 Total Bilirubin 0.2 AST 19 ALT 21 Alkaline Phosphatase 136 H Creatine Kinase Creatine Kinase Index CK-MB (CK-2) Troponin I Total Protein 7.2 Albumin 3.0 L Urine Color Urine Appearance Urine pH Ur Specific [place] Urine Protein Urine Glucose (UA) Urine Ketones Urine Blood Urine Nitrite Urine Bilirubin Urine Urobilinogen Ur Leukocyte Esterase Urine WBC (Auto) Urine RBC (Auto) Ur Epithelial Cells Urine HCG, Qual Acetone, Qual 08/03/18 08/03/18 08/03/18 21:57 22:00 22:26 WBC RBC Hgb Hct MCV MCH MCHC RDW Plt Count MPV Absolute Neuts (auto) Neutrophils % Lymphocytes % Monocytes % Eosinophils % Basophils % Nucleated RBC % Sodium Potassium Chloride Carbon Dioxide Anion Gap BUN Creatinine Creat Clearance w eGFR POC Glucometer [phone] Random Glucose Calcium Total Bilirubin AST ALT Alkaline Phosphatase Creatine Kinase Creatine Kinase Index CK-MB (CK-2) Troponin I Total Protein Albumin Urine Color Straw Urine Appearance Clear Urine pH 5.0 Ur Specific [place] 1.020 Urine Protein 2+ H Urine Glucose (UA) 3+ H Urine Ketones Negative Urine Blood 1+ H Urine Nitrite Negative Urine Bilirubin Negative Urine Urobilinogen Negative Ur Leukocyte Esterase Negative Urine WBC (Auto) 1 Urine RBC (Auto) <1 Ur Epithelial Cells Rare Urine HCG, Qual Negative Acetone, Qual Trace H 08/03/18 08/04/18 08/04/18 23:25 00:43 00:50 WBC RBC Hgb Hct MCV MCH MCHC RDW Plt Count MPV Absolute Neuts (auto) Neutrophils % Lymphocytes % Monocytes % Eosinophils % Basophils % Nucleated RBC % Sodium Potassium Chloride Carbon Dioxide Anion Gap BUN Creatinine Creat Clearance w eGFR POC Glucometer 239.76108 139.49437 Random Glucose Calcium Total Bilirubin AST ALT Alkaline Phosphatase Creatine Kinase 236 H Creatine Kinase Index 0.4 CK-MB (CK-2) 1.1 Troponin I < 0.02 Total Protein Albumin Urine Color Urine Appearance Urine pH Ur Specific [place] Urine Protein Urine Glucose (UA) Urine Ketones Urine Blood Urine Nitrite Urine Bilirubin Urine Urobilinogen Ur Leukocyte Esterase Urine WBC (Auto) Urine RBC (Auto) Ur Epithelial Cells Urine HCG, Qual Acetone, Qual *DC/Admit/Observation/Transfer Diagnosis at time of Disposition: Hypoglycemia - Discharge Dispostion Disposition: AGAINST MEDICAL ADVICE - Referrals Referrals: Sukhjinder Hendrix MD, [Primary Care Provider] - - Patient Instructions Printed Discharge Instructions: DI for Hypoglycemia Additional Instructions: You were evaluated today in the Emergency room for your dizziness with hypoglycemia. Your symptoms improved upon arrival to ER however we noted your blood glucose to decrease to 69. Blood glucose increased after IV dextrose and a turkey sandwich however decreased significantly again some time later. You elected to leave against medical advice from the Emergency Room after admission for observation was discussed. Please follow-up with primary care provider tomorrow for further evaluation. Return to ER if any recurrence of symptoms, fever, chills, or mental status changes. - Post Discharge Activity
[2018-08-03] MEDS ORDERED: DEXTROSE 5%-WATER - 500 ML IV ONE (22:00)
[2018-08-03 22:28] LABS: BASO % 0.6 % (0-2.0); EOS % 0.6 % (0-4.5); HEMATOCRIT 32.6 % (32.4-45.2); HEMOGLOBIN 10.9 GM/dL (10.7-15.3); LYMPH % 23.9 % (8-40); MCH 24.8 pg (25.7-33.7); MCHC 33.4 g/dl (32.0-36.0); MEAN CELL VOLUME 74.1 fl (80-96); MEAN PLT VOLUME 9.4 fl (7.5-11.1); MONO % 7.6 % (3.8-10.2); NEUT % 67.3 % (42.8-82.8); PLATELET COUNT 326 K/MM3 (134-434); RDW 18.1 % (11.6-15.6); WHITE BLOOD COUNT 5.2 K/mm3 (4.0-10.0)
[2018-08-03 22:34] LABS: HCG,QUALITATIVE URINE Negative; URINE APPEARANCE CLEAR; URINE BILIRUBIN NEGATIVE (<2.0 mg/dL); URINE COLOR STRAW; URINE GLUCOSE (UA) 3+ (NEGATIVE); URINE KETONE NEGATIVE (NEGATIVE); URINE LEUK ESTERASE NEGATIVE (NEGATIVE); URINE NITRITE NEGATIVE (NEGATIVE); URINE PROTEIN 2+ (NEGATIVE); URINE UROBILINOGEN NEGATIVE mg/dL (0.2-1.0)
[2018-08-03 22:45] LABS: EPI CELLS RARE /HPF (FEW)
[2018-08-03 22:51] LABS: ALK PHOS 136 U/L (45-117); ANION GAP 8 MMOL/L (8-16); BILIRUBIN,TOTAL 0.2 mg/dL (0.2-1); BLOOD UREA NITROGEN 20 mg/dL (7-18); CALCIUM 8.8 mg/dL (8.5-10.1); CHLORIDE 100 mmol/L (98-107); CO2 28 mmol/L (21-32); CREATININE 1.2 mg/dL (0.55-1.3); GLUCOSE,RANDOM 69 mg/dL (74-106); SGOT/AST 19 U/L (15-37); SGPT/ALT 21 U/L (13-61); SODIUM 137 mmol/L (136-145); TOT PROT 7.2 g/dl (6.4-8.2)
[2018-08-03 23:34] VITALS: BP 136/84; PULSE 86; TEMP 98.7; BMI 25.2
--- NOTE | 2018-08-04 00:23 | PDOC ---
Attending Attestation - Resident Resident Name: Hany Kearns - ED Attending Attestation I have performed the following: I have examined & evaluated the patient, The case was reviewed & discussed with the resident, I agree w/resident's findings & plan, Exceptions are as noted - HPI HPI: 08/04/18 00:15 Patient is a 33 year old female with a significant past medical history of DM1, CAD, HTN, CABG, and gastric sleeve who presents to the ED with complaints of "feeling off" earlier this afternoon. Patient reports experiencing intermittent lightheadedness with associated symptoms of nausea, and diaphoresis. She states she has felt this way in the past when her glucose is dropping rapidly. She reports eating some chocolate this afternoon, followed by taking 15 units of insulin shortly afterward. She did not check her glucose before taking the insulin. When the symptoms began, she checked her BG which showed her sugar levels to be in the low 200s. Patient reports her baseline sugar levels are usually much higher in the 400 range. Pt states she believes she accidentally took too much insulin and didn't check her glucose prior to the 15 units because "I am a bad patient." As per EMS patient's Bgl levels were found to be 260 at arrival. Her symptoms resolved en route to the ED. Pt states she often does not check her BGL prior to taking insulin and assumes it to be high by estimating what she ate. Denies chest pain, Sob. Denies nausea, vomiting. Denies fevers, chills. Denies headache, focal weakness/numbness. Denies contact with sick individuals, out of state travelling . Denies dysuria, hematuria. Denies diarrhea, constipation. Denies any other symptoms. Allergies: None Social History: No smoking, No alcohol. No illicit drugs,. Surgical History: CABG 2013/ stent, Gastric sleeve (2012) PMD: Dr. Sukhjinder Hendrix - Physicial Exam PE: 08/04/18 00:23 GENERAL: Awake, alert, and fully oriented, in no acute distress EYES: PERRLA, EOMI, sclera anicteric, conjunctiva clear ENT: Oropharynx clear without exudates. Moist mucosa NECK: Normal ROM, supple LUNGS: Breath sounds equal, clear to auscultation bilaterally. No wheezes, and no crackles HEART: Regular rate and rhythm, normal S1 and S2, no murmurs, rubs or gallops ABDOMEN: Soft, nontender, normoactive bowel sounds. EXTREMITIES: Normal range of motion, no edema. No erythema, or tenderness NEUROLOGICAL: Normal speech, cranial nerves intact, 5/5 strength in all 4 extremities, normal sensation to light touch in all 4 extremities, normal cerebellar exam, normal gait, normal tone SKIN: Warm, Dry, normal turgor, no rashes or lesions noted. - Medical Decision Making 08/04/18 00:24 33yo F with MMP including DM1 presents to the ED with resolved lightheadedness, diaphoresis while sitting at work. Glucose here 69, pt given juice and turkey sandwich. Glucose in field was in the 200s. Although pt feels the symptoms are 2 /2 blood glucose dropping too fast, she reported resolution of her symptoms on arrival when her BGL was 69. As such, I do not believe her sxs were 2/2 blood glucose abnormalities. Differential includes ACS vs pre-syncope vs metabolic disarray. EKG revealed TW changes with pseudonormalization of TW in V2-V3. In light of CABG will admit pt for ACS r/o. Trop pending 08/04/18 01:57 Trop is back and negative Pt has high heart score, as such we recommended admission as lightheadedness and diaphoresis could be anginal equivalent Pt expresses understanding but does not want to stay overnight and prefers to go home The patient is clinically sober, free from distracting injury, appears to have intact insight and judgment and reason and in my opinion has the capacity to make decisions. The patient presents with lightheadness and diaphoresis. I have explained that I am concerned that this may represent a problem with her heart; she has verbalized an understanding of my concerns. I have told the patient that while her labs were normal, she could still have an emergent heart problem . I have discussed the need for admission to get more information about potential causes of the patients lightheadedness. I have told the patient that if they leave and have recurrent symptoms, they could get much worse, could become critically ill, and could possibly become disabled or . I have asked them to stay in the hospital for serial troponin exams.I have discussed these concerns with the patients mother who is at the bedside and she is unable to convince them to stay for further evaluation. The patient is not willing to undergo an admission. SHe is unwilling to stay overnight for monitoring. SHe is refusing any further care and is leaving against medical advice. I am unable to convince the patient to stay, I have asked them to return as soon as possible to complete their evaluation. I have answered all their questions. Heart Score/ECG Review #1 08/04/18 00:53 Twelve-lead EKG was performed and reviewed by me. Normal sinus rhythm, rate 84. Normal axis. No ST elevations. Compared to EKG from 06/14/2018 T waves in V2 and V3 have now pseudo-normalized.
[2018-08-04] MEDS ORDERED: ACYCLOVIR 500 MG (50MG/ML) VIAL IVPUSH ONE (01:17)
[2018-08-04 01:29] LABS: ACETONE SERUM TRACE (NEGATIVE)
--- NOTE | 2018-08-04 10:27 | EKG ---
Test Reason : Blood Pressure : / mmHG Vent. Rate : 082 BPM Atrial Rate : 082 BPM P-R Int : 146 ms QRS Dur : 086 ms QT Int : 370 ms P-R-T Axes : 032 019 041 degrees QTc Int : 432 ms NORMAL SINUS RHYTHM NORMAL ECG WHEN COMPARED WITH ECG OF 03-AUG-2018 21:38, NO SIGNIFICANT CHANGE WAS FOUND Confirmed by LORNA VELOZ MD ([id number]) on 08/04/2018 10:27:36 AM Referred By: Confirmed By:LORNA VELOZ MD
--- NOTE | 2018-08-04 10:28 | EKG ---
Test Reason : Blood Pressure : / mmHG Vent. Rate : 084 BPM Atrial Rate : 084 BPM P-R Int : 138 ms QRS Dur : 084 ms QT Int : 382 ms P-R-T Axes : 052 029 036 degrees QTc Int : 451 ms POOR DATA QUALITY, INTERPRETATION MAY BE ADVERSELY AFFECTED NORMAL SINUS RHYTHM NORMAL ECG WHEN COMPARED WITH ECG OF 14-JUN-2018 18:27, NONSPECIFIC T WAVE ABNORMALITY NO LONGER EVIDENT IN ANTERIOR LEADS Confirmed by MAGDIEL ESPAÑA, LORNA ([id number]) on 08/04/2018 10:27:58 AM Referred By: Confirmed By:LORNA VELOZ MD
== END 2018-08-04 02:36 | disposition left against medical advice (07) ==
LOC: JER 21:04
DX: I10 Essential (primary) hypertension (principal); E11.65 Type 2 diabetes mellitus with hyperglycemia; I25.10 Atherosclerotic heart disease of native coronary artery without angina pectoris; Z95.1 Presence of aortocoronary bypass graft; Z98.84 Bariatric surgery status
CPT/HCPCS: 36415; 71046-TC-FY; 80053; 81003; 81015; 82009; 82550; 82553; 82962; 84484; 84703; 85025; 87086; 93005; 93010; 99284-25

== ENCOUNTER 2018-10-31 23:07 | Emergency (ER) | payer OTHER ==
[2018-10-31 23:15] VITALS: BP 155/85; PULSE 89; TEMP 98.1; BMI 25.3
--- NOTE | 2018-10-31 23:44 | PDOC ---
History of Present Illness - General Chief Complaint: Pain Stated Complaint: CHEST PAIN Time Seen by Provider: 10/31/18 23:44 History Source: Patient Exam Limitations: No Limitations - History of Present Illness Initial Comments: 10/31/18 23:46 33 year old female with PMH IDDM, HTN, HLD, CAD, 1 stent, CABG, gastric sleeve presented to ED for chest pain. Pt stated her pain is radiating from her epigastirum to substernally, intermittent, burning, aggravated by drinking fluids. Pt admitted to belching, body aches, nonproductive cough, nasal congestion. Pt stated she did not eat any food today. Pt stated her blood sugar levels have been poorly controlled lately, with her glucometer reading "HIGH". Allergies: NKDA Past History - Past Medical History Allergies/Adverse Reactions: Allergies Allergy/AdvReac Type Severity Reaction Status Date / Time No Known Allergies Allergy Verified 11/01/18 14:04 Home Medications: Ambulatory Orders Aspirin [ASA -] 81 mg PO DAILY #0 tab.chew 03/15/16 Atorvastatin Ca [Lipitor] 80 mg PO HS 05/23/17 Insulin (LOG) Aspart [NovoLOG -] 0 unit SQ TID 05/23/17 Lisinopril 5 mg PO ASDIR 05/23/17 Insulin Glargine,Hum.rec.anlog [Lantus] 32 unit SQ AM 11/20/17 Metoprolol Succinate [Toprol Xl] 25 mg PO DAILY 11/20/17 Famotidine [Pepcid] 20 mg PO BID #10 tablet 11/01/18 Asthma: No Cancer: No Cardiac Disorders: Yes (cardiac bypass) COPD: No Diabetes: Yes (insulin dependent) HTN: Yes Hypercholesterolemia: Yes Psychiatric Problems: Yes (depression ) Seizures: No Thyroid Disease: Yes ( A CHILD) - Surgical History Abdominal Surgery: Yes (Gastric sleeve) Cardiac Surgery: Yes (CABG 2013/ stent 1) Gastric Stapling: Yes (sleeve 2012) - Reproductive History (#): 6 Para: 2 Therapeutic (s) & number: Yes (2) Spontaneous : 2 - Immunization History Td Vaccination: Yes Immunization Up to Date: Yes - Suicide/Smoking/Psychosocial Hx Smoking Status: Yes Smoking History: Current every day smoker Have you smoked in the past 12 months: Yes Number of Cigarettes Smoked Daily: 5 If you are a former smoker, when did you quit?: 2 WKS Cigars Per Day: 1 Information on smoking cessation initiated: No 'Breaking Loose' booklet given: 06/14/18 Hx Alcohol Use: No Drug/Substance Use Hx: Yes (Marijuana) Substance Use Type: None Hx Substance Use Treatment: No Review of Systems - Review of Systems Able to Perform ROS?: Yes Comments:: 10/31/18 23:47 General: admitted to generalized weakness, body aches. denied fever, chills. HEENT: admitted to nasal congestion. denied sore throat, rhinorrhea, ear pain. Heart: admitted to chest pain. denied palpitations, syncope, diaphoresis. Respiratory: admitted to cough. denied shortness of breath, sputum production, hemoptysis. Abdomen: admitted to abdominal pain. denied nausea, vomiting, diarrhea, constipation, blood in stool. : denied dysuria, increased urinary frequency, hematuria, urinary incontinence , flank pain. Back: denied back pain. Musculoskeletal: denied joint pain, joint swelling. Neurological: denied headache, dizziness, numbness, tingling, weakness. Skin: denied rash, laceration, abrasion. *Physical Exam - Vital Signs Last Vital Signs Temp Pulse Resp BP Pulse Ox 98.1 F 89 18 155/85 100 10/31/18 23:13 10/31/18 23:13 10/31/18 23:13 10/31/18 23:13 10/31/18 23:13 - Physical Exam Comments: 10/31/18 23:48 Constitutional: obese. sitting comfortably on stretcher. HEENT: head is normocephalic, atraumatic. EOMI. PERRLA. dry mucous membranes. Neck: supple. Full ROM. Heart: regular rhythm. no murmurs, rubs or gallops. Lungs: clear to auscultation bilaterally. no crackles, rhonchi or wheezing. no stridor. Abdomen: soft, nontender. normal bowel sounds. no rebound, guarding, masses. Extremities: peripheral pulses intact. no lower extremity edema. Neurological: CN 2-12 grossly intact. moves all four extremities. Psych: awake, alert, oriented x3. follows commands. answers questions appropriately. Moderate Sedation - Procedure Monitoring Vital Signs: Procedure Monitoring Vital Signs Temperature 98.1 F 10/31/18 23:13 Pulse Rate 89 10/31/18 23:13 Respiratory Rate 18 10/31/18 23:13 Blood Pressure 155/85 10/31/18 23:13 O2 Sat by Pulse Oximetry (%) 100 10/31/18 23:13 ED Treatment Course - LABORATORY CBC & Chemistry Diagram: 11/01/18 00:10 11/01/18 00:10 Medical Decision Making - Medical Decision Making 10/31/18 23:49 33 year old female with above PMH presented to ED for chest pain. She also complained of body aches, generalized weakness, nonproductive cough, nasal congestion. Initial Vital Signs Temp Pulse Resp BP Pulse Ox 98.1 F 89 18 155/85 100 10/31/18 23:13 10/31/18 23:13 10/31/18 23:13 10/31/18 23:13 10/31/18 23:13 Afebrile. No tachycardia. No tachypnea. Mild hypertension. No hypoxia on room air. Labs ordered: CBC, CMP, troponin, phos, mag, BNP, acetone Medications ordered: ASA 324 chew, pepcid, maalox, normal saline 1000 cc bolus Imaging ordered: CXR EKG performed at 2317: rate 87, regular rhythm, normal intervals, flattened T in III/aVF, flipped P in V2/aVL/I. Similar to prior EKG 08/04/2018 11/01/18 00:40 CBC WBC 4.7 K/mm3 (4.0-10.0) 11/01/18 00:10 RBC 4.46 M/mm3 (3.60-5.2) 11/01/18 00:10 Hgb 11.1 GM/dL (10.7-15.3) 11/01/18 00:10 Hct 34.5 % (32.4-45.2) 11/01/18 00:10 MCV 77.4 fl (80-96) L 11/01/18 00:10 MCH 24.8 pg (25.7-33.7) L 11/01/18 00:10 MCHC 32.1 g/dl (32.0-36.0) 11/01/18 00:10 RDW 14.5 % (11.6-15.6) D 11/01/18 00:10 Plt Count 300 K/MM3 (134-434) 11/01/18 00:10 MPV 9.8 fl (7.5-11.1) 11/01/18 00:10 Absolute Neuts (auto) 2.8 K/mm3 (1.5-8.0) 11/01/18 00:10 Neutrophils % 58.3 % (42.8-82.8) 11/01/18 00:10 Lymphocytes % 34.2 % (8-40) D 11/01/18 00:10 Monocytes % 6.4 % (3.8-10.2) 11/01/18 00:10 Eosinophils % 0.6 % (0-4.5) 11/01/18 00:10 Basophils % 0.5 % (0-2.0) 11/01/18 00:10 Nucleated RBC % 0 % (0-0) 11/01/18 00:10 No leukocytosis. No anemia. 11/01/18 01:09 Pt tolerated PO water challenge. Pt tolerated PO sandwich challenge. 11/01/18 01:18 CXR my interpretation: no cardiomegaly. sharp costophrenic angles bilaterally. no infiltrate. no large pneumothorax. no widened mediastinum. - Pending official report 11/01/18 01:30 CMP Sodium 128 mmol/L (136-145) L 11/01/18 00:10 Potassium 4.3 mmol/L (3.5-5.1) 11/01/18 00:10 Chloride 93 mmol/L (98-107) L 11/01/18 00:10 Carbon Dioxide 22 mmol/L (21-32) 11/01/18 00:10 Anion Gap 13 MMOL/L (8-16) 11/01/18 00:10 BUN 25 mg/dL (7-18) H 11/01/18 00:10 Creatinine 1.8 mg/dL (0.55-1.3) H 11/01/18 00:10 Creat Clearance w eGFR 32.02 (>60) 11/01/18 00:10 Random Glucose 548 mg/dL (74-106) H* 11/01/18 00:10 Calcium 8.6 mg/dL (8.5-10.1) 11/01/18 00:10 Phosphorus 2.9 mg/dL (2.5-4.9) 11/01/18 00:10 Magnesium 2.2 mg/dL (1.8-2.4) 11/01/18 00:10 Total Bilirubin 0.2 mg/dL (0.2-1) 11/01/18 00:10 AST 19 U/L (15-37) 11/01/18 00:10 ALT 18 U/L (13-61) 11/01/18 00:10 Alkaline Phosphatase 121 U/L (45-117) H 11/01/18 00:10 Troponin I < 0.02 ng/ml (0.00-0.05) 11/01/18 00:10 B-Natriuretic Peptide 173.5 pg/ml (5-125) H 11/01/18 00:10 Total Protein 7.1 g/dl (6.4-8.2) 11/01/18 00:10 Albumin 2.8 g/dl (3.4-5.0) L 11/01/18 00:10 Serum , Qual Negative 11/01/18 00:10 Hyponatremia - Pt had not eaten all day - Pt is alert and oriented, no confusion, no altered mental status - Pt is receiving IV fluids Elevated Cr - Pt is receiving IV fluids Hyperglycemia - Pt is receiving IV fluids - Additional normal saline 1000 cc bolus ordered Normal troponin. No transaminitis No anion gap. Mild BNP elevation. Serum testing negative. Acetone negative. 11/01/18 01:46 Pt signed out to Dr. David - Pending POC glucose recheck after 2L normal saline - Pending repeat troponin and EKG at 0310 - Pending admission for chest pain 11/02/18 16:26 Follow up: Official CXR report: no evidence of active pulmonary disease. Pt signed out AMA after admission for chest pain was advised. *DC/Admit/Observation/Transfer Diagnosis at time of Disposition: Epigastric pain, Hyponatremia, Hyperglycemia Chest pain Qualifiers: Chest pain type: unspecified Qualified Code(s): R07.9 - Chest pain, unspecified - Discharge Dispostion Disposition: AGAINST MEDICAL ADVICE Condition at time of disposition: Stable - Prescriptions Prescriptions: Famotidine [Pepcid] 20 mg PO BID #10 tablet - Referrals Referrals: Sukhjinder Hendrix MD, [Primary Care Provider] - - Patient Instructions Printed Discharge Instructions: DI for Gastroesophageal Reflux Disease (GERD) Additional Instructions: You have chosen to leave the department against medical advice. Please return with worsening symptoms. You lab work showed low sodium, decreased kidney function, and high glucose. Follow up with your primary care doctor in 1-2 days. Follow up with your air chipper in 1-2 days. I have sent a prescription to your pharmacy for Pepcid, to treat stomach acid, take as advised on label. Return to the Emergency Department for increasing pain, lightheadedness, chest pain, shortness of breath, palpitations, passing out, or any other new, worsening or concerning symptoms. Print Language: TRISTANIAN - Post Discharge Activity Forms/Work/School Notes: Back to Work
[2018-10-31] MEDS ORDERED: ASPIRIN 81 MG CHEWABLE TABLETS PO ONE (23:46)
[2018-11-01] MEDS ORDERED: ASPIRIN 325 MG TABLET ONE (00:15)
[2018-11-01] MEDS ORDERED: FAMOTIDINE 20 MG/50 ML IVPB 20 MG/50 ML MG IVPB ONE ×2 (00:16→00:23)
[2018-11-01] MEDS ORDERED: SODIUM CHLORIDE 1,000 ML IV STA ×2 (00:16→01:32)
[2018-11-01] MEDS ORDERED: MAG HYDROX/AL HYDROX/SIMETH 30 ML UNIT-DOSE CUP PO ONE (00:16)
[2018-11-01] MEDS ORDERED: MAG HYDROX/AL HYDROX/SIMETH 30 ML UNIT-DOSE CUP ONE (00:23)
[2018-11-01 00:27] LABS: BASO % 0.5 % (0-2.0); EOS % 0.6 % (0-4.5); HEMATOCRIT 34.5 % (32.4-45.2); HEMOGLOBIN 11.1 GM/dL (10.7-15.3); LYMPH % 34.2 % (8-40); MCH 24.8 pg (25.7-33.7); MCHC 32.1 g/dl (32.0-36.0); MEAN CELL VOLUME 77.4 fl (80-96); MEAN PLT VOLUME 9.8 fl (7.5-11.1); MONO % 6.4 % (3.8-10.2); NEUT % 58.3 % (42.8-82.8); PLATELET COUNT 300 K/MM3 (134-434); RBC 4.46 M/mm3 (3.60-5.2); RDW 14.5 % (11.6-15.6); WHITE BLOOD COUNT 4.7 K/mm3 (4.0-10.0)
[2018-11-01 00:41] LABS: INR 0.96 (0.83-1.09); PROTHROMBIN TIME (PATIENT) 11.3 SEC (9.7-13.0)
--- NOTE | 2018-11-01 01:10 | PDOC ---
Attending Attestation - ED Attending Attestation I have performed the following: I have examined & evaluated the patient, The case was reviewed & discussed with the resident, I agree w/resident's findings & plan - HPI HPI: 11/01/18 01:30 The patient is a 33 year old female, with a significant past medical history of IDDM, HTN, HLD, CAD, CABG, gastric sleeve, who presents to the emergency department with, 4 days of intermittent, substernal, sharp chest pain. She endorses her pain to be worsened when drinking fluids and to come about with associated body aches, nonproductive cough, nasal congestion. She denies recent fevers, chills, headache or dizziness. She denies recent nausea, vomit, diarrhea or constipation. She denies recent dysuria, frequency, urgency or hematuria. Allergies: NKDA Past surgical history: CABG 2013/ stent, Gastric sleeve (2012) Social history: Occasional marijuana. Primary Care Physician: Dr. Sukhjinder Hendrix - Physicial Exam PE: 11/01/18 01:30 GENERAL: Well-appearing, well-nourished. No apparent distress. HEENT: Normocephalic, atraumatic. PERRL, EOM intact. CARDIOVASCULAR: Normal S1, S2. Regular rate and rhythm. PULMONARY: Clear to auscultation bilaterally. ABDOMEN: Soft, non-distended, non-tender. EXTREMITIES: Normal ROM in all four extremities. No gross deformities. SKIN: Warm, dry. No rash NEUROLOGICAL: No focal neurological deficits. <Cruz Reeves - Last Filed: 11/01/18 01:30> - Resident Resident Name: Sonam Russell - Medical Decision Making 11/01/18 01:58 pt is not in DKA ,acetone is negative pt describes burning upon eating and acid reflux ,given PPI 11/01/18 02:00 trop negative 11/01/18 02:01 plan -glu>500, pt receiving IVF and will receive insulin <Trudy Slaughter - Last Filed: 11/01/18 02:01> Attestations - Attestations 11/01/18 01:30 Documentation prepared by Cruz Reeves, acting as medical resident for Trudy Slaughter MD. <Cruz Reeves - Last Filed: 11/01/18 01:30>
[2018-11-01 01:15] LABS: N-TERMINAL BNP 173.5 pg/ml (5-125); PHOSPHOROUS 2.9 mg/dL (2.5-4.9)
[2018-11-01 01:24] LABS: ALBUMIN 2.8 g/dl (3.4-5.0); ALK PHOS 121 U/L (45-117); ANION GAP 13 MMOL/L (8-16); BILIRUBIN,TOTAL 0.2 mg/dL (0.2-1); BLOOD UREA NITROGEN 25 mg/dL (7-18); CALCIUM 8.6 mg/dL (8.5-10.1); CHLORIDE 93 mmol/L (98-107); CO2 22 mmol/L (21-32); CREATININE 1.8 mg/dL (0.55-1.3); MAGNESIUM 2.2 mg/dL (1.8-2.4); POTASSIUM 4.3 mmol/L (3.5-5.1); SGOT/AST 19 U/L (15-37); SGPT/ALT 18 U/L (13-61); SODIUM 128 mmol/L (136-145); TOT PROT 7.1 g/dl (6.4-8.2)
[2018-11-01 01:29] LABS: GLUCOSE,RANDOM 548 mg/dL (74-106)
[2018-11-01 01:38] LABS: ACETONE SERUM NEGATIVE (NEGATIVE)
--- NOTE | 2018-11-01 02:06 | PDOC ---
*Physical Exam - Vital Signs Last Vital Signs Temp Pulse Resp BP Pulse Ox 98.1 F 89 18 155/85 100 10/31/18 23:13 10/31/18 23:13 10/31/18 23:13 10/31/18 23:13 11/01/18 00:19 ED Treatment Course - LABORATORY CBC & Chemistry Diagram: 11/01/18 00:10 11/01/18 00:10 - ADDITIONAL ORDERS Additional order review: Laboratory Results 11/01/18 11/01/18 11/01/18 00:10 00:10 00:10 PT with INR 11.30 INR 0.96 PTT (Actin FS) Sodium Potassium Chloride Carbon Dioxide Anion Gap BUN Creatinine Creat Clearance w eGFR Random Glucose Calcium Phosphorus 2.9 Magnesium Total Bilirubin AST ALT Alkaline Phosphatase Troponin I < 0.02 B-Natriuretic Peptide 173.5 H Total Protein Albumin Serum , Qual Negative Acetone, Qual 11/01/18 11/01/18 00:10 00:10 PT with INR INR PTT (Actin FS) 28.3 Sodium 128 L Potassium 4.3 Chloride 93 L Carbon Dioxide 22 Anion Gap 13 BUN 25 H Creatinine 1.8 H Creat Clearance w eGFR 32.02 Random Glucose 548 H* Calcium 8.6 Phosphorus Magnesium 2.2 Total Bilirubin 0.2 AST 19 ALT 18 Alkaline Phosphatase 121 H Troponin I B-Natriuretic Peptide Total Protein 7.1 Albumin 2.8 L Serum , Qual Acetone, Qual Negative L 11/01/18 00:10 RBC 4.46 MCV 77.4 L MCHC 32.1 RDW 14.5 D MPV 9.8 Neutrophils % 58.3 Lymphocytes % 34.2 D Monocytes % 6.4 Eosinophils % 0.6 Basophils % 0.5 - Medications Given in the ED: ED Medications Discontinued Medications Generic Name Dose Route Start Last Admin Trade Name Freq PRN Reason Stop Dose Admin Al Hydroxide/Mg Hydroxide 30 ml 11/01/18 00:16 11/01/18 00:32 Mylanta Oral Suspension - PO 11/01/18 00:17 30 ml ONCE ONE Administration Aspirin 324 mg 10/31/18 23:46 11/01/18 00:18 Asa - PO 10/31/18 23:47 324 mg ONCE ONE Administration Famotidine/Sodium Chloride 20 mg in 50 mls @ 100 mls/hr 11/01/18 00:16 00:32 Pepcid 20 Mg Premixed Ivpb - IVPB 11/01/18 00:45 100 mls/hr ONCE ONE Administration Sodium Chloride 1,000 mls @ 1,000 mls/hr 11/01/18 00:16 11/01/18 00:32 Normal Saline - IV 11/01/18 01:15 1,000 mls/hr ASDIR STA Administration Medical Decision Making - Medical Decision Making 11/01/18 02:01 Received sign out from resident Dr. Russell. In short, pt is a 33 y/o female with h/o CAD s/p stent, gastric bypass, and poorly controlled diabetes complaining of atypical chest pain versus epigastric burning x4 days. No PO intake today. Received GI cocktail with reported improvement in symptoms. Hyperglycemia without acidosis or serum ketones. Mild hyponatremia suspect to be secondary to poor PO intake. TESS noted. Is receiving 2L IVFB. Will follow up repeat BGL. Pt to be admitted for PANCHITO given risk factors. Repeat BGL after IVFB under 400. Repeat 3 hour troponin negative. Microblog sent for admission. Pt approached MD work station and requested to sign out AMA because she felt better. Discussed risks of doing so. Pt verbally stated she understood that was a possible complication. Encouraged pt to follow up with her gynaecological oncologist and with her shell coremaker. *DC/Admit/Observation/Transfer Diagnosis at time of Disposition: Epigastric pain, Hyponatremia, Hyperglycemia Chest pain Qualifiers: Chest pain type: unspecified Qualified Code(s): R07.9 - Chest pain, unspecified - Discharge Dispostion Disposition: AGAINST MEDICAL ADVICE Condition at time of disposition: Stable Decision to Admit order: No - Prescriptions Prescriptions: Famotidine [Pepcid] 20 mg PO BID #10 tablet - Referrals Referrals: Sukhjinder Hendrix MD, [Primary Care Provider] - - Patient Instructions Printed Discharge Instructions: DI for Gastroesophageal Reflux Disease (GERD) Additional Instructions: You have chosen to leave the department against medical advice. Please return with worsening symptoms. You lab work showed low sodium, decreased kidney function, and high glucose. Follow up with your primary care doctor in 1-2 days. Follow up with your shell coremaker in 1-2 days. I have sent a prescription to your pharmacy for Pepcid, to treat stomach acid, take as advised on label. Return to the Emergency Department for increasing pain, lightheadedness, chest pain, shortness of breath, palpitations, passing out, or any other new, worsening or concerning symptoms. Print Language: MACEDONIAN - Post Discharge Activity Forms/Work/School Notes: Back to Work
--- NOTE | 2018-11-01 16:13 | EKG ---
Test Reason : Blood Pressure : / mmHG Vent. Rate : 085 BPM Atrial Rate : 085 BPM P-R Int : 134 ms QRS Dur : 094 ms QT Int : 390 ms P-R-T Axes : 146 087 075 degrees QTc Int : 464 ms UNUSUAL P AXIS, POSSIBLE ECTOPIC ATRIAL RHYTHM NONSPECIFIC T WAVE ABNORMALITY PROLONGED QT ABNORMAL ECG WHEN COMPARED WITH ECG OF 04-AUG-2018 00:58, ECTOPIC ATRIAL RHYTHM HAS REPLACED SINUS RHYTHM QUESTIONABLE CHANGE IN QRS AXIS NONSPECIFIC T WAVE ABNORMALITY NOW EVIDENT IN INFERIOR LEADS Confirmed by MD Son, Gerry ([id number]) on 11/01/2018 4:13:06 PM Referred By: Confirmed By:Gerry Cline MD
== END 2018-11-01 05:00 | disposition left against medical advice (07) ==
LOC: JER 23:07
PROC: 3E0337Z Introduction of Electrolytic and Water Balance Substance into Peripheral Vein, Percutaneous Approach (ICD-10-PCS; principal; 2018-10-31)
PROC: 3E033GC Introduction of Other Therapeutic Substance into Peripheral Vein, Percutaneous Approach (ICD-10-PCS; 2018-10-31)
DX: R07.9 Chest pain, unspecified (principal); E87.1 Hypo-osmolality and hyponatremia; E10.65 Type 1 diabetes mellitus with hyperglycemia; Z79.4 Long term (current) use of insulin; I25.810 Atherosclerosis of coronary artery bypass graft(s) without angina pectoris; I10 Essential (primary) hypertension; Z95.1 Presence of aortocoronary bypass graft; Z95.5 Presence of coronary angioplasty implant and graft; E78.5 Hyperlipidemia, unspecified; Z98.84 Bariatric surgery status
CPT/HCPCS: 36415; 71045-TC-FY; 80053; 82009; 82962; 83735; 83880; 84100; 84484; 84703; 85025; 85610; 85730; 93005; 93010; 96361; 96365; 99284-25; J7030

== ENCOUNTER 2018-11-01 13:50 | Inpatient (IN) | payer OTHER ==
--- NOTE | 2018-11-01 14:09 | PDOC ---
Rapid Medical Evaluation Chief Complaint: Chest Pain Time Seen by Provider: 11/01/18 14:03 Medical Evaluation: Allergies Allergy/AdvReac Type Severity Reaction Status Date / Time No Known Allergies Allergy Verified 11/01/18 14:04 Vital Signs Temp Pulse Resp BP Pulse Ox 98.1 F 95 H 18 125/57 L 100 11/01/18 14:05 11/01/18 14:05 11/01/18 14:05 11/01/18 14:05 11/01/18 14:05 11/01/18 14:07 I have performed a brief in-person evaluation of this patient. The patient presents with a chief complaint of: h/o co-morbidity present with complains of CP and SOB. pt presented yesterday overnight for same symptoms and was being admitted but signed out AMA this morning Pertinent physical exam findings: no acute distress. heart RRR. lungs CTAB I have ordered the following: EKG, CMP, cardiac profile The patient will proceed to the ED for further evaluation. Discharge Disposition - Diagnosis Chest pain Qualifiers: Chest pain type: unspecified Qualified Code(s): R07.9 - Chest pain, unspecified - Discharge Dispostion Condition at time of disposition: Stable - Referrals - Patient Instructions - Post Discharge Activity
--- NOTE | 2018-11-01 15:04 | PDOC ---
History of Present Illness - General Chief Complaint: Chest Pain Stated Complaint: DIFFICULTY BREATH Time Seen by Provider: 11/01/18 14:03 History Source: Patient - History of Present Illness Presenting Symptoms: Chest Pain Past History - Past Medical History Allergies/Adverse Reactions: Allergies Allergy/AdvReac Type Severity Reaction Status Date / Time No Known Allergies Allergy Verified 11/01/18 14:04 Home Medications: Ambulatory Orders Aspirin [ASA -] 81 mg PO DAILY #0 tab.chew 03/15/16 Atorvastatin Ca [Lipitor] 80 mg PO HS 05/23/17 Insulin (LOG) Aspart [NovoLOG -] 0 unit SQ TID 05/23/17 Lisinopril 5 mg PO ASDIR 05/23/17 Insulin Glargine,Hum.rec.anlog [Lantus] 32 unit SQ AM 11/20/17 Metoprolol Succinate [Toprol Xl] 25 mg PO DAILY 11/20/17 Famotidine [Pepcid] 20 mg PO BID #10 tablet 11/01/18 Asthma: No Cancer: No Cardiac Disorders: Yes (cardiac bypass) COPD: No Diabetes: Yes (insulin dependent) HTN: Yes Hypercholesterolemia: Yes Psychiatric Problems: Yes (depression ) Seizures: No Thyroid Disease: Yes ( A CHILD) - Surgical History Abdominal Surgery: Yes (Gastric sleeve) Cardiac Surgery: Yes (CABG 2013/ stent ) Gastric Stapling: Yes (sleeve 2012) - Reproductive History (#): 6 Para: 2 Therapeutic (s) & number: Yes (2) Spontaneous : 2 - Immunization History Td Vaccination: Yes Immunization Up to Date: Yes - Suicide/Smoking/Psychosocial Hx Smoking Status: Yes Smoking History: Unknown if ever smoked Have you smoked in the past 12 months: Yes Number of Cigarettes Smoked Daily: 5 If you are a former smoker, when did you quit?: 2 WKS Cigars Per Day: 1 'Breaking Loose' booklet given: 06/14/18 Hx Alcohol Use: No Drug/Substance Use Hx: Yes (Marijuana) Substance Use Type: None Hx Substance Use Treatment: No Cardiac Specific PMH - Complaint Specific PMHX Cardiac Stent: Yes (11/2010) Review of Systems - Review of Systems Constitutional: No: Chills, Fever Respiratory: Yes: Shortness of Breath ABD/GI: No: Nausea, Vomiting : No: Dysuria *Physical Exam - Vital Signs Last Vital Signs Temp Pulse Resp BP Pulse Ox 98.2 F 78 20 138/80 100 11/01/18 18:17 11/01/18 18:17 11/01/18 18:17 11/01/18 18:17 11/01/18 18:17 - Physical Exam General Appearance: Yes: Appropriately Dressed. No: Apparent Distress HEENT: positive: Normal Voice Neck: positive: Supple Respiratory/Chest: positive: Lungs Clear, Normal Breath Sounds. negative: Respiratory Distress Cardiovascular: positive: Regular Rate, S1, S2 Gastrointestinal/Abdominal: positive: Soft. negative: Tender Musculoskeletal: negative: CVA Tenderness Integumentary: positive: Dry, Warm Neurologic: positive: Fully Oriented, Alert, Normal Mood/Affect Moderate Sedation - Procedure Monitoring Vital Signs: Procedure Monitoring Vital Signs Temperature 98.2 F 11/01/18 18:17 Pulse Rate 78 11/01/18 18:17 Respiratory Rate 20 11/01/18 18:17 Blood Pressure 138/80 11/01/18 18:17 O2 Sat by Pulse Oximetry (%) 100 11/01/18 18:17 ED Treatment Course - LABORATORY CBC & Chemistry Diagram: 11/01/18 18:47 11/01/18 14:29 - ADDITIONAL ORDERS Additional order review: Laboratory Results 11/01/18 11/01/18 11/01/18 18:48 16:30 15:00 VBG pH 7.25 L POC VBG pCO2 39.8 POC VBG pO2 27.0 L Mixed VBG HCO3 16.9 L Sodium Potassium Chloride Carbon Dioxide Anion Gap BUN Creatinine Creat Clearance w eGFR POC Glucometer 380 Random Glucose Calcium Total Bilirubin AST ALT Alkaline Phosphatase Creatine Kinase Creatine Kinase Index CK-MB (CK-2) Troponin I B-Natriuretic Peptide Total Protein Albumin Urine Color Colorless Urine Appearance Clear Urine pH 6.0 Ur Specific [place] 1.018 Urine Protein 1+ H Urine Glucose (UA) 3+ H Urine Ketones 1+ H Urine Blood 2+ H Urine Nitrite Negative Urine Bilirubin Negative Urine Urobilinogen Negative Ur Leukocyte Esterase Negative Urine WBC (Auto) <1 Urine RBC (Auto) 1 Ur Epithelial Cells Rare Urine HCG, Qual Negative Acetone, Qual 11/01/18 11/01/18 15:00 14:29 VBG pH POC VBG pCO2 POC VBG pO2 Mixed VBG HCO3 Sodium 127 L Potassium 4.6 Chloride 93 L Carbon Dioxide 19 L Anion Gap 15 BUN 26 H Creatinine 1.6 H Creat Clearance w eGFR 36.68 POC Glucometer Random Glucose 842 H* Calcium 7.9 L Total Bilirubin 0.3 AST 39 H ALT 29 Alkaline Phosphatase 120 H Creatine Kinase 196 H Creatine Kinase Index 1.0 CK-MB (CK-2) 2.0 Troponin I < 0.02 B-Natriuretic Peptide 179.6 H Total Protein 7.2 Albumin 2.6 L Urine Color Urine Appearance Urine pH Ur Specific [place] Urine Protein Urine Glucose (UA) Urine Ketones Urine Blood Urine Nitrite Urine Bilirubin Urine Urobilinogen Ur Leukocyte Esterase Urine WBC (Auto) Urine RBC (Auto) Ur Epithelial Cells Urine HCG, Qual Acetone, Qual Positive large 3+ H 11/01/18 18:48 POC Glucometer 380 - Medications Given in the ED: ED Medications Discontinued Medications Generic Name Dose Route Start Last Admin Trade Name Freq PRN Reason Stop Dose Admin Sodium Chloride 1,000 mls @ 1,000 mls/hr 11/01/18 15:19 11/01/18 16:01 Normal Saline - IV 11/01/18 16:18 1,000 mls/hr ASDIR STA Administration Sodium Chloride 1,000 mls @ 1,000 mls/hr 11/01/18 16:07 11/01/18 16:08 Normal Saline - IV 11/01/18 17:06 1,000 mls/hr ASDIR STA Administration Sodium Chloride 1,000 mls @ 1,000 mls/hr 11/01/18 16:08 11/01/18 18:30 Normal Saline - IV 11/01/18 17:07 1,000 mls/hr ASDIR STA Administration Insulin Human Regular 4 units 11/01/18 16:08 11/01/18 16:35 Novolin R Vial *For Ivpush Or Iv Drip Only* SQ 11/01/18 16:09 4 units ONCE ONE Administration Medical Decision Making - Medical Decision Making 11/01/18 15:01 33 yo F, h/o poorly controlled IDDM (HA1c 12 11/2017), DKA, HTN, HLD, CAD s/p stent x 1, CABG, gastric sleeve, smoker, occ marijuana use, here w/ CP. Pt reports CP x 5 days that pt notices mostly after drinking fluids. States pain eventually resolves. Over the past 2 days, has had SOB, worse w/ supine position. No edema, cough, diaphoresis, n/v. Pt f/u with outside cards and states she had a stress test in the past 3 months that was negative. Pt was seen in ED yesterday for sxs and found to elevated BS in the 500s, w/ no gap. NA was also mildly depressed. BNP was > 170 w neg EKG and trop. 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 Denies polyuria/dipsia. See exam Atypical CP vs upper abd pain w/ SOB S/p ED visit for same yesterday w/ normal EKG/trop (has sig cardiac hx) but found to have sig elevated BS on labs yesterday, no gap, left AMA Now admits to being non-compliant w/ DM meds BG >800 today w/ no gap, ?HSS, ua/acetone/blood gas pending -Will aggressively hydrate -admit (med vs ICU) 11/01/18 16:34 Case d/w Dr Smith who wants consult placed to Dr Rondon of endocrine. Per Dr Leija, will aggressively hydrate patient and also give small dose of SQ insulin. If sugar improves, may be able to go to medicine instead of unit 11/01/18 18:56 Finger stick 380. Discussed acidosis on VBG w/ 3+ acetone w/ Dr Leija who states as hyperglycemia has sig improved, pt stable enough for med floor vs ICU. No gap so will hold off on insulin drip. Will not place on telemetry as no active chest pain and essentially ruled out between ED visits yesterday and today. 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
[2018-11-01 15:15] LABS: ALBUMIN 2.6 g/dl (3.4-5.0); ALK PHOS 120 U/L (45-117); ANION GAP 15 MMOL/L (8-16); BILIRUBIN,TOTAL 0.3 mg/dL (0.2-1); BLOOD UREA NITROGEN 26 mg/dL (7-18); CALCIUM 7.9 mg/dL (8.5-10.1); CHLORIDE 93 mmol/L (98-107); CO2 19 mmol/L (21-32); CREATININE 1.6 mg/dL (0.55-1.3); N-TERMINAL BNP 179.6 pg/ml (5-125); POTASSIUM 4.6 mmol/L (3.5-5.1); SGOT/AST 39 U/L (15-37); SGPT/ALT 29 U/L (13-61); SODIUM 127 mmol/L (136-145); TOT PROT 7.2 g/dl (6.4-8.2)
[2018-11-01 15:17] LABS: GLUCOSE,RANDOM 842 mg/dL (74-106)
[2018-11-01] MEDS ORDERED: SODIUM CHLORIDE 1,000 ML IV STA ×3 (15:19→16:08)
[2018-11-01 16:01] LABS: VENOUS PC02 39.8 mmHg (38-52); VENOUS PH 7.25 (7.32-7.42)
[2018-11-01] MEDS ORDERED: INSULIN REGULAR HUMAN 100 UNITS/ML *VIAL SQ ONE (16:08)
[2018-11-01] MEDS ORDERED: INSULIN REGULAR HUMAN 100 UNITS/ML *VIAL ONE (16:32)
[2018-11-01 16:48] LABS: URINE APPEARANCE CLEAR; URINE BILIRUBIN NEGATIVE (<2.0 mg/dL); URINE COLOR COLORLESS; URINE GLUCOSE (UA) 3+ (NEGATIVE); URINE KETONE 1+ (NEGATIVE); URINE LEUK ESTERASE NEGATIVE (NEGATIVE); URINE NITRITE NEGATIVE (NEGATIVE); URINE PROTEIN 1+ (NEGATIVE); URINE UROBILINOGEN NEGATIVE mg/dL (0.2-1.0)
[2018-11-01 16:49] LABS: HCG,QUALITATIVE URINE Negative
[2018-11-01 16:52] LABS: EPI CELLS RARE /HPF (FEW)
[2018-11-01 18:54] LABS: BASO % 0.5 % (0-2.0); EOS % 0.4 % (0-4.5); HEMOGLOBIN 9.9 GM/dL (10.7-15.3); MCH 24.6 pg (25.7-33.7); MCHC 32.1 g/dl (32.0-36.0); MEAN CELL VOLUME 76.7 fl (80-96); MEAN PLT VOLUME 9.7 fl (7.5-11.1); MONO % 6.9 % (3.8-10.2); NEUT % 71.2 % (42.8-82.8); PLATELET COUNT 272 K/MM3 (134-434); RBC 4.04 M/mm3 (3.60-5.2); RDW 14.8 % (11.6-15.6); WHITE BLOOD COUNT 6.7 K/mm3 (4.0-10.0)
[2018-11-01] MEDS: SODIUM CHLORIDE 1,000 ML IV SCH (19:53)
[2018-11-01] MEDS ORDERED: HEPARIN NA (PORCINE) 5,000 UNITS/ML 1ML VIAL ONE (22:17)
[2018-11-01] MEDS ORDERED: INSULIN (NOVOLOG) ASPART 100 UNITS/ML 10ML VIAL ONE (22:18)
[2018-11-01] MEDS: HEPARIN NA (PORCINE) 5,000 UNITS/ML 1ML VIAL SQ SCH (22:41)
[2018-11-01] MEDS: INSULIN SLIDING SCALE (NOVOLOG) 1 VIAL SQ SCH (22:42)
[2018-11-01] MEDS: ATORVASTATIN CA 80 MG TABLET (FP) PO SCH (22:42)
[2018-11-02] MEDS ORDERED: INSULIN (NOVOLOG) ASPART 100 UNITS/ML 10ML VIAL SQ ONE (00:38)
[2018-11-02] MEDS: INSULIN SLIDING SCALE (NOVOLOG) 1 VIAL SQ SCH ×4 (06:38→21:14)
[2018-11-02 06:51] LABS: BASO % 0.7 % (0-2.0); EOS % 1.4 % (0-4.5); HEMATOCRIT 26.5 % (32.4-45.2); HEMOGLOBIN 8.6 GM/dL (10.7-15.3); MCH 24.6 pg (25.7-33.7); MCHC 32.5 g/dl (32.0-36.0); MEAN CELL VOLUME 75.6 fl (80-96); MEAN PLT VOLUME 9.9 fl (7.5-11.1); MONO % 9.8 % (3.8-10.2); NEUT % 49.1 % (42.8-82.8); PLATELET COUNT 224 K/MM3 (134-434); RBC 3.51 M/mm3 (3.60-5.2); RDW 14.2 % (11.6-15.6); WHITE BLOOD COUNT 4.6 K/mm3 (4.0-10.0)
[2018-11-02] MEDS ORDERED: INSULIN (LEVEMIR) 100 UNITS/ML UNITS SQ SCH (07:00)
[2018-11-02 07:34] LABS: ALBUMIN 1.9 g/dl (3.4-5.0); ALK PHOS 86 U/L (45-117); ANION GAP 5 MMOL/L (8-16); BILIRUBIN,TOTAL 0.4 mg/dL (0.2-1); BLOOD UREA NITROGEN 18 mg/dL (7-18); CALCIUM 7.4 mg/dL (8.5-10.1); CHLORIDE 108 mmol/L (98-107); CHOLESTEROL 204 mg/dL (50-200); CO2 23 mmol/L (21-32); CREATININE 0.9 mg/dL (0.55-1.3); GLUCOSE,RANDOM 196 mg/dL (74-106); HDL CHOLESTEROL 67 mg/dL (40-60); POTASSIUM 4.3 mmol/L (3.5-5.1); SGOT/AST 19 U/L (15-37); SGPT/ALT 17 U/L (13-61); SODIUM 136 mmol/L (136-145); TOT PROT 4.8 g/dl (6.4-8.2); TRIGLYCERIDES 116 mg/dL (0-150)
[2018-11-02] MEDS: ASPIRIN 81 MG CHEWABLE TABLETS PO SCH (09:14)
[2018-11-02] MEDS: LISINOPRIL 5 MG TABLET (FP) PO SCH (09:14)
[2018-11-02] MEDS: metoPROLOL SUCCINATE 25 MG TAB.SR.24H (FP) PO SCH (09:14)
[2018-11-02] MEDS: HEPARIN NA (PORCINE) 5,000 UNITS/ML 1ML VIAL SQ SCH ×2 (09:15→21:07)
--- NOTE | 2018-11-02 11:07 | HP ---
Admitting History and Physical - Admission Chief Complaint: Hyperglycemia History of Present Illness: 33 yo F, h/o poorly controlled IDDM (HA1c 12 11/2017), DKA, HTN, HLD, CAD s/p stent x 1, CABG, gastric sleeve, smoker, occ marijuana use, here w/ CP. Pt reports CP x 5 days that pt notices mostly after drinking fluids. States pain eventually resolves. Over the past 2 days, has had SOB, worse w/ supine position. No edema, cough, diaphoresis, n/v. Pt f/u with outside cards and states she had a stress test in the past 3 months that was negative. Pt was seen in ED yesterday for sxs and found to elevated BS in the 500s, w/ no gap. NA was also mildly depressed. BNP was > 170 w neg EKG and trop. 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 Denies polyuria/dipsia. A1c at 28? Endocrine consulted History Source: Patient Limitations to Obtaining History: No Limitations - Past Medical History Cardiovascular: Yes: CAD, HTN, Hyperlipdemia. No: AFIB, Aneurysm, Aortic Insufficiency, Aortic Stenosis, CHF, Deep Vein Thrombosis, NM, Mitral Insufficiency, Mitral Stenosis, Murmur, Pulmonary Hypertension, Other ...LMP: 11/17/17 ...: No Heme/Onc: Yes: Anemia (on insulin pump , has been followed by endo in [facility]) Endocrine: Yes: Diabetes Mellitus - Past Surgical History Past Surgical History: Yes: Bariatric Surgery (gastric sleeve), CABG - Smoking History Smoking history: Current every day smoker Have you smoked in the past 12 months: Yes Aproximately how many cigarettes per day: 5 If you are a former smoker, when did you quit?: 2 WKS - Alcohol/Substance Use Hx Alcohol Use: No History of Substance Use: reports: None - Social History ADL: Independent History of Recent Travel: No Home Medications - Allergies Allergies/Adverse Reactions: Allergies Allergy/AdvReac Type Severity Reaction Status Date / Time No Known Allergies Allergy Verified 11/01/18 14:04 - Home Medications Home Medications: Ambulatory Orders Aspirin [ASA -] 81 mg PO DAILY #0 tab.chew 03/15/16 Atorvastatin Ca [Lipitor] 80 mg PO HS 05/23/17 Insulin (LOG) Aspart [NovoLOG -] 0 unit SQ TID 05/23/17 Lisinopril 5 mg PO ASDIR 05/23/17 Insulin Glargine,Hum.rec.anlog [Lantus] 32 unit SQ AM 11/20/17 Metoprolol Succinate [Toprol Xl] 25 mg PO DAILY 11/20/17 Famotidine [Pepcid] 20 mg PO BID #10 tablet 11/01/18 Review of Systems - Review of Systems Constitutional: reports: Malaise HENT: reports: No Symptoms Neck: reports: No Symptoms Cardiovascular: reports: Chest Pain Respiratory: reports: SOB Gastrointestinal: reports: No Symptoms Genitourinary: reports: No Symptoms Breasts: reports: No Symptoms Reported Musculoskeletal: reports: No Symptoms Integumentary: reports: No Symptoms Neurological: reports: No Symptoms Endocrine: reports: No Symptoms Hematology/Lymphatic: reports: No Symptoms Psychiatric: reports: No Symptoms Physical Examination Vital Signs: Vital Signs Temperature 98.6 F 11/02/18 10:00 Pulse Rate 75 11/02/18 10:00 Respiratory Rate 20 11/02/18 10:00 Blood Pressure 134/81 11/02/18 10:00 O2 Sat by Pulse Oximetry (%) 100 11/02/18 09:00 Constitutional: Yes: Well Nourished, No Distress, Calm Cardiovascular: Yes: Regular Rate and Rhythm Respiratory: Yes: Regular Gastrointestinal: Yes: Normal Bowel Sounds, Soft Musculoskeletal: Yes: WNL Extremities: Yes: WNL Edema: No Peripheral Pulses WNL: Yes Neurological: Yes: Alert, Oriented Psychiatric: Yes: Alert, Oriented Labs: CBC, BMP 11/02/18 06:15 11/02/18 06:15 Imaging - Results Chest X-ray: Report Reviewed Problem List - Problems (1) Chest pain Assessment/Plan: -Seen by Dr Estrada in the past and outpatient for CAD/PCI -Cardiology consulted -Trops x 2 negative -No changes in EKG -Last echo here in 2014 -repeat if not done in past 1 year outpatient -Has hx of GERd, PPI given-pain improved Code(s): R07.9 - CHEST PAIN, UNSPECIFIED Qualifiers: Chest pain type: unspecified Qualified Code(s): R07.9 - Chest pain, unspecified (2) Hyperglycemia Assessment/Plan: -Type 1 diabetic -Non compliant -admitting blood glucose of 842 mg/dl -A1c at 30?, repeat to confirm -Endocrine consult -Insulin Levemir + Novolog -+ketones in urine -AG borderline-pt asymptomatic Code(s): R73.9 - HYPERGLYCEMIA, UNSPECIFIED (3) CAD (coronary artery disease) Assessment/Plan: -Cardiology consult -LDL not at goal -Continue high intensity statin, atorvaststain at 80 mg po daily -Add fenofibric acid 45 mcg -Also added cholestyramine 8 mg po bid -RD consult Code(s): I25.10 - ATHSCL HEART DISEASE OF [place] CORONARY ARTERY W/O ANG PCTRS (4) Type 1 diabetes mellitus, uncontrolled Assessment/Plan: -Type 1 diabetic -Non compliant -admitting blood glucose of 842 mg/dl -A1c at 30?, repeat to confirm -Endocrine consult -Insulin Levemir + Novolog Code(s): E10.65 - TYPE 1 DIABETES MELLITUS WITH HYPERGLYCEMIA (5) Anemia Assessment/Plan: -Check B12, folate, thyroid and iron profile -Also check stool OB-although suspicion for GI source is unlikely -Anemia of chronic disease-diagnosis of exclusion -monitor trend Code(s): D64.9 - ANEMIA, UNSPECIFIED (6) Hyperlipidemia Assessment/Plan: -Cardiology consult -LDL not at goal -Continue high intensity statin, atorvaststain at 80 mg po daily -Add fenofibric acid 45 mcg -Also added cholestyramine 8 mg po bid -RD consult Code(s): E78.5 - HYPERLIPIDEMIA, UNSPECIFIED Qualifiers: Hyperlipidemia type: unspecified Qualified Code(s): E78.5 - Hyperlipidemia , unspecified Assessment/Plan see problem list Extensively discussed dietary and lifestyle modification
[2018-11-02] MEDS ORDERED: INSULIN SLIDING SCALE (NOVOLOG) 1 VIAL SQ SCH ×2 (11:12→11:50)
--- NOTE | 2018-11-02 11:12 | EKG ---
Test Reason : Blood Pressure : / mmHG Vent. Rate : 064 BPM Atrial Rate : 064 BPM P-R Int : 140 ms QRS Dur : 092 ms QT Int : 432 ms P-R-T Axes : 042 050 046 degrees QTc Int : 445 ms NORMAL SINUS RHYTHM MARKED T WAVE ABNORMALITY, CONSIDER ANTERIOR ISCHEMIA Confirmed by JUAN ESPAÑA, CLINTON ([id number]) on 11/02/2018 11:12:42 AM Referred By: Nick DOWLING Confirmed By:CLINTON MARTINEZ MD
--- NOTE | 2018-11-02 11:17 | EKG ---
Test Reason : Blood Pressure : / mmHG Vent. Rate : 064 BPM Atrial Rate : 064 BPM P-R Int : 134 ms QRS Dur : 086 ms QT Int : 446 ms P-R-T Axes : 024 035 039 degrees QTc Int : 460 ms NORMAL SINUS RHYTHM T WAVE ABNORMALITY, CONSIDER ANTERIOR ISCHEMIA ABNORMAL ECG WHEN COMPARED WITH ECG OF 31-OCT-2018 23:16, SINUS RHYTHM HAS REPLACED ECTOPIC ATRIAL RHYTHM NONSPECIFIC T WAVE ABNORMALITY, IMPROVED IN INFERIOR LEADS Confirmed by JUAN ESPAÑA, CLINTON ([id number]) on 11/02/2018 11:16:55 AM Referred By: Confirmed By:CLINTON MARTINEZ MD
[2018-11-02] MEDS: ACETAMINOPHEN 325 MG TABLET (FP) PO PRN ×3 (11:42→21:07)
[2018-11-02] MEDS ORDERED: PT OWN MED DRAWER 7, Y5N ONE (12:37)
--- NOTE | 2018-11-02 12:43 | EKG ---
Test Reason : Blood Pressure : / mmHG Vent. Rate : 093 BPM Atrial Rate : 093 BPM P-R Int : 136 ms QRS Dur : 088 ms QT Int : 396 ms P-R-T Axes : 059 041 039 degrees QTc Int : 492 ms NORMAL SINUS RHYTHM POSSIBLE LEFT ATRIAL ENLARGEMENT PROLONGED QT ABNORMAL ECG WHEN COMPARED WITH ECG OF 31-OCT-2018 23:16, SINUS RHYTHM HAS REPLACED ECTOPIC ATRIAL RHYTHM NONSPECIFIC T WAVE ABNORMALITY NO LONGER EVIDENT IN INFERIOR LEADS NONSPECIFIC T WAVE ABNORMALITY NO LONGER EVIDENT IN LATERAL LEADS Confirmed by JUAN ESPAÑA, CLINTON ([id number]) on 11/02/2018 12:42:41 PM Referred By: Confirmed By:CLINTON MARTINEZ MD
[2018-11-02] MEDS: CHOLESTYRAMINE/SUCROSE 4 GM PACKET PO SCH ×2 (15:27→22:47)
[2018-11-02] MEDS: FENOFIBRIC ACID 45 MG CAP PO SCH (15:27)
--- NOTE | 2018-11-02 15:28 | ECHO ---
Name: GELY MOHAN Exam:Adult Echocardiogram Study Date: 11/02/2018 12:53 PM Age: 33 yrs Reason For Study: Arrhythmia Height: 66 in Weight: 165 lb BSA: 1.8 m2 MMode/2D Measurements & Calculations IVSd: 0.98 cm Ao root diam: 3.3 cm LVIDd: 4.9 cm LA dimension: 2.9 cm LVIDs: 3.0 cm ACS: 1.7 cm LVPWd: 0.88 cm IVSs: 1.4 cm LVPWs: 1.7 cm EDV(Teich): 110.5 ml ESV(Teich): 34.7 ml Doppler Measurements & Calculations MV E max malik: 69.1 cm/sec Ao V2 max: 119.4 cm/sec MV A max malik: 46.4 cm/sec Ao max P.7 mmHg MV E/A: 1.5 Ao V2 mean: 86.6 cm/sec Ao mean P.3 mmHg Ao V2 VTI: 25.9 cm TR max malik: 209.8 cm/sec PI end-d malik: 95.0 cm/sec TR max P.7 mmHg Med Peak E' Malik: 7.3 cm/sec Med E/e': 9.5 Lat Peak E' Malik: 10.6 cm/sec Lat E/e': 6.5 Procedure A two-dimensional transthoracic echocardiogram with color flow and Doppler was performed. Left Ventricle The left ventricular size, thickness and function are normal. The left ventricular ejection fraction is normal. Left Ventricular Filling pattern is normal for age. The left ventricular wall motion is [place] l. Right Ventricle The right ventricle is normal in size and function. Atria Normal left and right atrial size and function. The atrial septum is aneurysmal. Mitral Valve There is mild mitral valve thickening. Highly mobile mass consistent with a torn or redundant chordae seen. There is no mitral valve stenosis. There is mild mitral regurgitation. Tricuspid Valve There is mild tricuspid valve thickening. There is no tricuspid stenosis. There is mild tricuspid regurgitation. Right ventricular systolic pressure is normal. Aortic Valve The aortic valve is normal in structure and function. No hemodynamically significant valvular aortic stenosis. No aortic regurgitation is present. Pulmonic Valve The pulmonic valve is not well visualized. There is no pulmonic valvular stenosis. Mild pulmonic valv ular regurgitation. Great Vessels The aortic root is normal size. Pericardium/Pleura There is no pericardial effusion. Interpretation Summary The left ventricular size, thickness and function are normal The left ventricular ejection fraction is normal. Highly mobile mass consistent with a torn or redundant chordae seen. Mild pulmonic valvular regurgitation. The left ventricular wall motion is normal. Left Ventricular Filling pattern is normal for age. The right ventricle is normal in size and function. There is mild tricuspid regurgitation. Right ventricular systolic pressure is normal. The atrial septum is aneurysmal. There is mild mitral regurgitation. MD Kurtis Laughlin 11/02/2018 03:28 PM
--- NOTE | 2018-11-02 15:40 | CON.CARD ---
Cardiology Consult (text) - Consultation Consultation Note: cc: cp, sob hpi: 33 f hx med non compliance, smoking, dm, htn, hld, cad s/p pci with james to ostial lad 2010 with ISR and repeat stenting 2011 with recurrent ISR and eventual single vessel cabg [place] to lad, here with cp, sob. Past few days has noticed that after she drinks a beverage she has tightness in center of chest. Does not occur with food and does not occur at other times, only after drinking. Also some occasional mild [place] for weeks. No rest sob, palps, dizzy, loc, pnd orthopnea le edema. Sees outside unit support representative in [place]. pmh: per hpi psh: cabg, gastric sleeve social: +tob fam: nc ros: per hpi; no fever, vision changes, cough, nasal congestion, wt loss, rash, gib hematuria dysuria meds: Home Medications Medication Instructions Recorded Aspirin [ASA -] 81 mg PO DAILY #0 tab.chew 03/15/16 Atorvastatin Ca [Lipitor] 80 mg PO HS 05/23/17 Insulin (LOG) Aspart [NovoLOG -] 0 unit SQ TID 05/23/17 Lisinopril 5 mg PO ASDIR 05/23/17 Insulin Glargine,Hum.rec.anlog 32 unit SQ AM 11/20/17 [Lantus] Metoprolol Succinate [Toprol Xl] 25 mg PO DAILY 11/20/17 Famotidine [Pepcid] 20 mg PO BID #10 tablet 11/01/18 pe: Vital Signs Period Temp Pulse Resp BP Sys/Johnson Pulse Ox Last 24 Hr 98.1 F-98.6 F 66-78 20-20 124-153/73-83 100-100 nad, no jvd rrr s1s2 no mrg cta bl nl eff aaox3 no le e/c/c pos dp pt abd nt nd pos bs no jaundice diaphoresis Laboratory Last Values WBC 4.6 K/mm3 (4.0-10.0) 11/02/18 06:15 RBC 3.51 M/mm3 (3.60-5.2) L 11/02/18 06:15 Hgb 8.6 GM/dL (10.7-15.3) L 11/02/18 06:15 Hct 26.5 % (32.4-45.2) L 11/02/18 06:15 MCV 75.6 fl (80-96) L 11/02/18 06:15 MCH 24.6 pg (25.7-33.7) L 11/02/18 06:15 MCHC 32.5 g/dl (32.0-36.0) 11/02/18 06:15 RDW 14.2 % (11.6-15.6) 11/02/18 06:15 Plt Count 224 K/MM3 (134-434) 11/02/18 06:15 MPV 9.9 fl (7.5-11.1) 11/02/18 06:15 Absolute Neuts (auto) 2.3 K/mm3 (1.5-8.0) 11/02/18 06:15 Neutrophils % 49.1 % (42.8-82.8) D 11/02/18 06:15 Lymphocytes % 39.0 % (8-40) D 11/02/18 06:15 Monocytes % 9.8 % (3.8-10.2) 11/02/18 06:15 Eosinophils % 1.4 % (0-4.5) D 11/02/18 06:15 Basophils % 0.7 % (0-2.0) 11/02/18 06:15 Nucleated RBC % 0 % (0-0) 11/02/18 06:15 VBG pH 7.25 (7.32-7.42) L 11/01/18 15:00 POC VBG pCO2 39.8 mmHg (38-52) 11/01/18 15:00 POC VBG pO2 27.0 mmHg (28-48) L 11/01/18 15:00 Mixed VBG HCO3 16.9 meq/L (19-25) L 11/01/18 15:00 Sodium 136 mmol/L (136-145) 11/02/18 06:15 Potassium 4.3 mmol/L (3.5-5.1) 11/02/18 06:15 Chloride 108 mmol/L (98-107) H 11/02/18 06:15 Carbon Dioxide 23 mmol/L (21-32) 11/02/18 06:15 Anion Gap 5 MMOL/L (8-16) L 11/02/18 06:15 BUN 18 mg/dL (7-18) 11/02/18 06:15 Creatinine 0.9 mg/dL (0.55-1.3) 11/02/18 06:15 Creat Clearance w eGFR > 60 (>60) 11/02/18 06:15 POC Glucometer 236 UNITS (80-120) 11/02/18 11:02 Random Glucose 196 mg/dL (74-106) H 11/02/18 06:15 Hemoglobin A1c % > 30.0 % (4.2-6.3) H 11/01/18 15:55 Calcium 7.4 mg/dL (8.5-10.1) L 11/02/18 06:15 Ferritin 15.2 ng/ml (8-388) 11/02/18 12:45 Total Bilirubin 0.4 mg/dL (0.2-1) 11/02/18 06:15 AST 19 U/L (15-37) 11/02/18 06:15 ALT 17 U/L (13-61) 11/02/18 06:15 Alkaline Phosphatase 86 U/L (45-117) 11/02/18 06:15 Creatine Kinase 159 U/L (26-192) 11/02/18 06:15 Creatine Kinase Index 0.9 % (0.0-5.0) 11/02/18 06:15 CK-MB (CK-2) 1.5 ng/mL (0.5-3.6) 11/02/18 06:15 Troponin I 0.02 ng/ml (0.00-0.05) 11/02/18 06:15 B-Natriuretic Peptide 179.6 pg/ml (5-125) H 11/01/18 14:29 Total Protein 4.8 g/dl (6.4-8.2) L 11/02/18 06:15 Albumin 1.9 g/dl (3.4-5.0) L 11/02/18 06:15 Triglycerides 116 mg/dL (0-150) 11/02/18 06:15 Cholesterol 204 mg/dL (50-200) H 11/02/18 06:15 Total LDL Cholesterol 117 mg/dL (5-100) H 11/02/18 06:15 HDL Cholesterol 67 mg/dL (40-60) H 11/02/18 06:15 Vitamin B12 358 pg/ml (193-986) 11/02/18 12:45 Serum Folate 4 ng/mL (3.1-17.5) 11/02/18 06:15 Urine Color Colorless 11/01/18 16:30 Urine Appearance Clear 11/01/18 16:30 Urine pH 6.0 (5.0-8.0) 11/01/18 16:30 Ur Specific [place] 1.018 (1.010-1.035) 11/01/18 16:30 Urine Protein 1+ (NEGATIVE) H 11/01/18 16:30 Urine Glucose (UA) 3+ (NEGATIVE) H 11/01/18 16:30 Urine Ketones 1+ (NEGATIVE) H 11/01/18 16:30 Urine Blood 2+ (NEGATIVE) H 11/01/18 16:30 Urine Nitrite Negative (NEGATIVE) 11/01/18 16:30 Urine Bilirubin Negative (<2.0 mg/dL) 11/01/18 16:30 Urine Urobilinogen Negative mg/dL (0.2-1.0) 11/01/18 16:30 Ur Leukocyte Esterase Negative (NEGATIVE) 11/01/18 16:30 Urine WBC (Auto) <1 /hpf (3-5) 11/01/18 16:30 Urine RBC (Auto) 1 /hpf (0-3) 11/01/18 16:30 Ur Epithelial Cells Rare /HPF (FEW) 11/01/18 16:30 Urine HCG, Qual Negative 11/01/18 16:30 Acetone, Qual Positive large 3+ (NEGATIVE) H 11/01/18 15:00 echo 11/2012: nl lv/rv, no sig valve path echo 07/2015: nl lv/rv, mild tr, nl rvsp ecg: sr, nl intervals, no ischemic changes a/p: 33 f hx med non compliance, smoking, dm, htn, hld, cad s/p pci with james to ostial lad 2010 with ISR and repeat stenting 2011 with recurrent ISR and eventual single vessel cabg [place] to lad, here with cp, sob cp, cad s/p pci, cabg: -pt here with atypical cp that occurs only after drinking beverages. trops negx3, ecg unremarkable, no signs acs. CP seems more GI related. -she reports normal nuclear stress test 3 mos ago with her unit support representative -echo pending, if benign then no further cardiac testing at this time -cont bb, sheila, statin, asa sob: -no signs acs or chf -echo pending dm: -non compliant with meds and elevated glucose/a1c here -likely contributing to her sxs -tx per pmd/endocrine htn: -continue current meds hld: -cont statin
[2018-11-02 16:23] VITALS: BMI 26.6
[2018-11-02] MEDS: CYANOCOBALAMIN (VITAMIN B-12) 1000 MCG/1 ML VIAL IM SCH (17:15)
[2018-11-02] MEDS: FOLIC ACID 1 MG TABLET (FP) PO SCH (17:15)
[2018-11-02] MEDS: SODIUM CHLORIDE 1,000 ML IV SCH (21:06)
[2018-11-02] MEDS: ATORVASTATIN CA 80 MG TABLET (FP) PO SCH (21:07)
--- NOTE | 2018-11-02 23:20 | CONSULT ---
Consult Consult Specialty:: ENDOCRINE Referred by:: DR.IYAD DOLL Reason for Consultation:: DM TYPE 1 POORLY CONTROLLED - History of Present Illness Chief Complaint: VERY HIGH SUGARS History of Present Illness: 33 yo F, h/o poorly controlled TYPE 1 DM UNCONTROLLED (HA1c 12 11/2017) hba1c 15 now, DKA, HTN, HLD, CAD s/p stent x 1, CABG, gastric sleeve, smoker, occ marijuana use, here w/ CP. Pt reports CP x 5 days that pt notices mostly after drinking fluids. has had dyspnea on exertion. no cough, diaphoresis, n/v. Pt f/ she had a stress test in the past 3 months that was negative. pt seen for elevated blood sugar over 500mg/dl despite insulin doses has difficulty controlling glycemia and poor appetite. - Past Medical History Cardio/Vascular: Yes: CAD, HTN, Hyperlipdemia. No: AFIB, Aneurysm, Aortic Insufficiency, Aortic Stenosis, CHF, Deep Vein Thrombosis, [place], Mitral Insufficiency, Mitral Stenosis, Murmur, Pulmonary Hypertension, Other ...LMP: 11/17/17 ...: No Endocrine: Yes: Diabetes Mellitus - Past Surgical History Past Surgical History: Yes: Bariatric Surgery (gastric sleeve), CABG - Alcohol/Substance Use Hx Alcohol Use: No History of Substance Use: reports: None - Smoking History Smoking history: Current every day smoker Have you smoked in the past 12 months: Yes Aproximately how many cigarettes per day: 5 If you are a former smoker, when did you quit?: 2 WKS - Social History ADL: Independent History of Recent Travel: No Home Medications - Allergies Allergies/Adverse Reactions: Allergies Allergy/AdvReac Type Severity Reaction Status Date / Time No Known Allergies Allergy Verified 11/01/18 14:04 - Home Medications Home Medications: Ambulatory Orders Aspirin [ASA -] 81 mg PO DAILY #0 tab.chew 03/15/16 Atorvastatin Ca [Lipitor] 80 mg PO HS 05/23/17 Insulin (LOG) Aspart [NovoLOG -] 0 unit SQ TID 05/23/17 Lisinopril 5 mg PO ASDIR 05/23/17 Insulin Glargine,Hum.rec.anlog [Lantus] 32 unit SQ AM 11/20/17 Metoprolol Succinate [Toprol Xl] 25 mg PO DAILY 11/20/17 Famotidine [Pepcid] 20 mg PO BID #10 tablet 11/01/18 Review of Systems - Review of Systems Constitutional: reports: Lethargy, Weakness Eyes: reports: Blurred Vision HENT: reports: No Symptoms Neck: reports: No Symptoms Cardiovascular: reports: Shortness of Breath Respiratory: reports: Exercise Intolerance, SOB on Exertion Gastrointestinal: reports: Bloating, Nausea Genitourinary: reports: No Symptoms Musculoskeletal: reports: No Symptoms Neurological: reports: Numbness, Weakness Physical Exam Vital Signs: Vital Signs Temperature 98.5 F 11/02/18 17:55 Pulse Rate 63 11/02/18 17:55 Respiratory Rate 20 11/02/18 17:55 Blood Pressure 125/66 11/02/18 17:55 O2 Sat by Pulse Oximetry (%) 100 11/02/18 09:00 Constitutional: Yes: Anxious Eyes: Yes: EOM Intact HENT: Yes: Normocephalic Neck: Yes: Trachea Midline Cardiovascular: Yes: Regular Rate and Rhythm Respiratory: Yes: CTA Bilaterally Gastrointestinal: Yes: Normal Bowel Sounds ...Rectal Exam: Yes: Deferred Renal/: Yes: WNL Musculoskeletal: Yes: WNL Extremities: Yes: WNL Edema: No Integumentary: Yes: WNL Neurological: Yes: Alert, Oriented Labs: CBC, BMP 11/02/18 06:15 11/02/18 06:15 Problem List - Problems (1) TESS (acute kidney injury) Code(s): N17.9 - ACUTE KIDNEY FAILURE, UNSPECIFIED (2) Anemia Code(s): D64.9 - ANEMIA, UNSPECIFIED (3) Hyperglycemia Code(s): R73.9 - HYPERGLYCEMIA, UNSPECIFIED (4) Abdominal pain affecting Code(s): O26.899 - OTH RELATED CONDITIONS, UNSPECIFIED TRIMESTER; R10.9 - UNSPECIFIED ABDOMINAL PAIN (5) Abdominal pain during Code(s): O26.899 - OTH RELATED CONDITIONS, UNSPECIFIED TRIMESTER; R10.9 - UNSPECIFIED ABDOMINAL PAIN (6) Abdominal wall abscess Code(s): L02.211 - CUTANEOUS ABSCESS OF ABDOMINAL WALL Assessment/Plan Current Active Problems TESS (acute kidney injury) (Acute) Anemia (Acute) Chest pain (Acute) Hyperglycemia (Acute) dm type 1 uncontrolled,diabetic neuropathy hld Abnormal Lab Results 11/02/18 11/02/1811/02/19 06:15 06:15 12:45 RBC 3.51 L Hgb 8.6 L Hct 26.5 L MCV 75.6 L MCH 24.6 L Chloride 108 H Anion Gap 5 L Random Glucose 196 H Hemoglobin A1c % 15.9 H Calcium 7.4 L Total Protein 4.8 L Albumin 1.9 L Cholesterol 204 H Total LDL Cholesterol 117 H HDL Cholesterol 67 H Laboratory Results - last 24 hr 11/02/18 11/02/18 11/02/18 00:13 05:50 06:15 WBC 4.6 RBC 3.51 L Hgb 8.6 L Hct 26.5 L MCV 75.6 L MCH 24.6 L MCHC 32.5 RDW 14.2 Plt Count 224 MPV 9.9 Absolute Neuts (auto) 2.3 Neutrophils % 49.1 D Lymphocytes % 39.0 D Monocytes % 9.8 Eosinophils % 1.4 D Basophils % 0.7 Nucleated RBC % 0 Sodium Potassium Chloride Carbon Dioxide Anion Gap BUN Creatinine Creat Clearance w eGFR POC Glucometer 273 153 Random Glucose Hemoglobin A1c % Calcium Ferritin Total Bilirubin AST ALT Alkaline Phosphatase Creatine Kinase Creatine Kinase Index CK-MB (CK-2) Troponin I Total Protein Albumin Triglycerides Cholesterol Total LDL Cholesterol HDL Cholesterol Vitamin B12 Serum Folate 11/02/18 11/02/18 11/02/18 06:15 11:02 12:45 WBC RBC Hgb Hct MCV MCH MCHC RDW Plt Count MPV Absolute Neuts (auto) Neutrophils % Lymphocytes % Monocytes % Eosinophils % Basophils % Nucleated RBC % Sodium 136 Potassium 4.3 Chloride 108 H Carbon Dioxide 23 Anion Gap 5 L BUN 18 Creatinine 0.9 Creat Clearance w eGFR > 60 POC Glucometer 236 Random Glucose 196 H Hemoglobin A1c % 15.9 H Calcium 7.4 L Ferritin Total Bilirubin 0.4 AST 19 ALT 17 Alkaline Phosphatase 86 Creatine Kinase 159 Creatine Kinase Index 0.9 CK-MB (CK-2) 1.5 Troponin I 0.02 Total Protein 4.8 L Albumin 1.9 L Triglycerides 116 Cholesterol 204 H Total LDL Cholesterol 117 H HDL Cholesterol 67 H Vitamin B12 Serum Folate 4 11/02/18 11/02/18 11/02/18 12:45 16:47 21:13 WBC RBC Hgb Hct MCV MCH MCHC RDW Plt Count MPV Absolute Neuts (auto) Neutrophils % Lymphocytes % Monocytes % Eosinophils % Basophils % Nucleated RBC % Sodium Potassium Chloride Carbon Dioxide Anion Gap BUN Creatinine Creat Clearance w eGFR POC Glucometer 213 253 Random Glucose Hemoglobin A1c % Calcium Ferritin 15.2 Total Bilirubin AST ALT Alkaline Phosphatase Creatine Kinase Creatine Kinase Index CK-MB (CK-2) Troponin I Total Protein Albumin Triglycerides Cholesterol Total LDL Cholesterol HDL Cholesterol Vitamin B12 358 Serum Folate plan: bgm achs novolog insulin doses levemir bid doses diet nutrition consult close op follow up
[2018-11-03 06:11] VITALS: TEMP 97.9
[2018-11-03] MEDS: ACETAMINOPHEN 325 MG TABLET (FP) PO PRN ×2 (06:26→11:23)
[2018-11-03] MEDS: INSULIN SLIDING SCALE (NOVOLOG) 1 VIAL SQ SCH ×2 (06:26→11:19)
[2018-11-03] MEDS ORDERED: INSULIN (LEVEMIR) 100 UNITS/ML UNITS SQ SCH ×2 (07:00→22:00)
[2018-11-03 07:14] LABS: BASO % 0.5 % (0-2.0); EOS % 1.3 % (0-4.5); HEMATOCRIT 26.3 % (32.4-45.2); HEMOGLOBIN 8.5 GM/dL (10.7-15.3); LYMPH % 44.8 % (8-40); MCH 24.7 pg (25.7-33.7); MCHC 32.4 g/dl (32.0-36.0); MEAN CELL VOLUME 76.2 fl (80-96); MEAN PLT VOLUME 9.9 fl (7.5-11.1); MONO % 7.1 % (3.8-10.2); NEUT % 46.3 % (42.8-82.8); PLATELET COUNT 228 K/MM3 (134-434); RBC 3.45 M/mm3 (3.60-5.2); RDW 14.7 % (11.6-15.6); WHITE BLOOD COUNT 4.6 K/mm3 (4.0-10.0)
[2018-11-03 07:40] LABS: ALBUMIN 1.8 g/dl (3.4-5.0); ALK PHOS 84 U/L (45-117); ANION GAP 6 MMOL/L (8-16); BILIRUBIN,TOTAL 0.2 mg/dL (0.2-1); BLOOD UREA NITROGEN 18 mg/dL (7-18); CALCIUM 7.2 mg/dL (8.5-10.1); CHLORIDE 109 mmol/L (98-107); CO2 24 mmol/L (21-32); CREATININE 0.8 mg/dL (0.55-1.3); GLUCOSE,RANDOM 180 mg/dL (74-106); POTASSIUM 4.4 mmol/L (3.5-5.1); SGOT/AST 22 U/L (15-37); SGPT/ALT 13 U/L (13-61); SODIUM 138 mmol/L (136-145); TOT PROT 4.9 g/dl (6.4-8.2)
[2018-11-03 08:06] VITALS: BP 155/85; PULSE 68
[2018-11-03 08:07] LABS: SERUM IRON SATURATION 6 % (15-55); TOTAL IRON BINDING CAPACITY 267 ug/dL (250-450); UIBC 250 ug/dL (131-425)
[2018-11-03] MEDS: SODIUM CHLORIDE 1,000 ML IV SCH (09:29)
[2018-11-03] MEDS: FOLIC ACID 1 MG TABLET (FP) PO SCH (09:30)
[2018-11-03] MEDS: ASPIRIN 81 MG CHEWABLE TABLETS PO SCH (09:31)
[2018-11-03] MEDS: LISINOPRIL 5 MG TABLET (FP) PO SCH (09:31)
[2018-11-03] MEDS: CHOLESTYRAMINE/SUCROSE 4 GM PACKET PO SCH ×2 (09:31→09:39)
[2018-11-03] MEDS: HEPARIN NA (PORCINE) 5,000 UNITS/ML 1ML VIAL SQ SCH (09:31)
[2018-11-03] MEDS: metoPROLOL SUCCINATE 25 MG TAB.SR.24H (FP) PO SCH (09:31)
[2018-11-03] MEDS: FENOFIBRIC ACID 45 MG CAP PO SCH (09:37)
[2018-11-03] MEDS: CYANOCOBALAMIN (VITAMIN B-12) 1000 MCG/1 ML VIAL IM SCH (09:40)
--- NOTE | 2018-11-03 11:14 | DS ---
Physical Examination Vital Signs: Vital Signs Temperature 97.9 F 11/03/18 08:05 Pulse Rate 68 11/03/18 08:05 Respiratory Rate 18 11/03/18 08:05 Blood Pressure 155/85 11/03/18 08:05 O2 Sat by Pulse Oximetry (%) 100 11/02/18 21:00 Findings/Remarks: Patient is a 33 y/o female with past medical history of poorly controlled IDDM ( most recent HgA1c 15.9%), HLD, DKA, HTN, CAD x 1 stent placement, CABG, gastric sleeve. Patient presented to ER with complaints of chest pain x 5 days after drinking fluids. In ER patient BS noted to be >500mg/dL. Cardiac workup shows trop neg x 3, EKG show NSR. 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 Patient evaluated by manager practice as in patient. BS have improved with noted being <275mg/dL. Current AG 6. Constitutional: Yes: Well Nourished, No Distress, Calm Eyes: Yes: Conjunctiva Clear HENT: Yes: Atraumatic Cardiovascular: Yes: Regular Rate and Rhythm Respiratory: Yes: Regular, CTA Bilaterally Gastrointestinal: Yes: Normal Bowel Sounds, Soft, Other (non tender) Musculoskeletal: Yes: WNL Extremities: Yes: WNL Edema: No Neurological: Yes: Alert, Oriented Psychiatric: Yes: Alert, Oriented Labs: CBC, BMP 11/03/18 06:15 11/03/18 06:15 Discharge Summary Reason For Visit: HYPERGLYCEMIA/CHEST PAIN Current Active Problems TESS (acute kidney injury) (Acute) Anemia (Acute) Chest pain (Acute) Hyperglycemia (Acute) Procedures: Principal: EKG Hospital Course: see progress notes Troponin, BNP 11/02/18 06:15 Troponin I 0.02 Laboratory Results - last 24 hr 11/02/18 11/02/18 11/02/18 06:15 12:45 12:45 WBC RBC Hgb Hct MCV MCH MCHC RDW Plt Count MPV Absolute Neuts (auto) Neutrophils % Lymphocytes % Monocytes % Eosinophils % Basophils % Nucleated RBC % Sodium 136 Potassium 4.3 Chloride 108 H Carbon Dioxide 23 Anion Gap 5 L BUN 18 Creatinine 0.9 Creat Clearance w eGFR > 60 POC Glucometer Random Glucose 196 H Hemoglobin A1c % 15.9 H Calcium 7.4 L Iron 17 L TIBC 267 Iron Saturation 6 L Ferritin Total Bilirubin 0.4 AST 19 ALT 17 Alkaline Phosphatase 86 Creatine Kinase 159 Creatine Kinase Index 0.9 CK-MB (CK-2) 1.5 Troponin I 0.02 Total Protein 4.8 L Albumin 1.9 L Triglycerides 116 Cholesterol 204 H Total LDL Cholesterol 117 H HDL Cholesterol 67 H Vitamin B12 Serum Folate 4 TSH Free T4 11/02/18 11/02/18 11/02/18 12:45 16:47 21:13 WBC RBC Hgb Hct MCV MCH MCHC RDW Plt Count MPV Absolute Neuts (auto) Neutrophils % Lymphocytes % Monocytes % Eosinophils % Basophils % Nucleated RBC % Sodium Potassium Chloride Carbon Dioxide Anion Gap BUN Creatinine Creat Clearance w eGFR POC Glucometer 213 253 Random Glucose Hemoglobin A1c % Calcium Iron TIBC Iron Saturation Ferritin 15.2 Total Bilirubin AST ALT Alkaline Phosphatase Creatine Kinase Creatine Kinase Index CK-MB (CK-2) Troponin I Total Protein Albumin Triglycerides Cholesterol Total LDL Cholesterol HDL Cholesterol Vitamin B12 358 Serum Folate TSH Free T4 11/03/18 11/03/18 11/03/18 06:15 06:15 06:24 WBC 4.6 RBC 3.45 L Hgb 8.5 L Hct 26.3 L MCV 76.2 L MCH 24.7 L MCHC 32.4 RDW 14.7 Plt Count 228 MPV 9.9 Absolute Neuts (auto) 2.1 Neutrophils % 46.3 Lymphocytes % 44.8 H Monocytes % 7.1 Eosinophils % 1.3 Basophils % 0.5 Nucleated RBC % 0 Sodium 138 Potassium 4.4 Chloride 109 H Carbon Dioxide 24 Anion Gap 6 L BUN 18 Creatinine 0.8 Creat Clearance w eGFR > 60 POC Glucometer 183 Random Glucose 180 H Hemoglobin A1c % Calcium 7.2 L Iron TIBC Iron Saturation Ferritin Total Bilirubin 0.2 AST 22 ALT 13 Alkaline Phosphatase 84 Creatine Kinase Creatine Kinase Index CK-MB (CK-2) Troponin I Total Protein 4.9 L Albumin 1.8 L Triglycerides Cholesterol Total LDL Cholesterol HDL Cholesterol Vitamin B12 Serum Folate TSH 1.20 Free T4 0.84 Active Medications Generic Name Dose Route Start Last Admin Trade Name Freq PRN Reason Stop Dose Admin Acetaminophen 650 mg 11/02/18 10:59 11/03/18 06:26 Tylenol - PO 650 mg Q4H PRN Administration PAIN OR FEVER Aspirin 81 mg 11/02/18 10:00 03/07/19 09:31 Asa - PO 81 mg DAILY [facility] Administration Atorvastatin Calcium 80 mg 11/01/18 22:00 11/02/18 21:07 Lipitor - PO 80 mg HS [facility] Administration Cholestyramine Resin 8 gm 11/02/18 11:30 11/03/18 09:39 Questran Packet - PO 8 gm BID KIRAN Administration Cyanocobalamin 1,000 mcg 11/02/18 17:15 11/03/18 09:40 Vitamin B12 Injection - IM 1,000 mcg DAILY [facility] Administration Ergocalciferol 50,000 unit 11/09/18 10:00 Drisdol - PO We@1000 [facility] Fenofibric Acid 45 mg 11/02/18 11:15 11/03/18 09:37 Trilipix - PO 45 mg DAILY KIRAN Administration Folic Acid 1 mg 11/02/18 17:15 11/03/18 09:30 Folic Acid - PO 1 mg DAILY KIRAN Administration Heparin Sodium (Porcine) 5,000 unit 11/01/18 22:00 11/03/18 09:31 Heparin - SQ 5,000 unit BID [facility] Administration Sodium Chloride 1,000 mls @ 125 mls/hr 11/01/18 19:30 11/03/18 09:29 Normal Saline - IV 125 mls/hr ASDIR [facility] Administration Insulin Aspart 1 vial 11/02/18 23:25 11/03/18 06:26 Novolog Vial Sliding Scale - SQ Not Given [facility] Protocol Insulin Detemir 38 units 11/03/18 07:00 11/03/18 06:59 Levemir Vial SQ 38 units DAILY@0700 [facility] Administration Insulin Detemir 15 units 11/03/18 22:00 Levemir Vial SQ HS [facility] Lisinopril 5 mg 11/02/18 10:00 11/03/18 09:31 Prinivil PO 5 mg DAILY [facility] Administration Metoprolol Succinate 25 mg 11/02/18 10:00 11/03/18 09:31 Toprol Xl - PO 25 mg DAILY [facility] Administration Condition: Stable - Instructions Diet, Activity, Other Instructions: Follow up with PMD in 1 week Follow up with Senior Technical Specialist in 1 week Instructed on close follow up with outpatient manager practice VNS services offered for help with diabetes management continue with medication regimen as prescribed if develop dizziness, chest pain, SOB, or BS >500mg/dL return to ER Referrals: Lyo,Sukhjinder MD, MD [Primary Care Provider] - Disposition: VNS/HOME HEALTH CARE - Home Medications Comprehensive Discharge Medication List: Ambulatory Orders Aspirin [ASA -] 81 mg PO DAILY #0 tab.chew 03/15/16 Atorvastatin Ca [Lipitor] 80 mg PO HS 05/23/17 Insulin (LOG) Aspart [NovoLOG -] 0 unit SQ TID 05/23/17 Lisinopril 5 mg PO ASDIR 05/23/17 Insulin Glargine,Hum.rec.anlog [Lantus] 32 unit SQ AM 11/20/17 Metoprolol Succinate [Toprol Xl] 25 mg PO DAILY 11/20/17 Famotidine [Pepcid] 20 mg PO BID #10 tablet 11/01/18
--- NOTE | 2018-11-03 11:52 | PN ---
Progress Note (short form) - Note Progress Note: s: no cp sob palps dizzy, feels better o: Vital Signs Period Temp Pulse Resp BP Sys/Johnson Pulse Ox Last 24 Hr 97.9 F-98.6 F 54-77 18-20 125-155/66-85 100-100 nad, no jvd rrr s1s2 no mrg cta bl nl eff aaox3 no le e/c/c abd nt nd pos bs no jaundice diaphoresis Current Medications Generic Name Dose Route Start Last Admin Trade Name Freq PRN Reason Stop Dose Admin Acetaminophen 650 mg 11/02/18 10:59 11/03/18 11:23 Tylenol - PO 650 mg Q4H PRN Administration PAIN OR FEVER Aspirin 81 mg 11/02/18 10:00 11/03/18 09:31 Asa - PO 81 mg DAILY KIRAN Administration Atorvastatin Calcium 80 mg 11/01/18 22:00 11/02/18 21:07 Lipitor - PO 80 mg HS KIRAN Administration Cholestyramine Resin 8 gm 11/02/18 11:30 11/03/18 09:39 Questran Packet - PO 8 gm BID KIRAN Administration Cyanocobalamin 1,000 mcg 11/02/18 17:15 11/03/18 09:40 Vitamin B12 Injection - IM 1,000 mcg DAILY KIRAN Administration Ergocalciferol 50,000 unit 11/09/18 10:00 Drisdol - PO We@1000 KIRAN Fenofibric Acid 45 mg 11/02/18 11:15 11/03/18 09:37 Trilipix - PO 45 mg DAILY KIRAN Administration Folic Acid 1 mg 11/02/18 17:15 11/03/18 09:30 Folic Acid - PO 1 mg DAILY KIRAN Administration Heparin Sodium (Porcine) 5,000 unit 11/01/18 22:00 11/03/18 09:31 Heparin - SQ 5,000 unit BID KIRAN Administration Sodium Chloride 1,000 mls @ 125 mls/hr 11/01/18 19:30 11/03/18 09:29 Normal Saline - IV 125 mls/hr ASDIR KIRAN Administration Insulin Aspart 1 vial 11/02/18 23:25 11/03/18 11:19 Novolog Vial Sliding Scale - SQ 5 units ACHS KIRAN Administration Protocol Insulin Detemir 38 units 11/03/18 07:00 11/03/18 06:59 Levemir Vial SQ 38 units DAILY@0700 KIRNA Administration Insulin Detemir 15 units 11/03/18 22:00 Levemir Vial SQ HS KIRAN Lisinopril 5 mg 11/02/18 10:00 11/03/18 09:31 Prinivil PO 5 mg DAILY KIRAN Administration Metoprolol Succinate 25 mg 11/02/18 10:00 11/03/18 09:31 Toprol Xl - PO 25 mg DAILY KIRAN Administration CBC, BMP 11/03/18 06:15 11/03/18 06:15 echo 11/2012: nl lv/rv, no sig valve path echo 07/2015: nl lv/rv, mild tr, nl rvsp echo 10/2018: nl lv/rv, iasa, mild mr with ?redundant chordae, mild tr, mild pr , nl rvsp ecg: sr, nl intervals, no ischemic changes a/p: 33 f hx med non compliance, smoking, dm, htn, hld, cad s/p pci with james to ostial lad 2010 with ISR and repeat stenting 2011 with recurrent ISR and eventual single vessel cabg [place] to lad, here with cp, sob cp, cad s/p pci, cabg: -pt here with atypical cp that occurs only after drinking beverages. trops negx3, ecg unremarkable, no signs acs. Symptom now resolved, CP seems more GI related. -she reports normal nuclear stress test 3 mos ago with her manufacturer representative -echo benign here -cont bb, sheila, statin, asa sob: -no signs acs or chf -echo benign -sxs resolved dm: -non compliant with meds and elevated glucose/a1c here -likely contributing to her sxs -tx per pmd/endocrine htn: -continue current meds hld: -cont statin cardiac quinteros stable for dc
--- NOTE | 2018-11-03 20:41 | PN ---
Progress Note (short form) - Note Progress Note: Notified that patient insurance does not cover Levemir or Novolog prescription but does cover Basaglar and Admelog. Spoke with Pharmacist Chanel at [facility] for dose conversion of medication and it is Basaglar 1 unit=Levemir 1 unit equivalent. Patient will be prescribed Basaglar 38 units SQ QAM and Basaglar 15 units SQ QHS and Admelog sliding scale. New prescriptions called into patient pharmacy of choice.
[2018-11-09] MEDS ORDERED: ERGOCALCIFEROL (VIT D2) 50,000 UNIT (1.25 MG) CAPSULE PO SCH (10:00)
== END 2018-11-03 14:42 | disposition home or self-care (01) | DRG 469 ==
LOC: JER 13:50 → JERBED 16:10 → J7W 23:26
PROVIDERS: ADMIT Family Medicine; ATTEND Family Medicine
DX: N17.9 Acute kidney failure, unspecified (principal); R07.89 Other chest pain; E10.65 Type 1 diabetes mellitus with hyperglycemia; E10.40 Type 1 diabetes mellitus with diabetic neuropathy, unspecified; Z79.4 Long term (current) use of insulin; I25.810 Atherosclerosis of coronary artery bypass graft(s) without angina pectoris; I10 Essential (primary) hypertension; E78.5 Hyperlipidemia, unspecified; Z95.1 Presence of aortocoronary bypass graft; D64.9 Anemia, unspecified; K21.9 Gastro-esophageal reflux disease without esophagitis; Z95.5 Presence of coronary angioplasty implant and graft; Z91.14 Patient's other noncompliance with medication regimen
CPT/HCPCS: 36415; 71045-TC-FY; 80053; 80061; 81003; 81015; 82009; 82550; 82553; 82607; 82728; 82746; 82803; 82962; 83036; 83540; 83550; 83721; 83735; 83880; 84100; 84439; 84443; 84484; 84703; 85025; 85610; 85730; 87081; 93005; 93010; 93306-TC; 96361; 96365; 99284-25; 99285-25; J1644; J7030

== ENCOUNTER 2019-04-10 17:42 | Emergency (ER) | payer OTHER ==
--- NOTE | 2019-04-10 17:53 | PDOC ---
Rapid Medical Evaluation Time Seen by Provider: 04/10/19 17:51 Medical Evaluation: Allergies Allergy/AdvReac Type Severity Reaction Status Date / Time No Known Allergies Allergy Verified 11/01/18 14:04 04/10/19 17:51 HPI:Syncopized and hit head 1:30 Wednesday am PE:No gross deficits ORDERS: EKG, Labs U preg Discharge Disposition - Diagnosis Syncope - Referrals - Patient Instructions - Post Discharge Activity
[2019-04-10 17:57] VITALS: BMI 26.6
[2019-04-10 19:22] LABS: BASO % 0.5 % (0-2.0); EOS % 1.1 % (0-4.5); HEMATOCRIT 31.2 % (32.4-45.2); HEMOGLOBIN 9.9 GM/dL (10.7-15.3); LYMPH % 41.4 % (8-40); MCH 23.1 pg (25.7-33.7); MCHC 31.7 g/dl (32.0-36.0); MEAN CELL VOLUME 73.1 fl (80-96); MEAN PLT VOLUME 9.6 fl (7.5-11.1); MONO % 6.8 % (3.8-10.2); NEUT % 50.2 % (42.8-82.8); PLATELET COUNT 328 K/MM3 (134-434); RBC 4.27 M/mm3 (3.60-5.2); RDW 14.8 % (11.6-15.6); WHITE BLOOD COUNT 5.7 K/mm3 (4.0-10.0)
--- NOTE | 2019-04-10 19:22 | PDOC ---
*Physical Exam - Vital Signs Last Vital Signs Temp Pulse Resp BP Pulse Ox 98.1 F 114 H 18 133/81 99 04/10/19 17:56 04/10/19 17:56 04/10/19 17:56 04/10/19 17:56 04/10/19 17:56 - Physical Exam Comments: 04/10/19 19:19 Received sign out from resident Dr. Jimenez. In short, pt is a 33 y/o female presenting with sluggishness/tiredness after a syncopal episode on Wednesday night while drinking. PMH significant for T1DM, CAD, s/p CABG. F/u pending labs as well as CT Head and Neck. CBC revealed mild anemia, which is suspected to be chronic according to [facility] records. CMP unremarkable for significant electrolyte derangement. Troponin not elevated. CK elevated but CK Index normal so low suspicion for cardiac source. UA revealed 3+ glucose. Given very mildly elevated serum glucose , suspect pt is not strictly adhering to insulin sliding scale. Pt found sleeping comfortable. Easily arousable to voice. Discussed imaging and laboratory results with pt. Answered all questions. Provided return precautions. Pt expressed verbal understanding and agreement with plan to discharge home with close outpatient follow up with PCP and scientist. Provided copies of todays results. Encouraged pt to f/u on hypertensive measurement at discharge. Suspect secondary to timing of home BP medication. Chao David M.D., PGY2 Emergency Medicine Resident Vital Signs - Vital Signs #1 Blood Pressure: 154/83 (@22:56) MAP: 106 BP Location: Left Arm Blood Pressure Position: Sitting Pulse Rate: 72 Respiratory Rate: 16 Temperature: 98.0 F Temperature Source: Oral O2 Sat by Pulse Oximetry (%): 100 Oxygen Delivery Method: Room Air ED Treatment Course - LABORATORY CBC & Chemistry Diagram: 04/10/19 18:45 04/10/19 18:45 *DC/Admit/Observation/Transfer Diagnosis at time of Disposition: Weakness Syncope Qualifiers: Syncope type: unspecified Qualified Code(s): R55 - Syncope and collapse - Discharge Dispostion Disposition: HOME Condition at time of disposition: Improved Decision to Admit order: No - Referrals Referrals: Sukhjinder Hendrix MD, [Primary Care Provider] - - Patient Instructions Printed Discharge Instructions: DI for Syncope in Adults (Fainting) Additional Instructions: You were seen today after passing out on Wednesday and feeling week today at work. Your blood and urine tests were normal aside from an elevated glucose level in your urine. Your CT scans were normal. You likely do not feel well from large variations in your blood sugar. Your blood pressure was also elevated at the time of discharge. This may be because of the time you take your blood pressure medications. It is not likely to be the cause of your symptoms, but you should discuss this with your primary care doctor. Make sure to stay hydrated and follow your insulin sliding scale closely over the next several days. Follow up with your primary care doctor and your scientist within the next 2- 3 days. You will need to call to make the appointments. A copy of todays results are attached to this packet. Take it to the appointment so your doctors can review them. Go to the nearest emergency department if your condition worsens or you feel like you need additional emergency evaluation. Print Language: SLOVENIAN - Post Discharge Activity Forms/Work/School Notes: Back to Work
[2019-04-10 19:25] LABS: EPI CELLS 8.2 /HPF (0-5/HPF); HYALINE CASTS 16 /lpf (0-8); URINE APPEARANCE CLOUDY; URINE BILIRUBIN NEGATIVE (NEGATIVE); URINE COLOR YELLOW; URINE GLUCOSE (UA) 3+ (NEGATIVE); URINE KETONE NEGATIVE (NEGATIVE); URINE LEUK ESTERASE NEGATIVE (NEGATIVE); URINE NITRITE NEGATIVE (NEGATIVE); URINE PROTEIN 4+ (NEGATIVE); URINE RBC 1 /hpf (0-4); URINE UROBILINOGEN 0.2 mg/dL (0.2-1.0); URINE WBC 5 /hpf (0-5)
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
[2019-04-10 19:55] LABS: ALBUMIN 2.4 g/dl (3.4-5.0); ALK PHOS 90 U/L (45-117); ANION GAP 6 MMOL/L (8-16); BILIRUBIN,TOTAL 0.2 mg/dL (0.2-1); BLOOD UREA NITROGEN 21.3 mg/dL (7-18); CALCIUM 8.9 mg/dL (8.5-10.1); CHLORIDE 102 mmol/L (98-107); CO2 31 mmol/L (21-32); CREATININE 1.3 mg/dL (0.55-1.3); GLUCOSE,RANDOM 132 mg/dL (74-106); POTASSIUM 4.5 mmol/L (3.5-5.1); SGOT/AST 25 U/L (15-37); SGPT/ALT 19 U/L (13-61); SODIUM 139 mmol/L (136-145); TOT PROT 6.4 g/dl (6.4-8.2)
[2019-04-10] MEDS ORDERED: SODIUM CHLORIDE 1,000 ML IV STA (20:31)
--- NOTE | 2019-04-10 21:04 | PDOC ---
Documentation entered by Orin Diego SCRIBE, acting as scribe for Camilo Jacobsen MD. Camilo Jacobsen MD: This documentation has been prepared by the lesleeibe, Orin Diego SCRIBE, under my direction and personally reviewed by me in its entirety. I confirm that the documentation accurately reflects all work, treatment, procedures, and medical decision making performed by me. Attending Attestation - Resident Resident Name: Aung Jimenez - ED Attending Attestation I have performed the following: I have examined & evaluated the patient, The case was reviewed & discussed with the resident, I agree w/resident's findings & plan, Exceptions are as noted - HPI HPI: 04/10/19 19:33 The patient is a 33-year-old female, with a past medical history of IDDM, DKA, HTN, HLD, CAD s/p stent x 1, CABG, gastric sleeve, smoker, occ marijuana use, who presents to the ED with increased fatigue after syncopal episode on Wednesday night 04/08. Patient reports that she was out at a club when she began to feel palpitations. She then felt very flushed and lost consciousness. Pt states her friends told her she was out for a few minutes before waking up. Pt admits to drinking that night but denies any other drug use. After the syncopal episode, pt has had mild headache. Denies any N/V. Denies any recurrence of palpitations. Denies CP/SOB. Today, pt began to feel SOB, prompting her to come to the ER. The patient denies fevers, chills, nausea, vomiting, diarrhea, or abdominal pain. Denies any dizziness, lightheadedness, or changes sensation. - Physicial Exam PE: 04/10/19 19:34 GENERAL: Awake, alert, and fully oriented, in no acute distress. HEAD: No signs of trauma EYES: PERRLA, EOMI, sclera anicteric, conjunctiva clear ENT: Auricles normal inspection, hearing grossly normal, nares patent, oropharynx clear without exudates. Moist mucosa NECK: Nontender, no stepoffs, Normal ROM, supple, no lymphadenopathy, JVD, or masses LUNGS: Breath sounds equal, clear to auscultation bilaterally. No wheezes, and no crackles HEART: Regular rate and rhythm, normal S1 and S2, no murmurs, rubs or gallops ABDOMEN: Soft, nontender, normoactive bowel sounds. No guarding, no rebound. No masses EXTREMITIES: Normal range of motion, no edema. No clubbing or cyanosis. No cords, erythema, or tenderness NEUROLOGICAL: Cranial nerves II through XII intact. 5/5 strength and sensation in all extremities, Normal speech, normal gait, normal cerebellar function SKIN: Warm, Dry, normal turgor, no rashes or lesions noted. - Medical Decision Making 04/10/19 21:07 33 F with syncopal episode 2 nights ago, now with headache and SOB. Pt tachycardic in ED. No clinical signs of DVT but will r/o PE with CTA. Pt with unremarkable EKG. No evidence of arrhythmia or ischemia. However, cannot r/o paroxymal arrhythmia. - Labs, trop - CT head/c-spine - CTA chest - IVF 04/10/19 22:55 Labs wnl CTs negative CTA negative Pt reassessed - feels much better with fluids 04/10/19 23:07 Pt is well appearing, with normal vitals. Clinically stable for DC at this time. I discussed the physical exam findings, ancillary test results and final diagnoses with the patients family. I answered all of their questions. The family was satisfied with the care received and felt comfortable with the discharge plan and treatment plan. They agree to follow up with the primary care physician within 24-72 hours.
[2019-04-10 23:01] VITALS: BP 154/83; PULSE 72; TEMP 98
--- NOTE | 2019-04-11 11:26 | EKG ---
Test Reason : Blood Pressure : / mmHG Vent. Rate : 089 BPM Atrial Rate : 089 BPM P-R Int : 132 ms QRS Dur : 088 ms QT Int : 380 ms P-R-T Axes : 038 014 072 degrees QTc Int : 462 ms NORMAL SINUS RHYTHM NONSPECIFIC ST AND T WAVE ABNORMALITY ABNORMAL ECG WHEN COMPARED WITH ECG OF 02-NOV-2018 10:23, NO SIGNIFICANT CHANGE WAS FOUND Confirmed by Nelson Bell MD ([id number]) on 04/11/2019 11:25:45 AM Referred By: Confirmed By:Nelson Bell MD
== END 2019-04-10 23:17 | disposition home or self-care (01) ==
LOC: JER 17:42
PROC: 3E0337Z Introduction of Electrolytic and Water Balance Substance into Peripheral Vein, Percutaneous Approach (ICD-10-PCS; principal; 2019-04-10)
DX: R55 Syncope and collapse (principal); R53.1 Weakness; I10 Essential (primary) hypertension; E78.5 Hyperlipidemia, unspecified; E11.9 Type 2 diabetes mellitus without complications; I25.10 Atherosclerotic heart disease of native coronary artery without angina pectoris; F17.210 Nicotine dependence, cigarettes, uncomplicated; F12.90 Cannabis use, unspecified, uncomplicated; Z95.1 Presence of aortocoronary bypass graft; Z95.5 Presence of coronary angioplasty implant and graft; Z79.4 Long term (current) use of insulin; Z98.84 Bariatric surgery status; Z79.82 Long term (current) use of aspirin
CPT/HCPCS: 36415; 70450-TC; 71275-TC; 72125-TC; 80053; 81003; 82550; 82553; 84484; 84703; 85025; 87086; 93005; 93010; 99283-25; J7030

== ENCOUNTER 2019-06-12 10:32 | Emergency (ER) | payer OTHER ==
[2019-06-12 10:38] VITALS: BP 141/80; PULSE 97; TEMP 98.3; BMI 27.4
[2019-06-12] MEDS ORDERED: SODIUM CHLORIDE 0.9% 500 ML INFUS.BAG IV ONE ×2 (11:05→13:24)
--- NOTE | 2019-06-12 11:19 | PDOC ---
History of Present Illness - General Chief Complaint: Blood Sugar Problem Stated Complaint: HIGH BLOOD SUGAR Time Seen by Provider: 06/12/19 11:04 History Source: Patient Exam Limitations: No Limitations Past History - Past Medical History Allergies/Adverse Reactions: Allergies Allergy/AdvReac Type Severity Reaction Status Date / Time No Known Allergies Allergy Verified 04/10/19 17:55 Home Medications: Ambulatory Orders Aspirin 81 mg PO DAILY 04/10/19 Atorvastatin Calcium 80 mg PO HS 04/10/19 Insulin Glargine,Hum.rec.anlog [Basaglar Kwikpen U-100] 38 unit SQ AM 04/10/19 Insulin Lispro [Admelog Solostar] 100 unit SQ ASDIR 04/10/19 Lisinopril [Prinivil] 5 mg PO DAILY 04/10/19 Metoprolol Succinate [Toprol Xl -] 50 mg PO DAILY 04/10/19 Anemia: No Asthma: No Cancer: No Cardiac Disorders: Yes (cardiac bypass) CVA: No COPD: No CHF: Yes Dementia: No Diabetes: Yes (insulin dependent) GI Disorders: No Disorders: No HTN: Yes Hypercholesterolemia: Yes Liver Disease: No Psychiatric Problems: Yes (depression ) Seizures: No Thyroid Disease: Yes ( A CHILD) - Surgical History Abdominal Surgery: Yes (Gastric sleeve) Appendectomy: No Cardiac Surgery: Yes (CABG 2013/ stent ) Cholecystectomy: No Gastric Stapling: Yes (sleeve 2012) Lung Surgery: No Neurologic Surgery: No Orthopedic Surgery: No - Reproductive History (#): 6 Para: 2 Therapeutic (s) & number: Yes (2) Spontaneous : 2 - Immunization History Td Vaccination: Yes Immunization Up to Date: Yes - Psycho Social/Smoking Cessation Hx Smoking Status: Yes Smoking History: Never smoked Years of Tobacco Use: 15 Have you smoked in the past 12 months: Yes Number of Cigarettes Smoked Daily: 5 If you are a former smoker, when did you quit?: 2 WKS Cigars Per Day: 0 'Breaking Loose' booklet given: 06/14/18 Hx Alcohol Use: No Drug/Substance Use Hx: No Substance Use Type: Marijuana Hx Substance Use Treatment: No Review of Systems - Review of Systems Able to Perform ROS?: Yes Is the patient limited Ivorian proficient: No *Physical Exam - Vital Signs Last Vital Signs Temp Pulse Resp BP Pulse Ox 98.3 F 97 H 17 141/80 100 10/14/19 10:35 06/12/19 10:35 06/12/19 10:35 06/12/19 10:35 06/12/19 10:35 ED Treatment Course - LABORATORY CBC & Chemistry Diagram: 06/12/19 14:20 Medical Decision Making - Medical Decision Making 06/12/19 11:18 HPI: 34F PMH IDDM, h/o DKA, CAD s/p CABG, gastric sleeve presenting with high blood sugar measurement, fatigue, polydipsia, and polyuria of 1 day. Patient states the upper limit of her machine is bgm 600. She took 40U lantus and 20U novolog and bgm remained high. Has had prior ICU admissions for DKA. Endorses sick contacts. Endorsing palpitations, GUPTA, and lightheadedness. Denies f/c/n/v/d, po intolerance, chest pain. PMH: as above MEDs: per chart. Patient states she is noncompliant NKDA ROS: CONSTITUTIONAL: + polydipsia, fatigue. Denies F / C HEENT: + lightheadedness. Denies headache, lightheadedness, dizziness, changes in vision / hearing, diplopia, blurry vision. Denies sore throat, rhinorrhea. RESP: + sob, GUPTA CARD: + palpitations. Denies chest pain GI: Denies N / V / D, abdominal pain, inability to tolerate PO : + polyuria. Denies dysuria. NEURO: Denies numbness, tingling, weakness PE: GEN: Well appearing, NAD, comfortable. AAOx3 HEENT: NC/AT. No facial asymmetry. Moist mucous membranes. Normal voice. Supple neck w/ FROM. CV: Tachycardic, S1/S2, no mrg LUNG: CTAB, no wheezes, crackles, rales, rhonchi. GI: soft, ndnt, +BS, no guarding, no rebound. No masses. EXTREMITIES: No obvious deformities of all extremities. SKIN: warm, dry, normal turgor PSYCH: normal mood and affect NEURO: Moving all extremities well. Ambulating well. MDM: 34F PMH IDDM w/ hyperglycemia. Concern for DKA vs HHS vs Hyperglycemia - CBC, CMP, Cardiac, B-hydroxybutryate - UA, UC, - Fluids 06/12/19 13:44 POC BGM > 600 Notified by lab that chemistry is hemolyzed VBG reviewed - not acidotic 06/12/19 14:31 Labs redrawn Pt noted to be eating sandwich 06/12/19 16:00 CMP glucose 448 Labs reviewed POC 377 10U insulin recheck FSG 06/12/19 16:50 POC BGM 270s DC home w/ endocrine and pcp f/u, return precautions Discharge - Discharge Information Problems reviewed: Yes Clinical Impression/Diagnosis: Hyperglycemia Condition: Improved Disposition: HOME - Follow up/Referral Referrals: Génesis Hightower MD [Non Staff, Medical] - Wil Rondon MD [Staff Physician] - - Patient Discharge Instructions Patient Printed Discharge Instructions: DI for Hyperglycemia -- Adult Additional Instructions: You were seen and treated in the Emergency Department. Continue to take your home medications as prescribed. Follow up with your Primary Care Doctor regarding this ED visit in the next 2-3 days. Follow up with an [employer] regarding this ED visit in the next 2-3 days. We are referring you to Endocrinology Dr. Rondon. Please call and schedule an appointment. Return to the Emergency Department if you experience any of the following: - High blood sugar - Increasing or severe fatigue - Loss of consciousness, seizure, coma - Chest pain, shortness of breath - ANYTHING that concerns you - Post Discharge Activity Work/Back to School Note: Back to Work
[2019-06-12 12:27] LABS: EPI CELLS 1.6 /HPF (0-5/HPF); HYALINE CASTS 1 /lpf (0-8); URINE APPEARANCE CLEAR; URINE BACTERIA 25.8 /hpf (NEGATIVE); URINE BILIRUBIN NEGATIVE (NEGATIVE); URINE COLOR YELLOW; URINE GLUCOSE (UA) 3+ (NEGATIVE); URINE KETONE 1+ (NEGATIVE); URINE LEUK ESTERASE NEGATIVE (NEGATIVE); URINE NITRITE NEGATIVE (NEGATIVE); URINE PROTEIN 3+ (NEGATIVE); URINE RBC 2 /hpf (0-4); URINE UROBILINOGEN 0.2 mg/dL (0.2-1.0)
[2019-06-12 12:54] LABS: VENOUS PC02 28.7 mmHg (38-52); VENOUS PH 7.4 (7.31-7.41)
[2019-06-12 15:17] LABS: ALBUMIN 2.4 g/dl (3.4-5.0); BILIRUBIN,TOTAL 0.2 mg/dL (0.2-1); CALCIUM 8.9 mg/dL (8.5-10.1); CREATININE 1.6 mg/dL (0.55-1.3); POTASSIUM 4.6 mmol/L (3.5-5.1); TOT PROT 6.4 g/dl (6.4-8.2)
[2019-06-12] MEDS ORDERED: FLUCONAZOLE 150 MG TABLET PO ONE (15:28)
--- NOTE | 2019-06-12 15:28 | PDOC ---
Documentation entered by Eva Hairston SCRIBE, acting as scribe for Alicia Valente MD. Alicia Valente MD: This documentation has been prepared by the aMrika toribio Brenda, SCRIBE, under my direction and personally reviewed by me in its entirety. I confirm that the documentation accurately reflects all work, treatment, procedures, and medical decision making performed by me. Attending Attestation - Resident Resident Name: Farrukh Reyes - ED Attending Attestation I have performed the following: I have examined & evaluated the patient, The case was reviewed & discussed with the resident, I agree w/resident's findings & plan, Exceptions are as noted - HPI HPI: 06/12/19 15:26 34-year-old female history of insulin dependent diabetes multiple admissions for hyperglycemia here today because she states her sugars have been running high. Denies any diet indiscretion denies any nausea vomiting no cough no fevers or chills denies any dysuria however she does have a feeling that she has a yeast infection chest pain no shortness of breath no other complaints today found that her sugar was over 600. She did give her home doses of long- acting insulin in addition to short acting insulin numbers were still reading high so she came to the ED. Here in the ED patient states she is unwilling to stay for admission must be home to take care of her children and after 5:00 denies any nausea or vomiting today no other current complaints 06/14/19 22:28 - Physicial Exam PE: 06/12/19 15:27 Awake alert no acute distress lungs are clear bilaterally heart is regular without murmurs rubs or gallops abdomen is soft and nontender extremities are warm and well-perfused skin is warm and dry neurologic she is awake alert and oriented x3 - Medical Decision Making 06/12/19 15:27 34-year-old female history of brittle diabetes insulin-dependent here with hyperglycemia. Differential includes hyper osmolar hyperglycemia simple hyperglycemia versus DKA underlying infection or cardiac causes. Patient denies any chest pain here plan EKG troponin labs including UA and chest x-ray. Patient's first set of labs was hemolyzed patient refusing to have any further labs drawn until she is able to eat a sandwich explained to the patient the risk of bleeding on her sugar she also states that she cannot stay in the hospital. BMP on second draw was found to be 448 patient will be given 10 units of insulin as she did in the meantime. Repeat glucose will be checked patient is currently not in DKA with a normal anion gap all the labs are unremarkable UA is negative for infection will be given Diflucan for her yeast infection p.o. 06/14/19 22:29 pt sugars much improved in reassessment. dc to home
[2019-06-12] MEDS ORDERED: INSULIN REGULAR HUMAN 100 UNITS/ML *VIAL IVPUSH ONE (15:29)
[2019-06-12] MEDS ORDERED: FLUCONAZOLE 100 MG TABLET (UD) ONE (15:46)
[2019-06-12] MEDS ORDERED: INSULIN REGULAR HUMAN 100 UNITS/ML *VIAL ONE (15:46)
[2019-06-12 16:37] LABS: URINE WBC 13.8 /hpf (0-5)
== END 2019-06-12 19:21 | disposition home or self-care (01) ==
LOC: JER 10:32
PROC: 3E033VG Introduction of Insulin into Peripheral Vein, Percutaneous Approach (ICD-10-PCS; principal; 2019-06-12)
DX: R53.83 Other fatigue (principal); E10.65 Type 1 diabetes mellitus with hyperglycemia; Z79.4 Long term (current) use of insulin; E78.00 Pure hypercholesterolemia, unspecified; I25.10 Atherosclerotic heart disease of native coronary artery without angina pectoris; I11.0 Hypertensive heart disease with heart failure; I50.9 Heart failure, unspecified; Z95.1 Presence of aortocoronary bypass graft; Z95.5 Presence of coronary angioplasty implant and graft; Z87.891 Personal history of nicotine dependence; F32.9 Major depressive disorder, single episode, unspecified; Z98.84 Bariatric surgery status
CPT/HCPCS: 36415; 80053; 81003; 82010; 82550; 82553; 82803; 82962; 84484; 84703; 96374; 99283-25

== ENCOUNTER 2019-07-24 21:22 | Inpatient (IN) | payer OTHER ==
--- NOTE | 2019-07-24 21:36 | PDOC ---
Rapid Medical Evaluation Chief Complaint: Pain Time Seen by Provider: 07/24/19 21:34 Medical Evaluation: Allergies Allergy/AdvReac Type Severity Reaction Status Date / Time No Known Allergies Allergy Verified 04/10/19 17:55 07/24/19 21:35 I have performed a brief in-person evaluation of this patient. The patient presents with a chief complaint of: epigatric pain Pertinent physical exam findings:stable and in NAD, non-focal I have ordered the following:labs The patient will proceed to the ED for further evaluation.
[2019-07-24 23:21] LABS: BASO % 0.6 % (0-2.0); EOS % 1.8 % (0-4.5); HEMATOCRIT 31.4 % (32.4-45.2); HEMOGLOBIN 9.9 GM/dL (10.7-15.3); LYMPH % 45.1 % (8-40); MCH 23.4 pg (25.7-33.7); MCHC 31.7 g/dl (32.0-36.0); MEAN CELL VOLUME 73.9 fl (80-96); MEAN PLT VOLUME 9.4 fl (7.5-11.1); MONO % 6.6 % (3.8-10.2); NEUT % 45.9 % (42.8-82.8); RBC 4.24 M/mm3 (3.60-5.2); RDW 17.1 % (11.6-15.6); WHITE BLOOD COUNT 4.8 K/mm3 (4.0-10.0)
[2019-07-24 23:24] LABS: HYALINE CASTS 11 /lpf (0-8); URINE APPEARANCE CLOUDY; URINE BACTERIA 238.4 /hpf (NEGATIVE); URINE BILIRUBIN NEGATIVE (NEGATIVE); URINE COLOR YELLOW; URINE GLUCOSE (UA) TRACE (NEGATIVE); URINE KETONE NEGATIVE (NEGATIVE); URINE LEUK ESTERASE 1+ (NEGATIVE); URINE NITRITE NEGATIVE (NEGATIVE); URINE PROTEIN 3+ (NEGATIVE); URINE RBC 13 /hpf (0-4); URINE UROBILINOGEN 0.2 mg/dL (0.2-1.0); URINE WBC 89 /hpf (0-5)
--- NOTE | 2019-07-24 23:34 | PDOC ---
History of Present Illness - General Chief Complaint: Pain Stated Complaint: ABDOMINAL PAIN Time Seen by Provider: 07/24/19 21:34 History Source: Patient - History of Present Illness Initial Comments: 07/24/19 23:31 34 year old b/l abdominal pain radiating to b/l flank pain for the last 3 days. denies fever/ chills, nausea, vomiting. Patient reports taking tylenol with no relief in pain. patient reports that she was treated for a urinary tract infection 3 weeks ago, denies urinary symptoms at this time. PMHX: Cardiac bypass, IDDM, as listed 07/25/19 03:55 Past History - Past Medical History Allergies/Adverse Reactions: Allergies Allergy/AdvReac Type Severity Reaction Status Date / Time No Known Allergies Allergy Verified 07/24/19 22:02 Home Medications: Ambulatory Orders Aspirin 81 mg PO DAILY 04/10/19 Atorvastatin Calcium 80 mg PO HS 04/10/19 Insulin Glargine,Hum.rec.anlog [Basaglar Kwikpen U-100] 38 unit SQ AM 04/10/19 Insulin Lispro [Admelog Solostar] 100 unit SQ ASDIR 04/10/19 Lisinopril [Prinivil] 5 mg PO DAILY 04/10/19 Metoprolol Succinate [Toprol Xl -] 50 mg PO DAILY 04/10/19 Anemia: No Asthma: No Cancer: No Cardiac Disorders: Yes (cardiac bypass) CVA: No COPD: No CHF: Yes Dementia: No Diabetes: Yes (insulin dependent) GI Disorders: No Disorders: No HTN: Yes Hypercholesterolemia: Yes Liver Disease: No Psychiatric Problems: Yes (depression ) Seizures: No Thyroid Disease: Yes ( A CHILD) - Surgical History Abdominal Surgery: Yes (Gastric sleeve) Appendectomy: No Cardiac Surgery: Yes (CABG 2013/ stent 1) Cholecystectomy: No Gastric Stapling: Yes (sleeve 2012) Lung Surgery: No Neurologic Surgery: No Orthopedic Surgery: No - Reproductive History (#): 6 Para: 2 Therapeutic (s) & number: Yes (2) Spontaneous : 2 - Immunization History Td Vaccination: Yes Immunization Up to Date: Yes - Psycho Social/Smoking Cessation Hx Smoking Status: Yes Smoking History: Never smoked Years of Tobacco Use: 15 Have you smoked in the past 12 months: No Number of Cigarettes Smoked Daily: 5 If you are a former smoker, when did you quit?: 2 WKS Cigars Per Day: 0 Information on smoking cessation initiated: No 'Breaking Loose' booklet given: 06/14/18 Hx Alcohol Use: No Drug/Substance Use Hx: No Substance Use Type: Marijuana Hx Substance Use Treatment: No Review of Systems - Review of Systems Able to Perform ROS?: Yes Is the patient limited Chinese proficient: No ABD/GI: Yes: Abdominal cramping *Physical Exam - Vital Signs Last Vital Signs Temp Pulse Resp BP Pulse Ox 98.2 F 89 17 165/92 100 07/24/19 21:34 07/24/19 21:34 07/24/19 21:34 07/24/19 21:34 07/24/19 21:34 - Physical Exam General Appearance: Yes: Appropriately Dressed Respiratory/Chest: positive: Lungs Clear, Normal Breath Sounds Gastrointestinal/Abdominal: positive: Normal Bowel Sounds, Tender (Upper abdominal RUQ and LUQ tenderness) Musculoskeletal: positive: Normal Inspection, CVA Tenderness (R), CVA Tenderness (L) Neurologic: positive: Fully Oriented, Alert Heart Score/ECG Review - ECG Intrepretation Rhythm: Regular Rhythm Comment:: 07/25/19 03:56 NSR ED Treatment Course - LABORATORY CBC & Chemistry Diagram: 07/24/19 23:03 07/24/19 23:03 - ADDITIONAL ORDERS Additional order review: Laboratory Results 07/24/19 23:03 Urine Color Yellow Urine Appearance Cloudy Urine pH 6.0 Ur Specific [place] 1.016 Urine Protein 3+ H Urine Glucose (UA) Trace Urine Ketones Negative Urine Blood 1+ H Urine Nitrite Negative Urine Bilirubin Negative Urine Urobilinogen 0.2 Ur Leukocyte Esterase 1+ H Urine WBC (Auto) 89 Urine RBC (Auto) 13 Urine Casts (Auto) 11 U Epithel Cells (Auto) 1.0 Urine Bacteria (Auto) 238.4 07/24/19 23:03 RBC 4.24 MCV 73.9 L MCHC 31.7 L RDW 17.1 H MPV 9.4 Neutrophils % 45.9 Lymphocytes % 45.1 H Monocytes % 6.6 Eosinophils % 1.8 Basophils % 0.6 Medical Decision Making - Medical Decision Making 07/25/19 01:02 abd us: 5.2 cm solid right hepatic lobe mass should be further evaluate the dynamic contrast-enhanced CT or MRI. Small septated bilateral renal cysts. 07/25/19 02:46 CTAP: Small umbilical hernia containing small bowel without entrapment. 1.8 cm right ovarian cyst without free fluid. No definite acute pathology. 07/25/19 03:44 Discharge - Discharge Information Problems reviewed: Yes Clinical Impression/Diagnosis: Abdominal pain Qualifiers: Abdominal location: lower abdomen, unspecified Qualified Code(s): R10.30 - Lower abdominal pain, unspecified Pancreatitis, acute Qualifiers: Pancreatitis type: unspecified pancreatitis type Acute pancreatitis complication: unspecified Qualified Code(s): K85.90 - Acute pancreatitis without necrosis or infection, unspecified - Admission Yes - Follow up/Referral Referrals: Sukhjinder Hendrix MD, [Primary Care Provider] - - Patient Discharge Instructions - Post Discharge Activity
[2019-07-24 23:48] LABS: ALBUMIN 2.1 g/dl (3.4-5.0); ALK PHOS 86 U/L (45-117); ANION GAP 3 MMOL/L (8-16); BILIRUBIN,TOTAL 0.1 mg/dL (0.2-1); BLOOD UREA NITROGEN 16.4 mg/dL (7-18); CALCIUM 8.3 mg/dL (8.5-10.1); CHLORIDE 106 mmol/L (98-107); CO2 30 mmol/L (21-32); CREATININE 1.4 mg/dL (0.55-1.3); GLUCOSE,RANDOM 102 mg/dL (74-106); POTASSIUM 4.4 mmol/L (3.5-5.1); SGOT/AST 20 U/L (15-37); SGPT/ALT 18 U/L (13-61); SODIUM 139 mmol/L (136-145); TOT PROT 5.8 g/dl (6.4-8.2)
[2019-07-24 23:53] LABS: PLATELET COUNT 318 K/MM3 (134-434); PLATELET ESTIMATE ADEQUATE
[2019-07-24 23:58] LABS: INR 0.92 (0.83-1.09); PROTHROMBIN TIME (PATIENT) 10.9 SEC (9.7-13.0)
[2019-07-25 00:01] LABS: ACTIVATED PTT 34.2 SECONDS (25.2-36.5)
[2019-07-25] MEDS ORDERED: SODIUM CHLORIDE 0.9% 500 ML INFUS.BAG IV ONE (00:31)
[2019-07-25] MEDS ORDERED: SODIUM CHLORIDE 1,000 ML IV SCH (03:00)
[2019-07-25] MEDS ORDERED: morphine CARPU-JECT 4 MG/1 ML DISP.SYRIN IVPUSH ONE (03:28)
[2019-07-25] MEDS ORDERED: FAMOTIDINE 20 MG/50 ML IVPB 20 MG/50 ML MG IVPB ONE ×3 (03:29→22:55)
[2019-07-25] MEDS ORDERED: CEFTRIAXONE 1 GM/50 ML BAG ONE (03:51)
[2019-07-25] MEDS ORDERED: morphine SULFATE 4 MG/ML VIAL ONE (03:51)
--- NOTE | 2019-07-25 03:55 | HP ---
Admitting History and Physical - Primary Care Physician PCP: Sukhjinder Hendrix MD - Admission Chief Complaint: Abdominal Pain, Flank Pain History of Present Illness: This is a 34 y/o woman with a PMHx of HTN, HLD, CHF,Cardiac Bypass (2013), IDDM , Hypothyroidism, Depression. Who presents to the ED with sharp intermittent abdominal pain which radiates to b/l flank pain x 3 days. Patient reports being treated for a UTI 3 weeks ago and completing ABX course. Patient denies SOB, dizziness, MARQUEZ, CP, palpitations, N/V/D, melena, hematochezia, dysuria. History Source: Patient Limitations to Obtaining History: No Limitations - Past Medical History Cardiovascular: Yes: CAD, CHF, HTN, Hyperlipdemia. No: AFIB, Aneurysm, Aortic Insufficiency, Aortic Stenosis, Deep Vein Thrombosis, [place], Mitral Insufficiency, Mitral Stenosis, Murmur, Pulmonary Hypertension, Other Gastrointestinal: Yes: GERD, Other (hernia) Heme/Onc: Yes: Anemia (on insulin pump , has been followed by endo in [facility]) Endocrine: Yes: Diabetes Mellitus - Past Surgical History Past Surgical History: Yes: Bariatric Surgery (gastric sleeve), CABG, Stent - Smoking History Smoking history: Current every day smoker Have you smoked in the past 12 months: Yes Aproximately how many cigarettes per day: 8 - Alcohol/Substance Use Hx Alcohol Use: No History of Substance Use: reports: None - Social History Usual Living Arrangement: Yes: With Child ADL: Independent 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 of Recent Travel: No Home Medications - Allergies Allergies/Adverse Reactions: Allergies Allergy/AdvReac Type Severity Reaction Status Date / Time No Known Allergies Allergy Verified 07/24/19 22:02 - Home Medications Home Medications: Ambulatory Orders Aspirin 81 mg PO DAILY 04/10/19 Atorvastatin Calcium 80 mg PO HS 04/10/19 Insulin Glargine,Hum.rec.anlog [Basaglar Kwikpen U-100] 38 unit SQ AM 04/10/19 Insulin Lispro [Admelog Solostar] 100 unit SQ ASDIR 04/10/19 Lisinopril [Prinivil] 5 mg PO DAILY 04/10/19 Metoprolol Succinate [Toprol Xl -] 50 mg PO DAILY 04/10/19 Family Medical History Family Hx Cancer: Grandmother (maternal) (Uterine with mets), Father (Stomach age 50's) Family Hx Cardiac Disorders: Mother (HTN, HLD), Father (HTN, HLD- in 50 's) Family Hx Diabetes: Son (Prediabetes) Review of Systems - Review of Systems Constitutional: reports: Chills, Fever Eyes: reports: No Symptoms HENT: reports: No Symptoms Neck: reports: No Symptoms Cardiovascular: reports: No Symptoms Respiratory: reports: No Symptoms Gastrointestinal: reports: Abdominal Pain, Constipation, Indigestion Genitourinary: reports: Flank Pain (b/l) Breasts: reports: No Symptoms Reported Musculoskeletal: reports: No Symptoms Integumentary: reports: No Symptoms Neurological: reports: No Symptoms Endocrine: reports: No Symptoms Hematology/Lymphatic: reports: No Symptoms Psychiatric: reports: No Symptoms Pain Intensity: 8 Physical Examination Vital Signs: Vital Signs Temperature 98.2 F 07/24/19 21:34 Pulse Rate 89 07/24/19 21:34 Respiratory Rate 17 07/24/19 21:34 Blood Pressure 165/92 07/24/19 21:34 O2 Sat by Pulse Oximetry (%) 100 07/24/19 21:34 Constitutional: Yes: Mild Distress Eyes: Yes: WNL, Conjunctiva Clear, EOM Intact, PERRL HENT: Yes: WNL, Atraumatic, Normocephalic Neck: Yes: WNL, Supple, Trachea Midline Cardiovascular: Yes: Regular Rate and Rhythm, Murmur, S1, S2 Respiratory: Yes: WNL, Regular, CTA Bilaterally Gastrointestinal: Yes: Soft, Hernia, Hyperactive Bowel Sounds, Tenderness (LLQ) , Tenderness, Epigastrium. No: Vomiting ...Rectal Exam: Yes: WNL Renal/: Yes: CVA Tenderness - Left. No: CVA Tenderness - Right Breast(s): Yes: WNL Musculoskeletal: Yes: WNL Extremities: Yes: WNL Edema: No Peripheral Pulses WNL: Yes Neurological: Yes: WNL, Alert, Oriented, Cran Nerves II-XII Intact ...Motor Strength: WNL Psychiatric: Yes: WNL, Alert, Oriented Labs: CBC, BMP 07/24/19 23:03 07/24/19 23:03 Laboratory Results - last 24 hr 07/24/19 07/24/19 07/24/19 23:03 23:03 23:03 WBC 4.8 RBC 4.24 Hgb 9.9 L Hct 31.4 L MCV 73.9 L MCH 23.4 L MCHC 31.7 L RDW 17.1 H Plt Count 318 MPV 9.4 Absolute Neuts (auto) 2.2 Neutrophils % 45.9 Lymphocytes % 45.1 H Monocytes % 6.6 Eosinophils % 1.8 Basophils % 0.6 Nucleated RBC % 0 Platelet Estimate Adequate Platelet Comment Rare giant plts PT with INR INR PTT (Actin FS) Sodium 139 Potassium 4.4 Chloride 106 Carbon Dioxide 30 Anion Gap 3 L BUN 16.4 Creatinine 1.4 H Est GFR (CKD-EPI)AfAm 55.88 Est GFR (CKD-EPI)NonAf 48.22 POC Glucometer Random Glucose 102 Calcium 8.3 L Total Bilirubin 0.1 L AST 20 ALT 18 Alkaline Phosphatase 86 Creatine Kinase 270 H Creatine Kinase Index 0.4 CK-MB (CK-2) 1.1 Troponin I < 0.02 Total Protein 5.8 L Albumin 2.1 L Lipase 3266 H Urine Color Urine Appearance Urine pH Ur Specific Warren Urine Protein Urine Glucose (UA) Urine Ketones Urine Blood Urine Nitrite Urine Bilirubin Urine Urobilinogen Ur Leukocyte Esterase Urine WBC (Auto) Urine RBC (Auto) Urine Casts (Auto) U Epithel Cells (Auto) Urine Bacteria (Auto) 07/24/19 07/24/19 07/25/19 23:03 23:03 05:06 WBC RBC Hgb Hct MCV MCH MCHC RDW Plt Count MPV Absolute Neuts (auto) Neutrophils % Lymphocytes % Monocytes % Eosinophils % Basophils % Nucleated RBC % Platelet Estimate Platelet Comment PT with INR 10.90 INR 0.92 PTT (Actin FS) 34.2 Sodium Potassium Chloride Carbon Dioxide Anion Gap BUN Creatinine Est GFR (CKD-EPI)AfAm Est GFR (CKD-EPI)NonAf POC Glucometer 111 Random Glucose Calcium Total Bilirubin AST ALT Alkaline Phosphatase Creatine Kinase Creatine Kinase Index CK-MB (CK-2) Troponin I Total Protein Albumin Lipase Urine Color Yellow Urine Appearance Cloudy Urine pH 6.0 Ur Specific [place] 1.016 Urine Protein 3+ H Urine Glucose (UA) Trace Urine Ketones Negative Urine Blood 1+ H Urine Nitrite Negative Urine Bilirubin Negative Urine Urobilinogen 0.2 Ur Leukocyte Esterase 1+ H Urine WBC (Auto) 89 Urine RBC (Auto) 13 Urine Casts (Auto) 11 U Epithel Cells (Auto) 1.0 Urine Bacteria (Auto) 238.4 Intake & Output 07/22/19 07/23/19 07/24/19 07/25/19 23:59 23:59 23:59 23:59 Weight 79.379 kg Imaging - Results Cat Scan: Report Reviewed, Image Reviewed Ultrasound: Report Reviewed, Image Reviewed Problem List - Problems (1) Pancreatitis, acute Assessment/Plan: US report- probable mild diffuse fatty infiltration of the liver with hypoechoic mass for which f/u is now recommended CTAP- bariatric surgery. no bowel obstruction. paraumbilical hernia, unchanged from prior imaging. No proximal small bowel obstruction is seen. Right adnexal cyst Lipase 3266 Appreciate GI consult NS bolus given in ED Will continue IVF, monitor closely for HF Monitor CBC, BMP Clear Liquid Diet ad otis Monitor vitals Ofirmev prn Code(s): K85.90 - ACUTE PANCREATITIS WITHOUT NECROSIS OR INFECTION, UNSP Qualifiers: Pancreatitis type: unspecified pancreatitis type Acute pancreatitis complication: unspecified Qualified Code(s): K85.90 - Acute pancreatitis without necrosis or infection, unspecified (2) Abdominal pain Assessment/Plan: See above Code(s): R10.9 - UNSPECIFIED ABDOMINAL PAIN Qualifiers: Abdominal location: lower abdomen, unspecified Qualified Code(s): R10.30 - Lower abdominal pain, unspecified (3) Diabetes mellitus, insulin dependent (IDDM), controlled Assessment/Plan: stable BGMs ISS Appreciate Endocrinology consult Code(s): E11.9 - TYPE 2 DIABETES MELLITUS WITHOUT COMPLICATIONS; Z79.4 - MCC (CURRENT) USE OF INSULIN (4) CAD (coronary artery disease) Assessment/Plan: stable Continue home meds with parameters Code(s): I25.10 - ATHSCL HEART DISEASE OF [place] CORONARY ARTERY W/O ANG PCTRS (5) Hypertension Assessment/Plan: Stable Monitor BP Continue home meds with parameters Monitor renal function Code(s): I10 - ESSENTIAL (PRIMARY) HYPERTENSION Qualifiers: Hypertension type: essential hypertension Qualified Code(s): I10 - Essential (primary) hypertension (6) Tobacco use disorder Assessment/Plan: Counseled on smoking cessation Offered Nicoderm Patch, patient is not amendable Code(s): Z72.0 - TOBACCO USE Assessment/Plan This is a 34 y/o woman with a PMHx of HTN, HLD, CHF,Cardiac Bypass (2013), IDDM , Hypothyroidism, Depression. Admitted for Pancreatitis, Intractable Abdominal Pain, UTI for further evaluation of their emergent condition. Plan: See Problem List FEN NS@100ml/hr Replete lytes prn Clear Low Na, Diabetic Diet DVT ppx OOB SCDs Heparin SQ Code Status: Full Code Dispo: Requires Inpatient Care Visit type - Emergency Visit Emergency Visit: Yes ED Registration Date: 07/24/19 Care time: The patient presented to the Emergency Department on the above date and was hospitalized for further evaluation of their emergent condition. - New Patient This patient is new to me today: Yes Date on this admission: 07/25/19 - Critical Care Critical Care patient: No
[2019-07-25] MEDS ORDERED: LACTATED RINGERS SOLUTION 1,000 ML IV SCH ×2 (04:00)
[2019-07-25] MEDS: SODIUM CHLORIDE 1,000 ML IV SCH (06:01)
[2019-07-25 09:08] LABS: BASO % 0.5 % (0-2.0); HEMATOCRIT 30.8 % (32.4-45.2); HEMOGLOBIN 9.9 GM/dL (10.7-15.3); LYMPH % 31.8 % (8-40); MCH 23.6 pg (25.7-33.7); MEAN CELL VOLUME 73.7 fl (80-96); MEAN PLT VOLUME 9.6 fl (7.5-11.1); MONO % 7.8 % (3.8-10.2); NEUT % 58.9 % (42.8-82.8); PLATELET COUNT 308 K/MM3 (134-434); RBC 4.18 M/mm3 (3.60-5.2); RDW 17.4 % (11.6-15.6); WHITE BLOOD COUNT 5.5 K/mm3 (4.0-10.0)
[2019-07-25] MEDS ORDERED: ACETAMINOPHEN INJECTION 100 ML IVPB ONE (09:17)
[2019-07-25 09:27] LABS: BLOOD UREA NITROGEN 11.8 mg/dL (7-18); CREATININE 1.2 mg/dL (0.55-1.3); POTASSIUM 4.5 mmol/L (3.5-5.1)
[2019-07-25] MEDS: ACETAMINOPHEN 1000 MG/100 ML VIAL (NON FORMULARY) IVPB PRN (09:29)
--- NOTE | 2019-07-25 10:33 | EKG ---
Test Reason : Blood Pressure : / mmHG Vent. Rate : 074 BPM Atrial Rate : 074 BPM P-R Int : 138 ms QRS Dur : 086 ms QT Int : 422 ms P-R-T Axes : 043 049 066 degrees QTc Int : 468 ms NORMAL SINUS RHYTHM POSSIBLE LEFT ATRIAL ENLARGEMENT BORDERLINE ECG WHEN COMPARED WITH ECG OF 10-APR-2019 18:13, NO SIGNIFICANT CHANGE WAS FOUND Confirmed by Nelson Bell MD ([id number]) on 07/25/2019 10:33:40 AM Referred By: Confirmed By:Nleson Bell MD
[2019-07-25] MEDS: ASPIRIN 81 MG CHEWABLE TABLETS PO SCH (11:25)
[2019-07-25] MEDS: LISINOPRIL 20 MG TABLET (FP) PO SCH (11:25)
[2019-07-25] MEDS ORDERED: KETOROLAC TROMETHAMINE 30 MG/1 ML VIAL ONE (13:41)
[2019-07-25] MEDS: KETOROLAC TROMETHAMINE 30 MG/1 ML VIAL IVPUSH PRN (13:50)
--- NOTE | 2019-07-25 14:16 | PN ---
Progress Note, Physician Chief Complaint: Pancreatitis History of Present Illness: Previous notes and events reviewed awake and alert NAD sts abdominal pain is controlled with medication elevated lipase no leukocytosis afebrile - Current Medication List Current Medications: Active Medications Acetaminophen (Ofirmev Injection -) 1,000 mg IVPB Q6H PRN PRN Reason: PAIN LEVEL 6-10 Last Admin: 07/25/19 09:29 Dose: 1,000 mg Aspirin (Asa -) 81 mg PO DAILY [facility] Last Admin: 07/25/19 11:25 Dose: 81 mg Atorvastatin Calcium (Lipitor -) 80 mg PO HS KIRAN Sodium Chloride (Normal Saline -) 1,000 mls @ 100 mls/hr IV ASDIR KIRAN Last Admin: 07/25/19 06:01 Dose: 100 mls/hr Famotidine/Sodium Chloride (Pepcid 20 Mg Premixed Ivpb -) 20 mg in 50 mls @ 100 mls/hr IVPB BID KIRAN Ketorolac Tromethamine (Toradol Injection -) 30 mg IVPUSH Q6H PRN PRN Reason: PAIN LEVEL 1-5 Stop: 07/30/19 09:05 Last Admin: 07/25/19 13:50 Dose: 30 mg Lisinopril (Prinivil) 20 mg PO DAILY [facility] Last Admin: 07/25/19 11:25 Dose: 20 mg Metoprolol Succinate (Toprol Xl -) 50 mg PO DAILY [facility] Last Admin: 07/25/19 11:25 Dose: 50 mg - Objective Vital Signs: Vital Signs Temperature 97.4 F L 07/25/19 13:28 Pulse Rate 67 07/25/19 13:28 Respiratory Rate 16 07/25/19 13:28 Blood Pressure 141/78 07/25/19 13:28 O2 Sat by Pulse Oximetry (%) 98 07/25/19 13:28 Constitutional: Yes: No Distress, Calm Eyes: Yes: Conjunctiva Clear HENT: Yes: Atraumatic Cardiovascular: Yes: Regular Rate and Rhythm Respiratory: Yes: Regular, CTA Bilaterally Gastrointestinal: Yes: Normal Bowel Sounds, Soft, Tenderness (ruq, luq), Tenderness, Epigastrium Musculoskeletal: Yes: WNL Extremities: Yes: WNL Edema: No Neurological: Yes: Alert, Oriented Psychiatric: Yes: Alert, Oriented Labs: CBC, BMP 07/25/19 08:40 07/25/19 08:40 INR, PTT INR 0.92 (0.83-1.09) 07/24/19 23:03 - ....Imaging Cat Scan: Report Reviewed Ultrasound: Report Reviewed Problem List - Problems (1) Abdominal pain Assessment/Plan: -GI on board -Lipase 3266 -Abd US probable mild diffuse fatty infiltration of the liver with hypoechoic mass -CTAP shows bariatric surgery, no bowel obstruction, paraumbilical hernia unchanged from prior imaging -IV hydration -clear liquid -pain control Code(s): R10.9 - UNSPECIFIED ABDOMINAL PAIN Qualifiers: Abdominal location: lower abdomen, unspecified Qualified Code(s): R10.30 - Lower abdominal pain, unspecified (2) Diabetes mellitus, insulin dependent (IDDM), controlled Assessment/Plan: -ISS -HgA1c -Endocrinology consult -Levemir 38U SQ QAM Code(s): E11.9 - TYPE 2 DIABETES MELLITUS WITHOUT COMPLICATIONS; Z79.4 - [place] (CURRENT) USE OF INSULIN (3) Pancreatitis, acute Assessment/Plan: -GI on board -Lipase 3266 -Abd US probable mild diffuse fatty infiltration of the liver with hypoechoic mass -CTAP shows bariatric surgery, no bowel obstruction, paraumbilical hernia unchanged from prior imaging -IV hydration -clear liquid -pain control Code(s): K85.90 - ACUTE PANCREATITIS WITHOUT NECROSIS OR INFECTION, UNSP Qualifiers: Pancreatitis type: unspecified pancreatitis type Acute pancreatitis complication: unspecified Qualified Code(s): K85.90 - Acute pancreatitis without necrosis or infection, unspecified (4) TESS (acute kidney injury) Assessment/Plan: -BUN/Cr 11.8/1.2 -IV hydration Code(s): N17.9 - ACUTE KIDNEY FAILURE, UNSPECIFIED (5) CAD (coronary artery disease) Assessment/Plan: -Atorvastatin, Aspirin Code(s): I25.10 - ATHSCL HEART DISEASE OF [place] CORONARY ARTERY W/O ANG PCTRS (6) Hyperlipidemia Assessment/Plan: -Atorvastatin Code(s): E78.5 - HYPERLIPIDEMIA, UNSPECIFIED Qualifiers: Hyperlipidemia type: unspecified Qualified Code(s): E78.5 - Hyperlipidemia , unspecified (7) Hypertension Assessment/Plan: -Lisinopril, Metoprolol Code(s): I10 - ESSENTIAL (PRIMARY) HYPERTENSION Qualifiers: Hypertension type: essential hypertension Qualified Code(s): I10 - Essential (primary) hypertension Assessment/Plan see problem list dvt ppx
[2019-07-25] MEDS ORDERED: INSULIN (NOVOLOG) ASPART 100 UNITS/ML 10ML VIAL ONE (16:56)
[2019-07-25] MEDS: INSULIN SLIDING SCALE (NOVOLOG) 1 VIAL SQ SCH ×2 (17:00→23:50)
--- NOTE | 2019-07-25 18:01 | CON.GI ---
Consult Consult Specialty:: GI - History of Present Illness History of Present Illness: This is a 34 y/o woman with a PMHx of HTN, HLD, CHF,Cardiac Bypass (2013), IDDM , Hypothyroidism, Depression. Who presents to the ED with sharp intermittent abdominal pain which radiates to b/l flank pain x 3 days. Patient reports being treated for a UTI 3 weeks ago and completing ABX course. Patient denies SOB, dizziness, MARQUEZ, CP, palpitations, N/V/D, melena, hematochezia, dysuria. CT was done --no evidence of pancreatitis - Past Medical History Cardio/Vascular: Yes: CAD, CHF, HTN, Hyperlipdemia. No: AFIB, Aneurysm, Aortic Insufficiency, Aortic Stenosis, Deep Vein Thrombosis, [place], Mitral Insufficiency, Mitral Stenosis, Murmur, Pulmonary Hypertension, Other Gastrointestinal: Yes: GERD, Other (hernia) ...LMP: 11/17/17 Endocrine: Yes: Diabetes Mellitus - Past Surgical History Past Surgical History: Yes: Bariatric Surgery (gastric sleeve), CABG, Stent - Alcohol/Substance Use Hx Alcohol Use: No History of Substance Use: reports: None - Smoking History Smoking history: Current every day smoker Have you smoked in the past 12 months: Yes Aproximately how many cigarettes per day: 8 If you are a former smoker, when did you quit?: 2 WKS - Social History ADL: Independent 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 of Recent Travel: No Home Medications - Allergies Allergies/Adverse Reactions: Allergies Allergy/AdvReac Type Severity Reaction Status Date / Time No Known Allergies Allergy Verified 07/24/19 22:02 - Home Medications Home Medications: Ambulatory Orders Aspirin 81 mg PO DAILY 04/10/19 Atorvastatin Calcium 80 mg PO HS 04/10/19 Insulin Glargine,Hum.rec.anlog [Basaglar Kwikpen U-100] 38 unit SQ AM 04/10/19 Insulin Lispro [Admelog Solostar] 100 unit SQ ASDIR 04/10/19 Lisinopril [Prinivil] 5 mg PO DAILY 04/10/19 Metoprolol Succinate [Toprol Xl -] 50 mg PO DAILY 04/10/19 Physical Exam-GI Vital Signs: Vital Signs Temperature 97.4 F L 07/25/19 13:28 Pulse Rate 67 07/25/19 13:28 Respiratory Rate 16 07/25/19 13:28 Blood Pressure 141/78 07/25/19 13:28 O2 Sat by Pulse Oximetry (%) 98 07/25/19 13:28 Constitutional: Yes: Well Nourished Eyes: Yes: Conjunctiva Clear HENT: Yes: Atraumatic Neck: Yes: Supple Cardiovascular: Yes: Regular Rate and Rhythm Respiratory: Yes: CTA Bilaterally ...Palpate: Yes: Soft, Tenderness, Epigastium. No: Firm/Rigid, Guarding, Hepatomegaly, Pulsatile Mass, Splenomegaly Labs: CBC, BMP 07/25/19 08:40 07/25/19 08:40 INR, PTT INR 0.92 (0.83-1.09) 07/24/19 23:03 CBCD WBC 5.5 K/mm3 (4.0-10.0) 07/25/19 08:40 RBC 4.18 M/mm3 (3.60-5.2) 07/25/19 08:40 Hgb 9.9 GM/dL (10.7-15.3) L 07/25/19 08:40 Hct 30.8 % (32.4-45.2) L 07/25/19 08:40 MCV 73.7 fl (80-96) L 07/25/19 08:40 MCHC 32.0 g/dl (32.0-36.0) 07/25/19 08:40 RDW 17.4 % (11.6-15.6) H 07/25/19 08:40 Plt Count 308 K/MM3 (134-434) 07/25/19 08:40 MPV 9.6 fl (7.5-11.1) 07/25/19 08:40 CMP Sodium 136 mmol/L (136-145) 07/25/19 08:40 Potassium 4.5 mmol/L (3.5-5.1) 07/25/19 08:40 Chloride 105 mmol/L (98-107) 07/25/19 08:40 Carbon Dioxide 27 mmol/L (21-32) 07/25/19 08:40 Anion Gap 4 MMOL/L (8-16) L 07/25/19 08:40 BUN 11.8 mg/dL (7-18) 07/25/19 08:40 Creatinine 1.2 mg/dL (0.55-1.3) 07/25/19 08:40 Random Glucose 272 mg/dL (74-106) H 07/25/19 08:40 Calcium 8.0 mg/dL (8.5-10.1) L 07/25/19 08:40 Total Bilirubin 0.1 mg/dL (0.2-1) L 07/24/19 23:03 AST 20 U/L (15-37) 07/24/19 23:03 ALT 18 U/L (13-61) 07/24/19 23:03 Alkaline Phosphatase 86 U/L (45-117) 07/24/19 23:03 Total Protein 5.8 g/dl (6.4-8.2) L 07/24/19 23:03 Albumin 2.1 g/dl (3.4-5.0) L 07/24/19 23:03 CARDIAC ENZYMES Creatine Kinase 270 U/L (26-192) H 07/24/19 23:03 Troponin I < 0.02 ng/ml (0.00-0.05) 07/24/19 23:03 Home Medications Medication Instructions Recorded Aspirin 81 mg PO DAILY 04/10/19 Atorvastatin Calcium 80 mg PO HS 04/10/19 Insulin Glargine,Hum.rec.anlog 38 unit SQ AM 04/10/19 [Basaglar Kwikpen U-100] Insulin Lispro [Admelog Solostar] 100 unit SQ ASDIR 04/10/19 Lisinopril [Prinivil] 5 mg PO DAILY 04/10/19 Metoprolol Succinate [Toprol Xl -] 50 mg PO DAILY 04/10/19 Imaging - Results Cat Scan: Report Reviewed Problem List - Problems (1) Abdominal pain Assessment/Plan: r/o pancreatitis vs PUD R>Pantoprazole 40mg bid Reglan 5mg 30 min ac hematology consult stool guaiac Code(s): R10.9 - UNSPECIFIED ABDOMINAL PAIN Qualifiers: Abdominal location: lower abdomen, unspecified Qualified Code(s): R10.30 - Lower abdominal pain, unspecified
[2019-07-25] MEDS ORDERED: FAMOTIDINE 20 MG/50 ML IVPB 20 MG/50 ML MG IVPB SCH (22:00)
[2019-07-25] MEDS ORDERED: INSULIN SLIDING SCALE (NOVOLOG) 1 VIAL SQ SCH (22:00)
[2019-07-25] MEDS ORDERED: ATORVASTATIN CA 80 MG TABLET (FP) PO SCH (22:00)
[2019-07-25] MEDS ORDERED: ATORVASTATIN CA 40 MG TABLET (FP) ONE (22:56)
--- NOTE | 2019-07-26 | CONSULT ---
Consult Consult Specialty:: Endocrine Referred by:: Trudy BRUNNER Reason for Consultation:: DMT1/Hypothyroidism - History of Present Illness Chief Complaint: abdominal pain History of Present Illness: 34 y/o woman with a PMHx of [id number],CABG,HTN, HLD, CHF,Gastric Sleeve , Hypothyroidism, Depression. Who presents to the ED with sharp intermittent abdominal pain which radiates sides. Patient reports being treated for a UTI 3 weeks ago and completing ABX course. Patient denies chest pain,cough,vomiting, she has elevated blood sugars. - Past Medical History Cardio/Vascular: Yes: CAD, CHF, HTN, Hyperlipdemia. No: AFIB, Aneurysm, Aortic Insufficiency, Aortic Stenosis, Deep Vein Thrombosis, [place], Mitral Insufficiency, Mitral Stenosis, Murmur, Pulmonary Hypertension, Other Gastrointestinal: Yes: GERD, Other (hernia) ...LMP: 11/17/17 Endocrine: Yes: Diabetes Mellitus - Past Surgical History Past Surgical History: Yes: Bariatric Surgery (gastric sleeve), CABG, Stent - Alcohol/Substance Use Hx Alcohol Use: No History of Substance Use: reports: None - Smoking History Smoking history: Current every day smoker Have you smoked in the past 12 months: Yes Aproximately how many cigarettes per day: 8 If you are a former smoker, when did you quit?: 2 WKS - Social History ADL: Independent 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 of Recent Travel: No Home Medications - Allergies Allergies/Adverse Reactions: Allergies Allergy/AdvReac Type Severity Reaction Status Date / Time No Known Allergies Allergy Verified 07/24/19 22:02 - Home Medications Home Medications: Ambulatory Orders Aspirin 81 mg PO DAILY 04/10/19 Atorvastatin Calcium 80 mg PO HS 04/10/19 Insulin Glargine,Hum.rec.anlog [Basaglar Kwikpen U-100] 38 unit SQ AM 04/10/19 Insulin Lispro [Admelog Solostar] 100 unit SQ ASDIR 04/10/19 Lisinopril [Prinivil] 5 mg PO DAILY 04/10/19 Metoprolol Succinate [Toprol Xl -] 50 mg PO DAILY 04/10/19 Review of Systems - Review of Systems Constitutional: reports: Weakness Eyes: reports: No Symptoms HENT: reports: No Symptoms Neck: reports: No Symptoms Cardiovascular: reports: Shortness of Breath Respiratory: reports: Exercise Intolerance, SOB on Exertion Gastrointestinal: reports: Abdominal Pain, Bloating, Constipation Genitourinary: reports: Frequency Breasts: reports: No Symptoms Reported Musculoskeletal: reports: Joint Pain, Muscle Cramps, Muscle Weakness Endocrine: reports: Increased Hunger, Intolerance to Cold, Unexplained Weight Gain Physical Exam Vital Signs: Vital Signs Temperature 97.0 F L 07/25/19 18:05 Pulse Rate 57 L 07/25/19 18:05 Respiratory Rate 16 07/25/19 13:28 Blood Pressure 123/67 07/25/19 18:05 O2 Sat by Pulse Oximetry (%) 100 07/25/19 18:05 Constitutional: Yes: Anxious Eyes: Yes: EOM Intact HENT: Yes: Normocephalic Neck: Yes: Trachea Midline Cardiovascular: Yes: Regular Rate and Rhythm Respiratory: Yes: CTA Bilaterally Gastrointestinal: Yes: Normal Bowel Sounds, Tenderness, Epigastrium ...Rectal Exam: Yes: Deferred Renal/: Yes: WNL Musculoskeletal: Yes: Muscle Weakness Edema: LLE: Trace, RLE: Trace Neurological: Yes: Alert, Oriented Labs: CBC, BMP 07/25/19 08:40 07/25/19 08:40 Problem List - Problems (1) Abdominal pain Problems reviewed: Yes Code(s): R10.9 - UNSPECIFIED ABDOMINAL PAIN Qualifiers: Abdominal location: lower abdomen, unspecified Qualified Code(s): R10.30 - Lower abdominal pain, unspecified (2) Diabetes mellitus, insulin dependent (IDDM), controlled Problems reviewed: Yes Code(s): E11.9 - TYPE 2 DIABETES MELLITUS WITHOUT COMPLICATIONS; 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 (3) Pancreatitis, acute Problems reviewed: Yes Code(s): K85.90 - ACUTE PANCREATITIS WITHOUT NECROSIS OR INFECTION, UNSP Qualifiers: Pancreatitis type: unspecified pancreatitis type Acute pancreatitis complication: unspecified Qualified Code(s): K85.90 - Acute pancreatitis without necrosis or infection, unspecified (4) TESS (acute kidney injury) Problems reviewed: Yes Code(s): N17.9 - ACUTE KIDNEY FAILURE, UNSPECIFIED (5) Abdominal pain affecting Problems reviewed: Yes Code(s): O26.899 - OTH RELATED CONDITIONS, UNSPECIFIED TRIMESTER; R10.9 - UNSPECIFIED ABDOMINAL PAIN (6) Abdominal pain during Code(s): O26.899 - OTH RELATED CONDITIONS, UNSPECIFIED TRIMESTER; R10.9 - UNSPECIFIED ABDOMINAL PAIN (7) Abdominal wall abscess Code(s): L02.211 - CUTANEOUS ABSCESS OF ABDOMINAL WALL (8) Controlled type 1 diabetes mellitus with diabetic neuropathy, with long- term current use of insulin Problems reviewed: Yes Code(s): E10.40 - TYPE 1 DIABETES MELLITUS WITH DIABETIC NEUROPATHY, UNSP Assessment/Plan Current Active Problems dmt1 neuropathy hypothyroidism [place] Abdominal pain (Acute) Diabetes mellitus, insulin dependent (IDDM), Pancreatitis, acute (Acute) Abnormal Lab Results 07/25/19 07/25/19 08:40 08:40 Hgb 9.9 L Hct 30.8 L MCV 73.7 L MCH 23.6 L RDW 17.4 H Anion Gap 4 L Random Glucose 272 H Calcium 8.0 L Laboratory Results - last 24 hr 07/24/19 07/25/19 07/25/19 23:03 05:06 08:40 WBC 5.5 RBC 4.18 Hgb 9.9 L Hct 30.8 L MCV 73.7 L MCH 23.6 L MCHC 32.0 RDW 17.4 H Plt Count 308 MPV 9.6 Absolute Neuts (auto) 3.3 Neutrophils % 58.9 D Lymphocytes % 31.8 D Monocytes % 7.8 Eosinophils % 1.0 Basophils % 0.5 Nucleated RBC % 0 Sodium Potassium Chloride Carbon Dioxide Anion Gap BUN Creatinine Est GFR (CKD-EPI)AfAm Est GFR (CKD-EPI)NonAf POC Glucometer 111 Random Glucose Calcium Creatine Kinase Index 0.4 CK-MB (CK-2) 1.1 Serum , Qual 07/25/19 07/25/19 07/25/19 08:40 08:40 15:37 WBC RBC Hgb Hct MCV MCH MCHC RDW Plt Count MPV Absolute Neuts (auto) Neutrophils % Lymphocytes % Monocytes % Eosinophils % Basophils % Nucleated RBC % Sodium 136 Potassium 4.5 Chloride 105 Carbon Dioxide 27 Anion Gap 4 L BUN 11.8 Creatinine 1.2 Est GFR (CKD-EPI)AfAm 67.33 Est GFR (CKD-EPI)NonAf 58.09 POC Glucometer 442 Random Glucose 272 H Calcium 8.0 L Creatine Kinase Index CK-MB (CK-2) Serum , Qual Negative plan: bgm qid novolog scale hba1c reglan for gastroparesis levemir 15 units am once appetite and intake improve chk tsh free t4
[2019-07-26] MEDS: ACETAMINOPHEN 1000 MG/100 ML VIAL (NON FORMULARY) IVPB PRN (01:56)
[2019-07-26 03:20] VITALS: BMI 28.7
[2019-07-26] MEDS ORDERED: INSULIN (LEVEMIR) 100 UNITS/ML UNITS SQ SCH (07:00)
[2019-07-26] MEDS: SODIUM CHLORIDE 1,000 ML IV SCH ×2 (07:08→12:07)
[2019-07-26] MEDS: INSULIN SLIDING SCALE (NOVOLOG) 1 VIAL SQ SCH ×2 (07:14→12:07)
[2019-07-26 07:20] VITALS: TEMP 98.5
--- NOTE | 2019-07-26 08:04 | PN.GI ---
GI Progress Note Subjective: Patient states abdominal pain is improving, pain is described as sharp/dull. Denies nausea, vomiting, diarrhea, constipation, or melena. - Objective Vital Signs: Vital Signs Temperature 98.5 F 07/26/19 06:00 Pulse Rate 62 07/26/19 06:00 Respiratory Rate 18 07/26/19 06:00 Blood Pressure 141/70 07/26/19 06:00 O2 Sat by Pulse Oximetry (%) 98 07/26/19 02:00 Constitutional: No Distress, Calm Eyes: Yes: Conjunctiva Clear HENT: Yes: Atraumatic Cardiovascular: Yes: Regular Rate and Rhythm Respiratory: Yes: Regular, CTA Bilaterally Gastrointestinal Inspection: Yes: WNL. No: Ascites, Distention, Hernia, Scars, Other ...Auscultate: Yes: Normoactive Bowel Sounds. No: Hyperactive Bowel Sounds, Hypoactive Bowel Sounds, No Bowel Sounds, Other ...Palpate: Yes: Soft, Tenderness (luq), Tenderness, Epigastium. No: Firm/Rigid , Guarding, Hepatomegaly, Mass, Pulsatile Mass, Splenomegaly, Tenderness, Rebound, Other ...Percussion: Yes: Tympanitic. No: Dullness, Fluid Wave, Other Neurological: Yes: Alert, Oriented Psychiatric: Yes: Alert, Oriented Labs: CBC, BMP 07/25/19 08:40 07/25/19 08:40 INR, PTT INR 0.92 (0.83-1.09) 07/24/19 23:03 Problem List - Problems (1) Abdominal pain Assessment/Plan: r/o pancreatitis vs PUD R>Pantoprazole 40mg bid Reglan 5mg 30 min ac hematology consult stool guaiac ordered Code(s): R10.9 - UNSPECIFIED ABDOMINAL PAIN Qualifiers: Abdominal location: lower abdomen, unspecified Qualified Code(s): R10.30 - Lower abdominal pain, unspecified
[2019-07-26 08:24] LABS: BASO % 0.6 % (0-2.0); EOS % 1.4 % (0-4.5); HEMATOCRIT 26.8 % (32.4-45.2); HEMOGLOBIN 8.5 GM/dL (10.7-15.3); LYMPH % 33.8 % (8-40); MCH 23.3 pg (25.7-33.7); MCHC 31.6 g/dl (32.0-36.0); MEAN CELL VOLUME 73.7 fl (80-96); MEAN PLT VOLUME 9.5 fl (7.5-11.1); MONO % 4.5 % (3.8-10.2); NEUT % 59.7 % (42.8-82.8); PLATELET COUNT 235 K/MM3 (134-434); RBC 3.64 M/mm3 (3.60-5.2); RDW 16.8 % (11.6-15.6); WHITE BLOOD COUNT 4.3 K/mm3 (4.0-10.0)
[2019-07-26] MEDS: KETOROLAC TROMETHAMINE 30 MG/1 ML VIAL IVPUSH PRN (08:38)
[2019-07-26 08:53] LABS: ALBUMIN 1.8 g/dl (3.4-5.0); BILIRUBIN,TOTAL 0.2 mg/dL (0.2-1); BLOOD UREA NITROGEN 18.1 mg/dL (7-18); CALCIUM 7.8 mg/dL (8.5-10.1); CREATININE 1.2 mg/dL (0.55-1.3); TOT PROT 4.9 g/dl (6.4-8.2)
[2019-07-26] MEDS: LISINOPRIL 20 MG TABLET (FP) PO SCH (09:03)
[2019-07-26] MEDS: ASPIRIN 81 MG CHEWABLE TABLETS PO SCH (09:03)
[2019-07-26] MEDS ORDERED: PANTOPRAZOLE 40 MG TABLET (FP) PO SCH (10:00)
[2019-07-26] MEDS ORDERED: METOCLOPRAMIDE HCL 10 MG TABLET (FP) PO SCH (11:00)
--- NOTE | 2019-07-26 11:12 | PN ---
Progress Note, Physician Chief Complaint: Abdominal Pain UTI History of Present Illness: NAD denies any abd pain now Seen by GI CT abd no pancreatitis - Current Medication List Current Medications: Active Medications Acetaminophen (Ofirmev Injection -) 1,000 mg IVPB Q6H PRN PRN Reason: PAIN LEVEL 6-10 Last Admin: 07/26/19 01:56 Dose: 1,000 mg Aspirin (Asa -) 81 mg PO DAILY [facility] Last Admin: 07/26/19 09:03 Dose: 81 mg Atorvastatin Calcium (Lipitor -) 80 mg PO HS [facility] Last Admin: 07/25/19 23:58 Dose: 80 mg Sodium Chloride (Normal Saline -) 1,000 mls @ 100 mls/hr IV ASDIR [facility] Last Admin: 07/26/19 07:08 Dose: Not Given Insulin Aspart (Novolog Vial Sliding Scale -) 1 vial SQ [facility]; Protocol Last Admin: 07/26/19 07:14 Dose: 8 units Insulin Detemir (Levemir Vial) 38 units SQ AM [facility] Last Admin: 07/26/19 07:13 Dose: 38 units Ketorolac Tromethamine (Toradol Injection -) 30 mg IVPUSH Q6H PRN PRN Reason: PAIN LEVEL 1-5 Stop: 07/30/19 09:05 Last Admin: 07/26/19 08:38 Dose: 30 mg Lisinopril (Prinivil) 20 mg PO DAILY [facility] Last Admin: 07/26/19 09:03 Dose: 20 mg Metoclopramide HCl (Reglan -) 5 mg PO TIDAC [facility] Metoprolol Succinate (Toprol Xl -) 50 mg PO DAILY [facility] Last Admin: 07/26/19 09:03 Dose: 50 mg Pantoprazole Sodium (Protonix -) 40 mg PO BID [facility] Last Admin: 07/26/19 09:03 Dose: 40 mg - Objective Vital Signs: Vital Signs Temperature 98.5 F 07/26/19 06:00 Pulse Rate 62 07/26/19 06:00 Respiratory Rate 18 07/26/19 06:00 Blood Pressure 141/70 07/26/19 06:00 O2 Sat by Pulse Oximetry (%) 98 07/26/19 02:00 Constitutional: Yes: Well Nourished, No Distress, Calm Cardiovascular: Yes: Regular Rate and Rhythm Respiratory: Yes: Regular, CTA Bilaterally Gastrointestinal: Yes: Normal Bowel Sounds, Soft, Abdomen, Obese Genitourinary: Yes: WNL Musculoskeletal: Yes: WNL Extremities: Yes: WNL Edema: No Peripheral Pulses WNL: Yes Neurological: Yes: Alert, Oriented Psychiatric: Yes: Alert, Oriented Labs: CBC, BMP 07/26/19 07:51 07/26/19 07:51 INR, PTT INR 0.92 (0.83-1.09) 07/24/19 23:03 Assessment/Plan (1) Abdominal pain Assessment/Plan: -GI on board -Lipase 3266 -Abd US probable mild diffuse fatty infiltration of the liver with hypoechoic mass -CTAP shows bariatric surgery, no bowel obstruction, paraumbilical hernia unchanged from prior imaging -IV hydration -clear liquid -pain control Code(s): R10.9 - UNSPECIFIED ABDOMINAL PAIN Qualifiers: Abdominal location: lower abdomen, unspecified Qualified Code(s): R10.30 - Lower abdominal pain, unspecified (2) Diabetes mellitus, insulin dependent (IDDM), controlled Assessment/Plan: -ISS -HgA1c 12.0 -Endocrinology consult -Levemir 38U SQ QAM- she will resume her basalgar at home Code(s): E11.9 - TYPE 2 DIABETES MELLITUS WITHOUT COMPLICATIONS; Z79.4 - [facility] (CURRENT) USE OF INSULIN (3) Pancreatitis, acute Assessment/Plan: -GI on board -Abd US probable mild diffuse fatty infiltration of the liver with hypoechoic mass -CT A/P shows bariatric surgery, no bowel obstruction, paraumbilical hernia unchanged from prior imaging -tolerating diabetic diet -pain control Code(s): K85.90 - ACUTE PANCREATITIS WITHOUT NECROSIS OR INFECTION, UNSP Qualifiers: Pancreatitis type: unspecified pancreatitis type Acute pancreatitis complication: unspecified Qualified Code(s): K85.90 - Acute pancreatitis without necrosis or infection, unspecified (4) TESS (acute kidney injury) Assessment/Plan: -resolved Code(s): N17.9 - ACUTE KIDNEY FAILURE, UNSPECIFIED (5) CAD (coronary artery disease) Assessment/Plan: -Atorvastatin, Aspirin Code(s): I25.10 - ATHSCL HEART DISEASE OF [place] CORONARY ARTERY W/O ANG PCTRS (6) Hyperlipidemia Assessment/Plan: -Atorvastatin Code(s): E78.5 - HYPERLIPIDEMIA, UNSPECIFIED Qualifiers: Hyperlipidemia type: unspecified Qualified Code(s): E78.5 - Hyperlipidemia , unspecified (7) Hypertension Assessment/Plan: -Lisinopril, Metoprolol Code(s): I10 - ESSENTIAL (PRIMARY) HYPERTENSION Qualifiers: Hypertension type: essential hypertension Qualified Code(s): I10 - Essential (primary) hypertension
[2019-07-26] MEDS ORDERED: INSULIN (NOVOLOG) ASPART 100 UNITS/ML 10ML VIAL ONE (12:05)
[2019-07-26 12:26] VITALS: BP 144/78; PULSE 64
== END 2019-07-26 15:20 | disposition home or self-care (01) | DRG 251 ==
LOC: JER 21:22 → JERBED 07-25 03:38 → J5S 07-26 00:57
PROVIDERS: ADMIT Internal Medicine; ATTEND Family Medicine
DX: R10.30 Lower abdominal pain, unspecified (principal); E11.43 Type 2 diabetes mellitus with diabetic autonomic (poly)neuropathy; K31.84 Gastroparesis; E03.9 Hypothyroidism, unspecified; F32.9 Major depressive disorder, single episode, unspecified; E78.5 Hyperlipidemia, unspecified; I25.10 Atherosclerotic heart disease of native coronary artery without angina pectoris; K21.9 Gastro-esophageal reflux disease without esophagitis; D64.9 Anemia, unspecified; F17.210 Nicotine dependence, cigarettes, uncomplicated; N17.9 Acute kidney failure, unspecified; K42.9 Umbilical hernia without obstruction or gangrene; I11.0 Hypertensive heart disease with heart failure; I50.9 Heart failure, unspecified; N28.1 Cyst of kidney, acquired; N39.0 Urinary tract infection, site not specified; B96.20 Unspecified Escherichia coli [E. coli] as the cause of diseases classified elsewhere; Z95.1 Presence of aortocoronary bypass graft; Z98.84 Bariatric surgery status; Z79.4 Long term (current) use of insulin
CPT/HCPCS: 36415; 74177-TC; 76700-TC; 80048; 80053; 81003; 82550; 82553; 82962; 83036; 83690; 84484; 84703; 85025; 85610; 85730; 87086; 87186; 93005; 93010; 99285-25; J0131; J7030

== ENCOUNTER 2020-03-02 06:23 | Emergency (ER) | payer OTHER ==
[2020-03-02 06:29] VITALS: BMI 27.7
--- NOTE | 2020-03-02 06:55 | PDOC ---
History of Present Illness - General Chief Complaint: Lightheaded Stated Complaint: BLOOD SUGAR PROBLEM Time Seen by Provider: 03/02/20 06:53 History Source: Patient - History of Present Illness Initial Comments: 03/02/20 07:17 34F w/hx CABG, gastric sleeve, IDDM p/w one day of generalized weakness, leg cramping (now resolved), elevated blood sugar. She reports drinking alcohol and smoking marijuana overnight, and shortly afterwards noticing cramping in her thighs alongside fatigue and weakness. She measured her blood sugar at 300 at that time and took both her usual short and long acting insulins. She reports that her blood sugar tends to She denies any nausea, vomiting, abdominal pain, chest pain, sob, or any pain at this time. She reports last taking her insulin 2 days ago. She reports previous episodes of DKA which required ICU admission. Past History - Medical History Allergies/Adverse Reactions: Allergies Allergy/AdvReac Type Severity Reaction Status Date / Time No Known Allergies Allergy Verified 07/24/19 22:02 Home Medications: Ambulatory Orders Aspirin 81 mg PO DAILY 04/10/19 Atorvastatin Calcium 80 mg PO HS 04/10/19 Insulin Glargine,Hum.rec.anlog [Basaglar Kwikpen U-100] 38 unit SQ AM 04/10/19 Insulin Lispro [Admelog Solostar] 100 unit SQ ASDIR 04/10/19 Lisinopril [Prinivil] 5 mg PO DAILY 04/10/19 Metoprolol Succinate [Toprol XL -] 50 mg PO DAILY 04/10/19 Cefuroxime Axetil [Cefuroxime] 500 mg PO BID #14 tablet 07/26/19 Metoclopramide HCl [Reglan -] 5 mg PO TIDAC #90 tablet 07/26/19 Pantoprazole Sodium [Protonix -] 40 mg PO BID #60 tablet.ec 07/26/19 Anemia: No Asthma: No Cancer: No Cardiac Disorders: Yes (cardiac bypass) CVA: No COPD: No CHF: Yes Dementia: No Diabetes: Yes (insulin dependent) GI Disorders: No Disorders: No HTN: Yes Hypercholesterolemia: Yes Liver Disease: No Psychiatric Problems: Yes (depression ) Seizures: No Thyroid Disease: Yes ( A CHILD) - Surgical History Abdominal Surgery: Yes (Gastric sleeve) Appendectomy: No Cardiac Surgery: Yes (CABG 2013/ stent 1) Cholecystectomy: No Gastric Stapling: Yes (sleeve 2012) Lung Surgery: No Neurologic Surgery: No Orthopedic Surgery: No - Reproductive History (#): 6 Para: 2 Therapeutic (s) & number: Yes (2) Spontaneous : 2 - Immunization History Td Vaccination: Yes Immunization Up to Date: Yes - Psycho-Social/Smoking History Smoking Status: Yes Smoking History: Current every day smoker Years of Tobacco Use: 15 Have you smoked in the past 12 months: Yes Number of Cigarettes Smoked Daily: 10 If you are a former smoker, when did you quit?: 2 WKS Cigars Per Day: 0 Information on smoking cessation initiated: Yes 'Breaking Loose' booklet given: 07/26/19 - Substance Abuse Hx (Audit-C & DAST Scrn) How often the patient has a drink containing alcohol: 2-4 times / month Number of drinks the patient has on a typical day: 1 or 2 How often the patient has six or more drinks on one occasion: Less than monthly Score: In Men: 4 or > Positive; In Women: 3 or > Positive: 3 Screen Result (Pos requires Nsg. Audit-10AR): Positive In the last yr the pt used illegal drug/Rx for NonMed reason: Yes Score: Yes response is considered Positive: 1 Screen Result (Positive result requires Nsg. DAST-10): Positive Review of Systems - Review of Systems Able to Perform ROS?: Yes Comments:: 03/02/20 07:36 GENERAL/CONSTITUTIONAL: Weakness. No fever or chills. HEAD, EYES, EARS, NOSE AND THROAT: No change in vision. No ear pain or discharge. No sore throat. CARDIOVASCULAR: No chest pain or shortness of breath RESPIRATORY: No cough, wheezing, or hemoptysis. GASTROINTESTINAL: No nausea, vomiting, diarrhea or constipation. GENITOURINARY: Increased urinary frequency. No dysuria, or other change in urin ation. MUSCULOSKELETAL: No joint or muscle swelling or pain. No neck or back pain. SKIN: No rash NEUROLOGIC: No headache, vertigo, loss of consciousness, or change in strength/sensation. ENDOCRINE: No increased thirst. No abnormal weight change HEMATOLOGIC/LYMPHATIC: No anemia, easy bleeding, or history of blood clots. ALLERGIC/IMMUNOLOGIC: No hives or skin allergy. *Physical Exam - Vital Signs Last Vital Signs Temp Pulse Resp BP Pulse Ox 97.9 F 75 18 101/68 100 03/02/20 06:24 03/02/20 06:24 03/02/20 06:24 03/02/20 06:24 03/02/20 06:24 - Physical Exam 03/02/20 07:37 GENERAL: Awake, alert, and fully oriented, in no acute distress HEAD: No signs of trauma, normocephalic, atraumatic EYES: PERRLA, EOMI, sclera anicteric, conjunctiva clear ENT: Auricles normal inspection, hearing grossly normal, nares patent, oropharynx clear without exudates. Moist mucosa NECK: Normal ROM, supple, no lymphadenopathy, JVD, or masses LUNGS: No distress, speaks full sentences, clear to auscultation bilaterally HEART: Regular rate and rhythm, normal S1 and S2, no murmurs, rubs or gallops, peripheral pulses normal and equal bilaterally. ABDOMEN: Soft, nontender, normoactive bowel sounds. No guarding, no rebound. No masses EXTREMITIES : Normal inspection, Normal range of motion, no edema. No clubbing or cyanosis NEUROLOGICAL: Cranial nerves II through XII grossly intact. Normal speech, normal gait, no focal sensorimotor deficits SKIN: Warm, Dry, normal turgor, no rashes or lesions noted ED Treatment Course - LABORATORY CBC & Chemistry Diagram: 03/02/20 06:50 03/02/20 06:50 - ADDITIONAL ORDERS Additional order review: Laboratory Results 03/02/20 06:34 POC Glucometer 190 03/02/20 06:34 POC Glucometer 190 Medical Decision Making - Medical Decision Making 03/02/20 07:37 34F w/hx IDDM, CABG, s/p bariatric surgery p/w generalized weakness after 2 days of insulin non-compliance. Ddx DKA, although no nausea, vomiting, or AMS. Uncomplicated hyperglycemia vs other electrolyte derangement also possible. ACS unlikely without chest pain, although significant cardiac history and risk factors. Plan: CBC CMP EKG CXR BGM (q30min) Beta hydroxybutirate Troponin I UA Urine culture Urine test 1L NS Dispo: Discharge Discharge - Discharge Information Problems reviewed: Yes Clinical Impression/Diagnosis: Muscle ache Condition: Stable Disposition: HOME - Admission No - Follow up/Referral Referrals: Sukhjinder Hendrix MD, [Primary Care Provider] - - Patient Discharge Instructions Patient Printed Discharge Instructions: DI for Muscle Weakness Additional Instructions: You were seen in the ER for weakness, leg pain. Your bloodwork was normal. Please be sure to follow up with your primary care provider as soon as possible, in the next 1-2 days, they will likely need to adjust your diabetes medications. Return tot he ER if you develop confusion, intractable vomiting, chest pain, or trouble breathing. - Post Discharge Activity
[2020-03-02] MEDS ORDERED: SODIUM CHLORIDE 0.9% 500 ML INFUS.BAG IV ONE (07:09)
[2020-03-02 07:12] LABS: BASO % 0.6 % (0-2.0); EOS % 0.9 % (0-4.5); HEMATOCRIT 33.9 % (32.4-45.2); HEMOGLOBIN 10.8 GM/dL (10.7-15.3); LYMPH % 31.2 % (8-40); MCH 25.5 pg (25.7-33.7); MCHC 31.9 g/dl (32.0-36.0); MEAN CELL VOLUME 80.2 fl (80-96); MEAN PLT VOLUME 9.9 fl (7.5-11.1); MONO % 9.2 % (3.8-10.2); NEUT % 58.1 % (42.8-82.8); PLATELET COUNT 211 K/MM3 (134-434); RBC 4.23 M/mm3 (3.60-5.2); RDW 13.2 % (11.6-15.6); WHITE BLOOD COUNT 5.5 K/mm3 (4.0-10.0)
--- NOTE | 2020-03-02 07:21 | PDOC ---
Attending Attestation - Resident Resident Name: French Del Rio - ED Attending Attestation I have performed the following: I have examined & evaluated the patient, The case was reviewed & discussed with the resident, I agree w/resident's findings & plan, Exceptions are as noted - HPI HPI: 34 yo F history CABG, gastric sleeve, DM presenting with generalized weakness, cramping to arms and legs, elevated blood glucose. She states she was drinking alcohol and using drugs overnight, followed by multiple extremity cramps. She has had cramping before, but this is much worse and more widespread. Curently states the cramping has resolved, but still feeling weak and tired. - Physicial Exam PE: GENERAL: Asleep, awakens to voice, in no acute distress HEAD: No signs of trauma EYES: PERRLA, EOMI, sclera anicteric, conjunctiva clear ENT: Auricles normal inspection, hearing grossly normal, nares patent, oropharynx clear without exudates. Moist mucosa NECK: Normal ROM, supple, no lymphadenopathy, JVD, or masses LUNGS: Breath sounds equal, clear to auscultation bilaterally. No wheezes, and no crackles HEART: Regular rate and rhythm, normal S1 and S2, no murmurs, rubs or gallops ABDOMEN: Soft, nontender, normoactive bowel sounds. No guarding, no rebound. No masses EXTREMITIES: Normal range of motion, no edema. No clubbing or cyanosis. No cords, erythema, or tenderness NEUROLOGICAL: Cranial nerves II through XII grossly intact. Normal speech. Motor and sensation intact SKIN: Warm, dry, normal turgor, no rashes or lesions noted. - Medical Decision Making 03/02/20 07:52 Pt with significant cardiac history, presenting with weakness and muscle cramping after using drugs and alcohol last night. Will obtain labs, Utox, CXR, two sets of troponins (out of caution). ACS very unlikely, however, she has significant history, and at a very young age. Discharge - Discharge Information Problems reviewed: Yes Clinical Impression/Diagnosis: Muscle ache - Follow up/Referral Referrals: Sukhjinder Hendrix MD, MD [Primary Care Provider] - - Patient Discharge Instructions - Post Discharge Activity
[2020-03-02 07:57] LABS: ALBUMIN 2.7 g/dl (3.4-5.0); ALK PHOS 97 U/L (45-117); ANION GAP 10 MMOL/L (8-16); BILIRUBIN,TOTAL 0.2 mg/dL (0.2-1); BLOOD UREA NITROGEN 27.4 mg/dL (7-18); CALCIUM 9.1 mg/dL (8.5-10.1); CHLORIDE 105 mmol/L (98-107); CO2 24 mmol/L (21-32); CREATININE 1.5 mg/dL (0.55-1.3); GLUCOSE,RANDOM 129 mg/dL (74-106); POTASSIUM 4.2 mmol/L (3.5-5.1); SGOT/AST 14 U/L (15-37); SGPT/ALT 16 U/L (13-61); SODIUM 139 mmol/L (136-145); TOT PROT 6.4 g/dl (6.4-8.2)
[2020-03-02] MEDS ORDERED: DEXTROSE 50%-WATER - 25 GM/50 ML VIAL IVPUSH ONE (09:57)
[2020-03-02 11:31] VITALS: BP 109/55; PULSE 73; TEMP 98
--- NOTE | 2020-03-03 14:08 | EKG ---
Test Reason : Blood Pressure : / mmHG Vent. Rate : 073 BPM Atrial Rate : 073 BPM P-R Int : 148 ms QRS Dur : 090 ms QT Int : 382 ms P-R-T Axes : 050 055 076 degrees QTc Int : 420 ms NORMAL SINUS RHYTHM NONSPECIFIC T WAVE ABNORMALITY ABNORMAL ECG WHEN COMPARED WITH ECG OF 24-JUL-2019 22:31, T WAVE VARIATION Confirmed by HEATHER MORFIN MD ([id number]) on 03/03/2020 2:08:08 PM Referred By: Confirmed By:HEATHER MORFIN MD
== END 2020-03-02 11:44 | disposition home or self-care (01) ==
LOC: JER 06:23
PROC: 3E033GC Introduction of Other Therapeutic Substance into Peripheral Vein, Percutaneous Approach (ICD-10-PCS; principal; 2020-03-02)
DX: M79.10 Myalgia, unspecified site (principal)
CPT/HCPCS: 36415; 71045-TC-FY; 80053; 82010; 82962; 84484; 85025; 93005; 93010; 99285-25

== ENCOUNTER 2020-05-21 17:31 | Emergency (ER) | payer OTHER ==
[2020-05-21 17:50] VITALS: BP 156/68; PULSE 70; TEMP 97.2; BMI 28.2
--- NOTE | 2020-05-21 17:51 | PDOC ---
Rapid Medical Evaluation Chief Complaint: Urinary Problem Medical Evaluation: Allergies Allergy/AdvReac Type Severity Reaction Status Date / Time No Known Allergies Allergy Verified 05/21/20 17:44 05/21/20 17:45 35 yo F DM, CABG on asa, HTN, R flank pain x 2 weeks with worsening pain despite taking cefdinir for recently dx UTI. + non bloody loose stools, + chills, fatigue. sent from urgent care for further evaluation. denies n/v/f, sob, cp. appears fatigued speaking full sentences ambulatory A/P: R flank pain labs, test UA, Ucx Discharge Disposition - Diagnosis Flank pain - Referrals - Patient Instructions - Post Discharge Activity
--- NOTE | 2020-05-21 18:23 | PDOC ---
History of Present Illness - General Chief Complaint: Pain, Acute Stated Complaint: UTI SYX Time Seen by Provider: 05/21/20 18:22 - History of Present Illness Initial Comments: 05/21/20 18:51 35 yo F DM, CABG on asa, chronic smoker, HTN, frequent UTI came to the ED for right plank pain. Patient had UTI 2 weeks ago, went to the urgent care with antibiotic /cefdinir . Patient almost finished with her course of antibiotic, but had worsening pain. She denies f/c/n/v/d/dysuria, chest pain, discharge, SOB Patient is on day 2 of her period. She is sexually active with one male partner without condom use. Patient admitted to doing cocaine and ectasy 4 days ago. PMHX: as in HPI PSHX: gastric bypass, CABG, hysterectomy. Meds: Allergies: none Tob: daily 10 cigs Etoh: occasional Rec drugs: yes to cocaine and ectasy. PCP: Sukhjinder POP GENERAL/CONSTITUTIONAL: No fever or chills. No weakness. HEAD, EYES, EARS, NOSE AND THROAT: No change in vision. No ear pain or discharge. No sore throat. CARDIOVASCULAR: No chest pain or shortness of breath RESPIRATORY: No cough, wheezing, or hemoptysis. GASTROINTESTINAL: No nausea, vomiting, diarrhea or constipation. GENITOURINARY: No dysuria, frequency, or change in urination. MUSCULOSKELETAL: No joint or muscle swelling or pain. No neck, +back pain. SKIN: No rash NEUROLOGIC: No headache, vertigo, loss of consciousness, or change in strength/sensation. ENDOCRINE: No increased thirst. No abnormal weight change HEMATOLOGIC/LYMPHATIC: No anemia, easy bleeding, or history of blood clots. ALLERGIC/IMMUNOLOGIC: No hives or skin allergy. PE GENERAL: Awake, alert, and fully oriented, in no acute distress HEAD: No signs of trauma, normocephalic, atraumatic EYES: PERRLA, EOMI, sclera anicteric, conjunctiva clear ENT: Auricles normal inspection, hearing grossly normal, nares patent, oropharynx clear without exudates. Moist mucosa NECK: Normal ROM, supple, no lymphadenopathy, JVD, or masses LUNGS: No distress, speaks full sentences, clear to auscultation bilaterally HEART: Regular rate and rhythm, normal S1 and S2, no murmurs, rubs or gallops, peripheral pulses normal and equal bilaterally. ABDOMEN: Soft, nontender, normoactive bowel sounds. No guarding, no rebound. No masses, +right CVA tenderness. EXTREMITIES : Normal inspection, Normal range of motion, no edema. No clubbing or cyanosis. NEUROLOGICAL: Cranial nerves II through XII grossly intact. Normal speech, normal gait, no focal sensorimotor deficits SKIN: Warm, Dry, normal turgor, no rashes or lesions noted 05/21/20 19:14 Past History - Medical History Allergies/Adverse Reactions: Allergies Allergy/AdvReac Type Severity Reaction Status Date / Time No Known Allergies Allergy Verified 05/21/20 17:44 Home Medications: Ambulatory Orders Aspirin 81 mg PO DAILY 04/10/19 Atorvastatin Calcium 80 mg PO HS 04/10/19 Insulin Glargine,Hum.rec.anlog [Basaglar Kwikpen U-100] 46 unit SQ AM 04/10/19 Insulin Lispro [Admelog Solostar] 100 unit SQ ASDIR 04/10/19 Lisinopril [Prinivil] 20 mg PO DAILY 04/10/19 Metoprolol Succinate [Toprol XL -] 50 mg PO DAILY 04/10/19 Pantoprazole Sodium [Protonix -] 40 mg PO BID #60 tablet.ec 07/26/19 Amlodipine Besylate 2.5 mg PO DAILY 05/21/20 Anemia: No Asthma: No Cancer: No Cardiac Disorders: Yes (cardiac bypass) CVA: No COPD: No CHF: Yes Dementia: No Diabetes: Yes (insulin dependent) GI Disorders: No Disorders: No HTN: Yes Hypercholesterolemia: Yes Liver Disease: No Psychiatric Problems: Yes (depression ) Seizures: No Thyroid Disease: Yes ( A CHILD) - Surgical History Abdominal Surgery: Yes (Gastric sleeve) Appendectomy: No Cardiac Surgery: Yes (CABG 2013/ stent 1) Cholecystectomy: No Gastric Stapling: Yes (sleeve 2012) Lung Surgery: No Neurologic Surgery: No Orthopedic Surgery: No - Reproductive History Is Patient Now?: No (#): 6 Para: 2 Therapeutic (s) & number: Yes (2) Spontaneous : 2 - Immunization History Td Vaccination: Yes Immunization Up to Date: Yes - Psycho-Social/Smoking History Smoking Status: Yes Smoking History: Current every day smoker Years of Tobacco Use: 15 Have you smoked in the past 12 months: Yes Number of Cigarettes Smoked Daily: 20 If you are a former smoker, when did you quit?: 2 WKS Cigars Per Day: 0 Information on smoking cessation initiated: No 'Breaking Loose' booklet given: 07/26/19 - Substance Abuse Hx (Audit-C & DAST Scrn) How often the patient has a drink containing alcohol: Never Score: In Men: 4 or > Positive; In Women: 3 or > Positive: 0 Screen Result (Pos requires Nsg. Audit-10AR): Negative *Physical Exam - Vital Signs Last Vital Signs Temp Pulse Resp BP Pulse Ox 97.2 F L 70 18 156/68 100 05/21/20 17:44 05/21/20 17:44 05/21/20 17:44 05/21/20 17:44 05/21/20 17:44 ED Treatment Course - LABORATORY CBC & Chemistry Diagram: 05/21/20 18:50 05/21/20 18:50 Medical Decision Making - Medical Decision Making 05/21/20 20:20 35 yo F DM, CABG on asa, chronic smoker, HTN, frequent UTI came to the ED for right plank pain concerning for pyelophritis, complicated UTI, kidney stone. blood work. 05/21/20 20:23 Blood work showed hyperkalemia (5.6), hyperglycemia (200s) , high creatine (1.5 at baseline). will give kayaxylaate EKG showed normal sinus rthym, vent rate 62, qtc 442. UA is not impressive. No sign of UTI. Patient doesn't have high white blood cell count, afebrile. 05/21/20 20:54 05/21/20 21:15 Patient wanted to leave. Stable to d/c. follow with PCP. 05/21/20 21:15 05/21/20 21:18 05/21/20 21:55 Discharge - Discharge Information Problems reviewed: Yes Clinical Impression/Diagnosis: Flank pain Condition: Good Disposition: HOME - Follow up/Referral Referrals: Sukhjinder Hendrix MD, MD [Primary Care Provider] - - Patient Discharge Instructions Additional Instructions: You were seen in the ED for complaints of right plank pain. In the ED you were evaluated with blood work Your results were unremarkable. Keep up with your home meds. There does not appear to be an acute need for immediate hospitalization. You are advised to follow up with your Primary Care Physician within 1 week. Return to the ED immediately if you experience worsening back pain. Please use tylenol and motrin as needed. Please stay hydrated. - Post Discharge Activity Work/Back to School Note: Back to Work
--- OUTSIDE RECORDS SUMMARY | 2020-05-21 18:33 | XMS ---
:1985 Author Organization [facility] Care Team Providers Name Role Phone RADHA MACHADO Unavailable Unavailable ESPINOZA SANTOS Unavailable Unavailable RESTORATIONISTKHUSHBOO Unavailable Unavailable EMERGENCY SERVICE, X Unavailable Unavailable ZEINAB FOLEY Unavailable Unavailable Re-disclosure Warning The records that you are about to access may contain information from federally- assisted alcohol or drug abuse programs. If such information is present, then the following federally mandated warning applies: This information has been disclosed to you from records protected by federal confidentiality rules (42 CFR part 2). The federal rules prohibit you from making any further disclosure of this information unless further disclosure is expressly permitted by the written consent of the person to whom it pertains or as otherwise permitted by 42 CFR part 2. A general authorization for the release of medical or other information is NOT sufficient for this purpose. The Federal rules restrict any use of the information to criminally investigate or prosecute any alcohol or drug abuse patient.The records that you are about to access may contain highly sensitive health information, the redisclosure of which is protected by Article 27-F of the [facility] Public Health law. If you continue you may haveaccess to information: Regarding HIV / AIDS; Provided by facilities licensed or operated by the [facility] Office of Mental Health; or Provided by the [facility] Office for People With Developmental Disabilities. If such information is present, then the following [facility] mandated warning applies: This information has been disclosed to you from confidential records which are protected by state law. State law prohibits you from making any further disclosure of this information without the specific written consent of the person to whom it pertains, or as otherwise permitted by law. Any unauthorized further disclosure in violation of state law may result in a fine or fdc sentence or both. A general authorization for the release of medical or other information is NOT sufficient authorization for further disclosure. Allergies and Adverse Reactions Type Description Substance Reaction Status Data Source(s ) Drug allergy No Known Drug No Known Drug [facility] Allergies Allergies Health Care [facility] Encounters Encounter Providers Location Date Indications Data Source(s ) Outpatient 03/13/2020 NETSMART 03:10:00 PM ([facility]) Outpatient Attender: RESTORATIONIST, 02[facility]2020 [facility]: [facility] RESTORATIONISTEutechnyx EDT Retrieve HUMAYUNReferrer: KHUSHBOO DURBIN R35.0 Outpatient Attender: RESTORATIONIST, 02/06/2020 10:30:00 R35.0 [facility] HUMAYUNAdmitter: LORA DURBIN EDT [facility] Care HUMAYUNReferrer: Elijah DURBIN HUMAYUN R35.0 Emergency Attender: EMERGENCY 10/16/2019 LUMP NEAR [facility] SERVICE, XAttender: 06:29:00 PM EST [facility] PRESTON SANTOSdmitter: Cor porESPINOZA Kang LUMAndrea NEAR [facility] Outpatient Attender: CARTER, 10/09/2019 06:00:00 I25.10 [facility] HASANAdmitter: LORA MACHADO EST [facility] Care HASANReferrer: Danial MACHADO I25.10 Emergency Attender: ALAINA, 09/11/2019 12:19:00 CHEST PAIN [facility] HARVEYAttender: PM EST Health Ca re EMERGENCY SERVICE, Corpor ation XAdmitter: ZEINAB FOLEY CHEST PAIN Medications Medication Brand Start Product Dose Route Administrative Pharmacy [facility] Indications Reaction Description Data Name Date Form Instructions Instructions Source(s) Sertraline Zoloft 1.0 Oral active NET SMART 50 MG Oral 2019 Table ([facility] 04:00: t [facility] [Zoloft] 00 AM Community EDT Services) Sertraline Zoloft .0 Oral active NET SMART 25 MG Oral 2019 Table ([facility] 04:00: t [facility] [employer] [Zoloft] 00 AM Community EDT Services) Dextrose Dextro gm UNK active Dextrose [facility] 50% Syringe se 50% 2019 50% Syringe r County Syring 04:01: for Health e 53 PM Injection 25 Care EST gm IVP Corporatio n Medication administered onsite 0.9% NaCl 0.9% 09/11/2019 1000 mL UNK active 0.9 % NaCl [place] IV NaCl IV 02:55:45 PM [id number] mL [facility] Care Corporation Medication administered onsite Insulin Insulin 09/11/2019 10 UNK active Insul in [place] Lispro Lispro 01:35:20 PM units Lispro C [facility] (Mabel (Mabel EST (Humalog) Care Injection Corporatio n 10 units SubQ Medication administered onsite 0.9% NaCl 0.9% NaCl 09/11/2019 1000 mL UNK active 0.9% [place] IV IV 01:35:14 PM EST NaCl IV C [facility] 1000 mL Care Corporation Medication administered onsite Bentyl Bentyl 09/11/2019 20 UNK active Bentyl [place] (Dicyclomine) (Dicyclomine) 01:16:53 PM mg (Dicyclomine) [facility] Oral Give 20 Health Care mg PO Corporation Medication administered onsite Mylanta(mag Mylanta(mag 09/11/2019 30 UNK active Mylanta (mag [place] hydrox/a hydrox/a 01:16:53 PM mL hydro x/al [facility] hydrox/simeth) Healt h Care Give 30 mL PO Corpo ration Medication administered onsite Lidocaine Lidocaine 09/11/2019 10 UNK active L idocaine [place] Viscous So Viscous So 01:16:53 PM mL V iscous [facility] Solution Care Oral Give Corporatio n 10 mL PO Medication administered onsite Tamiflu 75 MG 10/26/2015 999 UNK completed Tamiflu 75 MG [place] Oral Capsule 04:02:43 PM MG Oral Capsule [facility] TAKE 1 Health Care CAPSULE TWICE Corpor ation DAILY WITH MEALS. Dispense: 10 Tamiflu 75 MG 10/26/2015 999 UNK completed Tamiflu 75 MG [place] Oral Capsule 04:02:43 PM MG Oral Capsule [facility] TAKE 1 Health Care CAPSULE TWICE Corpor ation DAILY WITH MEALS. Dispense: 10 24 HR metopr 999 oral completed metoprolol [facility] Hydrochloroth olol MG marcos-hydroc or [facility] iazide 12.5 marcos-hyd othiaz [facility] Care MG / [employer] [facility] metoprolol rothia succinate 100 z MG Extended Release Oral Tablet [Dutoprol] metoprolol marcos-hydrochlor othiaz atorvastatin atorva 999 oral completed atorv astatin [place] 10 MG Oral statin MG County Tablet Health Care [Lipitor] Corporatio n ferrous ferrou 999 oral discontinued ferrous [place] sulfate 134 s MG sulfate Count y MG Oral sulfat Health Car e Tablet Fixit Express Not Taking Not 999 UNK discontinued Not Ta [facility] Home Meds Taking MG Home Meds Cou [facility] Health Care Meds Retrieve insulin pump insuli 999 subcutan discontinued insulin pump [facility] n pump MG eous cartridge Cou [facility] [employer] Retrieve Admelog 999 subcutan completed Admog [place] SoloStar MG [facility] U-100 Insulin U-100 Insul in [facility] Care Retrieve insulin pump insuli 999 subcutan discontinued insulin pump [place] cartridge n pump MG eous cartridge Cou [facility] [employer] ferrous ferrou 999 oral discontinued ferrous [place] sulfate 134 s MG sulfate Count y MG Oral sulfat Health Car e Tablet e Retrieve Aspirin 81 MG aspiri 999 oral completed aspi rin [place] Delayed n MG County Release Oral Health Care Capsule [YSP Corpora tion Aspirin] aspirin Pre-Yulia Pre-Na 999 oral discontinued Pre-Yulia [place] Multivitamins t MG Multivitami ns County /Minerals Multiv /Minerals [facility] Care itamin Retrieve s/Mine rals Sertraline Zoloft 999 oral discontinued Zolo ft [place] 100 MG Oral MG [facility] Care [Zoloft] Corporation Aspirin 81 MG aspiri 999 oral completed aspi rin [place] Delayed n MG County Release Oral Health Care Capsule [YSP Corpora tion Aspirin] aspirin Lisinopril lisino 999 oral completed lisinop ril [place] 2.5 MG Oral pril MG [facility] Care [Prinivil] Corporati on lisinopril Sertraline Zoloft 999 oral discontinued Zolo ft [place] 100 MG Oral MG [facility] Tablet Health Care [Zoloft] Corporation 24 HR metopr 999 oral completed metoprolol [place] Hydrochloroth olol MG marcos-hydrochl or [facility] iazide 12.5 marcos-hyd othiaz [facility] th Care MG / rochlo Corporation metoprolol rothia succinate 100 z MG Extended Release Oral Tablet [Dutoprol] metoprolol marcos-hydrochlor othiaz Basaglar 999 subcutan completed Basagla r [place] KwikPen U-100 MG eous KwikPen U-1 00 [facility] Health La re Corporation pantoprazole pantop 999 oral completed panto prazole [place] 40 MG Oral razole MG [facility] Health Care [Protonix] Corporati on Amlodipine amlodi 999 oral completed amlodip ine [place] 2.5 MG Oral pine MG [facility] [Norvasc] Corporatio n amlodipine atorvastatin atorva 999 oral completed atorv astatin [place] 10 MG Oral statin MG [facility] [Lipitor] Corporatio n Aspirin 81 MG Aspir- 999 oral discontinued A spir-81 [place] Delayed 81 MG County Release Oral Health Care Tablet Corporation Aspir-81 pantoprazole pantop 999 oral completed panto prazole [place] 40 MG Oral razole MG [facility] Health Care [Protonix] Corporati on Aspirin 81 MG Aspir- 999 oral discontinued A spir-81 [place] Delayed 81 MG County Release Oral Health Care Tablet Corporation Aspir-81 Pre-Yulia Pre-Na 999 oral discontinued Pre-Yulia [place] Multivitamins t MG Multivitami ns County /Minerals Multiv /Minerals [facility] Care itamin Corporation s/Mine rals Basaglar 999 subcutan completed Basagla r [place] KwikPen U-100 MG eous KwikPen U-1 00 [facility] Health Ca re Corporation Lisinopril lisino 999 oral completed lisinop ril [place] 2.5 MG Oral pril MG [facility] [Prinivil] Corporati on lisinopril Amlodipine amlodi 999 oral completed amlodip ine [place] 2.5 MG Oral pine MG [facility] [Norvasc] Corporatio n amlodipine Admelog 999 subcutan completed Admelog [place] SoloStar MG eous [facility] U-100 Insulin U-100 Insul in Health Care Retrieve Not Taking Not 999 UNK discontinued Not Ta [facility] Home Meds Taking MG [facility] Med[facility] Med[facility] Retrieve Insurance Providers Payer name Policy type Policy ID Covered Covered alliance party's Policy P kyle / Coverage alliance party ID relationship to Sierra Inf ormation type sierra TOM [id number] SP [id number] HEALTH NON CAP MEDICAID [id number] SP [id number] UNK UNK UNK UNK UNK UNK UNK UNK UNK UNK UNK UNK TOM [id number] SP [id number] HEALTH NON CAP Medicaid [id number] S [id number] Regular Clinic Visit Problems, Conditions, and Diagnoses Code Display Name Description Problem Type Effective Data Sour ce(s) Dates [id number] Recurrent major Recurrent major Complaint 03/19/2020 NETS MART depressive depressive 04:00:00 PM ([place] episodes, moderate episodes, [facility]) R35.0 Frequency of FREQUENCY OF Diagnosis 02/06/2020 [facility] r micturition MICTURITION 10:30:00 AM [facility] [employer] Z32.02 Encounter for ENCOUNTER FOR Diagnosis 10/16/2019 [facility] test, TEST, 06:29:00 PM Cou [employer] result negative RESULT NEGATIVE [employer] Z98.84 Bariatric surgery BARIATRIC SURGERY Diagnosis 10/16/2019 [place] status STATUS 06:29:00 PM [employer] Z79.84 [facility] (current) MANAGER URGENT CARE Diagnosis 10/16/2019 [facility] анна use of oral (CURRENT) USE OF 06:29:00 PM Lab21 hypoglycemic drugs ORAL HYPOGLYCEMIC [employer] R10.31 Right lower RIGHT LOWER Diagnosis 10/16/2019 [place] quadrant pain QUADRANT PAIN 06:29:00 PM [facility] EST Care Corporation S30.1XXA Contusion of CONTUSION OF Diagnosis 10/16/2019 [facility] r abdominal wall, ABDOMINAL WALL, 06:29:00 PM Cou [facility] initial encounter INITIAL ENCOUNTER EST Care Corporation Z79.02 [facility]FP (current) MANAGER URGENT CARE Diagnosis 10/09/2019 [facility] use of (CURRENT) USE OF 06:00:00 AM [facility] antithrombotics/ant ANTITHROMBOTICS/A EST Care iplatelets NTIPLATELETS Retrieve Y92.89 Other specified OTH PLACES THE Diagnosis 10/09/2019 [facility] as the [facility] PLACE OF 06:00:00 AM Coun ty Health of occurrence of OCCURRENCE OF THE EST C are the external cause EXTERNAL CAUSE Co rporation Y83.1 Surgical operation IMPLNT OF ARTIF Diagnosis 10/09/2019 [facility] with implant of INT DEV CAUSE ABN 06:00:00 AM C [employer] artificial internal REACT/COMPL, W/O EST Care device as the cause MISADVNT Corpo ration of abnormal reaction of the patient, or of later complication, without mention of misadventure at the time of the procedure F17.210 Nicotine NICOTINE Diagnosis 10/09/2019 [place] dependence, DEPENDENCE, 06:00:00 AM [facility] cigarettes, CIGARETTES, EST Care uncomplicated UNCOMPLICATED Corporat ion E78.5 Hyperlipidemia, HYPERLIPIDEMIA, Diagnosis 10/09/2019 [place] unspecified UNSPECIFIED 06:00:00 AM [facility] EST Care Corporation I10 Essential (primary) ESSENTIAL Diagnosis 10/09/2019 [facility] hypertension (PRIMARY) 06:00:00 AM [facility] HYPERTENSION EST Care Corporation E11.9 Type 2 diabetes TYPE 2 DIABETES Diagnosis 10/09/2019 [place] mellitus without MELLITUS WITHOUT 06:00:00 AM C [employer] complications COMPLICATIONS EST Care Corporation I27.20 Pulmonary PULMONARY Diagnosis 10/09/2019 [place] hypertension, HYPERTENSION, 06:00:00 AM [facility] unspecified UNSPECIFIED EST Care Corporation T82.856A Stenosis of STENOSIS OF Diagnosis 10/09/2019 [place] peripheral vascular PERIPHERAL 06:00:00 AM Coun ty Health stent, initial VASCULAR STENT, EST Care encounter INITIAL ENCOUNTER Corpora tion I25.119 Atherosclerotic ATHSCL HEART Diagnosis 10/09/2019 [facility] heart disease of DISEASE OF [place] 06:00:00 AM [facility] [place] coronary COR ART W UNSP EST Care artery with ANG [employer] Corporation unspecified angina pectoris I20.9 Angina pectoris, ANGINA PECTORIS, Diagnosis 10/09/2019 [facility] unspecified UNSPECIFIED 06:00:00 AM [facility] [employer] Z79.82 [facility] (current) MANAGER URGENT CARE Diagnosis 09/11/2019 [facility] jj use of aspirin (CURRENT) USE OF 12:19:00 PM Cou [facility] ASPIRIN [facility] Retrieve Z79.4 [facility]FP (current) MANAGER URGENT CARE Diagnosis 09/11/2019 [facility] jj use of insulin (CURRENT) USE OF 12:19:00 PM Cou [facility] [employer] INSULIN [facility] Retrieve Z95.828 Presence of other PRESENCE OF OTHER Diagnosis 09/11/2019 [place] vascular implants VASCULAR IMPLANTS 12:19:00 PM [facility] and grafts AND GRAFTS [facility] Retrieve Z95.1 Presence of PRESENCE OF Diagnosis 09/11/2019 [place] aortocoronary AORTOCORONARY 12:19:00 PM [facility] bypass graft BYPASS GRAFT [facility] Retrieve 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 09/11/2019 [place] stomach [part of] OF STOMACH (PART 12:19:00 PM [facility]) [employer] F17.200 Nicotine NICOTINE Diagnosis 09/11/2019 [place] dependence, DEPENDENCE, 12:19:00 PM [facility] unspecified, UNSPECIFIED, EST [facility] uncomplicated UNCOMPLICATED Corporat ion E11.649 Type 2 diabetes TYPE 2 DIABETES Diagnosis 09/11/2019 [place] mellitus with MELLITUS WITH 12:19:00 PM [facility] hypoglycemia HYPOGLYCEMIA EST Care without coma WITHOUT COMA Corporatio n R07.89 Other chest pain OTHER CHEST PAIN Diagnosis 09/11/2019 [place] 12:19:00 PM [facility] [employer] [facility] Results ID Date Data Source [id number] 02/06/2020 05:53:00 PM EDT [facility] Name Value Range Interpretation Code Description Data Cecile rce(s) Supporting Document(s ) COV2 [facility] This lab was ordered by SAROJ gomes nd reported by [facility] Raisa. Procedure Patient Treatment Plan of Care Planned Activity Planned Date Details Description Data Source (s) Dextrose 50% Syringe 09/11/2019 04:01:53 [facility] Care Cor poration 0.9% NaCl IV 09/11/2019 02:55:[address] [place] [address] [place] PM EST Health Care Cor poration Insulin Lispro (Mabel 09/11/2019 01:35:20 [facility] Health Care Cor poration 0.9% NaCl IV 09/11/2019 01:35:14 [facility] EST Health Care Cor poration Mylanta(mag hydrox/a 09/11/2019 01:16:53 [facility] EST Health Care Cor poration Lidocaine Viscous So 09/11/2019 01:16:53 [facility] EST Health Care Cor poration Bentyl (Dicyclomine) 09/11/2019 01:16:53 [facility] EST Health Care Cor poration
[2020-05-21 19:21] LABS: BASO % 0.8 % (0-2.0); EOS % 2.5 % (0-4.5); HEMATOCRIT 29.7 % (32.4-45.2); HEMOGLOBIN 9.6 GM/dL (10.7-15.3); LYMPH % 32.5 % (8-40); MCH 26.7 pg (25.7-33.7); MCHC 32.4 g/dl (32.0-36.0); MEAN CELL VOLUME 82.4 fl (80-96); MEAN PLT VOLUME 10.7 fl (7.5-11.1); MONO % 8.2 % (3.8-10.2); PLATELET COUNT 210 K/MM3 (134-434); RDW 14.5 % (11.6-15.6); WHITE BLOOD COUNT 5.6 K/mm3 (4.0-10.0)
[2020-05-21 19:41] LABS: HCG,QUALITATIVE URINE Negative
[2020-05-21 19:53] LABS: ALBUMIN 2.3 g/dl (3.4-5.0); ALK PHOS 82 U/L (45-117); ANION GAP 4 MMOL/L (8-16); BILIRUBIN,TOTAL < 0.1 mg/dL (0.2-1); BLOOD UREA NITROGEN 26.4 mg/dL (7-18); CALCIUM 7.8 mg/dL (8.5-10.1); CHLORIDE 115 mmol/L (98-107); CO2 22 mmol/L (21-32); CREATININE 1.5 mg/dL (0.55-1.3); GLUCOSE,RANDOM 235 mg/dL (74-106); POTASSIUM 5.6 mmol/L (3.5-5.1); SGOT/AST 26 U/L (15-37); SGPT/ALT 23 U/L (13-61); SODIUM 141 mmol/L (136-145); TOT PROT 5.6 g/dl (6.4-8.2)
[2020-05-21] MEDS ORDERED: SODIUM POLYSTYRENE SULFONATE 15 GM/60 ML BOTTLE PO ONE (20:04)
[2020-05-21] MEDS ORDERED: SODIUM POLYSTYRENE SULFONATE 15 GM/60 ML BOTTLE ONE (20:13)
--- NOTE | 2020-05-21 20:16 | PDOC ---
Documentation entered by Eva Hairston SCRIBE, acting as scribe for Trudy Slaughter MD. Trudy Slaughter MD: This documentation has been prepared by the Marika toribio Brenda, SCRIBE, under my direction and personally reviewed by me in its entirety. I confirm that the documentation accurately reflects all work, treatment, procedures, and medical decision making performed by me. Attending Attestation - Resident Resident Name: Harvey Meraz - ED Attending Attestation I have performed the following: I have examined & evaluated the patient, The case was reviewed & discussed with the resident, I agree w/resident's findings & plan, Exceptions are as noted - HPI HPI: 05/21/20 20:05 IDDM (since age of 2), HTN, HLD, CAD s/p CABG, CHF, multiple drug use occasions (smoking and drinking daily) and gastric sleeve sent from urgent care ([facility]) to r/o complicated UTI. Patient was put on antibiotics previously for UTI but has not gotten any better. Per Urgent Care, the concern is that she has ESBL. The patient is endorsing suprapubic abdominal pain. The patient denies dysruia, hematura, urgency or frequency. Denies chest pain, SOB, fever/chills. Ecstacy and cocaine in past 4 days. Allergies: NKA Social: Mulitple drug use - Physicial Exam PE: 05/21/20 20:11 GENERAL: Well-appearing, well-nourished. No apparent distress. HEENT: Normocephalic, atraumatic. PERRL, EOM intact. CARDIOVASCULAR: Normal S1, S2. Regular rate and rhythm. PULMONARY: Clear to auscultation bilaterally. ABDOMEN: Soft, non-distended, non-tender. EXTREMITIES: Normal ROM in all four extremities. No gross deformities. SKIN: Warm, dry. No rash NEUROLOGICAL: No focal neurological deficits. - Medical Decision Making 05/21/20 20:30 ekg NSR 62 , normal t waves, no ischemia 05/21/20 20:37 cbc there is no leukocytosis , she has no fever,no nausea or vomiting UA no active infection evident Discharge - Discharge Information Problems reviewed: Yes Clinical Impression/Diagnosis: Flank pain Condition: Good Disposition: HOME - Follow up/Referral Referrals: Sukhjinder Hendrix MD, MD [Primary Care Provider] - - Patient Discharge Instructions Additional Instructions: You were seen in the ED for complaints of right plank pain. In the ED you were evaluated with blood work Your results were unremarkable. Keep up with your home meds. There does not appear to be an acute need for immediate hospitalization. You are advised to follow up with your Primary Care Physician within 1 week. Return to the ED immediately if you experience worsening back pain. Please use tylenol and motrin as needed. Please stay hydrated. - Post Discharge Activity Work/Back to School Note: Back to Work
[2020-05-21 20:32] LABS: EPI CELLS 9 /uL (0-25.1); HYALINE CASTS 2 /uL (0-3.1); URINE APPEARANCE CLEAR; URINE BACTERIA 4 /uL (0-1359); URINE BILIRUBIN NEGATIVE (NEGATIVE); URINE COLOR YELLOW; URINE GLUCOSE (UA) NEGATIVE (NEGATIVE); URINE KETONE NEGATIVE (NEGATIVE); URINE LEUK ESTERASE NEGATIVE (NEGATIVE); URINE NITRITE NEGATIVE (NEGATIVE); URINE PROTEIN 3+ (NEGATIVE); URINE RBC 18 /uL (0-23.9); URINE UROBILINOGEN 0.2 mg/dL (0.2-1.0); URINE WBC 10 /uL (0-25.8)
--- NOTE | 2020-05-22 09:59 | EKG ---
Test Reason : Blood Pressure : / mmHG Vent. Rate : 062 BPM Atrial Rate : 062 BPM P-R Int : 150 ms QRS Dur : 086 ms QT Int : 436 ms P-R-T Axes : 031 051 064 degrees QTc Int : 442 ms NORMAL SINUS RHYTHM NONSPECIFIC ST ABNORMALITY ABNORMAL ECG WHEN COMPARED WITH ECG OF 02-MAR-2020 06:43, T WAVE INVERSION LESS EVIDENT IN ANTEROLATERAL LEADS Confirmed by Mati Castillo ([id number]) on 05/22/2020 9:59:20 AM Referred By: Confirmed By:Mati Castillo
== END 2020-05-21 21:23 | disposition home or self-care (01) ==
LOC: JER 17:31
DX: R10.9 Unspecified abdominal pain (principal)
CPT/HCPCS: 36415; 80053; 81003; 84703; 85025; 87086; 93005; 93010; 99284-25

== ENCOUNTER 2020-08-24 10:48 | Emergency (ER) | payer OTHER ==
[2020-08-24 11:05] VITALS: BMI 29.2
[2020-08-24] MEDS ORDERED: hydrALAZINE HCL 25 MG TABLET (FP) PO ONE (12:12)
[2020-08-24] MEDS ORDERED: NIFEdipine E.R. 90 MG TABLET PO ONE (12:13)
[2020-08-24] MEDS ORDERED: hydrALAZINE HCL 25 MG TABLET (FP) ONE (12:19)
[2020-08-24] MEDS ORDERED: NIFEdipine E.R. 30 MG TABLET ONE (12:20)
[2020-08-24] MEDS ORDERED: SERTRALINE HCL 50 MG TABLET (FP) PO ONE (12:32)
[2020-08-24] MEDS ORDERED: ASPIRIN 81 MG CHEWABLE TABLETS PO ONE (12:32)
[2020-08-24] MEDS ORDERED: ASPIRIN 81 MG CHEWABLE TABLETS ONE (12:41)
[2020-08-24] MEDS ORDERED: SERTRALINE HCL 50 MG TABLET (FP) ONE (12:42)
[2020-08-24 13:05] LABS: BASO % 0.2 % (0-2.0); EOS % 0.1 % (0-4.5); HEMATOCRIT 29.6 % (32.4-45.2); HEMOGLOBIN 9.5 GM/dL (10.7-15.3); LYMPH % 12.7 % (8-40); MCH 26.2 pg (25.7-33.7); MCHC 32.1 g/dl (32.0-36.0); MEAN CELL VOLUME 81.4 fl (80-96); MEAN PLT VOLUME 10.6 fl (7.5-11.1); MONO % 3.8 % (3.8-10.2); NEUT % 83.2 % (42.8-82.8); PLATELET COUNT 305 K/MM3 (134-434); RBC 3.63 M/mm3 (3.60-5.2); RDW 13.9 % (11.6-15.6); WHITE BLOOD COUNT 8.1 K/mm3 (4.0-10.0)
[2020-08-24 13:18] LABS: CHLORIDE 105 mmol/L (98-107); POTASSIUM 4.5 mmol/L (3.5-5.1); SODIUM 133 mmol/L (136-145)
[2020-08-24 13:20] LABS: ALBUMIN 1.6 g/dl (3.4-5.0); ANION GAP 4 MMOL/L (8-16); BLOOD UREA NITROGEN 17.7 mg/dL (7-18); CALCIUM 7.5 mg/dL (8.5-10.1); CO2 24 mmol/L (21-32); GLUCOSE,RANDOM 239 mg/dL (74-106)
[2020-08-24 13:23] LABS: CREATININE 1.3 mg/dL (0.55-1.3); SGOT/AST 13 U/L (15-37); SGPT/ALT 11 U/L (13-61)
[2020-08-24 13:25] LABS: BILIRUBIN,TOTAL < 0.1 mg/dL (0.2-1); TOT PROT 5.1 g/dl (6.4-8.2)
[2020-08-24 13:26] LABS: ALK PHOS 68 U/L (45-117)
[2020-08-24 13:53] LABS: EPI CELLS 7 /uL (0-25.1); HYALINE CASTS 4 /uL (0-3.1); PH,URINE 5.5 (5.0-8.0); URINE APPEARANCE CLOUDY; URINE BACTERIA >9,000 /uL (0-1359); URINE BILIRUBIN NEGATIVE (NEGATIVE); URINE COLOR YELLOW; URINE GLUCOSE (UA) NEGATIVE (NEGATIVE); URINE KETONE NEGATIVE (NEGATIVE); URINE LEUK ESTERASE NEGATIVE (NEGATIVE); URINE NITRITE NEGATIVE (NEGATIVE); URINE PROTEIN 3+ (NEGATIVE); URINE RBC 14 /uL (0-23.9); URINE UROBILINOGEN 0.2 mg/dL (0.2-1.0); URINE WBC 166 /uL (0-25.8)
[2020-08-24] MEDS ORDERED: Insulin (LOG) Aspart 100 UNITS/ML VIAL SQ ONE (14:11)
[2020-08-24] MEDS ORDERED: CEFTRIAXONE 1 GM in DEXTROSE 5%-WATER - 100 ML IVPB ONE (16:45)
[2020-08-24] MEDS ORDERED: CEFTRIAXONE 1 GM/50 ML BAG ONE (17:32)
[2020-08-24 18:17] VITALS: PULSE 74; TEMP 98.2
[2020-08-24 19:24] VITALS: BP 135/70
== END 2020-08-24 18:19 | disposition home or self-care (01) ==
LOC: JER 10:48
PROC: 3E033GC Introduction of Other Therapeutic Substance into Peripheral Vein, Percutaneous Approach (ICD-10-PCS; principal; 2020-08-24)
PROC: 3E023GC Introduction of Other Therapeutic Substance into Muscle, Percutaneous Approach (ICD-10-PCS; principal; 2020-08-24)
DX: O24.012 Pre-existing type 1 diabetes mellitus, in pregnancy, second trimester (principal); E10.649 Type 1 diabetes mellitus with hypoglycemia without coma; O23.42 Unspecified infection of urinary tract in pregnancy, second trimester; Z3A.17 17 weeks gestation of pregnancy
CPT/HCPCS: 36415; 80053; 81003; 82962; 85025; 87086; 87186; 93005; 93010; 99284-25

== ENCOUNTER 2024-09-24 05:17 | Emergency (ER) | payer MEDICARE, OTHER ==
[2024-09-24 05:39] VITALS: PULSE 98; BMI 31.4
[2024-09-24] MEDS: SODIUM CHLORIDE 0.9% 500 ML INFUS.BAG IV ONE (06:17)
[2024-09-24 06:29] LABS: VENOUS BASE EXCESS -26.4 mmol/L (-2-2); VENOUS PCO2 24.7 mmHg (38-52); VENOUS PH 6.923 (7.310-7.410)
[2024-09-24 06:30] LABS: HEMATOCRIT 43.3 % (32.4-45.2); HEMOGLOBIN 11.5 GM/dL (10.7-15.3); MCH 24.9 pg (25.7-33.7); MCHC 26.6 g/dl (32.0-36.0); MEAN CELL VOLUME 93.5 fl (80-96); MEAN PLT VOLUME 11.1 fl (7.5-11.1); PLATELET COUNT 351 10^3/uL (134-434); RBC 4.63 M/mm3 (3.60-5.2); RDW 18.2 % (11.6-15.6); WHITE BLOOD COUNT 24.4 K/mm3 (4.0-10.0)
[2024-09-24] MEDS ORDERED: PIPERACILLIN/TAZOB 4.5 GM 4.5 GM/100 ML BAG IVPB ONE (07:22)
[2024-09-24] MEDS ORDERED: INSULIN REGULAR 100 UNITS in SODIUM CHLORIDE 99 ML IVPB SCH (07:30)
[2024-09-24] MEDS: PIPERACILLIN/TAZOB 4.5 GM 4.5 GM in DEXTROSE 5%-WATER 100 ML IVPB ONE (07:33)
[2024-09-24 07:58] LABS: CHLORIDE 94 mmol/L (98-107); SODIUM 132 mmol/L (136-145)
[2024-09-24 08:00] LABS: CALCIUM 9.7 mg/dL (8.5-10.1)
[2024-09-24 08:01] LABS: ALBUMIN 3.5 g/dl (3.4-5.0); CO2 5 mmol/L (21-32); MAGNESIUM 2.8 mg/dL (1.8-2.4)
[2024-09-24 08:03] LABS: SGPT/ALT 23 U/L (13-61)
[2024-09-24 08:04] LABS: ANION GAP 33 mmol/L (4-13); CREATININE 2.8 mg/dL (0.55-1.3); LACTIC ACID 5.1 mmol/L (0.4-2.0); POTASSIUM 7.8 mmol/L (3.5-5.1); SGOT/AST 33 U/L (15-37)
[2024-09-24 08:05] LABS: BILIRUBIN,TOTAL 0.6 mg/dL (0.2-1); TOT PROT 7.1 g/dl (6.4-8.2)
[2024-09-24 08:06] LABS: ALK PHOS 134 U/L (45-117)
[2024-09-24 08:17] LABS: URINE APPEARANCE CLEAR; URINE BILIRUBIN NEGATIVE (NEGATIVE); URINE COLOR YELLOW; URINE GLUCOSE (UA) 3+ (NEGATIVE); URINE KETONE 2+ (NEGATIVE); URINE LEUK ESTERASE NEGATIVE (NEGATIVE); URINE NITRITE NEGATIVE (NEGATIVE); URINE PROTEIN TRACE (NEGATIVE); URINE UROBILINOGEN 0.2 mg/dL (0.2-1.0)
[2024-09-24] MEDS: INSULIN REGULAR 100 UNITS in SODIUM CHLORIDE 99 ML IVPB SCH (08:19)
[2024-09-24 08:21] LABS: GLUCOSE,RANDOM 1163 mg/dL (74-106)
[2024-09-24 08:46] LABS: VENOUS BASE EXCESS -28.2 mmol/L (-2-2); VENOUS O2 SATURATION 69.5 % (70-80)
[2024-09-24 08:47] LABS: VENOUS PH 6.886 (7.310-7.410)
[2024-09-24 08:55] LABS: ANISOCYTOSIS 0; MACROCYTOSIS 0
[2024-09-24 09:01] LABS: CHLORIDE 100 mmol/L (98-107); SODIUM 136 mmol/L (136-145)
[2024-09-24 09:02] LABS: CALCIUM 9.1 mg/dL (8.5-10.1)
[2024-09-24 09:03] LABS: BLOOD UREA NITROGEN 57.9 mg/dL (7-18); CO2 4 mmol/L (21-32)
[2024-09-24 09:06] LABS: CREATININE 2.8 mg/dL (0.55-1.3)
[2024-09-24 09:09] LABS: ANION GAP 32 mmol/L (4-13); GLUCOSE,RANDOM 1131 mg/dL (74-106); POTASSIUM 6.6 mmol/L (3.5-5.1)
[2024-09-24] MEDS ORDERED: CALCIUM GLUC IN NACL, ISO-OSM 1 GM/50 ML BAG IVPB ONE (09:11)
[2024-09-24] MEDS: CALCIUM GLUCONATE 10% - 1,000 MG/10 ML VIAL IVPB ONE (09:22)
[2024-09-24] MEDS: INSULIN REGULAR HUMAN 100 UNITS/ML *VIAL IVPUSH ONE (09:30)
[2024-09-24] MEDS: VANCOMYCIN HCL IN 5 % DEXTROSE 1,500 MG/300 ML BAG IVPB ONE (09:46)
[2024-09-24] MEDS: VANCOMYCIN HCL 1,500 MG in DEXTROSE 5%-WATER - 500 ML IVPB ONE (09:47)
[2024-09-24 11:02] VITALS: BP 128/43; RESP 24; TEMP 93.8
[2024-09-24 11:41] LABS: URINE RBC 4.5 /uL (0-23.9)
[2024-09-24 11:42] LABS: EPI CELLS 4.7 /uL (0-25.1); HYALINE CASTS 0 /uL (0-3.1); URINE BACTERIA 3.7 /uL (0-1359); URINE WBC 4.9 /uL (0-25.8)
== END 2024-09-24 11:02 | disposition short-term general hospital (02) ==
LOC: JER 05:17
PROC: 3E03329 Introduction of Other Anti-infective into Peripheral Vein, Percutaneous Approach (ICD-10-PCS; principal; 2024-09-24)
PROC: 3E03329 Introduction of Other Anti-infective into Peripheral Vein, Percutaneous Approach (ICD-10-PCS; 2024-09-24)
PROC: 3E033GC Introduction of Other Therapeutic Substance into Peripheral Vein, Percutaneous Approach (ICD-10-PCS; 2024-09-24)
PROC: 3E033GC Introduction of Other Therapeutic Substance into Peripheral Vein, Percutaneous Approach (ICD-10-PCS; 2024-09-24)
DX: R41.82 Altered mental status, unspecified (principal); E11.10 Type 2 diabetes mellitus with ketoacidosis without coma; N19 Unspecified kidney failure; R73.02 Impaired glucose tolerance (oral); E87.5 Hyperkalemia; R11.10 Vomiting, unspecified; Z20.822 Contact with and (suspected) exposure to COVID-19
CPT/HCPCS: 0241U-QW; 36415; 71045-TC-FY; 80048; 80053; 81003; 82803; 82962; 83605; 83735; 84443; 84484; 84703; 85025; 87040; 87086; 93005; 93010; 99291